=== PATIENT | female | born 1950 | race Caucasian/White ===

== ENCOUNTER 2016-03-13 07:16 | Inpatient (IN) | payer MEDICARE ==
[~2016-03-13] VITALS: Ht 167.6 cm; Wt 75.8 kg
[~2016-03-13 07:16] MED LIST: ALPR0.257 PO; AMOX1TAB58 PO; ATOR20TA58 PO; BACL10TA PO; BENZ100C2 PO; BISA10SU55 RC; CEFP200T PO; CEPH-263 PO; CLOP75TA27 PO; DARB60DI IJ; DILT120C97 PO; DILT120T3 PO; ERGO500012 PO; FAMO20TA5 PO; FERR-26 PO; FLUT1DIS5 IH; FOLI0.8T3 PO; FOLI1TAB16 PO; FURO-68 PO; GUAI200T3 PO; HYDR-2678 PO; HYDR-971 PO; HYDR25CA75 PO; IPRA3AMP23 IH; ISOS30TA4 PO; LEVE500T6 PO; LOSA100T2 PO; LOSA25TA4 PO; LOSA50TA2 PO; MAGN400O4 PO; NICO1PAT25 TD; NORT25CA3 PO; NYST1000 SWSW; NYST15OI2 TP; NYST60PO TP; ONDA4TAB12 PO; OXYB5TAB33 PO; POLY17PO5 PO; PRED-220 PO; SENN1TAB7 PO; TRAM50TA PO; TUBE5VIA3 ID; VENL150C6 PO; [UNRECOGNIZED DRUG - CODE] PO; [UNRECOGNIZED DRUG - CODE] PO
--- NOTE | 2016-03-13 07:43 | RAD ---
Portable chest, 03/13/2016: History: Dyspnea Comparison is made to a study from 01/19/2016. A multilumen right sided central venous catheter extends to the level of the atriocaval junction. The heart size and pulmonary vascularity are normal. Pleural effusions evident on the previous study have resolved. No pulmonary infiltrate is seen. An old, displaced right humeral neck fracture is again noted. A surgical plate and screws is evident in the lower cervical spine. IMPRESSION: No acute cardiopulmonary abnormality is detected.
[2016-03-13] MEDS ORDERED: methylPREDNISolone SOD SUCC PF 125 MG/2 ML VIAL. IV ONE (08:00)
[2016-03-13] MEDS ORDERED: IPRATRPIUM/ALBUTEROL 0.5/2.5MG 3 ML NEBU. NEB ONE (08:00)
[2016-03-13 08:01] LABS: BASO % 0 % (0-3); EOS % 0 % (0-3); HEMOGLOBIN 13.1 g/dL (12.0-15.5); LYMPH # 0.6 x10^3/uL (1.0-4.8); LYMPH % 4 % (24-48); MEAN CORPUSCULAR HEMOGLOBIN 28 pg (25-35); MEAN CORPUSCULAR HGB CONC 32 g/dL (31-37); MEAN CORPUSCULAR VOLUME 88 fL (79-100); MONO % 5 % (0-9); NEUT % 91 % (31-73); PLATELET COUNT 140 x10^3/uL (140-400); RED BLOOD COUNT 4.69 x10^6/uL (3.50-5.40); RED CELL DISTRIBUTION WIDTH 15.5 % (11.5-14.5); WHITE BLOOD COUNT 14.7 x10^3/uL (4.0-11.0)
[2016-03-13 08:07] LABS: CALCIUM 8.7 mg/dL (8.5-10.1); CREATININE 6.4 mg/dL (0.6-1.0); GFR 6.5; POTASSIUM 5.1 mmol/L (3.5-5.1)
--- NOTE | 2016-03-13 08:09 | PHYS DOC ---
Past Medical History Past Medical History: CHF, Constipation, COPD, CVA, Depression, High Cholesterol, Hypertension, [place] Additional Past Medical Histor: dysphagia, obesity, HEMODIALYSIS, constipation , cataract, right shoulder fx Past Surgical History: Other Additional Past Surgical Histo: left wrist; back; carotid; dialysis shunt right upper chest Alcohol Use: None Drug Use: None Adult General Chief Complaint Chief Complaint: SHORTNESS OF BREATH HPI HPI Patient is a 65 year old female who presents with dyspnea and dry cough for the past 2 months. She was seen at the beginning of January and treated for healthcare associated pneumonia. She states in the past 3 days she has significant difficulty breathing. She has had central chest pains with coughing that is achy over the past week or so. She denies hemoptysis, leg pain or swelling, palpitations, diaphoresis, exertional symptoms, orthopnea, sore throat , rhinorrhea, nasal congestion, abdominal pain, nausea or vomiting, diarrhea, headache. She has been compliant with dialysis on her Sunday, Sunday, Sunday schedule. EMS noted an oxygen saturation in the low 80s with significant tachypnea, so she was placed on CPAP prehospital with some improvement in her symptoms. She had nitroglycerin paste placed prehospital as well. She states her chest pain has resolved since therapy by EMS. She did wear her CPAP last night for SARITHA, but it did not help her as much as EMS's or ours. Review of Systems Review of Systems Constitutional: Denies fever or chills [] Eyes: Denies change in visual acuity, redness, or eye pain [] HENT: Denies nasal congestion or sore throat [] Respiratory: Has cough and shortness of breath [] Cardiovascular: No additional information not addressed in HPI [] GI: Denies abdominal pain, nausea, vomiting, bloody stools or diarrhea [] : Denies dysuria or hematuria [] Musculoskeletal: Denies back pain or joint pain [] Integument: Denies rash or skin lesions [] Neurologic: Denies headache, focal weakness or sensory changes [] Endocrine: Denies polyuria or polydipsia [] Current Medications Current Medications Current Medications Medications (Trade) Dose Ordered Sig/Negro Start Time Stop Time Status Last Admin Dose Admin Albuterol/ Ipratropium (Duoneb) 3 ml 1X ONCE 03/13/16 08:00 03/13/16 08:02 DC 03/13/16 08:28 3 ML Methylprednisolone Sodium Succinate (Solu-Medrol 125mg Vial) 125 mg 1X ONCE 03/13/16 08:00 03/13/16 08:02 DC 03/13/16 08:09 125 MG Allergies Allergies Allergies Coded Allergies Type Severity Reaction Last Updated Verified No Known Allergies Allergy Unknown 08/02/15 Yes Physical Exam Physical Exam Constitutional: Well developed, well nourished, moderate distress, non-toxic appearance. [] HENT: Normocephalic, atraumatic, bilateral external ears normal, oropharynx moist, no oral exudates, nose normal. [] Eyes: PERRLA, EOMI. [] Neck: Normal range of motion, suppler. [] Cardiovascular:Heart rate regular rhythm [] Lungs & Thorax: Bilateral mild wheezing, tachypnea, increased work of breathing. Has some parasternal chest wall tenderness with no visual or palpable abnormality [] Abdomen: Bowel sounds normal, soft, no tenderness. [] Skin: Warm, dry, no erythema, no rash. [] Back: No tenderness, no CVA tenderness. [] Extremities: No tenderness, ROM intact other than chronic RUE contracture from CVA, no edema, no palpable cord. [] Neurologic: Alert and oriented X 3, normal motor function, normal sensory function, no focal deficits noted. [] Psychologic: Affect normal, judgement normal, mood normal. [] Current Patient Data Vital Signs Vital Signs Date Time Temp Pulse Resp B/P Pulse Ox O2 Delivery O2 Flow Rate FiO2 03/13/16 07:20 100 BiPAP/CPAP 03/13/16 07:16 99.1 92 26 136/100 99.1 Lab Values Laboratory Tests Test 03/13/16 07:29 03/13/16 07:50 O2 Saturation 95% (92-99) Arterial Blood pH 7.27 (7.35-7.45) L Arterial Blood pCO2 at Patient Temp 35mmHg (35-46) Arterial Blood pO2 at Patient Temp 88mmHg (65-108) Arterial Blood HCO3 16mmol/L (21-28) L Arterial Blood Base Excess -10mmol/L (-3-3) L FiO2 25% White Blood Count 14.7x10^3/uL (4.0-11.0) H Red Blood Count 4.69x10^6/uL (3.50-5.40) Hemoglobin 13.1g/dL (12.0-15.5) Hematocrit 41.0% (36.0-47.0) Mean Corpuscular Volume 88fL (79-100) Mean Corpuscular Hemoglobin 28pg (25-35) Mean Corpuscular Hemoglobin Concent 32g/dL (31-37) Red Cell Distribution Width 15.5% (11.5-14.5) H Platelet Count 140x10^3/uL (140-400) Neutrophils (%) (Auto) 91% (31-73) H Lymphocytes (%) (Auto) 4% (24-48) L Monocytes (%) (Auto) 5% (0-9) Eosinophils (%) (Auto) 0% (0-3) Basophils (%) (Auto) 0% (0-3) Neutrophils # (Auto) 13.3x10^3uL (1.8-7.7) H Lymphocytes # (Auto) 0.6x10^3/uL (1.0-4.8) L Monocytes # (Auto) 0.7x10^3/uL (0.0-1.1) Eosinophils # (Auto) 0.0x10^3/uL (0.0-0.7) Basophils # (Auto) 0.0x10^3/uL (0.0-0.2) Platelet Estimate Pending Sodium Level 138mmol/L (136-145) Potassium Level 5.1mmol/L (3.5-5.1) Chloride Level 100mmol/L (98-107) Carbon Dioxide Level 19mmol/L (21-32) L Anion Gap 19 (6-14) H Blood Urea Nitrogen 85mg/dL (7-20) H Creatinine 6.4mg/dL (0.6-1.0) H Estimated GFR (Cockcroft-Gault) 6.5 Glucose Level 86mg/dL (70-99) Calcium Level 8.7mg/dL (8.5-10.1) Troponin I Quantitative 0.097ng/mL (0.000-0.055) YP-Uze-Q-Type Natriuretic Peptide > 58785ct/mL (0-124) H Laboratory Tests 03/13/16 07:50 Laboratory Tests 03/13/16 07:50 Radiology/Procedures Radiology/Procedures Chest xray as interpreted by me with no acute cardiopulmonary disease process Course & Med Decision Making Course & Med Decision Making Pertinent Labs and Imaging studies reviewed. (See chart for details) Symptoms and exam concerning for COPD exacerbation with acute respiratory failure. She states her symptoms are markedly improving with BiPAP here. ABG shows metabolic acidosis. She does have mildly elevated troponin and significant elevated proBNP in setting of end-stage renal disease, but her symptoms eval otherwise does not correlate with CHF exacerbation or HTN emergency. We will admit for further therapy of COPD exacerbation. Discussed case with Dr. Parra, who will admit. Pulmonology consultation placed. Discussed case with FILEMON Rothman cardiology, for routine consult. She remains chest pain free and is comfortable on BiPAP. Dragon Disclaimer Dragon Disclaimer This electronic medical record was generated, in whole or in part, using a voice recognition dictation system. Critical Care Time Critical care time was 40 minutes exclusive of procedures. Departure Departure Impression: Primary Impression: Respiratory failure Additional Impressions: COPD exacerbation Chest pain ESRD (end stage renal disease) on dialysis Elevated troponin Disposition: ADMITTED INPATIENT Condition: CRITICAL Referrals: LUZ CHARLTON Jr, MD (PCP) Problem Qualifiers Primary Impression: Respiratory failure Chronicity: acute Respiratory failure complication: hypoxia Qualified Code : J96.01 - Acute respiratory failure with hypoxia Additional Impressions: Chest pain Chest pain type: other chest pain Qualified Code: R07.89 - Other chest pain Mayuri DUNBAR MD Mar 13, 2016 08:09
[2016-03-13 08:15] LABS: HCO3 ABG 16 mmol/L (21-28); PCO2 ABG 35 mmHg (35-46); PH ABG 7.27 (7.35-7.45); PO2 ABG 88 mmHg (65-108); SAT O2 ABG 95 % (92-99)
[2016-03-13] MEDS ORDERED: LEVOFLOXACIN PER PHARMACY MC PRN (08:15)
[2016-03-13 08:21] LABS: FIO2 ABG 25%
[2016-03-13] MEDS ORDERED: ONDANSETRON PF 4 MG/2 ML VIAL. IV PRN ×2 (08:30→15:15)
[2016-03-13] MEDS ORDERED: ACETAMINOPHEN 325 MG TABLET. PO PRN ×2 (08:30→15:15)
[2016-03-13] MEDS ORDERED: FENTANYL PF 100 MCG/2 ML VIAL. IV PRN (08:30)
--- NOTE | 2016-03-13 08:33 | ACF ---
Admission Forms Criteria COPD Clinical Indications for Admission to Inpatient Care (Place 'X' for any and all applicable criteria): Admission is indicated for ANY ONE of the following (1)(2)(3): [X]I. Acute exacerbation by high-risk comorbidity (e.g., pneumonia, dysrhythmia, heart failure, pleural effusion, pneumothorax) or severe underlying COPD (e.g., steroid dependent) [ ]II. Inpatient admission required rather than observation care (see Chronic Obstructive Pulmonary Disease: Observation Care) because of ANY ONE of the following: [ ]a) New or pre-existing signs or symptoms of COPD (eg, dyspnea or Tachypnea at rest or with minimal activity) that persist despite outpatient and observation care treatment [ ]b) New-onset hypoxemia (room air SaO2 less than 90%, PO2 less than 60 mm Hg (8.0 kPa)) that persists despite outpatient and observation care treatment [ ]c) Worsening of pre-existing hypoxemia (eg, new or increased requirement for supplemental oxygen to maintain oxygenation at baseline level) that persists despite outpatient and observation care treatment, with oxygen treatment needs performable only in acute inpatient setting [ ]d) Hypercarbia (PCO2 greater than 40 mm Hg (5.3 kPa))-induced respiratory acidosis (pH less than 7.35) that persists despite outpatient and observation care treatment [ ]e) Supplemental oxygen or respiratory treatments for over 24 hours that are performable only in acute inpatient setting [ ]f) Chest tube placement with active evacuation (e.g., suction, drainage) (5) [ ]g) Other condition, treatment or monitoring requiring inpatient admission [ ]III. Planned invasive surgical or diagnostic procedures requiring acute- care hospitalization [ ]IV. Acute respiratory failure (e.g., uncompensated hypercarbia, severe hypoxemia) [ ]V. Severe comorbid condition (e.g., severe steroid myopathy, acute vertebral fracture) that has acutely worsened pulmonary function [ ]. Confusion state, lethargy, obtundation, stupor or coma Extended stay beyond goal length of stay may be needed for (31)(32): [ ]a ) Respiratory Failure. [ ]b) Severe or persisting hypoxemia or hypercarbia [ ]c) Severe or persistent dyspnea [ ]d) Comorbidities (e.g. chronic heart failure, atrial fibrillation with rapid response, pneumonia) [ ]e) Malnutrition The original [facility] content created by [facility] has been revised. The portions of the content which have been revised are identified through the use of italic text or in bold, and [facility] has neither reviewed nor approved the modified material. All other unmodified content is copyright [facility]. Please see references footnoted in the original [facility] edition 2016 Admission Criteria Met?: Yes GENI GRIDER Mar 13, 2016 08:33
[2016-03-13 09:30] VITALS: BP 130/76
--- NOTE | 2016-03-13 09:58 | EKG ---
[facility] [address] [place] [address] Test Date: 2016-03-13 Test Time: 09:51:49 Pat Name: SHARDA JOSEPH Department: Room: 261 1 Gender: F Handbag Stitcher: JOSELUIS : 1950 Requested By: Mayuri DUNBAR Order Number: [id number] Reading MD: Pasquale Rocha Measurements Intervals [place] Rate: 80 P: -27 [place]: 122 QRS: 18 QRSD: 76 T: 101 QT: 366 QTc: 426 Interpretive Statements SINUS RHYTHM NON-SPECIFIC ST/T CHANGES Electronically Signed On 03-13-2016 10:45:53 DATA INTEGRATION ARCHITECT by Pasquale Rocha
--- NOTE | 2016-03-13 10:04 | PDOC2 ---
CARDIAC CONSULT DATE OF CONSULT Date of Consult DATE: 03/13/16 TIME: 09:52 REASON FOR CONSULT Reason for Consult: Dyspnea Elevated BNP Elevated Troponin REFERRING PHYSICIAN Referring Physician: Dr. Pina SOURCE Source: Chart review, Patient HISTORY OF PRESENT ILLNESS HISTORY OF PRESENT ILLNESS This is a 65 yo female, with a h/o CHF, ESRD on HD MWF, recent PNA, HTN, HLP, and CVA, who presented with complaints of shortness of breath. Patient reports shortness of breath has been ongoing since having PNA this past January. Has been progressively worsening over the last week. Associated with non-productive cough. Liz any chest pain, palpitations, dizziness, diaphoresis, nausea/ vomiting, orthopnea, LE edema, or fevers. Has been compliant with HD. Last run Sunday. EMS noted oxygen saturations in the low 80's. Was placed on CPAP prior to arrival. Additionally has h/o SARITHA with CPAP and reports compliance with this. Continues to smoke 1ppd. Reports compliance with medications. Denies any h /o CAD or DC. PAST MEDICAL HISTORY Cardiovascular: CHF, HTN, Hyperlipidemia, Other (PVD) Pulmonary: COPD, Pneumonia, Other (SARITHA) CENTRAL NERVOUS SYSTEM: CVA (right-sided residual), TIA Heme/Onc: Anemia NOS Psych: Anxiety, Depression Musculoskeletal: low back pain, Osteoarthritis Rheumatologic: Fibromyalgia Infectious disease: No pertinent hx ENT: No pertinent hx Renal/: Chronic renal failure (on HD ) Endocrine: No pertinent hx Dermatology: No pertinent hx PAST SURGICAL HISTORY Past Surgical History: Cataract Removal, Tonsillectomy (adenoidectomy ), Other (back sx, abdominal sx) FAMILY HISTORY Family History: Coronary Artery Disease, Diabetes, Hypertension, Stroke SOCIAL HISTORY Smoke: 1 pack per day ALCOHOL: rare Drugs: None Lives: Friends CURRENT MEDICATIONS CURRENT MEDICATIONS Current Medications Medications (Trade) Dose Ordered Sig/Negro Route PRN Reason Start Time Stop Time Status Last Admin Dose Admin Albuterol/ Ipratropium (Duoneb) 3 ml 1X ONCE NEB 03/13/16 08:00 03/13/16 08:02 DC 03/13/16 08:28 Methylprednisolone Sodium Succinate 125 mg 125 mg 1X ONCE IV 03/13/16 08:00 03/13/16 08:02 DC 03/13/16 08:09 Levofloxacin/ Dextrose (LEVAQUIN 500mg PREMIX) 100 ml @ 100 mls/hr Q48H IV 03/13/16 09:00 03/13/16 09:13 ALLERGIES ALLERGIES: Coded Allergies: No Known Allergies (Verified Allergy, Unknown, 08/02/15) ROS Review of System 14 point ROS conducted with pertinent positives noted above in HPI. PHYSICAL EXAM General: Alert, Oriented X3, Cooperative, No acute distress HEENT: Atraumatic, Mucous membr. moist/pink Lungs: Other (coarse throughout, diffuse exp. wheezes) Heart: Regular rate, Normal S1, Normal S2, Other (heart tones difficult to appreciate through BiPAP) Abdomen: Soft, No tenderness Extremities: No cyanosis, No edema, Other (diminished pedal pulses) Skin: No rashes, No significant lesion Neuro: Normal speech, Sensation intact, Other (right-sided weakness) Psych/Mental Status: Mental status NL, Mood NL MUSCULOSKELETAL: Osteoarthritic changes both hands VITALS VITALS Vital Signs Date Time Temp Pulse Resp B/P Pulse Ox O2 Delivery O2 Flow Rate FiO2 03/13/16 09:30 98.5 81 20 130/76 98 BiPAP/CPAP 98.5 LABS Lab: Laboratory Tests Test 03/13/16 07:29 03/13/16 07:50 O2 Saturation 95% (92-99) Arterial Blood pH 7.27 (7.35-7.45) Arterial Blood pCO2 at Patient Temp 35mmHg (35-46) Arterial Blood pO2 at Patient Temp 88mmHg (65-108) Arterial Blood HCO3 16mmol/L (21-28) Arterial Blood Base Excess -10mmol/L (-3-3) FiO2 25% White Blood Count 14.7x10^3/uL (4.0-11.0) Red Blood Count 4.69x10^6/uL (3.50-5.40) Hemoglobin 13.1g/dL (12.0-15.5) Hematocrit 41.0% (36.0-47.0) Mean Corpuscular Volume 88fL (79-100) Mean Corpuscular Hemoglobin 28pg (25-35) Mean Corpuscular Hemoglobin Concent 32g/dL (31-37) Red Cell Distribution Width 15.5% (11.5-14.5) Platelet Count 140x10^3/uL (140-400) Neutrophils (%) (Auto) 91% (31-73) Lymphocytes (%) (Auto) 4% (24-48) Monocytes (%) (Auto) 5% (0-9) Eosinophils (%) (Auto) 0% (0-3) Basophils (%) (Auto) 0% (0-3) Neutrophils # (Auto) 13.3x10^3uL (1.8-7.7) Lymphocytes # (Auto) 0.6x10^3/uL (1.0-4.8) Monocytes # (Auto) 0.7x10^3/uL (0.0-1.1) Eosinophils # (Auto) 0.0x10^3/uL (0.0-0.7) Basophils # (Auto) 0.0x10^3/uL (0.0-0.2) Sodium Level 138mmol/L (136-145) Potassium Level 5.1mmol/L (3.5-5.1) Chloride Level 100mmol/L (98-107) Carbon Dioxide Level 19mmol/L (21-32) Anion Gap 19 (6-14) Blood Urea Nitrogen 85mg/dL (7-20) Creatinine 6.4mg/dL (0.6-1.0) Estimated GFR (Cockcroft-Gault) 6.5 Glucose Level 86mg/dL (70-99) Calcium Level 8.7mg/dL (8.5-10.1) Troponin I Quantitative 0.097ng/mL (0.000-0.055) KF-Mty-O-Type Natriuretic Peptide > 24272qr/mL (0-124) ECHOCARDIOGRAM ECHOCARDIOGRAM <Conclusion> The left ventricle is normal size. Left ventricle systolic function is normal. The Ejection Fraction is 55-60%. The interatrial septum is intact with no evidence for an atrial septal defect or patent foramen ovale as noted on 2-D or Doppler imaging. There is no significant aortic valvular stenosis. Doppler and Color Flow revealed no significant aortic regurgitation. Doppler and Color Flow revealed moderate mitral regurgitation. Doppler and Color Flow revealed mild to moderate tricuspid regurgitation. The PA pressure was estimated at 36 mmHg. There is no evidence of significant pericardial effusion. DATE: 12/18/13 1728 ASSESSMENT/PLAN ASSESSMENT/PLAN 1. Acute on chronic probable diastolic heart failure Nt Pro BNP >35,000. CXR with no significant fluid accumulation. No JVD Likely induced by acute respiratory failure Echo 12/2013 ~ LVEF 55-60% Will repeat echo today to assess LV function Fluid offloading as warranted in HD per nephrology 2. Acute on chronic respiratory failure with AE COPD recently treated for PNA requiring BiPAP pulmonary consulted 3. Mild troponin elevation initial trop 0.097. Likely type 2, demand ischemia in the setting of acute CHF/respiratory failure and renal failure trend enzymes. ASA, check lipids check echo for presence of WMA 4. HTN well-controlled continue with current therapy 5. HLP check lipids resume home statin therapy 6. Leukocytosis antibiotic therapy initiated in ED 7. PVD stable. No claudication symptoms medical therapy 8. Tobaccoism cessation discussed and encouraged. Problems: MARCELINO BRAN APRN Mar 13, 2016 10:04
[2016-03-13 10:49] VITALS: BP 121/30
[2016-03-13] MEDS ORDERED: ASPIRIN 325 MG TABLET PO ONE (11:30)
[2016-03-13 11:55] LABS: PLT ESTIMATE ADEQUATE (ADEQUATE)
[2016-03-13] MEDS ORDERED: IPRATRPIUM/ALBUTEROL 0.5/2.5MG 3 ML NEBU. NEB SCH (12:00)
--- NOTE | 2016-03-13 13:48 | PDOC ---
PULMONARY PROGRESS NOTES Vitals Vital Signs Date Time Temp Pulse Resp B/P Pulse Ox O2 Delivery O2 Flow Rate FiO2 03/13/16 12:41 97 BiPAP/CPAP 03/13/16 10:49 98.2 80 24 121/30 98.2 General: Alert Lungs: Clear, Other Cardiovascular: S1, S2 Abdomen: Soft, Non-tender Extremities: No Edema Labs Laboratory Tests Test 03/13/16 07:29 03/13/16 07:50 O2 Saturation 95% (92-99) Arterial Blood pH 7.27 (7.35-7.45) Arterial Blood pCO2 at Patient Temp 35mmHg (35-46) Arterial Blood pO2 at Patient Temp 88mmHg (65-108) Arterial Blood HCO3 16mmol/L (21-28) Arterial Blood Base Excess -10mmol/L (-3-3) FiO2 25% White Blood Count 14.7x10^3/uL (4.0-11.0) Red Blood Count 4.69x10^6/uL (3.50-5.40) Hemoglobin 13.1g/dL (12.0-15.5) Hematocrit 41.0% (36.0-47.0) Mean Corpuscular Volume 88fL (79-100) Mean Corpuscular Hemoglobin 28pg (25-35) Mean Corpuscular Hemoglobin Concent 32g/dL (31-37) Red Cell Distribution Width 15.5% (11.5-14.5) Platelet Count 140x10^3/uL (140-400) Neutrophils (%) (Auto) 91% (31-73) Lymphocytes (%) (Auto) 4% (24-48) Monocytes (%) (Auto) 5% (0-9) Eosinophils (%) (Auto) 0% (0-3) Basophils (%) (Auto) 0% (0-3) Neutrophils # (Auto) 13.3x10^3uL (1.8-7.7) Lymphocytes # (Auto) 0.6x10^3/uL (1.0-4.8) Monocytes # (Auto) 0.7x10^3/uL (0.0-1.1) Eosinophils # (Auto) 0.0x10^3/uL (0.0-0.7) Basophils # (Auto) 0.0x10^3/uL (0.0-0.2) Segmented Neutrophils % 88% (35-66) Band Neutrophils % 3% (0-9) Lymphocytes % 5% (24-48) Monocytes % 4% (0-10) Platelet Estimate Adequate (ADEQUATE) Sodium Level 138mmol/L (136-145) Potassium Level 5.1mmol/L (3.5-5.1) Chloride Level 100mmol/L (98-107) Carbon Dioxide Level 19mmol/L (21-32) Anion Gap 19 (6-14) Blood Urea Nitrogen 85mg/dL (7-20) Creatinine 6.4mg/dL (0.6-1.0) Estimated GFR (Cockcroft-Gault) 6.5 Glucose Level 86mg/dL (70-99) Calcium Level 8.7mg/dL (8.5-10.1) Troponin I Quantitative 0.097ng/mL (0.000-0.055) FE-Dcd-M-Type Natriuretic Peptide > 51191zh/mL (0-124) Laboratory Tests Test 03/13/16 07:29 03/13/16 07:50 O2 Saturation 95% (92-99) Arterial Blood pH 7.27 (7.35-7.45) Arterial Blood pCO2 at Patient Temp 35mmHg (35-46) Arterial Blood pO2 at Patient Temp 88mmHg (65-108) Arterial Blood HCO3 16mmol/L (21-28) Arterial Blood Base Excess -10mmol/L (-3-3) FiO2 25% White Blood Count 14.7x10^3/uL (4.0-11.0) Red Blood Count 4.69x10^6/uL (3.50-5.40) Hemoglobin 13.1g/dL (12.0-15.5) Hematocrit 41.0% (36.0-47.0) Mean Corpuscular Volume 88fL (79-100) Mean Corpuscular Hemoglobin 28pg (25-35) Mean Corpuscular Hemoglobin Concent 32g/dL (31-37) Red Cell Distribution Width 15.5% (11.5-14.5) Platelet Count 140x10^3/uL (140-400) Neutrophils (%) (Auto) 91% (31-73) Lymphocytes (%) (Auto) 4% (24-48) Monocytes (%) (Auto) 5% (0-9) Eosinophils (%) (Auto) 0% (0-3) Basophils (%) (Auto) 0% (0-3) Neutrophils # (Auto) 13.3x10^3uL (1.8-7.7) Lymphocytes # (Auto) 0.6x10^3/uL (1.0-4.8) Monocytes # (Auto) 0.7x10^3/uL (0.0-1.1) Eosinophils # (Auto) 0.0x10^3/uL (0.0-0.7) Basophils # (Auto) 0.0x10^3/uL (0.0-0.2) Segmented Neutrophils % 88% (35-66) Band Neutrophils % 3% (0-9) Lymphocytes % 5% (24-48) Monocytes % 4% (0-10) Platelet Estimate Adequate (ADEQUATE) Sodium Level 138mmol/L (136-145) Potassium Level 5.1mmol/L (3.5-5.1) Chloride Level 100mmol/L (98-107) Carbon Dioxide Level 19mmol/L (21-32) Anion Gap 19 (6-14) Blood Urea Nitrogen 85mg/dL (7-20) Creatinine 6.4mg/dL (0.6-1.0) Estimated GFR (Cockcroft-Gault) 6.5 Glucose Level 86mg/dL (70-99) Calcium Level 8.7mg/dL (8.5-10.1) Troponin I Quantitative 0.097ng/mL (0.000-0.055) RH-Yyl-P-Type Natriuretic Peptide > 23481zd/mL (0-124) Medications Active Scripts Medications Dose Route/Sig Days Date Category Nystatin 100,000 Unit/1 Ml Oral.susp 5 Ml SWSW QID 01/21/16 Rx Nystop (Nystatin) 60 Gm Powder 1 Jesus TP BID 01/21/16 Rx Cefpodoxime Proxetil 200 Mg Tablet 200 Mg PO DAILY 01/21/16 Rx Benzonatate 100 Mg Capsule 100 Mg PO TID PRN 01/21/16 Rx Folic Acid 1 Mg Tablet 1 Tab PO DAILY 01/14/16 Reported Levetiracetam 500 Mg Tablet 500 Mg PO BID 01/14/16 Reported Vitamin D2 (Ergocalciferol (Vitamin D2)) 50,000 Unit Capsule 1 Cap PO WEEKLY 01/14/16 Reported Ondansetron Odt (Ondansetron) 4 Mg Tab.rapdis 1 Tab PO TID PRN 01/14/16 Reported [place] 5-325 Tablet (Acetaminophen/Hydrocodone Bitart) 1 Each Tablet 1 Tab PO PRN Q6HRS PRN 10/12/15 Rx Nystatin-Triamcinolone Ointm (Nystatin/Triamcin) 30 Gm Oint...g. 30 Gm TP BID 05/20/13 Reported Venlafaxine Hcl Er (Venlafaxine Hcl) 150 Mg Cap.er.24h 150 Mg PO DAILY 05/20/13 Reported Plavix (Clopidogrel Bisulfate) 75 Mg Tablet 75 Mg PO DAILY 05/20/13 Reported Nephro-Fay Tablet (Folic Acid/Vitamin B Comp W-C) 0.8 Mg Tablet 0.8 Mg PO DAILY 05/20/13 Reported Duoneb 0.5 Mg-3 Mg/3 Ml Soln (Ipratropium/Albuterol Sulfate) 3 Ml Ampul.neb 3 Ml IH Q6HRS 05/20/13 Reported Ditropan Xl (Oxybutynin Chloride) 5 Mg Tab.er.24 5 Mg PO DAILY 05/20/13 Reported Atorvastatin Calcium 20 Mg Tablet 20 Mg PO QHS 05/20/13 Reported Advair 500-50 Diskus (Fluticasone/Salmeterol) 1 Each Disk.w.dev 1 Each IH BID 05/20/13 Reported Impression . Full consult dictated acute resp failure met acidosis AECOPD see orders ASIA BACH MD Mar 13, 2016 13:48
--- NOTE | 2016-03-13 14:02 | PDOC2 ---
CONSULT Date of Consult Date of Consult DATE: 03/13/16 TIME: 14:00 Reason for Consult Reason for Consult: ESRD Referring Physician Referring Physician: Dr cook Identification/Chief Complaint Chief Complaint SOB Problems: Source Source: Chart review, Patient History of Present Illness Reason for Visit: as dictated Past Medical History Cardiovascular: CHF, HTN, Hyperlipidemia, Other (PVD) Pulmonary: COPD, Pneumonia, Other (SARITHA) CENTRAL NERVOUS SYSTEM: CVA (right-sided residual), TIA GI: GERD, Peptic Ulcer disease, Other Heme/Onc: Anemia NOS Psych: Anxiety, Depression Musculoskeletal: low back pain, Osteoarthritis Rheumatologic: Fibromyalgia Infectious disease: No pertinent hx ENT: No pertinent hx Renal/: Chronic renal failure (on HD ) Endocrine: No pertinent hx Dermatology: No pertinent hx Past Surgical History Past Surgical History: Cataract Removal, Tonsillectomy (adenoidectomy ), Other (back sx, abdominal sx) Family History Family History: Coronary Artery Disease, Diabetes, Hypertension, Stroke Social History 1 pack per day ALCOHOL: rare Drugs: None Lives: Friends Domestic Violence: Neg Current Problem List Problem List Problems Medical Problems: (1) Chest pain Status: Acute (2) COPD exacerbation Status: Acute (3) Elevated troponin Status: Acute (4) ESRD (end stage renal disease) on dialysis Status: Acute (5) Respiratory failure Status: Acute Current Medications Current Medications Current Medications Albuterol/ Ipratropium (Duoneb) 3 ml 1X ONCE NEB Last administered on 08:28; Start 03/13/16 at 08:00; Stop 03/13/16 at 08:02; Status DC Methylprednisolone Sodium Succinate (Solu-Medrol 125mg Vial) 125 mg 1X ONCE IV Last administered on 03/13/16 08:09; Start 03/13/16 at 08:00; Stop 03/13/16 at 08:02; Status DC Levofloxacin/ Dextrose 1 each 1 each PRN DAILY PRN MC SEE COMMENTS; Start 03/13 at 08:15 Levofloxacin/ Dextrose (LEVAQUIN 500mg PREMIX) 100 ml @ 100 mls/hr Q48H IV Last administered on 03/13/16 09:13; Start 03/13/16 at 09:00 Ondansetron HCl (Zofran) 4 mg PRN Q8HRS PRN IV NAUSEA/VOMITING; Start 03/13/16 at 08:30; Stop 03/14/16 at 08:29 Fentanyl Citrate (Fentanyl 2ml Vial) 50 mcg PRN Q2HR PRN IV PAIN; Start at 08:30; Stop 03/14/16 at 08:29 Acetaminophen (Tylenol) 650 mg PRN Q4HRS PRN PO FEVER; Start 03/13/16 at 08:30 ; Stop 03/14/16 at 08:29 Albuterol/ Ipratropium (Duoneb) 3 ml RTQID NEB Last administered on 03/13/16 12:41; Start 03/13/16 at 12:00; Stop 03/14/16 at 11:59 Aspirin (Ramu Aspirin) 325 mg 1X ONCE PO Last administered on 03/13/16 12:29 ; Start 03/13/16 at 11:30; Stop 03/13/16 at 11:31; Status DC Active Scripts Active Nystatin 100,000 Unit/1 Ml Oral.susp 5 Ml SWSW QID Nystop (Nystatin) 60 Gm Powder 1 Jesus TP BID Cefpodoxime Proxetil 200 Mg Tablet 200 Mg PO DAILY Benzonatate 100 Mg Capsule 100 Mg PO TID PRN Ackerly 5-325 Tablet (Acetaminophen/Hydrocodone Bitart) 1 Each Tablet 1 Tab PO PRN Q6HRS PRN Reported Folic Acid 1 Mg Tablet 1 Tab PO DAILY Levetiracetam 500 Mg Tablet 500 Mg PO BID Vitamin D2 (Ergocalciferol (Vitamin D2)) 50,000 Unit Capsule 1 Cap PO WEEKLY Ondansetron Odt (Ondansetron) 4 Mg Tab.rapdis 1 Tab PO TID PRN Nystatin-Triamcinolone Ointm (Nystatin/Triamcin) 30 Gm Oint...g. 30 Gm TP BID Venlafaxine Hcl Er (Venlafaxine Hcl) 150 Mg Cap.er.24h 150 Mg PO DAILY Plavix (Clopidogrel Bisulfate) 75 Mg Tablet 75 Mg PO DAILY Nephro-Fay Tablet (Folic Acid/Vitamin B Comp W-C) 0.8 Mg Tablet 0.8 Mg PO DAILY Duoneb 0.5 Mg-3 Mg/3 Ml Soln (Ipratropium/Albuterol Sulfate) 3 Ml Ampul.neb 3 Ml IH Q6HRS Ditropan Xl (Oxybutynin Chloride) 5 Mg Tab.er.24 5 Mg PO DAILY Atorvastatin Calcium 20 Mg Tablet 20 Mg PO QHS Advair 500-50 Diskus (Fluticasone/Salmeterol) 1 Each Disk.w.dev 1 Each IH BID Allergies Allergies: Coded Allergies: No Known Allergies (Verified Allergy, Unknown, 08/02/15) ROS Review of System GEN: no Fevers no Chills EYES: no new Visual Complaints ENT: no EN Drainage no Hearing deficiets CVS: min Orthopnea + CP RESP: + SOB no ORONA (does not ambulated much) GI: no Nausea no Vomiting : no Dysuria no Urgency HEME: no easy bruising no Palp Ly Nodes NEURO no Focal Weakness no Sz + Speech deficiets PSYCH: no Suicidal Ideation no Depression SKIN: no Rashes ENDO: no Polyuria or Polydipsia no Hot/Cold Intolerance MU SK: occ Arthralgia min Myalgia Physical Exam Physical Exam General Appearance: Awake Alert Oriented x 3 In no Distress; flattish affect Eyes: VIsion Unchanged Conjunctiva Normal EN: No EN Drainage Mucous Memb. moist Neck: no JVD no JVP Supple no Thyromegaly; shrot neck CVS: S1 S2 no Murmur No Gallop No Rub no Edema Resp: no Rales no Rhonchi no Acc. Muscle use GI: BAS +ve NO Bruit Non Tender Non Distended; obese : no CVA tenderness; no Suprapubic Tenderness SKIN: no ovious Rashes Breast Exam deferred Mu.Sk: Adequate ROM no Muscle Atrophy Heme: Unable to palpate Obvious LAD no palp Splenomegaly NEURO: No asterixis; moves Upper ext OK Psych: ? Depressed no Active hallucination Vital Signs Vital Signs Date Time Temp Pulse Resp B/P Pulse Ox O2 Delivery O2 Flow Rate FiO2 03/13/16 12:41 97 BiPAP/CPAP 03/13/16 10:49 98.2 80 24 121/30 98.2 Assessment & Plan ESRD: Dialysis as below F 180 NR 3.5 Hrs 2 K 2.5 Ca 140 Na 40 HC03 Qb 350 + Qd 500+ Heparin 0 Units Uf 2 Kgs or to dry weight as tolerated May give 25-50 gms of 25% Albumin if needed to maintain Hemodynamic stability Treatment plan reviewed and discussed with adobe developer Anemia: No Epogen for hgb > 11; Transfuse with next HD as needed. HTN: Current BP meds reviewed. See orders for changes. Bone & Mineral: follow phos SOB Subj - defer to Pulm Does not appear to be fluid related Discussed Plan of Care and prognosis etc. at length with pt Labs Labs Laboratory Tests Test 03/13/16 07:29 03/13/16 07:50 O2 Saturation 95% (92-99) Arterial Blood pH 7.27 (7.35-7.45) Arterial Blood pCO2 at Patient Temp 35mmHg (35-46) Arterial Blood pO2 at Patient Temp 88mmHg (65-108) Arterial Blood HCO3 16mmol/L (21-28) Arterial Blood Base Excess -10mmol/L (-3-3) FiO2 25% White Blood Count 14.7x10^3/uL (4.0-11.0) Red Blood Count 4.69x10^6/uL (3.50-5.40) Hemoglobin 13.1g/dL (12.0-15.5) Hematocrit 41.0% (36.0-47.0) Mean Corpuscular Volume 88fL (79-100) Mean Corpuscular Hemoglobin 28pg (25-35) Mean Corpuscular Hemoglobin Concent 32g/dL (31-37) Red Cell Distribution Width 15.5% (11.5-14.5) Platelet Count 140x10^3/uL (140-400) Neutrophils (%) (Auto) 91% (31-73) Lymphocytes (%) (Auto) 4% (24-48) Monocytes (%) (Auto) 5% (0-9) Eosinophils (%) (Auto) 0% (0-3) Basophils (%) (Auto) 0% (0-3) Neutrophils # (Auto) 13.3x10^3uL (1.8-7.7) Lymphocytes # (Auto) 0.6x10^3/uL (1.0-4.8) Monocytes # (Auto) 0.7x10^3/uL (0.0-1.1) Eosinophils # (Auto) 0.0x10^3/uL (0.0-0.7) Basophils # (Auto) 0.0x10^3/uL (0.0-0.2) Segmented Neutrophils % 88% (35-66) Band Neutrophils % 3% (0-9) Lymphocytes % 5% (24-48) Monocytes % 4% (0-10) Platelet Estimate Adequate (ADEQUATE) Sodium Level 138mmol/L (136-145) Potassium Level 5.1mmol/L (3.5-5.1) Chloride Level 100mmol/L (98-107) Carbon Dioxide Level 19mmol/L (21-32) Anion Gap 19 (6-14) Blood Urea Nitrogen 85mg/dL (7-20) Creatinine 6.4mg/dL (0.6-1.0) Estimated GFR (Cockcroft-Gault) 6.5 Glucose Level 86mg/dL (70-99) Calcium Level 8.7mg/dL (8.5-10.1) Troponin I Quantitative 0.097ng/mL (0.000-0.055) XM-Jgm-P-Type Natriuretic Peptide > 69099xb/mL (0-124) Laboratory Tests Test 03/13/16 07:29 03/13/16 07:50 O2 Saturation 95% (92-99) Arterial Blood pH 7.27 (7.35-7.45) Arterial Blood pCO2 at Patient Temp 35mmHg (35-46) Arterial Blood pO2 at Patient Temp 88mmHg (65-108) Arterial Blood HCO3 16mmol/L (21-28) Arterial Blood Base Excess -10mmol/L (-3-3) FiO2 25% White Blood Count 14.7x10^3/uL (4.0-11.0) Red Blood Count 4.69x10^6/uL (3.50-5.40) Hemoglobin 13.1g/dL (12.0-15.5) Hematocrit 41.0% (36.0-47.0) Mean Corpuscular Volume 88fL (79-100) Mean Corpuscular Hemoglobin 28pg (25-35) Mean Corpuscular Hemoglobin Concent 32g/dL (31-37) Red Cell Distribution Width 15.5% (11.5-14.5) Platelet Count 140x10^3/uL (140-400) Neutrophils (%) (Auto) 91% (31-73) Lymphocytes (%) (Auto) 4% (24-48) Monocytes (%) (Auto) 5% (0-9) Eosinophils (%) (Auto) 0% (0-3) Basophils (%) (Auto) 0% (0-3) Neutrophils # (Auto) 13.3x10^3uL (1.8-7.7) Lymphocytes # (Auto) 0.6x10^3/uL (1.0-4.8) Monocytes # (Auto) 0.7x10^3/uL (0.0-1.1) Eosinophils # (Auto) 0.0x10^3/uL (0.0-0.7) Basophils # (Auto) 0.0x10^3/uL (0.0-0.2) Segmented Neutrophils % 88% (35-66) Band Neutrophils % 3% (0-9) Lymphocytes % 5% (24-48) Monocytes % 4% (0-10) Platelet Estimate Adequate (ADEQUATE) Sodium Level 138mmol/L (136-145) Potassium Level 5.1mmol/L (3.5-5.1) Chloride Level 100mmol/L (98-107) Carbon Dioxide Level 19mmol/L (21-32) Anion Gap 19 (6-14) Blood Urea Nitrogen 85mg/dL (7-20) Creatinine 6.4mg/dL (0.6-1.0) Estimated GFR (Cockcroft-Gault) 6.5 Glucose Level 86mg/dL (70-99) Calcium Level 8.7mg/dL (8.5-10.1) Troponin I Quantitative 0.097ng/mL (0.000-0.055) WV-Smo-K-Type Natriuretic Peptide > 84263ov/mL (0-124) Images Images Portable chest, 03/13/2016: History: Dyspnea Comparison is made to a study from 01/19/2016. A multilumen right sided central venous catheter extends to the level of the atriocaval junction. The heart size and pulmonary vascularity are normal. Pleural effusions evident on the previous study have resolved. No pulmonary infiltrate is seen. An old, displaced right humeral neck fracture is again noted. A surgical plate and screws is evident in the lower cervical spine. IMPRESSION: No acute cardiopulmonary abnormality is detected. HERB KEYS MD Mar 13, 2016 14:02
[2016-03-13] MEDS: NYSTATIN TOPICAL POWDER 15GM BOTTLE. TP SCH ×2 (15:00→21:00)
[2016-03-13] MEDS ORDERED: IV NORMAL SALINE 1000ML BAG 1,000 ML IV PRN ×2 (15:00)
[2016-03-13] MEDS ORDERED: ALBUTEROL SULFATE 2.5 MG/3 ML NEBU. NEB PRN (15:15)
[2016-03-13] MEDS ORDERED: BENZONATATE 100 MG CAPSULE. PO PRN (15:15)
--- NOTE | 2016-03-13 15:18 | PDOC1 ---
History and Physical Date of Admission Date of Admission 03/13/16 Identification/Chief Complaint Chief Complaint sob, cough Problems: Source Source: Chart review, Patient History of Present Illness History of Present Illness HPI HPI Patient is a 65 year old female who presents with dyspnea and dry cough for the past 2 months. Pt was DCed here last month for PNA, however, since DC, pt never feels better ,still cough with yellowish sputum, and sop, on home NC 2L. She is on HD WMF, didnot miss HD. Pt came today for worsening sob, with cough and sputum. No FEVEr, chills, chest pian, N/V, abd pain or diarrhea. Pt feels better with bipap now. pt has nebs listed as home meds, however, she told me she had no pulm nor use nebs at home. smoker Past Medical History Cardiovascular: CHF, HTN, Hyperlipidemia, Other (PVD) Pulmonary: COPD, Pneumonia, Other (SARITHA) CENTRAL NERVOUS SYSTEM: CVA (right-sided residual), TIA GI: GERD, Peptic Ulcer disease, Other Heme/Onc: Anemia NOS Psych: Anxiety, Depression Rheumatologic: Fibromyalgia Infectious disease: No pertinent hx ENT: No pertinent hx Renal/: Chronic renal failure (on HD ) Endocrine: No pertinent hx Dermatology: No pertinent hx Past Surgical History Past Surgical History: Cataract Removal, Tonsillectomy (adenoidectomy ), Other (back sx, abdominal sx) Family History Family History: Coronary Artery Disease, Diabetes, Hypertension, Stroke Social History Smoke: 1 pack per day ALCOHOL: rare Drugs: None Current Problem List Problem List Problems Medical Problems: (1) Chest pain Status: Acute (2) COPD exacerbation Status: Acute (3) Elevated troponin Status: Acute (4) ESRD (end stage renal disease) on dialysis Status: Acute (5) Respiratory failure Status: Acute Current Medications Current Medications Current Medications Medications (Trade) Dose Ordered Sig/Negro Start Time Stop Time Status Last Admin Dose Admin Acetaminophen (Tylenol) 650 mg PRN Q4HRS PRN 03/13/16 08:30 03/14/16 08:29 Albuterol/ Ipratropium (Duoneb) 3 ml RTQID 03/13/16 12:00 03/14/16 11:59 03/13/16 12:41 3 ML Aspirin (Ramu Aspirin) 325 mg 1X ONCE 03/13/16 11:30 03/13/16 11:31 DC 03/13/16 12:29 325 MG Fentanyl Citrate (Fentanyl 2ml Vial) 50 mcg PRN Q2HR PRN 03/13/16 08:30 03/14/16 08:29 Levofloxacin/ Dextrose (LEVAQUIN 500mg PREMIX) 100 ml @ 100 mls/hr Q48H 03/13/16 09:00 03/13/16 09:13 100 MLS/HR Levofloxacin/ Dextrose 1 each 1 each PRN DAILY PRN 03/13/16 08:15 03/13/16 14:44 DC Methylprednisolone Sodium Succinate (Solu-Medrol 125mg Vial) 125 mg 1X ONCE 03/13/16 08:00 03/13/16 08:02 DC 03/13/16 08:09 125 MG Nystatin (Nystop) 1 marley BID 03/13/16 14:45 Ondansetron HCl (Zofran) 4 mg PRN Q8HRS PRN 03/13/16 08:30 03/14/16 08:29 Allergies Allergies Allergies Coded Allergies Type Severity Reaction Last Updated Verified No Known Allergies Allergy Unknown 08/02/15 Yes ROS Review of System CONSTITUTIONAL: No fever or chills EYES: No recent changes SKIN: No rash or itching CARDIOVASCULAR: No chest pain, syncope, palpitations, or edema RESPIRATORY: No SOB or cough GASTROINTESTINAL: No nausea, vomiting or abdominal pain NEUROLOGICAL: No headaches or weakness ENDOCRINE: No cold or heat intolerance GENITOURINARY: No urgency or frequency of urination MUSCULOSKELETAL: No back pain or joint pain LYMPHATICS: No enlarged lymph nodes PSYCHIATRIC: No anxiety or depression Physical Exam Physical Exam GEN.: No apparent distress. Alert and oriented. on bipap HEENT: Head is normocephalic, atraumatic NECK: Supple. LUNGS: bl coarse BS, no wheezing. dialysis shunt right upper chest HEART: RRR, S1, S2 present. Peripheral pulses intact ABDOMEN: Soft, nontender. Positive bowel sounds. EXTREMITIES: Without any cyanosis. no edema NEUROLOGIC: Normal speech, normal tone PSYCHIATRIC: Normal affect, normal mood. SKIN: No ulcerations Vitals Vitals Vital Signs Date Time Temp Pulse Resp B/P Pulse Ox O2 Delivery O2 Flow Rate FiO2 03/13/16 13:45 96 BiPAP/CPAP 03/13/16 10:49 98.2 80 24 121/30 98.2 Labs Labs Laboratory Tests Test 03/13/16 07:29 03/13/16 07:50 O2 Saturation 95% (92-99) Arterial Blood pH 7.27 (7.35-7.45) Arterial Blood pCO2 at Patient Temp 35mmHg (35-46) Arterial Blood pO2 at Patient Temp 88mmHg (65-108) Arterial Blood HCO3 16mmol/L (21-28) Arterial Blood Base Excess -10mmol/L (-3-3) FiO2 25% White Blood Count 14.7x10^3/uL (4.0-11.0) Red Blood Count 4.69x10^6/uL (3.50-5.40) Hemoglobin 13.1g/dL (12.0-15.5) Hematocrit 41.0% (36.0-47.0) Mean Corpuscular Volume 88fL (79-100) Mean Corpuscular Hemoglobin 28pg (25-35) Mean Corpuscular Hemoglobin Concent 32g/dL (31-37) Red Cell Distribution Width 15.5% (11.5-14.5) Platelet Count 140x10^3/uL (140-400) Neutrophils (%) (Auto) 91% (31-73) Lymphocytes (%) (Auto) 4% (24-48) Monocytes (%) (Auto) 5% (0-9) Eosinophils (%) (Auto) 0% (0-3) Basophils (%) (Auto) 0% (0-3) Neutrophils # (Auto) 13.3x10^3uL (1.8-7.7) Lymphocytes # (Auto) 0.6x10^3/uL (1.0-4.8) Monocytes # (Auto) 0.7x10^3/uL (0.0-1.1) Eosinophils # (Auto) 0.0x10^3/uL (0.0-0.7) Basophils # (Auto) 0.0x10^3/uL (0.0-0.2) Segmented Neutrophils % 88% (35-66) Band Neutrophils % 3% (0-9) Lymphocytes % 5% (24-48) Monocytes % 4% (0-10) Platelet Estimate Adequate (ADEQUATE) Sodium Level 138mmol/L (136-145) Potassium Level 5.1mmol/L (3.5-5.1) Chloride Level 100mmol/L (98-107) Carbon Dioxide Level 19mmol/L (21-32) Anion Gap 19 (6-14) Blood Urea Nitrogen 85mg/dL (7-20) Creatinine 6.4mg/dL (0.6-1.0) Estimated GFR (Cockcroft-Gault) 6.5 Glucose Level 86mg/dL (70-99) Calcium Level 8.7mg/dL (8.5-10.1) Troponin I Quantitative 0.097ng/mL (0.000-0.055) SH-Xnq-D-Type Natriuretic Peptide > 17853nn/mL (0-124) Laboratory Tests Test 03/13/16 07:29 03/13/16 07:50 O2 Saturation 95% (92-99) Arterial Blood pH 7.27 (7.35-7.45) Arterial Blood pCO2 at Patient Temp 35mmHg (35-46) Arterial Blood pO2 at Patient Temp 88mmHg (65-108) Arterial Blood HCO3 16mmol/L (21-28) Arterial Blood Base Excess -10mmol/L (-3-3) FiO2 25% White Blood Count 14.7x10^3/uL (4.0-11.0) Red Blood Count 4.69x10^6/uL (3.50-5.40) Hemoglobin 13.1g/dL (12.0-15.5) Hematocrit 41.0% (36.0-47.0) Mean Corpuscular Volume 88fL (79-100) Mean Corpuscular Hemoglobin 28pg (25-35) Mean Corpuscular Hemoglobin Concent 32g/dL (31-37) Red Cell Distribution Width 15.5% (11.5-14.5) Platelet Count 140x10^3/uL (140-400) Neutrophils (%) (Auto) 91% (31-73) Lymphocytes (%) (Auto) 4% (24-48) Monocytes (%) (Auto) 5% (0-9) Eosinophils (%) (Auto) 0% (0-3) Basophils (%) (Auto) 0% (0-3) Neutrophils # (Auto) 13.3x10^3uL (1.8-7.7) Lymphocytes # (Auto) 0.6x10^3/uL (1.0-4.8) Monocytes # (Auto) 0.7x10^3/uL (0.0-1.1) Eosinophils # (Auto) 0.0x10^3/uL (0.0-0.7) Basophils # (Auto) 0.0x10^3/uL (0.0-0.2) Segmented Neutrophils % 88% (35-66) Band Neutrophils % 3% (0-9) Lymphocytes % 5% (24-48) Monocytes % 4% (0-10) Platelet Estimate Adequate (ADEQUATE) Sodium Level 138mmol/L (136-145) Potassium Level 5.1mmol/L (3.5-5.1) Chloride Level 100mmol/L (98-107) Carbon Dioxide Level 19mmol/L (21-32) Anion Gap 19 (6-14) Blood Urea Nitrogen 85mg/dL (7-20) Creatinine 6.4mg/dL (0.6-1.0) Estimated GFR (Cockcroft-Gault) 6.5 Glucose Level 86mg/dL (70-99) Calcium Level 8.7mg/dL (8.5-10.1) Troponin I Quantitative 0.097ng/mL (0.000-0.055) JE-Amp-T-Type Natriuretic Peptide > 85957sl/mL (0-124) VTE Prophylaxis Ordered VTE Prophylaxis Devices: Yes VTE Pharmacological Prophylaxi: Yes Assessment/Plan Assessment/Plan 1. acute on chronic hypoxic resp failure 2. COPD exacerbation 3. possible diastolic CHF 4. recent CAP 5. ESRD ON HD MWF 6. H/O CAD 7. htn 8. hld 9. depression 10. smoker 11. metabolic acidosis plan: 1. card, pulm ,renal consulted 2. cont duoneb, prednisone for now 3. check sputum levaquin for now cont HD dvt , gi ppx PTOT on bipap for now hope taper soon AUNG GARCIA MD Mar 13, 2016 15:18
--- NOTE | 2016-03-13 15:41 | CARD ---
APPROVED REPORT EXAM: Two-dimensional and M-mode echocardiogram with Doppler and color Doppler. Other Information Quality : Technically LimitedHR: 80bpm Rhythm : NSR INDICATION Congestive Heart Failure RISK FACTORS Obesity 2D DIMENSIONS RVDd2.0 (2.9-3.5cm)Left Atrium(2D)3.7 (1.6-4.0cm) IVSd1.0 (0.7-1.1cm)Aortic Root(2D)1.9 (2.0-3.7cm) LVDd3.5 (3.9-5.9cm)LVOT Diameter2.1 (1.8-2.4cm) PWd0.9 (0.7-1.1cm)LVDs2.3 (2.5-4.0cm) FS (%) 35.5 %SV34.5 ml LVEF(%)66.0 (>50%) Aortic Valve AoV Peak Fco.130.4cm/sAoV VTI32.8cm AO Peak GR.6.8mmHgLVOT Peak Fco.101.4cm/s AO Mean GR.4mmHgAVA (VMAX)2.67cm2 Mitral Valve MV E Ekyjriin390.3cm/sMV E Peak Gr.7mmHg MV DECEL [id number] A Gppuzozm668.0cm/s MV E Mean Gr.3mmHgE/A Ratio0.8 MV A [id number] Pulmonary Valve PV Peak Mdfpvjzx848.4cm/s Tricuspid Valve TR P. Renqhcnx872nz/sTR Peak Gr.35mmHg Pulmonary Vein S1 Ddiatruv79.2cm/sD2 Boixveht45.4cm/s PVa [id number] LEFT VENTRICLE The left ventricle is normal in size and wall thickness .The left ventricular systolic function and t he ejection fraction are normal in the range of 60-65%. There is normal LV segmental wall motion. RIGHT VENTRICLE The right ventricle is normal size, wall thickness and systolic function. ATRIA The left atrium is moderately dilated. The right atrium size is normal. The interatrial septum is int act with no evidence for an atrial septal defect or patent foramen ovale as noted on 2-D or Doppler i maging. AORTIC VALVE The aortic valve is mildly sclerotic. Doppler and Color Flow revealed no aortic regurgitation or sign ificant stenosis. Overall, not well visualized. MITRAL VALVE Mitral annular calcification is mild. The mitral valve leaflets are mildly thickened without stenosis or prolapse. There is mild mitral regurgitation. TRICUSPID VALVE Doppler and Color Flow revealed trace tricuspid regurgitation. The pulmonary artery systolic pressure is estimated at 40 mmHg consistent with mild pulmonary hypertension. PULMONIC VALVE Doppler and Color Flow revealed no pulmonic valvular regurgitation. GREAT VESSELS The aortic root and ascending aorta are normal in size. The IVC is normal in size and collapses >50% with inspiration. PERICARDIAL EFFUSION There is no evidence of significant pericardial effusion. Critical Notification Critical Value: No <Conclusion> The left ventricle is normal in size and wall thickness .The left ventricular systolic function and t he ejection fraction are normal in the range of 60-65%. There is normal LV segmental wall motion. No significant valvular disease
[2016-03-13] MEDS ORDERED: NYSTATIN TOPICAL POWDER 15GM BOTTLE. TP SCH (16:00)
[2016-03-13] MEDS ORDERED: DIALYSIS PATIENT. MC PRN (17:30)
[2016-03-13] MEDS: IPRATRPIUM/ALBUTEROL 0.5/2.5MG 3 ML NEBU. IH SCH ×2 (18:00→20:37)
--- NOTE | 2016-03-13 19:01 | CONS ---
DATE OF CONSULTATION: 03/13/2016 ATTENDING PHYSICIAN: Dr. Parra. REASON FOR CONSULTATION: The patient seen in pulmonary consultation at the request of Dr. Parra for acute respiratory failure requiring noninvasive ventilation. HISTORY OF PRESENT ILLNESS: The patient is a 65-year-old that presented to the Emergency Room with increasing shortness of air. She was recently hospitalized in January treated for healthcare-acquired pneumonia. For the last 3 days, she has had increasing difficulty with shortness of air. She has had some mild chest discomfort, cough, mostly nonproductive. No fever, chills or night sweats. She denies any abdominal pain. She normally is on dialysis and has been compliant. EMS was summoned to ____ she had saturations of 80%. She was severely tachypneic. She was placed on CPAP. She is currently on BiPAP. I was asked to see in consultation. PAST MEDICAL HISTORY: Otherwise remarkable for COPD, ongoing tobacco use, congestive chronic CHF, hypertension, end-stage renal disease, obstructive sleep apnea, previous CVA with some right-sided residual deficits, anxiety, depression, chronic pain, fibromyalgia, chronic renal failure. PAST SURGICAL HISTORY: Status post cataract removal, tonsillectomy. FAMILY HISTORY: Coronary artery disease, hypertension, diabetes, stroke. SOCIAL HISTORY: She smokes approximately 1 pack of cigarettes a day, rare use of alcohol. REVIEW OF SYSTEMS: As indicated above, otherwise other systems could not be reviewed as a consequence of the BiPAP. CURRENT MEDICATION: List was reviewed. Please see the MRAD. PHYSICAL EXAMINATION: VITAL SIGNS: The patient was on BiPAP. She was awake, alert, following commands, in no significant respiratory distress. She has been afebrile. HEENT: Eyes, the sclerae were nonicteric. NECK: Jugular venous distention was not elevated. No lymphadenopathy. CHEST: Full expansion. LUNGS: Adequate airway flow, no wheezes. CARDIOVASCULAR: Regular rate and rhythm with S1, S2, no S3. ABDOMEN: Soft, nontender, nondistended. EXTREMITIES: No clubbing, cyanosis or edema. NEUROLOGIC: The patient was awake, alert, following commands. A detailed neuro exam was not performed. LABORATORY DATA: Arterial blood gas; pH of 7.27, pCO2 of 35, pO2 of 88, bicarbonate was 16. White count was elevated at 14,000, hemoglobin 13, hematocrit 41, platelet count was 140 Electrolytes were noted. BUN was elevated. Creatinine was elevated. Troponin was elevated. Chest x-ray reviewed, no acute cardiopulmonary process. IMPRESSION: 1. Acute respiratory failure, multifactorial secondary to [id number] diastolic heart failure, renal failure, possible viral syndrome, and acute exacerbation of chronic obstructive pulmonary disease. 2. Acute exacerbation of chronic obstructive pulmonary disease. 3. Elevated troponin. 4. Hypertension. 5. Hyperlipidemia. 6. Leukocytosis. 7. Tobacco dependence. PLAN: 1. Continue current support with BiPAP. 2. Consult cardiology, already performed. 3. Continue empiric Levaquin. 4. Initiate steroids. 5. Consult Nephrology. I do appreciate the privilege in sharing in the patient's care. ASIA BACH MD DR: EVON/francois JOB#: [id number] / [id number]
--- NOTE | 2016-03-13 19:15 | CONS ---
DATE OF CONSULTATION: 03/13/2016 PRIMARY PHYSICIAN: Dr. Parra. REASON FOR CONSULTATION: ESRD, dialysis. HISTORY OF PRESENT ILLNESS: The patient is a 65-year-old female, known ESRD. She presented to the ER with complaints of subjective shortness of breath. Chest x-ray was noted to be relatively normal. She was admitted here for previous healthcare-associated pneumonia. Over the last 3 days, she has had increasing difficulty with breathing and some central chest pains with cough. She has been achy all over. No sputum production, no hemoptysis per se. She has not missed dialysis. She is being dialyzed Sunday, Sunday, Sunday. At presentation here, she was noted to be hypoxemic and tachypneic, was placed on CPAP. She is currently off of it, on nasal cannula oxygen, getting an echocardiogram as ____. She ____ get some steroids. Chest x-ray was not noted to have any gross problems. For the rest of details, please see electronic renal consult note. HERB KEYS MD DR: NOLBERTO/francois JOB#: [id number] / [id number]
[2016-03-13] MEDS: BUDESONIDE 0.5 MG/2 ML NEBU NEB SCH (19:17)
[2016-03-13 19:20] VITALS: BP 106/67
[2016-03-13] MEDS: FAMOTIDINE 20 MG TABLET. PO SCH (20:50)
[2016-03-13] MEDS: ATORVASTATIN CALCIUM 20 MG TABLET PO SCH (20:50)
[2016-03-13] MEDS: VENLAFAXINE 50 MG TABLET. PO SCH ×2 (20:50→21:00)
[2016-03-13] MEDS: FOLIC/VIT B COMP W-C (RENAL) TABLET. PO SCH (20:50)
[2016-03-13] MEDS: PREDNISONE 20 MG TABLET PO SCH (20:50)
[2016-03-13] MEDS: CLOPIDOGREL BISULFATE 75 MG TABLET PO SCH (20:51)
[2016-03-13] MEDS: OXYBUTYNIN CHLORIDE 5 MG TABLET PO SCH (20:51)
[2016-03-13] MEDS: LEVETIRACETAM 500 MG TABLET PO SCH ×2 (20:51→23:00)
[2016-03-13] MEDS: GUAIFENESIN ER 600 MG TABLET.ER PO SCH (20:51)
[2016-03-13] MEDS: HEPARIN PF for SUB-Q USE 5,000 UNIT/0.5 ML VIAL. SQ SCH ×2 (20:56→22:00)
[2016-03-13] MEDS ORDERED: NON FORMULARY ITEM (Fluticasone/Salmeterol (Advair 500-50 Diskus) 1 EACH) IH SCH (21:00)
[2016-03-13 23:35] VITALS: BP 129/69
[2016-03-14] VITALS (7 sets, daily range): BP systolic 100–131; BP diastolic 46–78
[2016-03-14] MEDS: HEPARIN PF for SUB-Q USE 5,000 UNIT/0.5 ML VIAL. SQ SCH ×3 (06:23→20:43)
--- NOTE | 2016-03-14 07:04 | PDOC ---
PULMONARY PROGRESS NOTES Subjective Pt feels better less soa Vitals Vital Signs Date Time Temp Pulse Resp B/P Pulse Ox O2 Delivery O2 Flow Rate FiO2 03/14/16 05:04 98 BiPAP/CPAP 03/14/16 03:30 98.2 72 16 121/73 2.0 98.2 ROS: No Nausea, No Chest Pain, No Abdominal Pain, No Increase Cough General: Alert Lungs: Clear Cardiovascular: S1, S2 Abdomen: Soft, Non-tender Neuro Exam: Alert Extremities: No Edema Skin: Warm Labs Laboratory Tests Test 03/13/16 07:29 03/13/16 07:50 03/13/16 15:15 03/13/16 20:55 O2 Saturation 95% (92-99) Arterial Blood pH 7.27 (7.35-7.45) Arterial Blood pCO2 at Patient Temp 35mmHg (35-46) Arterial Blood pO2 at Patient Temp 88mmHg (65-108) Arterial Blood HCO3 16mmol/L (21-28) Arterial Blood Base Excess -10mmol/L (-3-3) FiO2 25% White Blood Count 14.7x10^3/uL (4.0-11.0) Red Blood Count 4.69x10^6/uL (3.50-5.40) Hemoglobin 13.1g/dL (12.0-15.5) Hematocrit 41.0% (36.0-47.0) Mean Corpuscular Volume 88fL (79-100) Mean Corpuscular Hemoglobin 28pg (25-35) Mean Corpuscular Hemoglobin Concent 32g/dL (31-37) Red Cell Distribution Width 15.5% (11.5-14.5) Platelet Count 140x10^3/uL (140-400) Neutrophils (%) (Auto) 91% (31-73) Lymphocytes (%) (Auto) 4% (24-48) Monocytes (%) (Auto) 5% (0-9) Eosinophils (%) (Auto) 0% (0-3) Basophils (%) (Auto) 0% (0-3) Neutrophils # (Auto) 13.3x10^3uL (1.8-7.7) Lymphocytes # (Auto) 0.6x10^3/uL (1.0-4.8) Monocytes # (Auto) 0.7x10^3/uL (0.0-1.1) Eosinophils # (Auto) 0.0x10^3/uL (0.0-0.7) Basophils # (Auto) 0.0x10^3/uL (0.0-0.2) Segmented Neutrophils % 88% (35-66) Band Neutrophils % 3% (0-9) Lymphocytes % 5% (24-48) Monocytes % 4% (0-10) Platelet Estimate Adequate (ADEQUATE) Sodium Level 138mmol/L (136-145) Potassium Level 5.1mmol/L (3.5-5.1) Chloride Level 100mmol/L (98-107) Carbon Dioxide Level 19mmol/L (21-32) Anion Gap 19 (6-14) Blood Urea Nitrogen 85mg/dL (7-20) Creatinine 6.4mg/dL (0.6-1.0) Estimated GFR (Cockcroft-Gault) 6.5 Glucose Level 86mg/dL (70-99) Calcium Level 8.7mg/dL (8.5-10.1) Troponin I Quantitative 0.097ng/mL (0.000-0.055) SF-Hod-W-Type Natriuretic Peptide > 23968xh/mL (0-124) Lactic Acid Level 1.1mmol/L (0.4-2.0) Glucose (Fingerstick) 168mg/dL (70-99) Test 03/13/16 21:38 Troponin I Quantitative 0.077ng/mL (0.000-0.055) Laboratory Tests Test 03/13/16 07:29 03/13/16 07:50 03/13/16 15:15 03/13/16 20:55 O2 Saturation 95% (92-99) Arterial Blood pH 7.27 (7.35-7.45) Arterial Blood pCO2 at Patient Temp 35mmHg (35-46) Arterial Blood pO2 at Patient Temp 88mmHg (65-108) Arterial Blood HCO3 16mmol/L (21-28) Arterial Blood Base Excess -10mmol/L (-3-3) FiO2 25% White Blood Count 14.7x10^3/uL (4.0-11.0) Red Blood Count 4.69x10^6/uL (3.50-5.40) Hemoglobin 13.1g/dL (12.0-15.5) Hematocrit 41.0% (36.0-47.0) Mean Corpuscular Volume 88fL (79-100) Mean Corpuscular Hemoglobin 28pg (25-35) Mean Corpuscular Hemoglobin Concent 32g/dL (31-37) Red Cell Distribution Width 15.5% (11.5-14.5) Platelet Count 140x10^3/uL (140-400) Neutrophils (%) (Auto) 91% (31-73) Lymphocytes (%) (Auto) 4% (24-48) Monocytes (%) (Auto) 5% (0-9) Eosinophils (%) (Auto) 0% (0-3) Basophils (%) (Auto) 0% (0-3) Neutrophils # (Auto) 13.3x10^3uL (1.8-7.7) Lymphocytes # (Auto) 0.6x10^3/uL (1.0-4.8) Monocytes # (Auto) 0.7x10^3/uL (0.0-1.1) Eosinophils # (Auto) 0.0x10^3/uL (0.0-0.7) Basophils # (Auto) 0.0x10^3/uL (0.0-0.2) Segmented Neutrophils % 88% (35-66) Band Neutrophils % 3% (0-9) Lymphocytes % 5% (24-48) Monocytes % 4% (0-10) Platelet Estimate Adequate (ADEQUATE) Sodium Level 138mmol/L (136-145) Potassium Level 5.1mmol/L (3.5-5.1) Chloride Level 100mmol/L (98-107) Carbon Dioxide Level 19mmol/L (21-32) Anion Gap 19 (6-14) Blood Urea Nitrogen 85mg/dL (7-20) Creatinine 6.4mg/dL (0.6-1.0) Estimated GFR (Cockcroft-Gault) 6.5 Glucose Level 86mg/dL (70-99) Calcium Level 8.7mg/dL (8.5-10.1) Troponin I Quantitative 0.097ng/mL (0.000-0.055) SZ-Cwu-E-Type Natriuretic Peptide > 21896be/mL (0-124) Lactic Acid Level 1.1mmol/L (0.4-2.0) Glucose (Fingerstick) 168mg/dL (70-99) Test 03/13/16 21:38 Troponin I Quantitative 0.077ng/mL (0.000-0.055) Medications Active Scripts Medications Dose Route/Sig Days Date Category Nystatin 100,000 Unit/1 Ml Oral.susp 5 Ml SWSW QID 01/21/16 Rx Nystop (Nystatin) 60 Gm Powder 1 Jesus TP BID 01/21/16 Rx Cefpodoxime Proxetil 200 Mg Tablet 200 Mg PO DAILY 01/21/16 Rx Benzonatate 100 Mg Capsule 100 Mg PO TID PRN 01/21/16 Rx Folic Acid 1 Mg Tablet 1 Tab PO DAILY 01/14/16 Reported Levetiracetam 500 Mg Tablet 500 Mg PO BID 01/14/16 Reported Vitamin D2 (Ergocalciferol (Vitamin D2)) 50,000 Unit Capsule 1 Cap PO WEEKLY 01/14/16 Reported Ondansetron Odt (Ondansetron) 4 Mg Tab.rapdis 1 Tab PO TID PRN 01/14/16 Reported [place] 5-325 Tablet (Acetaminophen/Hydrocodone Bitart) 1 Each Tablet 1 Tab PO PRN Q6HRS PRN 10/12/15 Rx Nystatin-Triamcinolone Ointm (Nystatin/Triamcin) 30 Gm Oint...g. 30 Gm TP BID 05/20/13 Reported Venlafaxine Hcl Er (Venlafaxine Hcl) 150 Mg Cap.er.24h 150 Mg PO DAILY 05/20/13 Reported Plavix (Clopidogrel Bisulfate) 75 Mg Tablet 75 Mg PO DAILY 05/20/13 Reported Nephro-Fay Tablet (Folic Acid/Vitamin B Comp W-C) 0.8 Mg Tablet 0.8 Mg PO DAILY 05/20/13 Reported Duoneb 0.5 Mg-3 Mg/3 Ml Soln (Ipratropium/Albuterol Sulfate) 3 Ml Ampul.neb 3 Ml IH Q6HRS 05/20/13 Reported Ditropan Xl (Oxybutynin Chloride) 5 Mg Tab.er.24 5 Mg PO DAILY 05/20/13 Reported Atorvastatin Calcium 20 Mg Tablet 20 Mg PO QHS 05/20/13 Reported Advair 500-50 Diskus (Fluticasone/Salmeterol) 1 Each Disk.w.dev 1 Each IH BID 05/20/13 Reported Impression . 1. Acute respiratory failure, multifactorial secondary to [id number] diastolic heart failure, renal failure, possible viral syndrome, and acute exacerbation of chronic obstructive pulmonary disease. 2. Acute exacerbation of chronic obstructive pulmonary disease. 3. Elevated troponin. 4. Hypertension. 5. Hyperlipidemia. 6. Leukocytosis. 7. Tobacco dependence. Plan . 1. Continue current support with Cherri PPRN 2. follow card input 3. d/w DR Bettencourt d/c Selina 4. Initiate steroids. 5. Negative fluid balance ASIA BACH MD Mar 14, 2016 07:04
--- NOTE | 2016-03-14 08:17 | PDOC ---
Infectious Disease Note Vital Sign Vital Signs Vital Signs Date Time Temp Pulse Resp B/P Pulse Ox O2 Delivery O2 Flow Rate FiO2 03/14/16 07:00 97.1 75 20 131/78 100 BiPAP/CPAP 97.1 03/14/16 03:30 2.0 Labs Lab Laboratory Tests Test 03/13/16 15:15 03/13/16 20:55 03/13/16 21:38 Lactic Acid Level 1.1mmol/L (0.4-2.0) Glucose (Fingerstick) 168mg/dL (70-99) Troponin I Quantitative 0.077ng/mL (0.000-0.055) Objective Assessment Leukocytosis sec to steroids vs reactive CHF COPD ESRD Debility Plan Plan of Care d/c nona supportive care YAZAN KEYS MD Mar 14, 2016 08:17
[2016-03-14] MEDS: IPRATRPIUM/ALBUTEROL 0.5/2.5MG 3 ML NEBU. IH SCH ×3 (08:40→19:40)
[2016-03-14] MEDS: BUDESONIDE 0.5 MG/2 ML NEBU NEB SCH ×2 (08:40→19:40)
[2016-03-14] MEDS: NYSTATIN TOPICAL POWDER 15GM BOTTLE. TP SCH ×2 (09:00→20:38)
--- NOTE | 2016-03-14 09:15 | CONS ---
DATE OF CONSULTATION: 03/14/2016 REQUESTING PHYSICIAN: Dr. Parra. REASON FOR CONSULTATION: Leukocytosis. HISTORY OF PRESENT ILLNESS: This is a 65-year-old female with end-stage renal disease on hemodialysis, who was brought in because of shortness of breath. The patient had some cough and shortness of breath. The patient was thought to be in congestive heart failure, acute on chronic respiratory failure, the patient does use oxygen at home and COPD exacerbation. The patient's white count was 14,000 . Patient is on prednisone at home. The patient says this morning that she is feeling better. Denies any nausea, vomiting, diarrhea. Denies any chest pain. Breathing has improved she says. She denies any headache, visual symptoms or diarrhea. PAST MEDICAL HISTORY: Positive for end-stage renal disease on hemodialysis, COPD, congestive heart failure, anemia, hypertension, hyperlipidemia, peripheral vascular disease, pneumonia 2 months ago, depression, fibromyalgia, and peptic ulcer disease. SOCIAL HISTORY: Negative for smoking, alcohol, illicit drug use. The patient lives with a roommate. ALLERGIES: No known drug allergies. CURRENT MEDICATIONS: Reviewed. The patient is on levofloxacin. REVIEW OF SYSTEMS: As per HPI, all other systems reviewed are negative. PHYSICAL EXAMINATION: GENERAL: Alert, oriented female, not on any distress. VITAL SIGNS: Stable, afebrile. HEENT: NAD. NECK: Supple. No JVP, no lymphadenopathy. LUNGS: Clear. HEART: S1 and S2 regular. ABDOMEN: Benign. EXTREMITIES: No clubbing or cyanosis. SKIN: With poor skin turgor, lot of bruises and ecchymosis present and very thin, cachectic, debilitated with muscle mass present. The hemodialysis catheter site is unremarkable. LABORATORY DATA: White count is 14.7. Electrolytes unremarkable except BUN 85, creatinine 6.4. Blood culture is done and is negative. Chest x-ray is unremarkable. IMPRESSION: 1. Leukocytosis, most likely secondary to steroids, although it could be just reactive. 2. Congestive heart failure. 3. Chronic obstructive pulmonary disease. 4. End stage renal disease. 5. Debility. RECOMMENDED: I do not see the need for levofloxacin, we will stop it, will closely monitor, if needed I would use Zosyn, supportive care and we will continue to follow. Thank you very much Dr. Parra for giving me opportunity to participate in this patient's care. ASIA BACH MD DR: EVON/francois JOB#: [id number] / [id number]
[2016-03-14 09:19] LABS: BASO % 0 % (0-3); EOS % 0 % (0-3); HEMATOCRIT 39.1 % (36.0-47.0); HEMOGLOBIN 12.6 g/dL (12.0-15.5); LYMPH # 0.8 x10^3/uL (1.0-4.8); LYMPH % 6 % (24-48); MEAN CORPUSCULAR HEMOGLOBIN 28 pg (25-35); MEAN CORPUSCULAR HGB CONC 32 g/dL (31-37); MEAN CORPUSCULAR VOLUME 87 fL (79-100); MONO % 3 % (0-9); NEUT % 91 % (31-73); PLATELET COUNT 126 x10^3/uL (140-400); RED BLOOD COUNT 4.51 x10^6/uL (3.50-5.40); RED CELL DISTRIBUTION WIDTH 15.4 % (11.5-14.5); WHITE BLOOD COUNT 13.5 x10^3/uL (4.0-11.0)
[2016-03-14] MEDS: FAMOTIDINE 20 MG TABLET. PO SCH (09:30)
[2016-03-14] MEDS: LEVETIRACETAM 500 MG TABLET PO SCH ×2 (09:30→20:35)
[2016-03-14] MEDS: CLOPIDOGREL BISULFATE 75 MG TABLET PO SCH (09:30)
[2016-03-14] MEDS: FOLIC/VIT B COMP W-C (RENAL) TABLET. PO SCH (09:30)
[2016-03-14] MEDS: PREDNISONE 20 MG TABLET PO SCH (09:30)
[2016-03-14] MEDS: VENLAFAXINE 50 MG TABLET. PO SCH ×3 (09:30→20:35)
[2016-03-14] MEDS: GUAIFENESIN ER 600 MG TABLET.ER PO SCH ×2 (09:30→20:35)
[2016-03-14] MEDS: OXYBUTYNIN CHLORIDE 5 MG TABLET PO SCH (09:30)
[2016-03-14 09:48] LABS: ALBUMIN 2.6 g/dL (3.4-5.0); CREATININE 4.1 mg/dL (0.6-1.0); GFR 10.9; PHOSPHORUS 7.7 mg/dL (2.6-4.7); POTASSIUM 4.7 mmol/L (3.5-5.1)
[2016-03-14 09:51] LABS: CHOLESTEROL/HDL RATIO 1.8
--- NOTE | 2016-03-14 10:37 | PDOC ---
PROGRESS NOTES Chief Complaint Chief Complaint 1. acute on chronic hypoxic resp failure 2. COPD exacerbation, SEVERE 3. possible diastolic CHF 4. recent CAP 5. ESRD ON HD MWF 6. H/O CAD 7. htn 8. hld 9. depression 10. smoker 11. metabolic acidosis History of Present Illness History of Present Illness Smokers skin, smokers lips VERY dec BS Off bipap, up in chair but SOA with long phrases with me today Admits to still smoking 1 ppday from 2 ppday CXR no pneumonia, levaquin stopped Report provided to pt PLAN: Agree with dc PO levaquin COnt nebs Steroids Pt/OT Does not wnat to go to rehab even if PT recommends Lives at home with dtr chronic O2 2LNC Add cough med and DVt prophy if not yet on Vitals Vitals Vital Signs Date Time Temp Pulse Resp B/P Pulse Ox O2 Delivery O2 Flow Rate FiO2 03/14/16 09:03 96 Nasal Cannula 3.0 03/14/16 07:00 97.1 75 20 131/78 97.1 Physical Exam General: Alert, Oriented X3, Cooperative, No acute distress Heart: Regular rate, Normal S1, Normal S2, Other (heart tones difficult to appreciate through BiPAP) Lungs: Clear Abdomen: Soft, No tenderness Extremities: No cyanosis, No edema, Other (diminished pedal pulses) Skin: No rashes, No significant lesion Labs LABS Laboratory Tests Test 03/13/16 15:15 03/13/16 20:55 03/13/16 21:38 03/14/16 09:02 Lactic Acid Level 1.1mmol/L (0.4-2.0) Glucose (Fingerstick) 168mg/dL (70-99) Troponin I Quantitative 0.077ng/mL (0.000-0.055) White Blood Count 13.5x10^3/uL (4.0-11.0) Red Blood Count 4.51x10^6/uL (3.50-5.40) Hemoglobin 12.6g/dL (12.0-15.5) Hematocrit 39.1% (36.0-47.0) Mean Corpuscular Volume 87fL (79-100) Mean Corpuscular Hemoglobin 28pg (25-35) Mean Corpuscular Hemoglobin Concent 32g/dL (31-37) Red Cell Distribution Width 15.4% (11.5-14.5) Platelet Count 126x10^3/uL (140-400) Neutrophils (%) (Auto) 91% (31-73) Lymphocytes (%) (Auto) 6% (24-48) Monocytes (%) (Auto) 3% (0-9) Eosinophils (%) (Auto) 0% (0-3) Basophils (%) (Auto) 0% (0-3) Neutrophils # (Auto) 12.4x10^3uL (1.8-7.7) Lymphocytes # (Auto) 0.8x10^3/uL (1.0-4.8) Monocytes # (Auto) 0.4x10^3/uL (0.0-1.1) Eosinophils # (Auto) 0.0x10^3/uL (0.0-0.7) Basophils # (Auto) 0.0x10^3/uL (0.0-0.2) Sodium Level 135mmol/L (136-145) Potassium Level 4.7mmol/L (3.5-5.1) Chloride Level 99mmol/L (98-107) Carbon Dioxide Level 22mmol/L (21-32) Anion Gap 14 (6-14) Blood Urea Nitrogen 52mg/dL (7-20) Creatinine 4.1mg/dL (0.6-1.0) Estimated GFR (Cockcroft-Gault) 10.9 Glucose Level 108mg/dL (70-99) Calcium Level 9.0mg/dL (8.5-10.1) Phosphorus Level 7.7mg/dL (2.6-4.7) Albumin 2.6g/dL (3.4-5.0) Triglycerides Level 47mg/dL (0-150) Cholesterol Level 177mg/dL (0-200) LDL Cholesterol, Calculated 68mg/dL (0-100) VLDL Cholesterol, Calculated 9mg/dL (0-40) HDL Cholesterol 100mg/dL (40-60) Cholesterol/HDL Ratio 1.8 Review of Systems Review of Systems Fabricio lse neg, SOA, cough Assessment and Plan Assessmemt and Plan Add cough med and DVt prophy if not yet on Problems Medical Problems: (1) Chest pain Status: Acute (2) COPD exacerbation Status: Acute (3) Elevated troponin Status: Acute (4) ESRD (end stage renal disease) on dialysis Status: Acute (5) Respiratory failure Status: Acute Problems: Comment Review of Relevant I have reviewed the following items sarahi (where applicable) has been applied. Labs Laboratory Tests Test 03/13/16 07:29 03/13/16 07:50 03/13/16 15:15 03/13/16 20:55 O2 Saturation 95% (92-99) Arterial Blood pH 7.27 (7.35-7.45) Arterial Blood pCO2 at Patient Temp 35mmHg (35-46) Arterial Blood pO2 at Patient Temp 88mmHg (65-108) Arterial Blood HCO3 16mmol/L (21-28) Arterial Blood Base Excess -10mmol/L (-3-3) FiO2 25% White Blood Count 14.7x10^3/uL (4.0-11.0) Red Blood Count 4.69x10^6/uL (3.50-5.40) Hemoglobin 13.1g/dL (12.0-15.5) Hematocrit 41.0% (36.0-47.0) Mean Corpuscular Volume 88fL (79-100) Mean Corpuscular Hemoglobin 28pg (25-35) Mean Corpuscular Hemoglobin Concent 32g/dL (31-37) Red Cell Distribution Width 15.5% (11.5-14.5) Platelet Count 140x10^3/uL (140-400) Neutrophils (%) (Auto) 91% (31-73) Lymphocytes (%) (Auto) 4% (24-48) Monocytes (%) (Auto) 5% (0-9) Eosinophils (%) (Auto) 0% (0-3) Basophils (%) (Auto) 0% (0-3) Neutrophils # (Auto) 13.3x10^3uL (1.8-7.7) Lymphocytes # (Auto) 0.6x10^3/uL (1.0-4.8) Monocytes # (Auto) 0.7x10^3/uL (0.0-1.1) Eosinophils # (Auto) 0.0x10^3/uL (0.0-0.7) Basophils # (Auto) 0.0x10^3/uL (0.0-0.2) Segmented Neutrophils % 88% (35-66) Band Neutrophils % 3% (0-9) Lymphocytes % 5% (24-48) Monocytes % 4% (0-10) Platelet Estimate Adequate (ADEQUATE) Sodium Level 138mmol/L (136-145) Potassium Level 5.1mmol/L (3.5-5.1) Chloride Level 100mmol/L (98-107) Carbon Dioxide Level 19mmol/L (21-32) Anion Gap 19 (6-14) Blood Urea Nitrogen 85mg/dL (7-20) Creatinine 6.4mg/dL (0.6-1.0) Estimated GFR (Cockcroft-Gault) 6.5 Glucose Level 86mg/dL (70-99) Calcium Level 8.7mg/dL (8.5-10.1) Troponin I Quantitative 0.097ng/mL (0.000-0.055) YS-Vii-V-Type Natriuretic Peptide > 48888dh/mL (0-124) Lactic Acid Level 1.1mmol/L (0.4-2.0) Glucose (Fingerstick) 168mg/dL (70-99) Test 03/13/16 21:38 03/14/16 09:02 Troponin I Quantitative 0.077ng/mL (0.000-0.055) White Blood Count 13.5x10^3/uL (4.0-11.0) Red Blood Count 4.51x10^6/uL (3.50-5.40) Hemoglobin 12.6g/dL (12.0-15.5) Hematocrit 39.1% (36.0-47.0) Mean Corpuscular Volume 87fL (79-100) Mean Corpuscular Hemoglobin 28pg (25-35) Mean Corpuscular Hemoglobin Concent 32g/dL (31-37) Red Cell Distribution Width 15.4% (11.5-14.5) Platelet Count 126x10^3/uL (140-400) Neutrophils (%) (Auto) 91% (31-73) Lymphocytes (%) (Auto) 6% (24-48) Monocytes (%) (Auto) 3% (0-9) Eosinophils (%) (Auto) 0% (0-3) Basophils (%) (Auto) 0% (0-3) Neutrophils # (Auto) 12.4x10^3uL (1.8-7.7) Lymphocytes # (Auto) 0.8x10^3/uL (1.0-4.8) Monocytes # (Auto) 0.4x10^3/uL (0.0-1.1) Eosinophils # (Auto) 0.0x10^3/uL (0.0-0.7) Basophils # (Auto) 0.0x10^3/uL (0.0-0.2) Sodium Level 135mmol/L (136-145) Potassium Level 4.7mmol/L (3.5-5.1) Chloride Level 99mmol/L (98-107) Carbon Dioxide Level 22mmol/L (21-32) Anion Gap 14 (6-14) Blood Urea Nitrogen 52mg/dL (7-20) Creatinine 4.1mg/dL (0.6-1.0) Estimated GFR (Cockcroft-Gault) 10.9 Glucose Level 108mg/dL (70-99) Calcium Level 9.0mg/dL (8.5-10.1) Phosphorus Level 7.7mg/dL (2.6-4.7) Albumin 2.6g/dL (3.4-5.0) Triglycerides Level 47mg/dL (0-150) Cholesterol Level 177mg/dL (0-200) LDL Cholesterol, Calculated 68mg/dL (0-100) VLDL Cholesterol, Calculated 9mg/dL (0-40) HDL Cholesterol 100mg/dL (40-60) Cholesterol/HDL Ratio 1.8 Laboratory Tests Test 03/13/16 15:15 03/13/16 20:55 03/13/16 21:38 03/14/16 09:02 Lactic Acid Level 1.1mmol/L (0.4-2.0) Glucose (Fingerstick) 168mg/dL (70-99) Troponin I Quantitative 0.077ng/mL (0.000-0.055) White Blood Count 13.5x10^3/uL (4.0-11.0) Red Blood Count 4.51x10^6/uL (3.50-5.40) Hemoglobin 12.6g/dL (12.0-15.5) Hematocrit 39.1% (36.0-47.0) Mean Corpuscular Volume 87fL (79-100) Mean Corpuscular Hemoglobin 28pg (25-35) Mean Corpuscular Hemoglobin Concent 32g/dL (31-37) Red Cell Distribution Width 15.4% (11.5-14.5) Platelet Count 126x10^3/uL (140-400) Neutrophils (%) (Auto) 91% (31-73) Lymphocytes (%) (Auto) 6% (24-48) Monocytes (%) (Auto) 3% (0-9) Eosinophils (%) (Auto) 0% (0-3) Basophils (%) (Auto) 0% (0-3) Neutrophils # (Auto) 12.4x10^3uL (1.8-7.7) Lymphocytes # (Auto) 0.8x10^3/uL (1.0-4.8) Monocytes # (Auto) 0.4x10^3/uL (0.0-1.1) Eosinophils # (Auto) 0.0x10^3/uL (0.0-0.7) Basophils # (Auto) 0.0x10^3/uL (0.0-0.2) Sodium Level 135mmol/L (136-145) Potassium Level 4.7mmol/L (3.5-5.1) Chloride Level 99mmol/L (98-107) Carbon Dioxide Level 22mmol/L (21-32) Anion Gap 14 (6-14) Blood Urea Nitrogen 52mg/dL (7-20) Creatinine 4.1mg/dL (0.6-1.0) Estimated GFR (Cockcroft-Gault) 10.9 Glucose Level 108mg/dL (70-99) Calcium Level 9.0mg/dL (8.5-10.1) Phosphorus Level 7.7mg/dL (2.6-4.7) Albumin 2.6g/dL (3.4-5.0) Triglycerides Level 47mg/dL (0-150) Cholesterol Level 177mg/dL (0-200) LDL Cholesterol, Calculated 68mg/dL (0-100) VLDL Cholesterol, Calculated 9mg/dL (0-40) HDL Cholesterol 100mg/dL (40-60) Cholesterol/HDL Ratio 1.8 Microbiology 03/13/16 Blood Culture - Preliminary, Resulted NO GROWTH AFTER 1 DAY Medications Current Medications Albuterol/ Ipratropium (Duoneb) 3 ml 1X ONCE NEB Last administered on 08:28; Start 03/13/16 at 08:00; Stop 03/13/16 at 08:02; Status DC Methylprednisolone Sodium Succinate (Solu-Medrol 125mg Vial) 125 mg 1X ONCE IV Last administered on 03/13/16 08:09; Start 03/13/16 at 08:00; Stop 03/13/16 at 08:02; Status DC Levofloxacin/ Dextrose 1 each 1 each PRN DAILY PRN MC SEE COMMENTS; Start 03/13 at 08:15; Stop 03/13/16 at 14:44; Status DC Levofloxacin/ Dextrose (LEVAQUIN 500mg PREMIX) 100 ml @ 100 mls/hr Q48H IV Last administered on 03/13/16 09:13; Start 03/13/16 at 09:00; Stop 03/14/16 at 08:17; Status DC Ondansetron HCl (Zofran) 4 mg PRN Q8HRS PRN IV NAUSEA/VOMITING; Start 03/13/16 at 08:30; Stop 03/13/16 at 15:55; Status DC Fentanyl Citrate (Fentanyl 2ml Vial) 50 mcg PRN Q2HR PRN IV PAIN; Start at 08:30; Stop 03/14/16 at 08:29; Status DC Acetaminophen (Tylenol) 650 mg PRN Q4HRS PRN PO FEVER; Start 03/13/16 at 08:30 ; Stop 03/14/16 at 08:29; Status DC Albuterol/ Ipratropium (Duoneb) 3 ml RTQID NEB Last administered on 03/13/16 12:41; Start 03/13/16 at 12:00; Stop 03/13/16 at 15:33; Status DC Aspirin (Ramu Aspirin) 325 mg 1X ONCE PO Last administered on 03/13/16 12:29 ; Start 03/13/16 at 11:30; Stop 03/13/16 at 11:31; Status DC Nystatin (Nystop) 1 jesus BID TP Last administered on 03/14/16 09:00; Start at 14:45 Atorvastatin Calcium (Lipitor) 20 mg QHS PO Last administered on 03/13/16 20: 50; Start 03/13/16 at 21:00 Benzonatate (Tessalon Perle) 100 mg PRN TID PRN PO COUGH; Start 03/13/16 at 15: 15 Clopidogrel Bisulfate (Plavix) 75 mg DAILY PO Last administered on 03/14/16 09 :30; Start 03/13/16 at 16:00 Ergocalciferol (Vitamin D2) 50,000 unit We PO ; Start 03/15/16 at 09:00 Folic Acid/ Multivitamins/Vit B12 (Nephro-Fay) 1 tab DAILY PO Last administered on 03/14/16 09:30; Start 03/13/16 at 16:00 Acetaminophen/ Hydrocodone Bitart (Lortab 5/325) 1 tab PRN Q6HRS PRN PO PAIN; Start 03/13/16 at 15:15 Albuterol/ Ipratropium (Duoneb) 3 ml Q6HRS IH Last administered on 03/14/16 08 :40; Start 03/13/16 at 18:00 Levetiracetam (Keppra) 500 mg BID PO Last administered on 03/14/16 09:30; Start 03/13/16 at 16:00 Nystatin (Nystop) 1 jesus BID TP ; Start 03/13/16 at 16:00; Status Cancel Non-Formulary Medication 1 each BID IH ; Start 03/13/16 at 21:00; Stop 03/13/16 at 21:00; Status DC Oxybutynin Chloride (Ditropan) 5 mg DAILY PO Last administered on 03/14/16 09: 30; Start 03/13/16 at 16:00 Venlafaxine HCl (Effexor) 50 mg TID PO Last administered on 03/14/16 09:30; Start 03/13/16 at 15:45 Guaifenesin (Mucinex) 600 mg BID PO Last administered on 03/14/16 09:30; Start 03/13/16 at 21:00 Acetaminophen (Tylenol) 650 mg PRN Q6HRS PRN PO MILD PAIN / TEMP; Start at 15:15 Ondansetron HCl (Zofran) 4 mg PRN Q6HRS PRN IV NAUSEA/VOMITING; Start 03/13/16 at 15:15 Heparin Sodium (Porcine) 5,000 unit Q8HRS SQ Last administered on 03/14/16 06: 23; Start 03/13/16 at 16:00 Famotidine (Pepcid) 20 mg DAILY PO Last administered on 03/14/16 09:30; Start 03/13/16 at 16:00 Prednisone (Prednisone) 40 mg DAILY PO Last administered on 03/14/16 09:30; Start 03/13/16 at 16:00 Albuterol Sulfate (Ventolin Neb Soln) 2.5 mg PRN Q4HRS PRN NEB SHORTNESS OF BREATH; Start 03/13/16 at 15:15 Budesonide 0.5 mg 0.5 mg RTBID NEB Last administered on 03/14/16 08:40; Start 03/13/16 at 20:00 Sodium Chloride 1,000 ml @ 1,000 mls/hr Q1H PRN IV hypotension; Start 03/13/16 at 15:00; Stop 03/13/16 at 20:59; Status DC Sodium Chloride (Iv Sodium Chloride 0.9% 1000ml Bag) 1,000 ml @ 400 mls/hr Q2H30M PRN IV PATENCY; Start 03/13/16 at 15:00; Stop 03/14/16 at 02:59; Status DC Info (PHARMACY MONITORING -- do not chart) 1 each PRN DAILY PRN MC SEE COMMENTS ; Start 03/13/16 at 17:30 Active Scripts Active Nystatin 100,000 Unit/1 Ml Oral.susp 5 Ml SWSW QID Nystop (Nystatin) 60 Gm Powder 1 Jesus TP BID Cefpodoxime Proxetil 200 Mg Tablet 200 Mg PO DAILY Benzonatate 100 Mg Capsule 100 Mg PO TID PRN [place] 5-325 Tablet (Acetaminophen/Hydrocodone Bitart) 1 Each Tablet 1 Tab PO PRN Q6HRS PRN Reported Folic Acid 1 Mg Tablet 1 Tab PO DAILY Levetiracetam 500 Mg Tablet 500 Mg PO BID Vitamin D2 (Ergocalciferol (Vitamin D2)) 50,000 Unit Capsule 1 Cap PO WEEKLY Ondansetron Odt (Ondansetron) 4 Mg Tab.rapdis 1 Tab PO TID PRN Nystatin-Triamcinolone Ointm (Nystatin/Triamcin) 30 Gm Oint...g. 30 Gm TP BID Venlafaxine Hcl Er (Venlafaxine Hcl) 150 Mg Cap.er.24h 150 Mg PO DAILY Plavix (Clopidogrel Bisulfate) 75 Mg Tablet 75 Mg PO DAILY Nephro-Fay Tablet (Folic Acid/Vitamin B Comp W-C) 0.8 Mg Tablet 0.8 Mg PO DAILY Duoneb 0.5 Mg-3 Mg/3 Ml Soln (Ipratropium/Albuterol Sulfate) 3 Ml Ampul.neb 3 Ml IH Q6HRS Ditropan Xl (Oxybutynin Chloride) 5 Mg Tab.er.24 5 Mg PO DAILY Atorvastatin Calcium 20 Mg Tablet 20 Mg PO QHS Advair 500-50 Diskus (Fluticasone/Salmeterol) 1 Each Disk.w.dev 1 Each IH BID Vitals/I & O Vital Sign - Last 24 Hours 03/13/16 03/13/16 03/13/16 03/13/16 10:49 12:41 13:45 14:39 Temp 98.2 98.2 Pulse 80 Resp 24 B/P 121/30 Pulse Ox 97 97 96 O2 Delivery Nasal Cannula BiPAP/CPAP BiPAP/CPAP Bi-pap 03/13/16 03/13/16 03/13/16 03/13/16 15:05 17:05 19:20 20:00 Temp 98.6 98.6 Pulse 70 Resp 18 B/P 106/67 Pulse Ox 96 96 95 O2 Delivery BiPAP/CPAP BiPAP/CPAP Nasal Cannula Bi-pap O2 Flow Rate 2.0 2.0 03/13/16 03/13/16 03/13/16 03/13/16 20:39 20:43 20:45 23:35 Temp 98.4 98.4 Pulse 84 Resp 20 B/P 129/69 Pulse Ox 98 98 98 94 O2 Delivery Nasal Cannula Nasal Cannula BiPAP/CPAP Nasal Cannula O2 Flow Rate 3.0 3.0 2.0 03/13/16 03/14/16 03/14/16 03/14/16 23:39 03:05 03:30 05:04 Temp 98.2 98.2 Pulse 72 Resp 16 B/P 121/73 Pulse Ox 98 97 99 98 O2 Delivery BiPAP/CPAP BiPAP/CPAP BiPAP/CPAP BiPAP/CPAP O2 Flow Rate 2.0 03/14/16 03/14/16 03/14/16 03/14/16 07:00 08:05 08:43 09:03 Temp 97.1 97.1 Pulse 75 Resp 20 B/P 131/78 Pulse Ox 100 96 96 O2 Delivery BiPAP/CPAP Bi-pap Nasal Cannula Nasal Cannula O2 Flow Rate 2.0 3.0 3.0 Intake and Output 03/13/16 03/13/16 03/14/16 15:00 23:00 07:00 Intake Total 150 ml 240 ml Output Total 100 ml 100 ml Balance -100 ml 50 ml 240 ml MAMTA MORALES MD Mar 14, 2016 10:37
--- NOTE | 2016-03-14 11:29 | PDOC ---
SUBJECTIVE ROS ESRD Feeling much better today CVS: min Orthopnea, no CP RESP: min SOB, ? ORONA(not ambulated ) GI: no Nausea, no Vomiting : no Dysuria, no Urgency OBJECTIVE Vital Signs Vital Signs Date Time Temp Pulse Resp B/P Pulse Ox O2 Delivery O2 Flow Rate FiO2 03/14/16 11:16 97.3 102 20 113/46 98 Nasal Cannula 97.3 03/14/16 09:03 3.0 I & 0 Intake and Output 03/14/16 07:00 Intake Total 390 ml Output Total 200 ml Balance 190 ml Intake Oral 390 ml Output Urine Total 200 ml # Voids 1 PHYSICAL EXAM Physical Exam General Appearance: Awake Alert Oriented x 3 In no Distress; flattish affect Eyes: VIsion Unchanged Conjunctiva Normal EN: No EN Drainage Mucous Memb. moist Neck: no JVD no JVP Supple no Thyromegaly; shrot neck CVS: S1 S2 no Murmur No Gallop No Rub no Edema Resp: no Rales no Rhonchi no Acc. Muscle use GI: BAS +ve NO Bruit Non Tender Non Distended; obese : no CVA tenderness; no Suprapubic Tenderness Assessment & Plan ESRD: pt flet better after HD. Wts are not accurate. reweigh today. May need xtra HD to uf today. ? Fl. Overload - IV Lasix Anemia: No Epogen for hgb > 11; Transfuse with next HD as needed. HTN: Current BP meds reviewed. See orders for changes. Hyper phos - watch trend on Current binders. ? Compliance issue? SOB Subj - defer to Pulm Does not appear to be fluid related - she would like a decongestant COMMENT/RELEVANT DATA Meds Current Medications Medications (Trade) Dose Ordered Sig/Negro Start Time Stop Time Status Last Admin Dose Admin Acetaminophen (Tylenol) 650 mg PRN Q6HRS PRN 03/13/16 15:15 Acetaminophen/ Hydrocodone Bitart (Lortab 5/325) 1 tab PRN Q6HRS PRN 03/13/16 15:15 Albuterol Sulfate (Ventolin Neb Soln) 2.5 mg PRN Q4HRS PRN 03/13/16 15:15 Albuterol/ Ipratropium (Duoneb) 3 ml Q6HRS 03/13/16 18:00 03/14/16 08:40 3 ML Aspirin (Ramu Aspirin) 325 mg 1X ONCE 03/13/16 11:30 03/13/16 11:31 DC 03/13/16 12:29 325 MG Atorvastatin Calcium (Lipitor) 20 mg QHS 03/13/16 21:00 03/13/16 20:50 20 MG Benzonatate (Tessalon Perle) 100 mg TID 03/14/16 14:00 Budesonide 0.5 mg 0.5 mg RTBID 03/13/16 20:00 03/14/16 08:40 0.5 MG Clopidogrel Bisulfate (Plavix) 75 mg DAILY 03/13/16 16:00 03/14/16 09:30 75 MG Ergocalciferol (Vitamin D2) 50,000 unit We 03/15/16 09:00 Famotidine (Pepcid) 20 mg DAILY 03/13/16 16:00 03/14/16 09:30 20 MG Fentanyl Citrate (Fentanyl 2ml Vial) 50 mcg PRN Q2HR PRN 03/13/16 08:30 03/14/16 08:29 DC Folic Acid/ Multivitamins/Vit B12 (Nephro-Fay) 1 tab DAILY 03/13/16 16:00 03/14/16 09:30 1 TAB Guaifenesin (Mucinex) 600 mg BID 03/13/16 21:00 03/14/16 09:30 600 MG Guaifenesin (Robitussin Dm) 10 ml QID 03/14/16 13:00 Heparin Sodium (Porcine) 5,000 unit Q8HRS 03/13/16 16:00 03/14/16 06:23 5,000 UNIT Info (PHARMACY MONITORING -- do not chart) 1 each PRN DAILY PRN 03/13/16 17:30 Levetiracetam (Keppra) 500 mg BID 03/13/16 16:00 03/14/16 09:30 500 MG Levofloxacin/ Dextrose (LEVAQUIN 500mg PREMIX) 100 ml @ 100 mls/hr Q48H 03/13/16 09:00 03/14/16 08:17 DC 03/13/16 09:13 100 MLS/HR Levofloxacin/ Dextrose 1 each 1 each PRN DAILY PRN 03/13/16 08:15 03/13/16 14:44 DC Methylprednisolone Sodium Succinate (Solu-Medrol 125mg Vial) 125 mg 1X ONCE 03/13/16 08:00 03/13/16 08:02 DC 03/13/16 08:09 125 MG Non-Formulary Medication 1 each BID 03/13/16 21:00 03/13/16 21:00 DC Nystatin (Nystop) 1 marley BID 03/13/16 16:00 Cancel Ondansetron HCl (Zofran) 4 mg PRN Q6HRS PRN 03/13/16 15:15 Oxybutynin Chloride (Ditropan) 5 mg DAILY 03/13/16 16:00 03/14/16 09:30 5 MG Prednisone (Prednisone) 40 mg DAILY 03/13/16 16:00 03/14/16 09:30 40 MG Sodium Chloride (Iv Sodium Chloride 0.9% 1000ml Bag) 1,000 ml @ 400 mls/hr Q2H30M PRN 03/13/16 15:00 03/14/16 02:59 DC Venlafaxine HCl (Effexor) 50 mg TID 03/13/16 15:45 03/14/16 09:30 50 MG Lab Laboratory Tests Test 03/13/16 15:15 03/13/16 20:55 03/13/16 21:38 03/14/16 09:02 Lactic Acid Level 1.1mmol/L (0.4-2.0) Glucose (Fingerstick) 168mg/dL (70-99) Troponin I Quantitative 0.077ng/mL (0.000-0.055) White Blood Count 13.5x10^3/uL (4.0-11.0) Red Blood Count 4.51x10^6/uL (3.50-5.40) Hemoglobin 12.6g/dL (12.0-15.5) Hematocrit 39.1% (36.0-47.0) Mean Corpuscular Volume 87fL (79-100) Mean Corpuscular Hemoglobin 28pg (25-35) Mean Corpuscular Hemoglobin Concent 32g/dL (31-37) Red Cell Distribution Width 15.4% (11.5-14.5) Platelet Count 126x10^3/uL (140-400) Neutrophils (%) (Auto) 91% (31-73) Lymphocytes (%) (Auto) 6% (24-48) Monocytes (%) (Auto) 3% (0-9) Eosinophils (%) (Auto) 0% (0-3) Basophils (%) (Auto) 0% (0-3) Neutrophils # (Auto) 12.4x10^3uL (1.8-7.7) Lymphocytes # (Auto) 0.8x10^3/uL (1.0-4.8) Monocytes # (Auto) 0.4x10^3/uL (0.0-1.1) Eosinophils # (Auto) 0.0x10^3/uL (0.0-0.7) Basophils # (Auto) 0.0x10^3/uL (0.0-0.2) Sodium Level 135mmol/L (136-145) Potassium Level 4.7mmol/L (3.5-5.1) Chloride Level 99mmol/L (98-107) Carbon Dioxide Level 22mmol/L (21-32) Anion Gap 14 (6-14) Blood Urea Nitrogen 52mg/dL (7-20) Creatinine 4.1mg/dL (0.6-1.0) Estimated GFR (Cockcroft-Gault) 10.9 Glucose Level 108mg/dL (70-99) Calcium Level 9.0mg/dL (8.5-10.1) Phosphorus Level 7.7mg/dL (2.6-4.7) Albumin 2.6g/dL (3.4-5.0) Triglycerides Level 47mg/dL (0-150) Cholesterol Level 177mg/dL (0-200) LDL Cholesterol, Calculated 68mg/dL (0-100) VLDL Cholesterol, Calculated 9mg/dL (0-40) HDL Cholesterol 100mg/dL (40-60) Cholesterol/HDL Ratio 1.8 HERB KEYS MD Mar 14, 2016 11:29
--- NOTE | 2016-03-14 12:08 | PDOC ---
MARCELINO BRAN SAP SPECIALIST 03/14/16 1208: CARDIO Progress Notes Date and Time Date of Service 03/14/16 Time of Evaluation 1130 Subjective Subjective: No Chest Pain, No Palpitations, No Dizziness, Other (breathing improved. On NC) Vitals Vitals Vital Signs Date Time Temp Pulse Resp B/P Pulse Ox O2 Delivery O2 Flow Rate FiO2 03/14/16 11:16 97.3 102 20 113/46 98 Nasal Cannula 97.3 03/14/16 09:03 3.0 Weight Weight [ ] Input and Output Intake and Output Intake and Output 03/14/16 07:00 Intake Total 390 ml Output Total 200 ml Balance 190 ml Intake Oral 390 ml Output Urine Total 200 ml # Voids 1 Laboratory Labs Laboratory Tests Test 03/13/16 15:15 03/13/16 20:55 03/13/16 21:38 03/14/16 09:02 Lactic Acid Level 1.1mmol/L (0.4-2.0) Glucose (Fingerstick) 168mg/dL (70-99) Troponin I Quantitative 0.077ng/mL (0.000-0.055) White Blood Count 13.5x10^3/uL (4.0-11.0) Red Blood Count 4.51x10^6/uL (3.50-5.40) Hemoglobin 12.6g/dL (12.0-15.5) Hematocrit 39.1% (36.0-47.0) Mean Corpuscular Volume 87fL (79-100) Mean Corpuscular Hemoglobin 28pg (25-35) Mean Corpuscular Hemoglobin Concent 32g/dL (31-37) Red Cell Distribution Width 15.4% (11.5-14.5) Platelet Count 126x10^3/uL (140-400) Neutrophils (%) (Auto) 91% (31-73) Lymphocytes (%) (Auto) 6% (24-48) Monocytes (%) (Auto) 3% (0-9) Eosinophils (%) (Auto) 0% (0-3) Basophils (%) (Auto) 0% (0-3) Neutrophils # (Auto) 12.4x10^3uL (1.8-7.7) Lymphocytes # (Auto) 0.8x10^3/uL (1.0-4.8) Monocytes # (Auto) 0.4x10^3/uL (0.0-1.1) Eosinophils # (Auto) 0.0x10^3/uL (0.0-0.7) Basophils # (Auto) 0.0x10^3/uL (0.0-0.2) Sodium Level 135mmol/L (136-145) Potassium Level 4.7mmol/L (3.5-5.1) Chloride Level 99mmol/L (98-107) Carbon Dioxide Level 22mmol/L (21-32) Anion Gap 14 (6-14) Blood Urea Nitrogen 52mg/dL (7-20) Creatinine 4.1mg/dL (0.6-1.0) Estimated GFR (Cockcroft-Gault) 10.9 Glucose Level 108mg/dL (70-99) Calcium Level 9.0mg/dL (8.5-10.1) Phosphorus Level 7.7mg/dL (2.6-4.7) Albumin 2.6g/dL (3.4-5.0) Triglycerides Level 47mg/dL (0-150) Cholesterol Level 177mg/dL (0-200) LDL Cholesterol, Calculated 68mg/dL (0-100) VLDL Cholesterol, Calculated 9mg/dL (0-40) HDL Cholesterol 100mg/dL (40-60) Cholesterol/HDL Ratio 1.8 Microbiology Micro Microbiology 03/13/16 Blood Culture - Preliminary, Resulted NO GROWTH AFTER 1 DAY Physical Exam HEENT: Neck Supple W Full Motion Chest: Symmetric LUNGS: Other (coarse throughout) Heart: S1S2, RRR, no murmurs, other Abdomen: Soft N/T Extremities: No Edema, Other (diminished pedal pulses ) Neurology: alert, oriented, follow commands Assessment Assessment 1. Acute on chronic diastolic heart failure better compensated. repeat echo with normal LV function Fluid offloading as warranted in HD per nephrology no further cardiac workup warranted 2. Acute on chronic respiratory failure with AE COPD improved with steroids; now on NC management pulmonary consulted 3. Mild troponin elevation troponin peak 0.097. Likely type 2, demand ischemia related to hypoxia in the setting of CRF echo with no evidence of WMA 4. HTN well-controlled continue with current therapy 5. HLP LDL= 68 statin therapy 6. Leukocytosis empiric antibiotic therapy 7. PVD stable. No claudication symptoms medical therapy 8. Tobaccoism cessation discussed and encouraged. MUSTAPHA RODRIGUEZ MD 03/14/16 [id number]: CARDIO Progress Notes Assessment Assessment Patient seen and examined. 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 Acute on chronic diastolic heart failure better compensated with fluid removal with hemodialysis. Continue treatment of acute COPD exacerbation per pulmonary team. 2-D echo showed normal LV systolic function without any wall motion abnormalities. Slight troponin level elevation probably secondary to hypoxia/ demand ischemia. Continue current medical regimen. MARCELINO BRAN APRN Mar 14, 2016 12:08 MUSTAPHA RODRIGUEZ MD Mar 14, 2016 13:39
[2016-03-14] MEDS: GUAIFENESIN DM 200MG/20MG 10 ML SYRUP. PO SCH ×3 (12:52→20:36)
[2016-03-14] MEDS: CALCIUM ACETATE 667 MG CAPSULE PO SCH ×2 (12:53→18:32)
[2016-03-14] MEDS: BENZONATATE 100 MG CAPSULE. PO SCH ×2 (12:53→20:35)
[2016-03-14] MEDS: FUROSEMIDE 100 MG/10 ML VIAL IVP SCH ×2 (15:50→20:36)
[2016-03-14] MEDS: ATORVASTATIN CALCIUM 20 MG TABLET PO SCH (20:35)
[2016-03-14] MEDS: HYDROCODONE/APAP 5/325MG TABLET. PO PRN (22:17)
[2016-03-15] MEDS: IPRATRPIUM/ALBUTEROL 0.5/2.5MG 3 ML NEBU. IH SCH ×4 (00:17→19:52)
[2016-03-15 03:22] VITALS: BP 148/74
[2016-03-15 03:26] VITALS: BP 134/85
[2016-03-15] MEDS: HEPARIN PF for SUB-Q USE 5,000 UNIT/0.5 ML VIAL. SQ SCH ×3 (06:15→21:33)
[2016-03-15] MEDS: CALCIUM ACETATE 667 MG CAPSULE PO SCH ×3 (08:00→17:25)
[2016-03-15] MEDS: BUDESONIDE 0.5 MG/2 ML NEBU NEB SCH ×2 (08:00→19:53)
[2016-03-15] MEDS: VENLAFAXINE 50 MG TABLET. PO SCH ×3 (09:00→21:30)
[2016-03-15] MEDS: NYSTATIN TOPICAL POWDER 15GM BOTTLE. TP SCH ×2 (09:00→21:34)
[2016-03-15] MEDS ORDERED: ERGOCALCIFEROL (VITAMIN D2) 50,000 UNIT CAPSULE PO SCH (09:00)
[2016-03-15] MEDS: FUROSEMIDE 100 MG/10 ML VIAL IVP SCH ×3 (09:00→21:30)
[2016-03-15] MEDS: GUAIFENESIN DM 200MG/20MG 10 ML SYRUP. PO SCH ×4 (09:00→21:31)
[2016-03-15] MEDS: BENZONATATE 100 MG CAPSULE. PO SCH ×3 (09:00→21:31)
[2016-03-15] MEDS ORDERED: IV NORMAL SALINE 1000ML BAG 1,000 ML IV PRN ×2 (09:05)
[2016-03-15] MEDS ORDERED: DIALYSIS PATIENT. MC PRN ×2 (09:15)
[2016-03-15] MEDS ORDERED: ALBUMIN HUMAN 25% 200 ML IV PRN (09:15)
[2016-03-15] MEDS ORDERED: 0.9 % SODIUM CHLORIDE 10 ML DISP.SYRIN. IV PRN ×2 (09:15)
--- NOTE | 2016-03-15 09:52 | PDOC ---
Infectious Disease Note Subjective Subjective pt feeling better ROS ROS GEN: Denies fevers, chills, sweats HEENT: Denies blurred vision, sore throat CV: Denies chest pain RESP: Denies shortness of air, cough GI: Denies n/v/d NEURO: Denies confusion, dizziness Vital Sign Vital Signs Vital Signs Date Time Temp Pulse Resp B/P Pulse Ox O2 Delivery O2 Flow Rate FiO2 03/15/16 07:23 Nasal Cannula 3.0 03/15/16 05:10 99 03/15/16 03:26 98.3 82 24 134/85 98.3 Physical Exam PHYSICAL EXAM GENERAL: NAD, Alert HEENT: PERRL, OC/OP NECK: Supple, no JVD, no LN LUNGS: Clear HEART: S1S2, no gallop, no murmur ABD: Soft, NT, no organomegaly, no rebound EXT: No edema, no cyanosis BOILER ERECTOR: Alert, oriented x 3, no focal neurologic deficit SKIN: No rash IV: ok Labs Micro BC neg Objective Assessment Leukocytosis sec to steroids vs reactive CHF COPD ESRD Debility Plan Plan of Care off antibiotics supportive care pt/ot YAZAN KEYS MD Mar 15, 2016 09:52
--- NOTE | 2016-03-15 10:26 | PDOC ---
Dialysis Progress Note Dialysis Note Dialysis Note Seen on Hemodialysis, tolerating treatment Well Vitals on Hemodialysis: 106/66 76 afeb General Appearance: Awake: Alert Oriented x 2-3 Neck: No JVD or JVP Chest: CTA Josiah Heart: S1 S2 Abdomen - Soft NTND Extremities - No Edema ESRD : Dialysis as below F 180 NR 3.5 Hrs 3 K 2.5 Ca 140 Na 35 HC03 Qb 350 + Qd 500+ Heparin 0 Units Uf 2-3 Kgs or to dry weight as tolerated May give 25-50 gms of 25% Albumin if needed to maintain Hemodynamic stability Treatment plan reviewed and discussed with correction worker Vitals Vital Signs Vital Signs Date Time Temp Pulse Resp B/P Pulse Ox O2 Delivery O2 Flow Rate FiO2 03/15/16 07:23 Nasal Cannula 3.0 03/15/16 05:10 99 03/15/16 03:26 98.3 82 24 134/85 98.3 Labs Last Labs Laboratory Tests Test 03/13/16 15:15 03/13/16 20:55 03/13/16 21:38 03/14/16 09:02 Lactic Acid Level 1.1mmol/L (0.4-2.0) Glucose (Fingerstick) 168mg/dL (70-99) Troponin I Quantitative 0.077ng/mL (0.000-0.055) White Blood Count 13.5x10^3/uL (4.0-11.0) Red Blood Count 4.51x10^6/uL (3.50-5.40) Hemoglobin 12.6g/dL (12.0-15.5) Hematocrit 39.1% (36.0-47.0) Mean Corpuscular Volume 87fL (79-100) Mean Corpuscular Hemoglobin 28pg (25-35) Mean Corpuscular Hemoglobin Concent 32g/dL (31-37) Red Cell Distribution Width 15.4% (11.5-14.5) Platelet Count 126x10^3/uL (140-400) Neutrophils (%) (Auto) 91% (31-73) Lymphocytes (%) (Auto) 6% (24-48) Monocytes (%) (Auto) 3% (0-9) Eosinophils (%) (Auto) 0% (0-3) Basophils (%) (Auto) 0% (0-3) Neutrophils # (Auto) 12.4x10^3uL (1.8-7.7) Lymphocytes # (Auto) 0.8x10^3/uL (1.0-4.8) Monocytes # (Auto) 0.4x10^3/uL (0.0-1.1) Eosinophils # (Auto) 0.0x10^3/uL (0.0-0.7) Basophils # (Auto) 0.0x10^3/uL (0.0-0.2) Sodium Level 135mmol/L (136-145) Potassium Level 4.7mmol/L (3.5-5.1) Chloride Level 99mmol/L (98-107) Carbon Dioxide Level 22mmol/L (21-32) Anion Gap 14 (6-14) Blood Urea Nitrogen 52mg/dL (7-20) Creatinine 4.1mg/dL (0.6-1.0) Estimated GFR (Cockcroft-Gault) 10.9 Glucose Level 108mg/dL (70-99) Calcium Level 9.0mg/dL (8.5-10.1) Phosphorus Level 7.7mg/dL (2.6-4.7) Albumin 2.6g/dL (3.4-5.0) Triglycerides Level 47mg/dL (0-150) Cholesterol Level 177mg/dL (0-200) LDL Cholesterol, Calculated 68mg/dL (0-100) VLDL Cholesterol, Calculated 9mg/dL (0-40) HDL Cholesterol 100mg/dL (40-60) Cholesterol/HDL Ratio 1.8 Assessment Assessment Problems Medical Problems: (1) Chest pain Status: Acute (2) COPD exacerbation Status: Acute (3) Elevated troponin Status: Acute (4) ESRD (end stage renal disease) on dialysis Status: Acute (5) Respiratory failure Status: Acute Problems: Plan Plan of Care Problems Medical Problems: (1) Chest pain Status: Acute (2) COPD exacerbation Status: Acute (3) Elevated troponin Status: Acute (4) ESRD (end stage renal disease) on dialysis Status: Acute (5) Respiratory failure Status: Acute HERB KEYS MD Mar 15, 2016 10:26
--- NOTE | 2016-03-15 11:23 | PDOC ---
PROGRESS NOTES Chief Complaint Chief Complaint 1. acute on chronic hypoxic resp failure 2. COPD exacerbation, SEVERE 3. possible diastolic CHF 4. recent CAP 5. ESRD ON HD MWF 6. H/O CAD 7. htn 8. hld 9. depression 10. smoker 11. metabolic acidosis History of Present Illness History of Present Illness Out having HD Chart reviewed and labs EARLIER ENTRY Smokers skin, smokers lips VERY dec BS Off bipap, up in chair but SOA with long phrases with me today Admits to still smoking 1 ppday from 2 ppday CXR no pneumonia, levaquin stopped Report provided to pt PLAN: Agree with dc PO levaquin COnt nebs Steroids Pt/OT Does not wnat to go to rehab even if PT recommends Lives at home with dtr chronic O2 2LNC Add cough med and DVt prophy if not yet on Vitals Vitals Vital Signs Date Time Temp Pulse Resp B/P Pulse Ox O2 Delivery O2 Flow Rate FiO2 03/15/16 07:23 Nasal Cannula 3.0 03/15/16 05:10 99 03/15/16 03:26 98.3 82 24 134/85 98.3 Physical Exam General: Alert, Oriented X3, Cooperative, No acute distress Heart: Regular rate, Normal S1, Normal S2, Other (heart tones difficult to appreciate through BiPAP) Lungs: Clear Abdomen: Soft, No tenderness Extremities: No cyanosis, No edema, Other (diminished pedal pulses) Skin: No rashes, No significant lesion Review of Systems Review of Systems out having HD - seen in HD - does not voice any issues Assessment and Plan Assessmemt and Plan Problems Medical Problems: (1) Chest pain Status: Acute (2) COPD exacerbation Status: Acute (3) Elevated troponin Status: Acute (4) ESRD (end stage renal disease) on dialysis Status: Acute (5) Respiratory failure Status: Acute Problems: Comment Review of Relevant I have reviewed the following items sarahi (where applicable) has been applied. Labs Laboratory Tests Test 03/13/16 15:15 03/13/16 20:55 03/13/16 21:38 03/14/16 09:02 Lactic Acid Level 1.1mmol/L (0.4-2.0) Glucose (Fingerstick) 168mg/dL (70-99) Troponin I Quantitative 0.077ng/mL (0.000-0.055) White Blood Count 13.5x10^3/uL (4.0-11.0) Red Blood Count 4.51x10^6/uL (3.50-5.40) Hemoglobin 12.6g/dL (12.0-15.5) Hematocrit 39.1% (36.0-47.0) Mean Corpuscular Volume 87fL (79-100) Mean Corpuscular Hemoglobin 28pg (25-35) Mean Corpuscular Hemoglobin Concent 32g/dL (31-37) Red Cell Distribution Width 15.4% (11.5-14.5) Platelet Count 126x10^3/uL (140-400) Neutrophils (%) (Auto) 91% (31-73) Lymphocytes (%) (Auto) 6% (24-48) Monocytes (%) (Auto) 3% (0-9) Eosinophils (%) (Auto) 0% (0-3) Basophils (%) (Auto) 0% (0-3) Neutrophils # (Auto) 12.4x10^3uL (1.8-7.7) Lymphocytes # (Auto) 0.8x10^3/uL (1.0-4.8) Monocytes # (Auto) 0.4x10^3/uL (0.0-1.1) Eosinophils # (Auto) 0.0x10^3/uL (0.0-0.7) Basophils # (Auto) 0.0x10^3/uL (0.0-0.2) Sodium Level 135mmol/L (136-145) Potassium Level 4.7mmol/L (3.5-5.1) Chloride Level 99mmol/L (98-107) Carbon Dioxide Level 22mmol/L (21-32) Anion Gap 14 (6-14) Blood Urea Nitrogen 52mg/dL (7-20) Creatinine 4.1mg/dL (0.6-1.0) Estimated GFR (Cockcroft-Gault) 10.9 Glucose Level 108mg/dL (70-99) Calcium Level 9.0mg/dL (8.5-10.1) Phosphorus Level 7.7mg/dL (2.6-4.7) Albumin 2.6g/dL (3.4-5.0) Triglycerides Level 47mg/dL (0-150) Cholesterol Level 177mg/dL (0-200) LDL Cholesterol, Calculated 68mg/dL (0-100) VLDL Cholesterol, Calculated 9mg/dL (0-40) HDL Cholesterol 100mg/dL (40-60) Cholesterol/HDL Ratio 1.8 Microbiology 03/13/16 Blood Culture - Preliminary, Resulted NO GROWTH AFTER 1 DAY Medications Current Medications Albuterol/ Ipratropium (Duoneb) 3 ml 1X ONCE NEB Last administered on 08:28; Start 03/13/16 at 08:00; Stop 03/13/16 at 08:02; Status DC Methylprednisolone Sodium Succinate (Solu-Medrol 125mg Vial) 125 mg 1X ONCE IV Last administered on 03/13/16 08:09; Start 03/13/16 at 08:00; Stop 03/13/16 at 08:02; Status DC Levofloxacin/ Dextrose 1 each 1 each PRN DAILY PRN MC SEE COMMENTS; Start 03/13 at 08:15; Stop 03/13/16 at 14:44; Status DC Levofloxacin/ Dextrose (LEVAQUIN 500mg PREMIX) 100 ml @ 100 mls/hr Q48H IV Last administered on 03/13/16 09:13; Start 03/13/16 at 09:00; Stop 03/14/16 at 08:17; Status DC Ondansetron HCl (Zofran) 4 mg PRN Q8HRS PRN IV NAUSEA/VOMITING; Start 03/13/16 at 08:30; Stop 03/13/16 at 15:55; Status DC Fentanyl Citrate (Fentanyl 2ml Vial) 50 mcg PRN Q2HR PRN IV PAIN; Start at 08:30; Stop 03/14/16 at 08:29; Status DC Acetaminophen (Tylenol) 650 mg PRN Q4HRS PRN PO FEVER; Start 03/13/16 at 08:30 ; Stop 03/14/16 at 08:29; Status DC Albuterol/ Ipratropium (Duoneb) 3 ml RTQID NEB Last administered on 03/13/16 12:41; Start 03/13/16 at 12:00; Stop 03/13/16 at 15:33; Status DC Aspirin (Ramu Aspirin) 325 mg 1X ONCE PO Last administered on 03/13/16 12:29 ; Start 03/13/16 at 11:30; Stop 03/13/16 at 11:31; Status DC Nystatin (Nystop) 1 jesus BID TP Last administered on 03/14/16 20:38; Start at 14:45 Atorvastatin Calcium (Lipitor) 20 mg QHS PO Last administered on 03/14/16 20: 35; Start 03/13/16 at 21:00 Benzonatate (Tessalon Perle) 100 mg PRN TID PRN PO COUGH; Start 03/13/16 at 15: 15; Stop 03/14/16 at 14:00; Status DC Clopidogrel Bisulfate (Plavix) 75 mg DAILY PO Last administered on 03/14/16 09 :30; Start 03/13/16 at 16:00 Ergocalciferol (Vitamin D2) 50,000 unit We PO ; Start 03/15/16 at 09:00 Folic Acid/ Multivitamins/Vit B12 (Nephro-Fay) 1 tab DAILY PO Last administered on 03/14/16 09:30; Start 03/13/16 at 16:00 Acetaminophen/ Hydrocodone Bitart (Lortab 5/325) 1 tab PRN Q6HRS PRN PO PAIN Last administered on 03/14/16 22:17; Start 03/13/16 at 15:15 Albuterol/ Ipratropium (Duoneb) 3 ml Q6HRS IH Last administered on 03/15/16 00: 17; Start 03/13/16 at 18:00 Levetiracetam (Keppra) 500 mg BID PO Last administered on 03/14/16 20:35; Start 03/13/16 at 16:00 Nystatin (Nystop) 1 jesus BID TP ; Start 03/13/16 at 16:00; Status Cancel Non-Formulary Medication 1 each BID IH ; Start 03/13/16 at 21:00; Stop 03/13/16 at 21:00; Status DC Oxybutynin Chloride (Ditropan) 5 mg DAILY PO Last administered on 03/14/16 09: 30; Start 03/13/16 at 16:00 Venlafaxine HCl (Effexor) 50 mg TID PO Last administered on 03/14/16 20:35; Start 03/13/16 at 15:45 Guaifenesin (Mucinex) 600 mg BID PO Last administered on 03/14/16 20:35; Start 03/13/16 at 21:00 Acetaminophen (Tylenol) 650 mg PRN Q6HRS PRN PO MILD PAIN / TEMP; Start at 15:15 Ondansetron HCl (Zofran) 4 mg PRN Q6HRS PRN IV NAUSEA/VOMITING Last administered on 03/15/16 11:11; Start 03/13/16 at 15:15 Heparin Sodium (Porcine) 5,000 unit Q8HRS SQ Last administered on 03/15/16 06: 15; Start 03/13/16 at 16:00 Famotidine (Pepcid) 20 mg DAILY PO Last administered on 03/14/16 09:30; Start 03/13/16 at 16:00 Prednisone (Prednisone) 40 mg DAILY PO Last administered on 03/14/16 09:30; Start 03/13/16 at 16:00 Albuterol Sulfate (Ventolin Neb Soln) 2.5 mg PRN Q4HRS PRN NEB SHORTNESS OF BREATH; Start 03/13/16 at 15:15 Budesonide 0.5 mg 0.5 mg RTBID NEB Last administered on 03/14/16 19:40; Start 03/13/16 at 20:00 Sodium Chloride 1,000 ml @ 1,000 mls/hr Q1H PRN IV hypotension; Start 03/13/16 at 15:00; Stop 03/13/16 at 20:59; Status DC Sodium Chloride (Iv Sodium Chloride 0.9% 1000ml Bag) 1,000 ml @ 400 mls/hr Q2H30M PRN IV PATENCY; Start 03/13/16 at 15:00; Stop 03/14/16 at 02:59; Status DC Info (PHARMACY MONITORING -- do not chart) 1 each PRN DAILY PRN MC SEE COMMENTS ; Start 03/13/16 at 17:30 Benzonatate (Tessalon Perle) 100 mg TID PO Last administered on 03/14/16 20:35 ; Start 03/14/16 at 14:00 Guaifenesin (Robitussin Dm) 10 ml QID PO Last administered on 03/14/16 20:36; Start 03/14/16 at 13:00 Furosemide (Lasix) 80 mg TID IVP Last administered on 03/14/16t 20:36; Start at 14:00 Calcium Acetate 1334 mg 1,334 mg TIDWMEALS PO Last administered on 03/14/16 18 :32; Start 03/14/16 at 12:00 Sodium Chloride 1,000 ml @ 1,000 mls/hr Q1H PRN IV hypotension; Start 03/15/16 at 09:05; Stop 03/15/16 at 15:04 Albumin Human (Albuminar) 200 ml @ 200 mls/hr 1X PRN PRN IV Hypotension; Start 03/15/16 at 09:15; Stop 03/15/16 at 15:14 Sodium Chloride (Normal Saline Flush) 10 ml 1X PRN PRN IV AP catheter pack; Start 03/15/16 at 09:15; Stop 03/16/16 at 09:14 Sodium Chloride 10 ml 10 ml 1X PRN PRN IV BLOCK OUT MACHINE OPERATOR catheter pack; Start 03/15/16 at 09 :15; Stop 03/16/16 at 09:14 Sodium Chloride (Iv Sodium Chloride 0.9% 1000ml Bag) 1,000 ml @ 400 mls/hr Q2H30M PRN IV PATENCY; Start 03/15/16 at 09:05; Stop 03/15/16 at 21:04 Info (PHARMACY MONITORING -- do not chart) 1 each PRN DAILY PRN MC SEE COMMENTS ; Start 03/15/16 at 09:15; Status UNV Info (PHARMACY MONITORING -- do not chart) 1 each PRN DAILY PRN MC SEE COMMENTS ; Start 03/15/16 at 09:15; Status UNV Active Scripts Active Nystatin 100,000 Unit/1 Ml Oral.susp 5 Ml SWSW QID Nystop (Nystatin) 60 Gm Powder 1 Jesus TP BID Cefpodoxime Proxetil 200 Mg Tablet 200 Mg PO DAILY Benzonatate 100 Mg Capsule 100 Mg PO TID PRN [place] 5-325 Tablet (Acetaminophen/Hydrocodone Bitart) 1 Each Tablet 1 Tab PO PRN Q6HRS PRN Reported Folic Acid 1 Mg Tablet 1 Tab PO DAILY Levetiracetam 500 Mg Tablet 500 Mg PO BID Vitamin D2 (Ergocalciferol (Vitamin D2)) 50,000 Unit Capsule 1 Cap PO WEEKLY Ondansetron Odt (Ondansetron) 4 Mg Tab.rapdis 1 Tab PO TID PRN Nystatin-Triamcinolone Ointm (Nystatin/Triamcin) 30 Gm Oint...g. 30 Gm TP BID Venlafaxine Hcl Er (Venlafaxine Hcl) 150 Mg Cap.er.24h 150 Mg PO DAILY Plavix (Clopidogrel Bisulfate) 75 Mg Tablet 75 Mg PO DAILY Nephro-Fay Tablet (Folic Acid/Vitamin B Comp W-C) 0.8 Mg Tablet 0.8 Mg PO DAILY Duoneb 0.5 Mg-3 Mg/3 Ml Soln (Ipratropium/Albuterol Sulfate) 3 Ml Ampul.neb 3 Ml IH Q6HRS Ditropan Xl (Oxybutynin Chloride) 5 Mg Tab.er.24 5 Mg PO DAILY Atorvastatin Calcium 20 Mg Tablet 20 Mg PO QHS Advair 500-50 Diskus (Fluticasone/Salmeterol) 1 Each Disk.w.dev 1 Each IH BID Vitals/I & O Vital Sign - Last 24 Hours 03/14/16 03/14/16 03/14/16 03/14/16 13:54 15:25 15:31 19:27 Temp 98.8 98.6 98.8 98.6 Pulse 99 83 Resp 22 20 B/P 109/70 100/48 Pulse Ox 96 97 97 97 O2 Delivery Nasal Cannula BiPAP/CPAP BiPAP/CPAP Nasal Cannula O2 Flow Rate 3.0 3.0 03/14/16 03/14/16 03/14/16 03/14/16 19:40 20:00 20:39 22:17 Pulse 88 Resp 26 B/P 103/55 Pulse Ox 97 97 O2 Delivery Nasal Cannula Nasal Cannula BiPAP/CPAP O2 Flow Rate 3.0 3.0 03/14/16 03/14/16 03/15/16 03/15/16 23:17 23:18 00:17 01:10 Temp 98.6 98.6 Pulse 90 Resp 20 24 B/P 111/73 Pulse Ox 98 98 98 O2 Delivery BiPAP/CPAP BiPAP/CPAP BiPAP/CPAP 03/15/16 03/15/16 03/15/16 03/15/16 03:10 03:26 05:10 07:23 Temp 98.3 98.3 Pulse 82 Resp 24 B/P 134/85 Pulse Ox 99 95 99 O2 Delivery BiPAP/CPAP BiPAP/CPAP BiPAP/CPAP Nasal Cannula O2 Flow Rate 3.0 Intake and Output 03/14/16 03/14/16 03/15/16 15:00 23:00 07:00 Intake Total 240 ml 120 ml 100 ml Output Total 150 ml Balance 240 ml 120 ml -50 ml MAMTA MORALES MD Mar 15, 2016 11:23
[2016-03-15] MEDS: PREDNISONE 20 MG TABLET PO SCH (13:24)
[2016-03-15] MEDS: GUAIFENESIN ER 600 MG TABLET.ER PO SCH ×2 (13:24→21:31)
[2016-03-15] MEDS: FAMOTIDINE 20 MG TABLET. PO SCH (13:24)
[2016-03-15] MEDS: LEVETIRACETAM 500 MG TABLET PO SCH ×2 (13:24→21:31)
[2016-03-15] MEDS: FOLIC/VIT B COMP W-C (RENAL) TABLET. PO SCH (13:24)
[2016-03-15] MEDS: CLOPIDOGREL BISULFATE 75 MG TABLET PO SCH (13:24)
[2016-03-15] MEDS: OXYBUTYNIN CHLORIDE 5 MG TABLET PO SCH (13:24)
[2016-03-15 14:56] VITALS: BP 105/71
--- NOTE | 2016-03-15 15:25 | PDOC ---
PULMONARY PROGRESS NOTES Subjective Pt feels better less soa Vitals Vital Signs Date Time Temp Pulse Resp B/P Pulse Ox O2 Delivery O2 Flow Rate FiO2 03/15/16 14:56 100.3 93 24 105/71 97 BiPAP/CPAP 100.3 03/15/16 12:21 3.0 ROS: No Nausea, No Chest Pain, No Abdominal Pain, No Increase Cough General: Alert Lungs: Clear Cardiovascular: S1, S2 Abdomen: Soft, Non-tender Neuro Exam: Alert Extremities: No Edema Skin: Warm Labs Laboratory Tests Test 03/13/16 20:55 03/13/16 21:38 03/14/16 09:02 Glucose (Fingerstick) 168mg/dL (70-99) Troponin I Quantitative 0.077ng/mL (0.000-0.055) White Blood Count 13.5x10^3/uL (4.0-11.0) Red Blood Count 4.51x10^6/uL (3.50-5.40) Hemoglobin 12.6g/dL (12.0-15.5) Hematocrit 39.1% (36.0-47.0) Mean Corpuscular Volume 87fL (79-100) Mean Corpuscular Hemoglobin 28pg (25-35) Mean Corpuscular Hemoglobin Concent 32g/dL (31-37) Red Cell Distribution Width 15.4% (11.5-14.5) Platelet Count 126x10^3/uL (140-400) Neutrophils (%) (Auto) 91% (31-73) Lymphocytes (%) (Auto) 6% (24-48) Monocytes (%) (Auto) 3% (0-9) Eosinophils (%) (Auto) 0% (0-3) Basophils (%) (Auto) 0% (0-3) Neutrophils # (Auto) 12.4x10^3uL (1.8-7.7) Lymphocytes # (Auto) 0.8x10^3/uL (1.0-4.8) Monocytes # (Auto) 0.4x10^3/uL (0.0-1.1) Eosinophils # (Auto) 0.0x10^3/uL (0.0-0.7) Basophils # (Auto) 0.0x10^3/uL (0.0-0.2) Sodium Level 135mmol/L (136-145) Potassium Level 4.7mmol/L (3.5-5.1) Chloride Level 99mmol/L (98-107) Carbon Dioxide Level 22mmol/L (21-32) Anion Gap 14 (6-14) Blood Urea Nitrogen 52mg/dL (7-20) Creatinine 4.1mg/dL (0.6-1.0) Estimated GFR (Cockcroft-Gault) 10.9 Glucose Level 108mg/dL (70-99) Calcium Level 9.0mg/dL (8.5-10.1) Phosphorus Level 7.7mg/dL (2.6-4.7) Albumin 2.6g/dL (3.4-5.0) Triglycerides Level 47mg/dL (0-150) Cholesterol Level 177mg/dL (0-200) LDL Cholesterol, Calculated 68mg/dL (0-100) VLDL Cholesterol, Calculated 9mg/dL (0-40) HDL Cholesterol 100mg/dL (40-60) Cholesterol/HDL Ratio 1.8 Medications Active Scripts Medications Dose Route/Sig Days Date Category Nystatin 100,000 Unit/1 Ml Oral.susp 5 Ml SWSW QID 01/21/16 Rx Nystop (Nystatin) 60 Gm Powder 1 Jesus TP BID 01/21/16 Rx Cefpodoxime Proxetil 200 Mg Tablet 200 Mg PO DAILY 01/21/16 Rx Benzonatate 100 Mg Capsule 100 Mg PO TID PRN 01/21/16 Rx Folic Acid 1 Mg Tablet 1 Tab PO DAILY 01/14/16 Reported Levetiracetam 500 Mg Tablet 500 Mg PO BID 01/14/16 Reported Vitamin D2 (Ergocalciferol (Vitamin D2)) 50,000 Unit Capsule 1 Cap PO WEEKLY 01/14/16 Reported Ondansetron Odt (Ondansetron) 4 Mg Tab.rapdis 1 Tab PO TID PRN 01/14/16 Reported [place] 5-325 Tablet (Acetaminophen/Hydrocodone Bitart) 1 Each Tablet 1 Tab PO PRN Q6HRS PRN 10/12/15 Rx Nystatin-Triamcinolone Ointm (Nystatin/Triamcin) 30 Gm Oint...g. 30 Gm TP BID 05/20/13 Reported Venlafaxine Hcl Er (Venlafaxine Hcl) 150 Mg Cap.er.24h 150 Mg PO DAILY 05/20/13 Reported Plavix (Clopidogrel Bisulfate) 75 Mg Tablet 75 Mg PO DAILY 05/20/13 Reported Nephro-Fay Tablet (Folic Acid/Vitamin B Comp W-C) 0.8 Mg Tablet 0.8 Mg PO DAILY 05/20/13 Reported Duoneb 0.5 Mg-3 Mg/3 Ml Soln (Ipratropium/Albuterol Sulfate) 3 Ml Ampul.neb 3 Ml IH Q6HRS 05/20/13 Reported Ditropan Xl (Oxybutynin Chloride) 5 Mg Tab.er.24 5 Mg PO DAILY 05/20/13 Reported Atorvastatin Calcium 20 Mg Tablet 20 Mg PO QHS 05/20/13 Reported Advair 500-50 Diskus (Fluticasone/Salmeterol) 1 Each Disk.w.dev 1 Each IH BID 05/20/13 Reported Impression . 1. Acute respiratory failure, multifactorial secondary to [id number] diastolic heart failure, renal failure, possible viral syndrome, and acute exacerbation of chronic obstructive pulmonary disease. 2. Acute exacerbation of chronic obstructive pulmonary disease. 3. Elevated troponin. 4. Hypertension. 5. Hyperlipidemia. 6. Leukocytosis. 7. Tobacco dependence. Plan . 1. resp status is compensated 2. follow card input 3. d/w DR Bettencourt d/iman Marks 4. Initiate steroids. 5. Negative fluid balance ASIA BACH MD Mar 15, 2016 15:25
[2016-03-15 19:35] VITALS: BP 121/76
[2016-03-15] MEDS: ATORVASTATIN CALCIUM 20 MG TABLET PO SCH (21:31)
[2016-03-15 23:30] VITALS: BP 130/70
[2016-03-16] MEDS: IPRATRPIUM/ALBUTEROL 0.5/2.5MG 3 ML NEBU. IH SCH ×4 (01:05→19:37)
[2016-03-16 03:00] VITALS: BP 135/79
[2016-03-16] MEDS: HEPARIN PF for SUB-Q USE 5,000 UNIT/0.5 ML VIAL. SQ SCH ×3 (06:20→21:06)
[2016-03-16 07:44] VITALS: BP 138/83
--- NOTE | 2016-03-16 07:56 | PDOC ---
Infectious Disease Note Subjective Subjective pt feeling not good, sob ROS ROS GEN: Denies fevers, chills, sweats HEENT: Denies blurred vision, sore throat CV: Denies chest pain RESP: Denies cough GI: Denies n/v/d NEURO: Denies confusion, dizziness MSK: Denies weakness, joint pain/swelling Vital Sign Vital Signs Vital Signs Date Time Temp Pulse Resp B/P Pulse Ox O2 Delivery O2 Flow Rate FiO2 03/16/16 07:44 98.1 66 23 138/83 98 BiPAP/CPAP 98.1 03/15/16 20:00 3.0 Physical Exam PHYSICAL EXAM GENERAL: NAD, Alert HEENT: PERRL, OC/OP NECK: Supple, no JVD, no LN LUNGS: Clear HEART: S1S2, no gallop, no murmur ABD: Soft, NT, no organomegaly, no rebound EXT: No edema, no cyanosis 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
[2016-03-16] MEDS: BUDESONIDE 0.5 MG/2 ML NEBU NEB SCH ×2 (08:04→19:37)
[2016-03-16] MEDS: GUAIFENESIN DM 200MG/20MG 10 ML SYRUP. PO SCH ×4 (08:43→20:25)
[2016-03-16] MEDS: FOLIC/VIT B COMP W-C (RENAL) TABLET. PO SCH (08:44)
[2016-03-16] MEDS: BENZONATATE 100 MG CAPSULE. PO SCH ×3 (08:44→20:25)
[2016-03-16] MEDS: CALCIUM ACETATE 667 MG CAPSULE PO SCH ×3 (08:44→17:41)
[2016-03-16] MEDS: GUAIFENESIN ER 600 MG TABLET.ER PO SCH ×2 (08:44→20:24)
[2016-03-16] MEDS: FUROSEMIDE 100 MG/10 ML VIAL IVP SCH (08:44)
[2016-03-16] MEDS: VENLAFAXINE 50 MG TABLET. PO SCH ×3 (08:45→20:24)
[2016-03-16] MEDS: CLOPIDOGREL BISULFATE 75 MG TABLET PO SCH (08:45)
[2016-03-16] MEDS: PREDNISONE 20 MG TABLET PO SCH (08:45)
[2016-03-16] MEDS: FAMOTIDINE 20 MG TABLET. PO SCH (08:45)
[2016-03-16] MEDS: OXYBUTYNIN CHLORIDE 5 MG TABLET PO SCH (08:45)
[2016-03-16] MEDS: NYSTATIN TOPICAL POWDER 15GM BOTTLE. TP SCH ×2 (08:47→21:04)
[2016-03-16] MEDS: LEVETIRACETAM 500 MG TABLET PO SCH ×2 (08:47→20:24)
[2016-03-16 10:32] VITALS: BP 125/75
--- NOTE | 2016-03-16 11:25 | PDOC ---
PROGRESS NOTES Chief Complaint Chief Complaint 1. acute on chronic hypoxic resp failure 2. COPD exacerbation, SEVERE 3. possible diastolic CHF 4. recent CAP 5. ESRD ON HD MWF 6. H/O CAD 7. htn 8. hld 9. depression 10. smoker 11. metabolic acidosis History of Present Illness History of Present Illness SOA today Needing the bipap "always" per pt's words HAs cpap at home COnt to smoke manager of case CXR last 03/13 - no pNA - Off antibiotics - I concur Introduced LTAC as I do not see her improving in the forseeable future, she agrees PLAN: CXR PA and lat today SW for LTAC screen CPM the rest of meds Vitals Vitals Vital Signs Date Time Temp Pulse Resp B/P Pulse Ox O2 Delivery O2 Flow Rate FiO2 03/16/16 10:32 97.6 70 22 125/75 99 Nasal Cannula 2.0 97.6 Physical Exam General: Alert, Oriented X3, Cooperative, No acute distress Heart: Regular rate, Normal S1, Normal S2, Other (heart tones difficult to appreciate through BiPAP) Lungs: Clear Abdomen: Soft, No tenderness Extremities: No cyanosis, No edema, Other (diminished pedal pulses) Skin: No rashes, No significant lesion Review of Systems Review of Systems SOA, no cp, cough, no emesis Assessment and Plan Assessmemt and Plan Problems Medical Problems: (1) Chest pain Status: Acute (2) COPD exacerbation Status: Acute (3) Elevated troponin Status: Acute (4) ESRD (end stage renal disease) on dialysis Status: Acute (5) Respiratory failure Status: Acute Problems: Comment Review of Relevant I have reviewed the following items sarahi (where applicable) has been applied. Labs Microbiology 03/13/16 Blood Culture - Preliminary, Resulted NO GROWTH AFTER 2 DAYS Medications Current Medications Albuterol/ Ipratropium (Duoneb) 3 ml 1X ONCE NEB Last administered on 08:28; Start 03/13/16 at 08:00; Stop 03/13/16 at 08:02; Status DC Methylprednisolone Sodium Succinate (Solu-Medrol 125mg Vial) 125 mg 1X ONCE IV Last administered on 03/13/16 08:09; Start 03/13/16 at 08:00; Stop 03/13/16 at 08:02; Status DC Levofloxacin/ Dextrose 1 each 1 each PRN DAILY PRN MC SEE COMMENTS; Start 03/13 at 08:15; Stop 03/13/16 at 14:44; Status DC Levofloxacin/ Dextrose (LEVAQUIN 500mg PREMIX) 100 ml @ 100 mls/hr Q48H IV Last administered on 03/13/16 09:13; Start 03/13/16 at 09:00; Stop 03/14/16 at 08:17; Status DC Ondansetron HCl (Zofran) 4 mg PRN Q8HRS PRN IV NAUSEA/VOMITING; Start 03/13/16 at 08:30; Stop 03/13/16 at 15:55; Status DC Fentanyl Citrate (Fentanyl 2ml Vial) 50 mcg PRN Q2HR PRN IV PAIN; Start at 08:30; Stop 03/14/16 at 08:29; Status DC Acetaminophen (Tylenol) 650 mg PRN Q4HRS PRN PO FEVER; Start 03/13/16 at 08:30 ; Stop 03/14/16 at 08:29; Status DC Albuterol/ Ipratropium (Duoneb) 3 ml RTQID NEB Last administered on 03/13/16 12:41; Start 03/13/16 at 12:00; Stop 03/13/16 at 15:33; Status DC Aspirin (Ramu Aspirin) 325 mg 1X ONCE PO Last administered on 03/13/16 12:29 ; Start 03/13/16 at 11:30; Stop 03/13/16 at 11:31; Status DC Nystatin (Nystop) 1 jesus BID TP Last administered on 03/16/16 08:47; Start 03/13 at 14:45 Atorvastatin Calcium (Lipitor) 20 mg QHS PO Last administered on 03/15/16 21:31 ; Start 03/13/16 at 21:00 Benzonatate (Tessalon Perle) 100 mg PRN TID PRN PO COUGH; Start 03/13/16 at 15: 15; Stop 03/14/16 at 14:00; Status DC Clopidogrel Bisulfate (Plavix) 75 mg DAILY PO Last administered on 03/16/16 08: 45; Start 03/13/16 at 16:00 Ergocalciferol (Vitamin D2) 50,000 unit We PO Last administered on 03/15/16 13: 24; Start 03/15/16 at 09:00 Folic Acid/ Multivitamins/Vit B12 (Nephro-Fay) 1 tab DAILY PO Last administered on 03/16/16 08:44; Start 03/13/16 at 16:00 Acetaminophen/ Hydrocodone Bitart (Lortab 5/325) 1 tab PRN Q6HRS PRN PO MODERATE - SEVERE PAIN Last administered on 03/14/16 22:17; Start 03/13/16 at 15:15 Albuterol/ Ipratropium (Duoneb) 3 ml Q6HRS IH Last administered on 03/16/16 08: 04; Start 03/13/16 at 18:00 Levetiracetam (Keppra) 500 mg BID PO Last administered on 03/16/16 08:47; Start 03/13/16 at 16:00 Nystatin (Nystop) 1 jesus BID TP ; Start 03/13/16 at 16:00; Status Cancel Non-Formulary Medication 1 each BID IH ; Start 03/13/16 at 21:00; Stop 03/13/16 at 21:00; Status DC Oxybutynin Chloride (Ditropan) 5 mg DAILY PO Last administered on 03/16/16 08: 45; Start 03/13/16 at 16:00 Venlafaxine HCl (Effexor) 50 mg TID PO Last administered on 03/16/16 08:45; Start 03/13/16 at 15:45 Guaifenesin (Mucinex) 600 mg BID PO Last administered on 03/16/16 08:44; Start 03/13/16 at 21:00 Acetaminophen (Tylenol) 650 mg PRN Q6HRS PRN PO MILD PAIN / TEMP; Start at 15:15 Ondansetron HCl (Zofran) 4 mg PRN Q6HRS PRN IV NAUSEA/VOMITING Last administered on 03/15/16 11:11; Start 03/13/16 at 15:15 Heparin Sodium (Porcine) 5,000 unit Q8HRS SQ Last administered on 03/16/16 06: 20; Start 03/13/16 at 16:00 Famotidine (Pepcid) 20 mg DAILY PO Last administered on 03/16/16 08:45; Start 03/13/16 at 16:00 Prednisone (Prednisone) 40 mg DAILY PO Last administered on 03/16/16 08:45; Start 03/13/16 at 16:00 Albuterol Sulfate (Ventolin Neb Soln) 2.5 mg PRN Q4HRS PRN NEB SHORTNESS OF BREATH; Start 03/13/16 at 15:15 Budesonide 0.5 mg 0.5 mg RTBID NEB Last administered on 03/16/16 08:04; Start 03/13/16 at 20:00 Sodium Chloride 1,000 ml @ 1,000 mls/hr Q1H PRN IV hypotension; Start 03/13/16 at 15:00; Stop 03/13/16 at 20:59; Status DC Sodium Chloride (Iv Sodium Chloride 0.9% 1000ml Bag) 1,000 ml @ 400 mls/hr Q2H30M PRN IV PATENCY; Start 03/13/16 at 15:00; Stop 03/14/16 at 02:59; Status DC Info (PHARMACY MONITORING -- do not chart) 1 each PRN DAILY PRN MC SEE COMMENTS ; Start 03/13/16 at 17:30 Benzonatate (Tessalon Perle) 100 mg TID PO Last administered on 03/16/16 08:44 ; Start 03/14/16 at 14:00 Guaifenesin (Robitussin Dm) 10 ml QID PO Last administered on 03/16/16 08:43; Start 03/14/16 at 13:00 Furosemide (Lasix) 80 mg TID IVP Last administered on 03/16/16 08:44; Start at 14:00 Calcium Acetate 1334 mg 1,334 mg TIDWMEALS PO Last administered on 03/16/16 08: 44; Start 03/14/16 at 12:00 Sodium Chloride 1,000 ml @ 1,000 mls/hr Q1H PRN IV hypotension; Start 03/15/16 at 09:05; Stop 03/15/16 at 15:04; Status DC Albumin Human (Albuminar) 200 ml @ 200 mls/hr 1X PRN PRN IV Hypotension; Start 03/15/16 at 09:15; Stop 03/15/16 at 15:14; Status DC Sodium Chloride (Normal Saline Flush) 10 ml 1X PRN PRN IV AP catheter pack; Start 03/15/16 at 09:15; Stop 03/16/16 at 09:14; Status DC Sodium Chloride 10 ml 10 ml 1X PRN PRN IV BEEF GRADER catheter pack; Start 03/15/16 at 09 :15; Stop 03/16/16 at 09:14; Status DC Sodium Chloride (Iv Sodium Chloride 0.9% 1000ml Bag) 1,000 ml @ 400 mls/hr Q2H30M PRN IV PATENCY; Start 03/15/16 at 09:05; Stop 03/15/16 at 21:04; Status DC Info (PHARMACY MONITORING -- do not chart) 1 each PRN DAILY PRN MC SEE COMMENTS ; Start 03/15/16 at 09:15; Status UNV Info (PHARMACY MONITORING -- do not chart) 1 each PRN DAILY PRN MC SEE COMMENTS ; Start 03/15/16 at 09:15; Status UNV Active Scripts Active Nystatin 100,000 Unit/1 Ml Oral.susp 5 Ml SWSW QID Nystop (Nystatin) 60 Gm Powder 1 Jesus TP BID Cefpodoxime Proxetil 200 Mg Tablet 200 Mg PO DAILY Benzonatate 100 Mg Capsule 100 Mg PO TID PRN [place] 5-325 Tablet (Acetaminophen/Hydrocodone Bitart) 1 Each Tablet 1 Tab PO PRN Q6HRS PRN Reported Folic Acid 1 Mg Tablet 1 Tab PO DAILY Levetiracetam 500 Mg Tablet 500 Mg PO BID Vitamin D2 (Ergocalciferol (Vitamin D2)) 50,000 Unit Capsule 1 Cap PO WEEKLY Ondansetron Odt (Ondansetron) 4 Mg Tab.rapdis 1 Tab PO TID PRN Nystatin-Triamcinolone Ointm (Nystatin/Triamcin) 30 Gm Oint...g. 30 Gm TP BID Venlafaxine Hcl Er (Venlafaxine Hcl) 150 Mg Cap.er.24h 150 Mg PO DAILY Plavix (Clopidogrel Bisulfate) 75 Mg Tablet 75 Mg PO DAILY Nephro-Fay Tablet (Folic Acid/Vitamin B Comp W-C) 0.8 Mg Tablet 0.8 Mg PO DAILY Duoneb 0.5 Mg-3 Mg/3 Ml Soln (Ipratropium/Albuterol Sulfate) 3 Ml Ampul.neb 3 Ml IH Q6HRS Ditropan Xl (Oxybutynin Chloride) 5 Mg Tab.er.24 5 Mg PO DAILY Atorvastatin Calcium 20 Mg Tablet 20 Mg PO QHS Advair 500-50 Diskus (Fluticasone/Salmeterol) 1 Each Disk.w.dev 1 Each IH BID Vitals/I & O Vital Sign - Last 24 Hours 03/15/16 03/15/16 03/15/16 03/15/16 12:21 14:56 19:35 20:00 Temp 100.3 98.3 100.3 98.3 Pulse 93 80 Resp 24 22 B/P 105/71 121/76 Pulse Ox 96 97 96 O2 Delivery Nasal Cannula BiPAP/CPAP Nasal Cannula Nasal Cannula O2 Flow Rate 3.0 3.0 3.0 03/15/16 03/15/16 03/16/16 03/16/16 23:28 23:30 01:04 03:00 Temp 98.5 98.4 98.5 98.4 Pulse 80 67 Resp 24 B/P 130/70 135/79 Pulse Ox 96 94 97 97 O2 Delivery BiPAP/CPAP BiPAP/CPAP BiPAP/CPAP BiPAP/CPAP 03/16/16 03/16/16 03/16/16 03/16/16 03:36 05:26 07:44 08:06 Temp 98.1 98.1 Pulse 66 Resp 23 B/P 138/83 Pulse Ox 97 95 98 98 O2 Delivery BiPAP/CPAP BiPAP/CPAP BiPAP/CPAP Nasal Cannula O2 Flow Rate 3.0 03/16/16 10:32 Temp 97.6 97.6 Pulse 70 Resp 22 B/P 125/75 Pulse Ox 99 O2 Delivery Nasal Cannula O2 Flow Rate 2.0 Intake and Output 03/15/16 03/15/16 03/16/16 15:00 23:00 07:00 Intake Total 300 ml 240 ml Balance 300 ml 240 ml MAMTA MORALES MD Mar 16, 2016 11:25
--- NOTE | 2016-03-16 11:49 | PDOC ---
PULMONARY PROGRESS NOTES Subjective less soa off bipap Vitals Vital Signs Date Time Temp Pulse Resp B/P Pulse Ox O2 Delivery O2 Flow Rate FiO2 03/16/16 10:32 97.6 70 22 125/75 99 Nasal Cannula 2.0 97.6 ROS: No Nausea, No Chest Pain, No Abdominal Pain, No Increase Cough General: Alert Lungs: Clear Cardiovascular: S1, S2 Abdomen: Soft, Non-tender Neuro Exam: Alert Extremities: No Edema Skin: Warm Medications Active Scripts Medications Dose Route/Sig Days Date Category Nystatin 100,000 Unit/1 Ml Oral.susp 5 Ml SWSW QID 01/21/16 Rx Nystop (Nystatin) 60 Gm Powder 1 Jesus TP BID 01/21/16 Rx Cefpodoxime Proxetil 200 Mg Tablet 200 Mg PO DAILY 01/21/16 Rx Benzonatate 100 Mg Capsule 100 Mg PO TID PRN 01/21/16 Rx Folic Acid 1 Mg Tablet 1 Tab PO DAILY 01/14/16 Reported Levetiracetam 500 Mg Tablet 500 Mg PO BID 01/14/16 Reported Vitamin D2 (Ergocalciferol (Vitamin D2)) 50,000 Unit Capsule 1 Cap PO WEEKLY 01/14/16 Reported Ondansetron Odt (Ondansetron) 4 Mg Tab.rapdis 1 Tab PO TID PRN 01/14/16 Reported [place] 5-325 Tablet (Acetaminophen/Hydrocodone Bitart) 1 Each Tablet 1 Tab PO PRN Q6HRS PRN 10/12/15 Rx Nystatin-Triamcinolone Ointm (Nystatin/Triamcin) 30 Gm Oint...g. 30 Gm TP BID 05/20/13 Reported Venlafaxine Hcl Er (Venlafaxine Hcl) 150 Mg Cap.er.24h 150 Mg PO DAILY 05/20/13 Reported Plavix (Clopidogrel Bisulfate) 75 Mg Tablet 75 Mg PO DAILY 05/20/13 Reported Nephro-Fay Tablet (Folic Acid/Vitamin B Comp W-C) 0.8 Mg Tablet 0.8 Mg PO DAILY 05/20/13 Reported Duoneb 0.5 Mg-3 Mg/3 Ml Soln (Ipratropium/Albuterol Sulfate) 3 Ml Ampul.neb 3 Ml IH Q6HRS 05/20/13 Reported Ditropan Xl (Oxybutynin Chloride) 5 Mg Tab.er.24 5 Mg PO DAILY 05/20/13 Reported Atorvastatin Calcium 20 Mg Tablet 20 Mg PO QHS 05/20/13 Reported Advair 500-50 Diskus (Fluticasone/Salmeterol) 1 Each Disk.w.dev 1 Each IH BID 05/20/13 Reported Impression . 1. Acute respiratory failure, multifactorial secondary to [id number] diastolic heart failure, renal failure, possible viral syndrome, and acute exacerbation of chronic obstructive pulmonary disease. 2. Acute exacerbation of chronic obstructive pulmonary disease. 3. Elevated troponin. 4. Hypertension. 5. Hyperlipidemia. 6. Leukocytosis. 7. Tobacco dependence. Plan . Echo report noted resp status improving PT ASIA Mccarthy MD Mar 16, 2016 11:49
[2016-03-16 14:06] VITALS: BP 131/77
--- NOTE | 2016-03-16 14:46 | PDOC ---
SUBJECTIVE ROS ESRD Doing OK but on C-/BiPAP currenlty CVS: no Orthopnea, no CP RESP: min subj SOB, ? ORONA (not ambulated) + Cough GI: no Nausea, no Vomiting : no Dysuria, no Urgency OBJECTIVE Vital Signs Vital Signs Date Time Temp Pulse Resp B/P Pulse Ox O2 Delivery O2 Flow Rate FiO2 03/16/16 14:06 97.8 85 23 131/77 96 BiPAP/CPAP 97.8 03/16/16 13:32 3.0 I & 0 Intake and Output 03/16/16 07:00 Intake Total 540 ml Balance 540 ml Intake Oral 540 ml # Voids 2 PHYSICAL EXAM Physical Exam General Appearance: Awake Alert Oriented x 3 In no Distress; flattish affect Eyes: Vision Unchanged Conjunctiva Normal EN: No EN Drainage Mucous Memb. dryish on BiPAP Neck: no JVD no JVP Supple no Thyromegaly; short neck CVS: S1 S2 no Murmur No Gallop No Rub no Edema Resp: no Rales no Rhonchi no Acc. Muscle use GI: BS +ve NO Bruit Non Tender Non Distended; obese : no CVA tenderness; no Suprapubic Tenderness Assessment & Plan ESRD: Current fluid and E-lyte status does not necessitate emergent need for dialysis. Will re-evaluate for dialysis in the am and continue on MWF schedule. ? Fl. Overload - IV Lasix has not helped, CXR was clear, ECHO is good and Pt is not convinced its fluid - so no further HD ordered. Anemia: No Epogen for hgb > 11; Transfuse with next HD as needed. HTN: Current BP meds reviewed. See orders for changes. Hyper phos - ^ed Current binders. ? Compliance issue as OP. SOB Subj - AE of COPD COMMENT/RELEVANT DATA Meds Current Medications Medications (Trade) Dose Ordered Sig/Negro Start Time Stop Time Status Last Admin Dose Admin Acetaminophen (Tylenol) 650 mg PRN Q6HRS PRN 03/13/16 15:15 Acetaminophen/ Hydrocodone Bitart (Lortab 5/325) 1 tab PRN Q6HRS PRN 03/13/16 15:15 03/14/16 22:17 1 TAB Albumin Human (Albuminar) 200 ml @ 200 mls/hr 1X PRN PRN 03/15/16 09:15 03/15/16 15:14 DC Albuterol Sulfate (Ventolin Neb Soln) 2.5 mg PRN Q4HRS PRN 03/13/16 15:15 Albuterol/ Ipratropium (Duoneb) 3 ml Q6HRS 03/13/16 18:00 03/16/16 13:31 3 ML Aspirin (Ramu Aspirin) 325 mg 1X ONCE 03/13/16 11:30 03/13/16 11:31 DC 03/13/16 12:29 325 MG Atorvastatin Calcium (Lipitor) 20 mg QHS 03/13/16 21:00 03/15/16 21:31 20 MG Benzonatate (Tessalon Perle) 100 mg TID 03/14/16 14:00 03/16/16 08:44 100 MG Budesonide (Pulmicort) 0.5 mg RTBID 03/13/16 20:00 03/16/16 08:04 0.5 MG Calcium Acetate 1334 mg 1,334 mg TIDWMEALS 03/14/16 12:00 03/16/16 12:45 1,334 MG Clopidogrel Bisulfate (Plavix) 75 mg DAILY 03/13/16 16:00 03/16/16 08:45 75 MG Ergocalciferol (Vitamin D2) 50,000 unit We 03/15/16 09:00 03/15/16 13:24 50,000 UNIT Famotidine (Pepcid) 20 mg DAILY 03/13/16 16:00 03/16/16 08:45 20 MG Fentanyl Citrate (Fentanyl 2ml Vial) 50 mcg PRN Q2HR PRN 03/13/16 08:30 03/14/16 08:29 DC Folic Acid/ Multivitamins/Vit B12 (Nephro-Fay) 1 tab DAILY 03/13/16 16:00 03/16/16 08:44 1 TAB Furosemide (Lasix) 80 mg TID 03/14/16 14:00 03/16/16 08:44 80 MG Guaifenesin (Mucinex) 600 mg BID 03/13/16 21:00 03/16/16 08:44 600 MG Guaifenesin (Robitussin Dm) 10 ml QID 03/14/16 13:00 03/16/16 12:45 10 ML Heparin Sodium (Porcine) 5,000 unit Q8HRS 03/13/16 16:00 03/16/16 06:20 5,000 UNIT Info (PHARMACY MONITORING -- do not chart) 1 each PRN DAILY PRN 03/15/16 09:15 UNV Levetiracetam (Keppra) 500 mg BID 03/13/16 16:00 03/16/16 08:47 500 MG Levofloxacin/ Dextrose (LEVAQUIN 500mg PREMIX) 100 ml @ 100 mls/hr Q48H 03/13/16 09:00 03/14/16 08:17 DC 03/13/16 09:13 100 MLS/HR Levofloxacin/ Dextrose 1 each 1 each PRN DAILY PRN 03/13/16 08:15 03/13/16 14:44 DC Methylprednisolone Sodium Succinate (Solu-Medrol 125mg Vial) 125 mg 1X ONCE 03/13/16 08:00 03/13/16 08:02 DC 03/13/16 08:09 125 MG Non-Formulary Medication 1 each BID 03/13/16 21:00 03/13/16 21:00 DC Nystatin (Nystop) 1 marley BID 03/13/16 16:00 Cancel Ondansetron HCl (Zofran) 4 mg PRN Q6HRS PRN 03/13/16 15:15 03/15/16 11:11 4 MG Oxybutynin Chloride (Ditropan) 5 mg DAILY 03/13/16 16:00 03/16/16 08:45 5 MG Prednisone (Prednisone) 40 mg DAILY 03/13/16 16:00 03/16/16 08:45 40 MG Sodium Chloride (Iv Sodium Chloride 0.9% 1000ml Bag) 1,000 ml @ 400 mls/hr Q2H30M PRN 03/15/16 09:05 03/15/16 21:04 DC Sodium Chloride (Normal Saline Flush) 10 ml 1X PRN PRN 03/15/16 09:15 03/16/16 09:14 DC Sodium Chloride 10 ml 10 ml 1X PRN PRN 03/15/16 09:15 03/16/16 09:14 DC Venlafaxine HCl (Effexor) 50 mg TID 03/13/16 15:45 03/16/16 08:45 50 MG HERB KEYS MD Mar 16, 2016 14:46
--- NOTE | 2016-03-16 16:37 | RAD ---
Chest, 2 views, 03/16/2016: History: Shortness of breath, weakness Comparison is made to a study from 03/13/2016. A right sided dialysis type catheter extends into the superior aspect of the right atrium. The heart size is normal. There is calcific plaquing of the aorta. The pulmonary vascularity is normal. No pulmonary infiltrates are seen. There is no evidence of pleural fluid. Moderate spurring is present in the spine. An old right humeral neck fracture is again noted. IMPRESSION: No acute cardiopulmonary abnormality is detected.
[2016-03-16 19:50] VITALS: BP 142/65
[2016-03-16] MEDS: ATORVASTATIN CALCIUM 20 MG TABLET PO SCH (20:24)
[2016-03-16] MEDS: HYDROCODONE/APAP 5/325MG TABLET. PO PRN (20:29)
[2016-03-16 23:16] VITALS: BP 141/67
[2016-03-17] MEDS: IPRATRPIUM/ALBUTEROL 0.5/2.5MG 3 ML NEBU. IH SCH ×4 (00:05→19:35)
[2016-03-17 03:00] VITALS: BP 166/95
[2016-03-17] MEDS: HEPARIN PF for SUB-Q USE 5,000 UNIT/0.5 ML VIAL. SQ SCH ×3 (05:53→22:15)
[2016-03-17 07:25] VITALS: BP 155/85
[2016-03-17] MEDS: BUDESONIDE 0.5 MG/2 ML NEBU NEB SCH ×2 (07:39→19:34)
[2016-03-17] MEDS: CALCIUM ACETATE 667 MG CAPSULE PO SCH ×3 (08:00→15:51)
[2016-03-17] MEDS: GUAIFENESIN ER 600 MG TABLET.ER PO SCH ×2 (09:00→22:05)
[2016-03-17] MEDS: NYSTATIN TOPICAL POWDER 15GM BOTTLE. TP SCH ×2 (09:00→22:15)
[2016-03-17] MEDS: BENZONATATE 100 MG CAPSULE. PO SCH ×3 (09:00→22:04)
[2016-03-17] MEDS: GUAIFENESIN DM 200MG/20MG 10 ML SYRUP. PO SCH ×4 (09:00→22:05)
[2016-03-17] MEDS: VENLAFAXINE 50 MG TABLET. PO SCH ×3 (09:00→22:05)
[2016-03-17] MEDS ORDERED: IV NORMAL SALINE 1000ML BAG 1,000 ML IV PRN ×2 (09:04→12:55)
[2016-03-17] MEDS ORDERED: 0.9 % SODIUM CHLORIDE 10 ML DISP.SYRIN. IV PRN ×2 (09:15)
[2016-03-17] MEDS ORDERED: DIPHENHYDRAMINE 50 MG/ML VIAL IV PRN ×4 (09:15→13:00)
[2016-03-17] MEDS ORDERED: DIALYSIS PATIENT. MC PRN ×4 (09:15→13:00)
--- NOTE | 2016-03-17 10:14 | PDOC ---
Dialysis Progress Note Dialysis Note Dialysis Note Seen on Hemodialysis, tolerating treatment Well Vitals on Hemodialysis: 109/64 70 16 97.6 General Appearance: Awake: Alert Oriented x 2-3 Neck: No JVD or JVP Chest: CTA Josiah Heart: S1 S2 Abdomen - Soft NTND Extremities - No Edema ESRD : Dialysis as below F 180 NR 3.5 Hrs 3 K 2.5 Ca 140 Na 35 HC03 Qb 350 + Qd 500+ Heparin 0 Units Uf 2-3 Kgs or to dry weight as tolerated May give 25-50 gms of 25% Albumin if needed to maintain Hemodynamic stability Treatment plan reviewed and discussed with nut sheller machine operator Vitals Vital Signs Vital Signs Date Time Temp Pulse Resp B/P Pulse Ox O2 Delivery O2 Flow Rate FiO2 03/17/16 08:00 Nasal Cannula 2.0 03/17/16 07:46 95 03/17/16 07:25 97.7 61 23 155/85 97.7 Assessment Assessment Problems Medical Problems: (1) Chest pain Status: Acute (2) COPD exacerbation Status: Acute (3) Elevated troponin Status: Acute (4) ESRD (end stage renal disease) on dialysis Status: Acute (5) Respiratory failure Status: Acute Problems: Plan Plan of Care Problems Medical Problems: (1) Chest pain Status: Acute (2) COPD exacerbation Status: Acute (3) Elevated troponin Status: Acute (4) ESRD (end stage renal disease) on dialysis Status: Acute (5) Respiratory failure Status: Acute HERB KEYS MD Mar 17, 2016 10:14
--- NOTE | 2016-03-17 10:42 | PDOC ---
PROGRESS NOTES Chief Complaint Chief Complaint 1. acute on chronic hypoxic resp failure 2. COPD exacerbation, SEVERE 3. possible diastolic CHF 4. recent CAP 5. ESRD ON HD MWF 6. H/O CAD 7. htn 8. hld 9. depression 10. smoker 11. metabolic acidosis History of Present Illness History of Present Illness doing well apparently today To the point pt wants to go home\ BUt pt having HD today Does not meet criteria for lTAC HAs C/BIPAP at home Pt meets SNU criteria but adamant no snu HEnce will go home lauryn (having HD today cant dc) , possibly with HH if she agrees Dw RN Vitals Vitals Vital Signs Date Time Temp Pulse Resp B/P Pulse Ox O2 Delivery O2 Flow Rate FiO2 03/17/16 08:00 Nasal Cannula 2.0 03/17/16 07:46 95 03/17/16 07:25 97.7 61 23 155/85 97.7 Physical Exam General: Alert, Oriented X3, Cooperative, No acute distress Heart: Regular rate, Normal S1, Normal S2, Other (heart tones difficult to appreciate through BiPAP) Lungs: Clear Abdomen: Soft, No tenderness Extremities: No cyanosis, No edema, Other (diminished pedal pulses) Skin: No rashes, No significant lesion Review of Systems Review of Systems unable to obtain Assessment and Plan Assessmemt and Plan Problems Medical Problems: (1) Chest pain Status: Acute (2) COPD exacerbation Status: Acute (3) Elevated troponin Status: Acute (4) ESRD (end stage renal disease) on dialysis Status: Acute (5) Respiratory failure Status: Acute Problems: Comment Review of Relevant I have reviewed the following items sarahi (where applicable) has been applied. Labs Microbiology 03/13/16 Blood Culture - Preliminary, Resulted NO GROWTH AFTER 3 DAYS Medications Current Medications Albuterol/ Ipratropium (Duoneb) 3 ml 1X ONCE NEB Last administered on 08:28; Start 03/13/16 at 08:00; Stop 03/13/16 at 08:02; Status DC Methylprednisolone Sodium Succinate (Solu-Medrol 125mg Vial) 125 mg 1X ONCE IV Last administered on 03/13/16 08:09; Start 03/13/16 at 08:00; Stop 03/13/16 at 08:02; Status DC Levofloxacin/ Dextrose 1 each 1 each PRN DAILY PRN MC SEE COMMENTS; Start 03/13 at 08:15; Stop 03/13/16 at 14:44; Status DC Levofloxacin/ Dextrose (LEVAQUIN 500mg PREMIX) 100 ml @ 100 mls/hr Q48H IV Last administered on 03/13/16 09:13; Start 03/13/16 at 09:00; Stop 03/14/16 at 08:17; Status DC Ondansetron HCl (Zofran) 4 mg PRN Q8HRS PRN IV NAUSEA/VOMITING; Start 03/13/16 at 08:30; Stop 03/13/16 at 15:55; Status DC Fentanyl Citrate (Fentanyl 2ml Vial) 50 mcg PRN Q2HR PRN IV PAIN; Start at 08:30; Stop 03/14/16 at 08:29; Status DC Acetaminophen (Tylenol) 650 mg PRN Q4HRS PRN PO FEVER; Start 03/13/16 at 08:30 ; Stop 03/14/16 at 08:29; Status DC Albuterol/ Ipratropium (Duoneb) 3 ml RTQID NEB Last administered on 03/13/16 12:41; Start 03/13/16 at 12:00; Stop 03/13/16 at 15:33; Status DC Aspirin (Ramu Aspirin) 325 mg 1X ONCE PO Last administered on 03/13/16 12:29 ; Start 03/13/16 at 11:30; Stop 03/13/16 at 11:31; Status DC Nystatin (Nystop) 1 jesus BID TP Last administered on 03/16/16 21:04; Start 03/13 at 14:45 Atorvastatin Calcium (Lipitor) 20 mg QHS PO Last administered on 03/16/16 20:24 ; Start 03/13/16 at 21:00 Benzonatate (Tessalon Perle) 100 mg PRN TID PRN PO COUGH; Start 03/13/16 at 15: 15; Stop 03/14/16 at 14:00; Status DC Clopidogrel Bisulfate (Plavix) 75 mg DAILY PO Last administered on 03/16/16 08: 45; Start 03/13/16 at 16:00 Ergocalciferol (Vitamin D2) 50,000 unit We PO Last administered on 03/15/16 13: 24; Start 03/15/16 at 09:00 Folic Acid/ Multivitamins/Vit B12 (Nephro-Fay) 1 tab DAILY PO Last administered on 03/16/16 08:44; Start 03/13/16 at 16:00 Acetaminophen/ Hydrocodone Bitart (Lortab 5/325) 1 tab PRN Q6HRS PRN PO MODERATE - SEVERE PAIN Last administered on 03/16/16 20:29; Start 03/13/16 at 15 :15 Albuterol/ Ipratropium (Duoneb) 3 ml Q6HRS IH Last administered on 03/17/16 07: 38; Start 03/13/16 at 18:00 Levetiracetam (Keppra) 500 mg BID PO Last administered on 03/16/16 20:24; Start 03/13/16 at 16:00 Nystatin (Nystop) 1 jesus BID TP ; Start 03/13/16 at 16:00; Status Cancel Non-Formulary Medication 1 each BID IH ; Start 03/13/16 at 21:00; Stop 03/13/16 at 21:00; Status DC Oxybutynin Chloride (Ditropan) 5 mg DAILY PO Last administered on 03/16/16 08: 45; Start 03/13/16 at 16:00 Venlafaxine HCl (Effexor) 50 mg TID PO Last administered on 03/16/16 20:24; Start 03/13/16 at 15:45 Guaifenesin (Mucinex) 600 mg BID PO Last administered on 03/16/16 20:24; Start 03/13/16 at 21:00 Acetaminophen (Tylenol) 650 mg PRN Q6HRS PRN PO MILD PAIN / TEMP; Start at 15:15 Ondansetron HCl (Zofran) 4 mg PRN Q6HRS PRN IV NAUSEA/VOMITING Last administered on 03/15/16 11:11; Start 03/13/16 at 15:15 Heparin Sodium (Porcine) 5,000 unit Q8HRS SQ Last administered on 03/17/16 05: 53; Start 03/13/16 at 16:00 Famotidine (Pepcid) 20 mg DAILY PO Last administered on 03/16/16 08:45; Start 03/13/16 at 16:00 Prednisone (Prednisone) 40 mg DAILY PO Last administered on 03/16/16 08:45; Start 03/13/16 at 16:00 Albuterol Sulfate (Ventolin Neb Soln) 2.5 mg PRN Q4HRS PRN NEB SHORTNESS OF BREATH; Start 03/13/16 at 15:15 Budesonide 0.5 mg 0.5 mg RTBID NEB Last administered on 03/17/16 07:39; Start 03/13/16 at 20:00 Sodium Chloride 1,000 ml @ 1,000 mls/hr Q1H PRN IV hypotension; Start 03/13/16 at 15:00; Stop 03/13/16 at 20:59; Status DC Sodium Chloride (Iv Sodium Chloride 0.9% 1000ml Bag) 1,000 ml @ 400 mls/hr Q2H30M PRN IV PATENCY; Start 03/13/16 at 15:00; Stop 03/14/16 at 02:59; Status DC Info (PHARMACY MONITORING -- do not chart) 1 each PRN DAILY PRN MC SEE COMMENTS ; Start 03/13/16 at 17:30 Benzonatate (Tessalon Perle) 100 mg TID PO Last administered on 03/16/16 20:25 ; Start 03/14/16 at 14:00 Guaifenesin (Robitussin Dm) 10 ml QID PO Last administered on 03/16/16 20:25; Start 03/14/16 at 13:00 Furosemide (Lasix) 80 mg TID IVP Last administered on 03/16/16 08:44; Start at 14:00; Stop 03/16/16 at 14:45; Status DC Calcium Acetate 1334 mg 1,334 mg TIDWMEALS PO Last administered on 03/16/16 12: 45; Start 03/14/16 at 12:00; Stop 03/16/16 at 14:45; Status DC Sodium Chloride 1,000 ml @ 1,000 mls/hr Q1H PRN IV hypotension; Start 03/15/16 at 09:05; Stop 03/15/16 at 15:04; Status DC Albumin Human (Albuminar) 200 ml @ 200 mls/hr 1X PRN PRN IV Hypotension; Start 03/15/16 at 09:15; Stop 03/15/16 at 15:14; Status DC Sodium Chloride (Normal Saline Flush) 10 ml 1X PRN PRN IV AP catheter pack; Start 03/15/16 at 09:15; Stop 03/16/16 at 09:14; Status DC Sodium Chloride 10 ml 10 ml 1X PRN PRN IV [employer] catheter pack; Start 03/15/16 at 09 :15; Stop 03/16/16 at 09:14; Status DC Sodium Chloride (Iv Sodium Chloride 0.9% 1000ml Bag) 1,000 ml @ 400 mls/hr Q2H30M PRN IV PATENCY; Start 03/15/16 at 09:05; Stop 03/15/16 at 21:04; Status DC Info (PHARMACY MONITORING -- do not chart) 1 each PRN DAILY PRN MC SEE COMMENTS ; Start 03/15/16 at 09:15; Status UNV Info (PHARMACY MONITORING -- do not chart) 1 each PRN DAILY PRN MC SEE COMMENTS ; Start 03/15/16 at 09:15; Status UNV Calcium Acetate 2001 mg 2,001 mg TIDWMEALS PO Last administered on 03/16/16t 17: 41; Start 03/16/16 at 17:00 Sodium Chloride (Iv Sodium Chloride 0.9% 1000ml Bag) 1,000 ml @ 1,000 mls/hr Q1H PRN IV hypotension; Start 03/17/16 at 09:04; Stop 03/17/16 at 15:03 Diphenhydramine HCl (Benadryl) 25 mg 1X PRN PRN IV ITCHING; Start 03/17/16 at 09 :15; Stop 03/18/16 at 09:14 Diphenhydramine HCl (Benadryl) 25 mg 1X PRN PRN IV ITCHING; Start 03/17/16 at 09 :15; Stop 03/18/16 at 09:14 Sodium Chloride (Normal Saline Flush) 10 ml 1X PRN PRN IV AP catheter pack; Start 03/17/16 at 09:15; Stop 03/18/16 at 09:14 Sodium Chloride (Normal Saline Flush) 10 ml 1X PRN PRN IV [employer] catheter pack; Start 03/17/16 at 09:15; Stop 03/18/16 at 09:14 Info (PHARMACY MONITORING -- do not chart) 1 each PRN DAILY PRN MC SEE COMMENTS ; Start 03/17/16 at 09:15; Status UNV Info (PHARMACY MONITORING -- do not chart) 1 each PRN DAILY PRN MC SEE COMMENTS ; Start 03/17/16 at 09:15; Status UNV Active Scripts Active Nystatin 100,000 Unit/1 Ml Oral.susp 5 Ml SWSW QID Nystop (Nystatin) 60 Gm Powder 1 Jesus TP BID Cefpodoxime Proxetil 200 Mg Tablet 200 Mg PO DAILY Benzonatate 100 Mg Capsule 100 Mg PO TID PRN [place] 5-325 Tablet (Acetaminophen/Hydrocodone Bitart) 1 Each Tablet 1 Tab PO PRN Q6HRS PRN Reported Folic Acid 1 Mg Tablet 1 Tab PO DAILY Levetiracetam 500 Mg Tablet 500 Mg PO BID Vitamin D2 (Ergocalciferol (Vitamin D2)) 50,000 Unit Capsule 1 Cap PO WEEKLY Ondansetron Odt (Ondansetron) 4 Mg Tab.rapdis 1 Tab PO TID PRN Nystatin-Triamcinolone Ointm (Nystatin/Triamcin) 30 Gm Oint...g. 30 Gm TP BID Venlafaxine Hcl Er (Venlafaxine Hcl) 150 Mg Cap.er.24h 150 Mg PO DAILY Plavix (Clopidogrel Bisulfate) 75 Mg Tablet 75 Mg PO DAILY Nephro-Fay Tablet (Folic Acid/Vitamin B Comp W-C) 0.8 Mg Tablet 0.8 Mg PO DAILY Duoneb 0.5 Mg-3 Mg/3 Ml Soln (Ipratropium/Albuterol Sulfate) 3 Ml Ampul.neb 3 Ml IH Q6HRS Ditropan Xl (Oxybutynin Chloride) 5 Mg Tab.er.24 5 Mg PO DAILY Atorvastatin Calcium 20 Mg Tablet 20 Mg PO QHS Advair 500-50 Diskus (Fluticasone/Salmeterol) 1 Each Disk.w.dev 1 Each IH BID Vitals/I & O Vital Sign - Last 24 Hours 03/16/16 03/16/16 03/16/16 03/16/16 13:32 14:06 19:36 19:50 Temp 97.8 97.7 97.8 97.7 Pulse 85 69 Resp 23 24 B/P 131/77 142/65 Pulse Ox 96 96 92 97 O2 Delivery Nasal Cannula BiPAP/CPAP Nasal Cannula O2 Flow Rate 3.0 2.0 2.0 03/16/16 03/16/16 03/16/16 03/17/16 20:00 20:29 23:16 00:07 Temp 97.6 97.6 Pulse 72 B/P 141/67 Pulse Ox 98 98 95 O2 Delivery Nasal Cannula Nasal Cannula BiPAP/CPAP BiPAP/CPAP O2 Flow Rate 2.0 2.0 03/17/16 03/17/16 03/17/16 03/17/16 02:07 03:00 04:11 07:25 Temp 97.6 97.7 97.6 97.7 Pulse 71 61 Resp 22 23 B/P 166/95 155/85 Pulse Ox 95 99 100 97 O2 Delivery BiPAP/CPAP BiPAP/CPAP BiPAP/CPAP Nasal Cannula O2 Flow Rate 2.0 03/17/16 03/17/16 03/17/16 07:41 07:46 08:00 Pulse Ox 95 95 O2 Delivery Nasal Cannula Nasal Cannula Nasal Cannula O2 Flow Rate 2.0 2.0 2.0 Intake and Output 03/16/16 03/16/16 03/17/16 15:00 23:00 07:00 Intake Total 360 ml 500 ml 0 ml Balance 360 ml 500 ml 0 ml MAMTA MORALES MD Mar 17, 2016 10:42
[2016-03-17] MEDS ORDERED: LABETALOL 20 MG/4 ML DISP.SYRIN. IVP PRN (13:00)
[2016-03-17 14:39] VITALS: BP 98/57
[2016-03-17] MEDS: FOLIC/VIT B COMP W-C (RENAL) TABLET. PO SCH (15:46)
[2016-03-17] MEDS: FAMOTIDINE 20 MG TABLET. PO SCH (15:46)
[2016-03-17] MEDS: OXYBUTYNIN CHLORIDE 5 MG TABLET PO SCH (15:46)
[2016-03-17] MEDS: LEVETIRACETAM 500 MG TABLET PO SCH ×2 (15:47→22:05)
[2016-03-17] MEDS: PREDNISONE 20 MG TABLET PO SCH (15:47)
[2016-03-17] MEDS: CLOPIDOGREL BISULFATE 75 MG TABLET PO SCH (15:51)
[2016-03-17 18:47] VITALS: BP 103/59
[2016-03-17] MEDS: ATORVASTATIN CALCIUM 20 MG TABLET PO SCH (22:05)
[2016-03-17 23:26] VITALS: BP 134/61
[2016-03-18] MEDS: IPRATRPIUM/ALBUTEROL 0.5/2.5MG 3 ML NEBU. IH SCH ×5 (00:27→19:33)
[2016-03-18 03:15] VITALS: BP 141/94
[2016-03-18 07:00] VITALS: BP 120/67
[2016-03-18] MEDS: HEPARIN PF for SUB-Q USE 5,000 UNIT/0.5 ML VIAL. SQ SCH ×3 (07:13→21:49)
[2016-03-18] MEDS: BUDESONIDE 0.5 MG/2 ML NEBU NEB SCH ×2 (07:31→19:33)
[2016-03-18] MEDS: NYSTATIN TOPICAL POWDER 15GM BOTTLE. TP SCH ×2 (08:14→21:58)
[2016-03-18] MEDS: GUAIFENESIN DM 200MG/20MG 10 ML SYRUP. PO SCH ×4 (08:15→21:42)
[2016-03-18] MEDS: PREDNISONE 20 MG TABLET PO SCH (08:16)
[2016-03-18] MEDS: CLOPIDOGREL BISULFATE 75 MG TABLET PO SCH (08:16)
[2016-03-18] MEDS: FOLIC/VIT B COMP W-C (RENAL) TABLET. PO SCH (08:16)
[2016-03-18] MEDS: OXYBUTYNIN CHLORIDE 5 MG TABLET PO SCH (08:16)
[2016-03-18] MEDS: CALCIUM ACETATE 667 MG CAPSULE PO SCH ×3 (08:16→18:00)
[2016-03-18] MEDS: FAMOTIDINE 20 MG TABLET. PO SCH (08:16)
[2016-03-18] MEDS: BENZONATATE 100 MG CAPSULE. PO SCH ×3 (08:16→21:43)
[2016-03-18] MEDS: HYDROCODONE/APAP 5/325MG TABLET. PO PRN ×3 (08:16→21:44)
[2016-03-18] MEDS: VENLAFAXINE 50 MG TABLET. PO SCH ×3 (08:16→21:42)
[2016-03-18] MEDS: LEVETIRACETAM 500 MG TABLET PO SCH ×2 (08:16→21:43)
[2016-03-18] MEDS: GUAIFENESIN ER 600 MG TABLET.ER PO SCH ×2 (08:17→21:43)
[2016-03-18 11:00] VITALS: BP 130/61
--- NOTE | 2016-03-18 12:59 | PDOC ---
SUBJECTIVE ROS ESRD doing well CVS: no Orthopnea, no CP RESP: no SOB, no ORONA GI: no Nausea, no Vomiting : no Dysuria, no Urgency OBJECTIVE Vital Signs Vital Signs Date Time Temp Pulse Resp B/P Pulse Ox O2 Delivery O2 Flow Rate FiO2 03/18/16 11:46 92 Room Air 03/18/16 11:00 98.1 72 14 130/61 3.0 98.1 I & 0 Intake and Output 03/18/16 07:00 Intake Total 690 ml Balance 690 ml Intake Oral 690 ml # Voids 4 # Bowel Movements 1 PHYSICAL EXAM Physical Exam General Appearance: Awake Alert Oriented x 3 In no Distress; flattish affect Eyes: Vision Unchanged Conjunctiva Normal EN: No EN Drainage Mucous Memb. dryish on BiPAP Neck: no JVD no JVP Supple no Thyromegaly; short neck CVS: S1 S2 no Murmur No Gallop No Rub no Edema Resp: no Rales no Rhonchi no Acc. Muscle use GI: BS +ve NO Bruit Non Tender Non Distended; obese : no CVA tenderness; no Suprapubic Tenderness Assessment & Plan ESRD: Current fluid and E-lyte status does not necessitate emergent need for dialysis. Will re-evaluate for dialysis in the am and continue on MWF schedule. Anemia: No Epogen for hgb > 11; Transfuse with next HD as needed. HTN: Current BP meds reviewed. See orders for changes. Hyper phos - ^ed Current binders. ? Compliance issue as OP. SOB Subj - AE of COPD - now much better COMMENT/RELEVANT DATA Meds Current Medications Medications (Trade) Dose Ordered Sig/Negro Start Time Stop Time Status Last Admin Dose Admin Acetaminophen (Tylenol) 650 mg PRN Q6HRS PRN 03/13/16 15:15 Acetaminophen/ Hydrocodone Bitart (Lortab 5/325) 1 tab PRN Q6HRS PRN 03/13/16 15:15 03/18/16 08:16 1 TAB Albumin Human (Albuminar) 200 ml @ 200 mls/hr 1X PRN PRN 03/15/16 09:15 03/15/16 15:14 DC Albuterol Sulfate (Ventolin Neb Soln) 2.5 mg PRN Q4HRS PRN 03/13/16 15:15 Albuterol/ Ipratropium (Duoneb) 3 ml Q6HRS 03/13/16 18:00 03/18/16 11:46 3 ML Aspirin (Ramu Aspirin) 325 mg 1X ONCE 03/13/16 11:30 03/13/16 11:31 DC 03/13/16 12:29 325 MG Atorvastatin Calcium (Lipitor) 20 mg QHS 03/13/16 21:00 03/17/16 22:05 20 MG Benzonatate (Tessalon Perle) 100 mg TID 03/14/16 14:00 03/18/16 08:16 100 MG Budesonide (Pulmicort) 0.5 mg RTBID 03/13/16 20:00 03/18/16 07:31 0.5 MG Calcium Acetate (Phoslo) 2,001 mg TIDWMEALS 03/16/16 17:00 03/18/16 08:16 2,001 MG Calcium Acetate 1334 mg 1,334 mg TIDWMEALS 03/14/16 12:00 03/16/16 14:45 DC 03/16/16 12:45 1,334 MG Clopidogrel Bisulfate (Plavix) 75 mg DAILY 03/13/16 16:00 03/18/16 08:16 75 MG Diphenhydramine HCl (Benadryl) 25 mg 1X PRN PRN 03/17/16 13:00 03/18/16 12:59 Cancel Ergocalciferol (Vitamin D2) 50,000 unit We 03/15/16 09:00 03/15/16 13:24 50,000 UNIT Famotidine (Pepcid) 20 mg DAILY 03/13/16 16:00 03/18/16 08:16 20 MG Fentanyl Citrate (Fentanyl 2ml Vial) 50 mcg PRN Q2HR PRN 03/13/16 08:30 03/14/16 08:29 DC Folic Acid/ Multivitamins/Vit B12 (Nephro-Fay) 1 tab DAILY 03/13/16 16:00 03/18/16 08:16 1 TAB Furosemide (Lasix) 80 mg TID 03/14/16 14:00 03/16/16 14:45 DC 03/16/16 08:44 80 MG Guaifenesin (Mucinex) 600 mg BID 03/13/16 21:00 03/18/16 08:17 600 MG Guaifenesin (Robitussin Dm) 10 ml QID 03/14/16 13:00 03/18/16 08:15 10 ML Heparin Sodium (Porcine) 5,000 unit Q8HRS 03/13/16 16:00 03/18/16 07:13 5,000 UNIT Info (PHARMACY MONITORING -- do not chart) 1 each PRN DAILY PRN 03/17/16 13:00 03/17/16 13:00 DC Info 1 each 1 each PRN DAILY PRN 03/17/16 09:15 UNV Labetalol HCl (Normodyne) 10 mg PRN Q1HR PRN 03/17/16 13:00 03/18/16 12:59 Levetiracetam (Keppra) 500 mg BID 03/13/16 16:00 03/18/16 08:16 500 MG Levofloxacin/ Dextrose (LEVAQUIN 500mg PREMIX) 100 ml @ 100 mls/hr Q48H 03/13/16 09:00 03/14/16 08:17 DC 03/13/16 09:13 100 MLS/HR Levofloxacin/ Dextrose 1 each 1 each PRN DAILY PRN 03/13/16 08:15 03/13/16 14:44 DC Methylprednisolone Sodium Succinate (Solu-Medrol 125mg Vial) 125 mg 1X ONCE 03/13/16 08:00 03/13/16 08:02 DC 03/13/16 08:09 125 MG Non-Formulary Medication 1 each BID 03/13/16 21:00 03/13/16 21:00 DC Nystatin (Nystop) 1 marley BID 03/13/16 16:00 Cancel Ondansetron HCl (Zofran) 4 mg PRN Q6HRS PRN 03/13/16 15:15 03/15/16 11:11 4 MG Oxybutynin Chloride (Ditropan) 5 mg DAILY 03/13/16 16:00 03/18/16 08:16 5 MG Prednisone (Prednisone) 40 mg DAILY 03/13/16 16:00 03/18/16 08:16 40 MG Sodium Chloride (Iv Sodium Chloride 0.9% 1000ml Bag) 1,000 ml @ 1,000 mls/hr Q1H PRN 03/17/16 12:55 03/17/16 18:54 DC Sodium Chloride (Normal Saline Flush) 10 ml 1X PRN PRN 03/17/16 09:15 03/17/16 19:00 DC Venlafaxine HCl (Effexor) 50 mg TID 03/13/16 15:45 03/18/16 08:16 50 MG HERB KEYS MD Mar 18, 2016 12:59
--- NOTE | 2016-03-18 14:28 | PDOC3 ---
Discharge Summary [facility] Date of Admission: Mar 13, 2016 Discharge Date: Mar 18, 2016 Admitting Diagnosis 1. acute on chronic hypoxic resp failure 2. COPD exacerbation, SEVERE 3. possible diastolic CHF 4. recent CAP 5. ESRD ON HD MWF 6. H/O CAD 7. htn 8. hld 9. depression 10. smoker 11. metabolic acidosis Problems: Final Diagnosis Problems Medical Problems: (1) Chest pain Status: Acute (2) COPD exacerbation Status: Acute (3) Elevated troponin Status: Acute (4) ESRD (end stage renal disease) on dialysis Status: Acute (5) Respiratory failure Status: Acute CONSULTS renal pulm card Brief Hospital Course Patient is a 65 year old female who presents with dyspnea and dry cough for the past 2 months. Pt was DCed here last month for PNA, however, since DC, pt never feels better ,still cough with yellowish sputum, and sop, on home NC 2L. She is on HD WMF, didnot miss HD. Pt came for worsening sob, with cough and sputum. No FEVEr, chills, chest pian, N/V, abd pain or diarrhea. Pt feels better with bipap .pt has nebs listed as home meds, however, she told me she had no pulm nor use nebs at home. smoker. Pt on HD with right upper chest port for 1 y wo AVF, not sure why. ABX dced by ID. pt improved with prednisone, still cough tho dc home with home o2, taper steroid, nebs. dc time 35min GEN.: No apparent distress. Alert and oriented. on bipap HEENT: Head is normocephalic, atraumatic NECK: Supple. LUNGS: bl mild wheezing, tight. dialysis shunt right upper chest HEART: RRR, S1, S2 present. Peripheral pulses intact ABDOMEN: Soft, nontender. Positive bowel sounds. EXTREMITIES: Without any cyanosis. no edema NEUROLOGIC: Normal speech, normal tone PSYCHIATRIC: Normal affect, normal mood. SKIN: No ulcerations Patient History: FH: CHF (congestive heart failure) 32 MOTHER (chf) FH: [place] (myocardial infarction) FH: stroke 33 FATHER Family history: Cardiovascular disease (situation) G8 BROTHER Unknown Problems: Disposition HH CONDITION AT DISCHARGE: Improved, Stable Diet CARDIAC Scheduled Atorvastatin Calcium (Atorvastatin Calcium) 20 MG PO QHS (Reported) Cefpodoxime Proxetil (Cefpodoxime Proxetil) 200 MG PO DAILY Clopidogrel Bisulfate (Plavix) 75 MG PO DAILY (Reported) Ergocalciferol (Vitamin D2) (Vitamin D2) 1 CAP PO WEEKLY (Reported) Fluticasone/Salmeterol (Advair 500-50 Diskus) 1 EACH IH BID (Reported) Folic Acid (Folic Acid) 1 TAB PO DAILY (Reported) Folic Acid/Vitamin B Comp W-C (Nephro-Fay Tablet) 0.8 MG PO DAILY (Reported) Ipratropium/Albuterol Sulfate (Duoneb 0.5 Mg-3 Mg/3 Ml Soln) 3 ML IH Q6HRS ( Reported) Levetiracetam (Levetiracetam) 500 MG PO BID (Reported) Nystatin (Nystop) 1 ISHA TP BID Nystatin (Nystatin) 5 ML SWSW QID Nystatin/Triamcin (Nystatin-Triamcinolone Ointm) 30 GM TP BID (Reported) Oxybutynin Chloride (Ditropan Xl) 5 MG PO DAILY (Reported) Venlafaxine Hcl (Venlafaxine Hcl Er) 150 MG PO DAILY (Reported) Scheduled PRN Benzonatate (Benzonatate) 100 MG PO TID PRN PRN COUGH Hydrocodone/[place] 5-325 ([place] 5-325 Tablet) 1 TAB PO PRN Q6HRS PRN PRN PAIN Ondansetron (Ondansetron Odt) 1 TAB PO TID PRN PRN NAUSEA (Reported) Follow Up pcp and pulm in 2 weeks AUNG AGRCIA MD Mar 18, 2016 14:28
[2016-03-18] MEDS ORDERED: PRED20TA PO (14:37)
[2016-03-18] MEDS ORDERED: FLUT1DIS5 IH (14:37)
[2016-03-18] MEDS ORDERED: BENZ100C2 PO (14:37)
[2016-03-18] MEDS ORDERED: GUAI600T38 PO (14:37)
[2016-03-18] MEDS ORDERED: NYST60PO TP (14:37)
[2016-03-18] MEDS ORDERED: ALBU2.5V5 NEB (14:37)
[2016-03-18 15:00] VITALS: BP 136/64
--- NOTE | 2016-03-18 16:59 | PDOC ---
PULMONARY PROGRESS NOTES Subjective less soa off bipap Vitals Vital Signs Date Time Temp Pulse Resp B/P Pulse Ox O2 Delivery O2 Flow Rate FiO2 03/18/16 15:44 95 Nasal Cannula 2.5 03/18/16 15:09 18 03/18/16 15:00 97.9 77 136/64 97.9 ROS: No Nausea, No Chest Pain, No Abdominal Pain, No Increase Cough General: Alert Lungs: Clear Cardiovascular: S1, S2 Abdomen: Soft, Non-tender Neuro Exam: Alert Extremities: No Edema Skin: Warm Medications Active Scripts Medications Dose Route/Sig Days Date Category Nystatin 100,000 Unit/1 Ml Oral.susp 5 Ml SWSW QID 01/21/16 Rx Nystop (Nystatin) 60 Gm Powder 1 Jesus TP BID 01/21/16 Rx Cefpodoxime Proxetil 200 Mg Tablet 200 Mg PO DAILY 01/21/16 Rx Benzonatate 100 Mg Capsule 100 Mg PO TID PRN 01/21/16 Rx Folic Acid 1 Mg Tablet 1 Tab PO DAILY 01/14/16 Reported Levetiracetam 500 Mg Tablet 500 Mg PO BID 01/14/16 Reported Vitamin D2 (Ergocalciferol (Vitamin D2)) 50,000 Unit Capsule 1 Cap PO WEEKLY 01/14/16 Reported Ondansetron Odt (Ondansetron) 4 Mg Tab.rapdis 1 Tab PO TID PRN 01/14/16 Reported [place] 5-325 Tablet (Acetaminophen/Hydrocodone Bitart) 1 Each Tablet 1 Tab PO PRN Q6HRS PRN 10/12/15 Rx Nystatin-Triamcinolone Ointm (Nystatin/Triamcin) 30 Gm Oint...g. 30 Gm TP BID 05/20/13 Reported Venlafaxine Hcl Er (Venlafaxine Hcl) 150 Mg Cap.er.24h 150 Mg PO DAILY 05/20/13 Reported Plavix (Clopidogrel Bisulfate) 75 Mg Tablet 75 Mg PO DAILY 05/20/13 Reported Nephro-Fay Tablet (Folic Acid/Vitamin B Comp W-C) 0.8 Mg Tablet 0.8 Mg PO DAILY 05/20/13 Reported Duoneb 0.5 Mg-3 Mg/3 Ml Soln (Ipratropium/Albuterol Sulfate) 3 Ml Ampul.neb 3 Ml IH Q6HRS 05/20/13 Reported Ditropan Xl (Oxybutynin Chloride) 5 Mg Tab.er.24 5 Mg PO DAILY 05/20/13 Reported Atorvastatin Calcium 20 Mg Tablet 20 Mg PO QHS 05/20/13 Reported Advair 500-50 Diskus (Fluticasone/Salmeterol) 1 Each Disk.w.dev 1 Each IH BID 05/20/13 Reported Impression . 1. Acute respiratory failure, multifactorial secondary to [id number] diastolic heart failure, renal failure, possible viral syndrome, and acute exacerbation of chronic obstructive pulmonary disease. 2. Acute exacerbation of chronic obstructive pulmonary disease. 3. Elevated troponin. 4. Hypertension. 5. Hyperlipidemia. 6. Leukocytosis. 7. Tobacco dependence. Plan . Echo report noted resp status improving Pt wants to go home 6 min walk ok to d/c ASIA BACH MD Mar 18, 2016 16:59
[2016-03-18 19:45] VITALS: BP 121/69
[2016-03-18] MEDS: ATORVASTATIN CALCIUM 20 MG TABLET PO SCH (21:42)
[2016-03-18 23:45] VITALS: BP 132/64
[2016-03-19 03:10] VITALS: BP 142/81
[2016-03-19] MEDS: HEPARIN PF for SUB-Q USE 5,000 UNIT/0.5 ML VIAL. SQ SCH (06:07)
[2016-03-19 07:00] VITALS: BP 117/82
[2016-03-19] MEDS: IPRATRPIUM/ALBUTEROL 0.5/2.5MG 3 ML NEBU. IH SCH ×2 (08:14→11:56)
[2016-03-19] MEDS: BUDESONIDE 0.5 MG/2 ML NEBU NEB SCH (08:14)
[2016-03-19] MEDS: CLOPIDOGREL BISULFATE 75 MG TABLET PO SCH (08:36)
[2016-03-19] MEDS: CALCIUM ACETATE 667 MG CAPSULE PO SCH ×2 (08:36→11:57)
[2016-03-19] MEDS: GUAIFENESIN DM 200MG/20MG 10 ML SYRUP. PO SCH (08:36)
[2016-03-19] MEDS: BENZONATATE 100 MG CAPSULE. PO SCH (08:36)
[2016-03-19] MEDS: FOLIC/VIT B COMP W-C (RENAL) TABLET. PO SCH (08:36)
[2016-03-19] MEDS: VENLAFAXINE 50 MG TABLET. PO SCH (08:37)
[2016-03-19] MEDS: PREDNISONE 20 MG TABLET PO SCH (08:37)
[2016-03-19] MEDS: GUAIFENESIN ER 600 MG TABLET.ER PO SCH (08:37)
[2016-03-19] MEDS: LEVETIRACETAM 500 MG TABLET PO SCH (08:37)
[2016-03-19] MEDS: OXYBUTYNIN CHLORIDE 5 MG TABLET PO SCH (08:37)
[2016-03-19] MEDS: FAMOTIDINE 20 MG TABLET. PO SCH (08:37)
[2016-03-19] MEDS: HYDROCODONE/APAP 5/325MG TABLET. PO PRN (08:39)
[2016-03-19 11:00] VITALS: BP 105/68
--- NOTE | 2016-03-19 13:41 | PDOC ---
SUBJECTIVE ROS ESRD Doign and feeling well - ready to go home OBJECTIVE Vital Signs Vital Signs Date Time Temp Pulse Resp B/P Pulse Ox O2 Delivery O2 Flow Rate FiO2 03/19/16 11:56 Nasal Cannula 2.5 03/19/16 11:00 98.7 78 18 105/68 98.7 03/19/16 09:39 95 I & 0 Intake and Output 03/19/16 07:00 Intake Total 500 ml Balance 500 ml Intake Oral 500 ml # Voids 3 PHYSICAL EXAM Physical Exam General Appearance: Awake: Alert Oriented x 3 Neck: No JVD or JVP Chest: CTA Josiah Heart: S1 S2 Abdomen - Soft NTND Extremities - No Edema DIAGNOSIS/ASSESSMENT Assessment & Plan ESRD: Current fluid and E-lyte status does not necessitate emergent need for dialysis. Will re-evaluate for dialysis in the am and continue on MWFschedule. COMMENT/RELEVANT DATA Meds Current Medications Medications (Trade) Dose Ordered Sig/Negro Start Time Stop Time Status Last Admin Dose Admin Acetaminophen (Tylenol) 650 mg PRN Q6HRS PRN 03/13/16 15:15 Acetaminophen/ Hydrocodone Bitart (Lortab 5/325) 1 tab PRN Q6HRS PRN 03/13/16 15:15 03/19/16 08:39 1 TAB Albumin Human (Albuminar) 200 ml @ 200 mls/hr 1X PRN PRN 03/15/16 09:15 03/15/16 15:14 DC Albuterol Sulfate (Ventolin Neb Soln) 2.5 mg PRN Q4HRS PRN 03/13/16 15:15 Albuterol/ Ipratropium (Duoneb) 3 ml Q6HRS 03/13/16 18:00 03/19/16 11:56 3 ML Aspirin (Ramu Aspirin) 325 mg 1X ONCE 03/13/16 11:30 03/13/16 11:31 DC 03/13/16 12:29 325 MG Atorvastatin Calcium (Lipitor) 20 mg QHS 03/13/16 21:00 03/18/16 21:42 20 MG Benzonatate (Tessalon Perle) 100 mg TID 03/14/16 14:00 03/19/16 08:36 100 MG Budesonide (Pulmicort) 0.5 mg RTBID 03/13/16 20:00 03/19/16 08:14 0.5 MG Calcium Acetate (Phoslo) 2,001 mg TIDWMEALS 03/16/16 17:00 03/19/16 11:57 2,001 MG Calcium Acetate 1334 mg 1,334 mg TIDWMEALS 03/14/16 12:00 03/16/16 14:45 DC 03/16/16 12:45 1,334 MG Clopidogrel Bisulfate (Plavix) 75 mg DAILY 03/13/16 16:00 03/19/16 08:36 75 MG Diphenhydramine HCl (Benadryl) 25 mg 1X PRN PRN 03/17/16 13:00 03/18/16 12:59 Cancel Ergocalciferol (Vitamin D2) 50,000 unit We 03/15/16 09:00 03/15/16 13:24 50,000 UNIT Famotidine (Pepcid) 20 mg DAILY 03/13/16 16:00 03/19/16 08:37 20 MG Fentanyl Citrate (Fentanyl 2ml Vial) 50 mcg PRN Q2HR PRN 03/13/16 08:30 03/14/16 08:29 DC Folic Acid/ Multivitamins/Vit B12 (Nephro-Fay) 1 tab DAILY 03/13/16 16:00 03/19/16 08:36 1 TAB Furosemide (Lasix) 80 mg TID 03/14/16 14:00 03/16/16 14:45 DC 03/16/16 08:44 80 MG Guaifenesin (Mucinex) 600 mg BID 03/13/16 21:00 03/19/16 08:37 600 MG Guaifenesin (Robitussin Dm) 10 ml QID 03/14/16 13:00 03/19/16 08:36 10 ML Heparin Sodium (Porcine) 5,000 unit Q8HRS 03/13/16 16:00 03/19/16 06:07 5,000 UNIT Info (PHARMACY MONITORING -- do not chart) 1 each PRN DAILY PRN 03/17/16 13:00 03/17/16 13:00 DC Info 1 each 1 each PRN DAILY PRN 03/17/16 09:15 UNV Labetalol HCl (Normodyne) 10 mg PRN Q1HR PRN 03/17/16 13:00 03/18/16 12:59 DC Levetiracetam (Keppra) 500 mg BID 03/13/16 16:00 03/19/16 08:37 500 MG Levofloxacin/ Dextrose (LEVAQUIN 500mg PREMIX) 100 ml @ 100 mls/hr Q48H 03/13/16 09:00 03/14/16 08:17 DC 03/13/16 09:13 100 MLS/HR Levofloxacin/ Dextrose 1 each 1 each PRN DAILY PRN 03/13/16 08:15 03/13/16 14:44 DC Methylprednisolone Sodium Succinate (Solu-Medrol 125mg Vial) 125 mg 1X ONCE 03/13/16 08:00 03/13/16 08:02 DC 03/13/16 08:09 125 MG Non-Formulary Medication 1 each BID 03/13/16 21:00 03/13/16 21:00 DC Nystatin (Nystop) 1 marley BID 03/13/16 16:00 Cancel Ondansetron HCl (Zofran) 4 mg PRN Q6HRS PRN 03/13/16 15:15 03/15/16 11:11 4 MG Oxybutynin Chloride (Ditropan) 5 mg DAILY 03/13/16 16:00 03/19/16 08:37 5 MG Prednisone (Prednisone) 40 mg DAILY 03/13/16 16:00 03/19/16 08:37 40 MG Sodium Chloride (Iv Sodium Chloride 0.9% 1000ml Bag) 1,000 ml @ 1,000 mls/hr Q1H PRN 03/17/16 12:55 03/17/16 18:54 DC Sodium Chloride (Normal Saline Flush) 10 ml 1X PRN PRN 03/17/16 09:15 03/17/16 19:00 DC Venlafaxine HCl (Effexor) 50 mg TID 03/13/16 15:45 03/19/16 08:37 50 MG HERB KEYS MD Mar 19, 2016 13:41
--- NOTE | 2016-03-19 13:43 | PDOC3 ---
Discharge Summary [facility] Date of Admission: Mar 13, 2016 Discharge Date: Mar 19, 2016 Admitting Diagnosis 1. acute on chronic hypoxic resp failure 2. COPD exacerbation, SEVERE 3. possible diastolic CHF 4. recent CAP 5. ESRD ON HD MWF 6. H/O CAD 7. htn 8. hld 9. depression 10. smoker 11. metabolic acidosis Problems: Final Diagnosis Problems Medical Problems: (1) Chest pain Status: Acute (2) COPD exacerbation Status: Acute (3) Elevated troponin Status: Acute (4) ESRD (end stage renal disease) on dialysis Status: Acute (5) Respiratory failure Status: Acute CONSULTS renal pulm card Brief Hospital Course Brief Hospital Course Patient is a 65 year old female who presents with dyspnea and dry cough for the past 2 months. Pt was DCed here last month for PNA, however, since DC, pt never feels better ,still cough with yellowish sputum, and sop, on home NC 2L. She is on HD WMF, didnot miss HD. Pt came for worsening sob, with cough and sputum. No FEVEr, chills, chest pian, N/V, abd pain or diarrhea. Pt feels better with bipap .pt has nebs listed as home meds, however, she told me she had no pulm nor use nebs at home. smoker. Pt on HD with right upper chest port for 1 y wo AVF, not sure why. ABX dced by ID. pt improved with prednisone, still cough tho dc home with home o2 2L, taper steroid, nebs. dc time 35min GEN.: No apparent distress. Alert and oriented. on bipap HEENT: Head is normocephalic, atraumatic NECK: Supple. LUNGS: bl mild wheezing, tight. dialysis shunt right upper chest HEART: RRR, S1, S2 present. Peripheral pulses intact ABDOMEN: Soft, nontender. Positive bowel sounds. EXTREMITIES: Without any cyanosis. no edema NEUROLOGIC: Normal speech, normal tone PSYCHIATRIC: Normal affect, normal mood. SKIN: No ulcerations Patient History: FH: CHF (congestive heart failure) 32 MOTHER (chf) FH: FL (myocardial infarction) FH: stroke 33 FATHER Family history: Cardiovascular disease (situation) G8 BROTHER Unknown Problems: Disposition HH CONDITION AT DISCHARGE: Improved, Stable Diet RENAL Scheduled Atorvastatin Calcium (Atorvastatin Calcium) 20 MG PO QHS (Reported) Clopidogrel Bisulfate (Plavix) 75 MG PO DAILY (Reported) Ergocalciferol (Vitamin D2) (Vitamin D2) 1 CAP PO WEEKLY (Reported) Fluticasone/Salmeterol (Advair 500-50 Diskus) 1 EACH IH BID Folic Acid (Folic Acid) 1 TAB PO DAILY (Reported) Folic Acid/Vitamin B Comp W-C (Nephro-Fay Tablet) 0.8 MG PO DAILY (Reported) Guaifenesin (Mucinex) 600 MG PO BID Ipratropium/Albuterol Sulfate (Duoneb 0.5 Mg-3 Mg/3 Ml Soln) 3 ML IH Q6HRS ( Reported) Levetiracetam (Levetiracetam) 500 MG PO BID (Reported) Nystatin (Nystatin) 5 ML SWSW QID Nystatin (Nystop) 1 ISHA TP BID Nystatin/Triamcin (Nystatin-Triamcinolone Ointm) 30 GM TP BID (Reported) Oxybutynin Chloride (Ditropan Xl) 5 MG PO DAILY (Reported) Prednisone (Prednisone) 40 MG PO DAILY Venlafaxine Hcl (Venlafaxine Hcl Er) 150 MG PO DAILY (Reported) Scheduled PRN Albuterol Sulfate (Albuterol Sulfate Neb Soln) 2.5 MG NEB PRN Q4HRS PRN PRN SHORTNESS OF BREATH Benzonatate (Benzonatate) 100 MG PO TID PRN PRN COUGH Hydrocodone/Apap 5-325 ([place] 5-325 Tablet) 1 TAB PO PRN Q6HRS PRN PRN PAIN Ondansetron (Ondansetron Odt) 1 TAB PO TID PRN PRN NAUSEA (Reported) Discontinued Medications Cefpodoxime Proxetil (Cefpodoxime Proxetil) 200 MG PO DAILY Follow Up pcp in 2 weeks AUNG GARCIA MD Mar 19, 2016 13:43
== END 2016-03-19 14:44 | disposition home health service (06) | DRG 291 ==
LOC: ER 07:16 → 2 SOUTH 08:00
PROVIDERS: ADMIT Internal Medicine; ATTEND Internal Medicine
PROC: 5A1D60Z (ICD-10-PCS; principal; 2016-03-13)
PROC: 5A09357 Assistance with Respiratory Ventilation, Less than 24 Consecutive Hours, Continuous Positive Airway Pressure (ICD-10-PCS; 2016-03-13)
DX: I13.2 Hypertensive heart and chronic kidney disease with heart failure and with stage 5 chronic kidney disease, or end stage renal disease (principal); I50.33 Acute on chronic diastolic (congestive) heart failure; J96.21 Acute and chronic respiratory failure with hypoxia; N18.6 End stage renal disease; J44.1 Chronic obstructive pulmonary disease with (acute) exacerbation; E87.2 Acidosis; E78.5 Hyperlipidemia, unspecified; E78.00 Pure hypercholesterolemia, unspecified; F17.210 Nicotine dependence, cigarettes, uncomplicated; F32.9 Major depressive disorder, single episode, unspecified; G47.33 Obstructive sleep apnea (adult) (pediatric); I25.10 Atherosclerotic heart disease of native coronary artery without angina pectoris; K21.9 Gastro-esophageal reflux disease without esophagitis; M79.7 Fibromyalgia; E66.9 Obesity, unspecified; F41.9 Anxiety disorder, unspecified; G89.29 Other chronic pain; D64.9 Anemia, unspecified; K59.00 Constipation, unspecified; R13.10 Dysphagia, unspecified; M54.5 Low back pain; D72.829 Elevated white blood cell count, unspecified; T38.0X5A Adverse effect of glucocorticoids and synthetic analogues, initial encounter; Z82.3 Family history of stroke; Z82.49 Family history of ischemic heart disease and other diseases of the circulatory system; Z83.3 Family history of diabetes mellitus; Z86.73 Personal history of transient ischemic attack (TIA), and cerebral infarction without residual deficits; Z87.01 Personal history of pneumonia (recurrent); Z87.11 Personal history of peptic ulcer disease; Z99.2 Dependence on renal dialysis; Z99.81 Dependence on supplemental oxygen; Z98.890 Other specified postprocedural states
CPT/HCPCS: 36415; 36600; 71010; 71020; 80048; 80061; 80069; 82805; 82947; 83605; 83880; 84484; 85007; 85027; 87040; 93005; 93306; 94620; 94640; 94660; 94760; 96374; 96375; J1956; J2405; J2930; J7512; J7620; 97110; 97116; 97530; 99291-25

== ENCOUNTER 2016-10-04 14:44 | Emergency (ER) | payer MEDICARE ==
[~2016-10-04] VITALS: Ht 167.6 cm; Wt 66.7 kg
[~2016-10-04 14:44] MED LIST changes: +ALBU2.5V5 NEB; +BENZ100C15 PO; -BENZ100C2 PO; -CLOP75TA27 PO; +CLOP75TA57 PO; +DEXT237L PO; +DILT120C80 PO; -DILT120C97 PO; -ERGO500012 PO; +ERGO500027 PO; +GUAI600T47 PO; -MAGN400O4 PO; +MAGN400O7 PO; -NYST1000 SWSW; +NYST100054 SWSW; +POLY17PO29 PO; -POLY17PO5 PO; +PRED20TA PO; +TUBE5VIA12 ID; -TUBE5VIA3 ID; -[UNRECOGNIZED DRUG - CODE] PO
[2016-10-04] MEDS ORDERED: IPRATRPIUM/ALBUTEROL 0.5/2.5MG 3 ML NEBU. NEB ONE (15:45)
--- NOTE | 2016-10-04 15:49 | PHYS DOC ---
Past Medical History Past Medical History: CHF, Constipation, COPD, CVA, Depression, High Cholesterol, Hypertension, OR, Renal Failure Additional Past Medical Histor: dysphagia, obesity, HD, constipation, cataract , right shoulder fx, intubati Past Surgical History: Other Additional Past Surgical Histo: left wrist; back; carotid; dialysis shunt right upper chest Alcohol Use: None Drug Use: None Adult General Chief Complaint Chief Complaint: DYSPNEA/RESPIRATOY DISTRESS HPI HPI Patient is a 66 year old female who presents with complaint of shortness of breath. Patient states her symptoms started while at dialysis earlier today prior to arrival. The patient had completed approximately 50% of her dialysis when she started to become significantly short of breath. EMS was called and patient was treated with albuterol nebulized treatment prior to arrival. Patient states that this helped her tremendously and currently her symptoms are very mild. Patient denies any fever, chest pain, or abdominal pain. Patient has history of stroke with permanent right-sided deficits and affected speech. The patient states that she is still short of breath but is much improved. The patient has history of COPD and is on 2 L nasal cannula at all times. Review of Systems Review of Systems Constitutional: Denies fever or chills [] Eyes: Denies change in visual acuity, redness, or eye pain [] HENT: Denies nasal congestion or sore throat [] Respiratory: Shortness of breath [] Cardiovascular: Denies chest pain or edema [] GI: Denies abdominal pain, nausea, vomiting, bloody stools or diarrhea [] : Denies dysuria or hematuria [] Musculoskeletal: Denies back pain or joint pain [] Integument: Denies rash or skin lesions [] Neurologic: Denies headache, focal weakness or sensory changes [] Current Medications Current Medications Current Medications Medications (Trade) Dose Ordered Sig/Negro Start Time Stop Time Status Last Admin Dose Admin Albuterol/ Ipratropium (Duoneb) 3 ml 1X ONCE 10/04/16 15:45 10/04/16 15:46 DC 10/04/16 16:04 3 ML Allergies Allergies Allergies Coded Allergies Type Severity Reaction Last Updated Verified No Known Allergies Allergy Unknown 08/02/15 Yes Physical Exam Physical Exam Constitutional: Alert, afebrile, no acute distress, vital signs are stable. [] HENT: Normocephalic, atraumatic, bilateral external ears normal, oropharynx moist, no oral exudates, nose normal. [] Eyes: PERRLA, EOMI, conjunctiva normal, no discharge. [] Neck: Normal range of motion, no tenderness, supple, no stridor. [] Cardiovascular:Heart rate regular rhythm, no murmur [] Lungs & Thorax: Mild to moderate restriction of air movement bilaterally, no wheezes, rhonchi bilaterally, no rales [] Abdomen: Bowel sounds normal, soft, no tenderness, no masses, no pulsatile masses. [] Skin: Warm, dry, no erythema, no rash. [] Back: No tenderness, no CVA tenderness. [] Extremities: No tenderness, no cyanosis, no clubbing, ROM intact, no edema. [] Neurologic: Alert and oriented X 3, mild dysarthria, spastic right-sided hemiplegia. [] Current Patient Data Vital Signs Vital Signs Date Time Temp Pulse Resp B/P (MAP) Pulse Ox O2 Delivery O2 Flow Rate FiO2 10/04/16 16:08 98 Nasal Cannula 2.0 10/04/16 14:51 97.9 75 18 127/92 (104) 97.9 Lab Values Laboratory Tests Test 10/04/16 16:04 White Blood Count 7.0 x10^3/uL (4.0-11.0) Red Blood Count 4.27 x10^6/uL (3.50-5.40) Hemoglobin 12.1 g/dL (12.0-15.5) Hematocrit 36.3 % (36.0-47.0) Mean Corpuscular Volume 85 fL (79-100) Mean Corpuscular Hemoglobin 28 pg (25-35) Mean Corpuscular Hemoglobin Concent 33 g/dL (31-37) Red Cell Distribution Width 15.4 % (11.5-14.5) H Platelet Count 140 x10^3/uL (140-400) Neutrophils (%) (Auto) 73 % (31-73) Lymphocytes (%) (Auto) 17 % (24-48) L Monocytes (%) (Auto) 7 % (0-9) Eosinophils (%) (Auto) 2 % (0-3) Basophils (%) (Auto) 1 % (0-3) Neutrophils # (Auto) 5.1 x10^3uL (1.8-7.7) Lymphocytes # (Auto) 1.2 x10^3/uL (1.0-4.8) Monocytes # (Auto) 0.5 x10^3/uL (0.0-1.1) Eosinophils # (Auto) 0.2 x10^3/uL (0.0-0.7) Basophils # (Auto) 0.1 x10^3/uL (0.0-0.2) Sodium Level 140 mmol/L (136-145) Potassium Level 3.7 mmol/L (3.5-5.1) Chloride Level 106 mmol/L (98-107) Carbon Dioxide Level 24 mmol/L (21-32) Anion Gap 10 (6-14) Blood Urea Nitrogen 28 mg/dL (7-20) H Creatinine 4.4 mg/dL (0.6-1.0) H Estimated GFR (Cockcroft-Gault) 10.0 Glucose Level 126 mg/dL (70-99) H Calcium Level 8.9 mg/dL (8.5-10.1) Magnesium Level 2.0 mg/dL (1.8-2.4) Laboratory Tests 10/04/16 16:04 Laboratory Tests 10/04/16 16:04 EKG EKG Interpreted by me: Heart rate 89, sinus rhythm, normal intervals, leftward axis , no acute ST/T-wave abnormalities present [] Radiology/Procedures Radiology/Procedures [facility] [address] [place] [address] IMAGING REPORT Signed PATIENT: SHARDA JOSEPH ACCOUNT: [id number] : 1950 LOCATION: ER AGE: 66 SEX: F EXAM STATUS: REG ER ORD. PHYSICIAN: RUBEN ROME MD REASON: shortness of breath PROCEDURE: PORTABLE CHEST 1V Portable chest, 10/04/2016: History: Shortness of breath, weakness Comparison is made to a study from 03/16/2016. A left jugular dialysis type catheter is now in place extending into the right atrium. The heart size is normal. The pulmonary vascularity appears congested. There are predominantly interstitial opacities in the lungs with mild patchy basilar infiltrates. The findings probably reflect pulmonary edema. Blunting of the right lateral costophrenic angle is compatible with a small amount of associated pleural fluid. Surgical clips are present in the lower neck on the left. Postsurgical changes are noted in the lower cervical spine. There is an old fracture/subluxation of the right shoulder. IMPRESSION: Interstitial and air space opacities most compatible with mild pulmonary edema with a small amount of associated right-sided pleural fluid. DICTATED and SIGNED BY: BRINDA ANDRADE MD DATE: 10/04/16 6430 CC: RUBEN ROME MD; LUZ CHARLTON Jr, MD ~ [] Course & Med Decision Making Course & Med Decision Making Pertinent Labs and Imaging studies reviewed. (See chart for details) Patient was given DuoNeb treatment in the emergency department with improvement in symptoms. The patient's blood work appears stable. The patient's chest x-ray does show signs of mild interstitial edema. I contacted Dr. Toth who was on- call for Dr. Rordiguez. I spoke with him regarding findings. I also informed him that the patient stated that she felt comfortable and would like to go home. He stated that this would be reasonable and he recommended that if the patient has any worsening shortness of breath tomorrow she could call her dialysis center to set up dialysis tomorrow. If the patient was feeling well tomorrow he stated that the patient could be permitted to follow-up at her next dialysis appointment on Sunday for routine dialysis. I spoke with the patient regarding this plan of care and she was in agreement. I asked the patient if she had any DuoNeb solution at home for use which she stated she did not. The patient was written for prescription for DuoNeb solution. Patient states that she would be able to fill this prescription today to continue use at home. Recommended return to the emergency department for any worsening symptoms. Patient voiced understanding and in agreement with treatment plan upon discharge. Dragon Disclaimer Dragon Disclaimer This electronic medical record was generated, in whole or in part, using a voice recognition dictation system. Departure Departure Impression: Primary Impression: Pulmonary edema Additional Impressions: End stage renal disease COPD (chronic obstructive pulmonary disease) Disposition: 01 HOME, SELF-CARE Condition: IMPROVED Referrals: LUZ CHARLTON Jr, MD (PCP) Patient Instructions: Chronic Obstructive Pulmonary Disease, End Stage Kidney Disease, Pulmonary Edema Additional Instructions: You may follow-up with your dialysis center tomorrow for any worsening shortness of breath. If you are feeling well tomorrow you may follow-up at your next scheduled dialysis appointment. Return to the emergency department for any worsening symptoms. Scripts Ipratropium/Albuterol Sulfate (DUONEB 0.5-3(2.5) MG/3 ML) 3 Ml Ampul.neb 3 ML NEB QID Y for SHORTNESS OF BREATH, #30 EACH Prov: RUBEN ROME MD 10/04/16 Problem Qualifiers Primary Impression: Pulmonary edema Chronicity: acute Qualified Codes: J81.0 - Acute pulmonary edema Additional Impressions: COPD (chronic obstructive pulmonary disease) COPD type: unspecified COPD Qualified Codes: J44.9 - Chronic obstructive pulmonary disease, unspecified RUBEN ROME MD Oct 04, 2016 15:49
--- NOTE | 2016-10-04 16:02 | RAD ---
Portable chest, 10/04/2016: History: Shortness of breath, weakness Comparison is made to a study from 03/16/2016. A left jugular dialysis type catheter is now in place extending into the right atrium. The heart size is normal. The pulmonary vascularity appears congested. There are predominantly interstitial opacities in the lungs with mild patchy basilar infiltrates. The findings probably reflect pulmonary edema. Blunting of the right lateral costophrenic angle is compatible with a small amount of associated pleural fluid. Surgical clips are present in the lower neck on the left. Postsurgical changes are noted in the lower cervical spine. There is an old fracture/subluxation of the right shoulder. IMPRESSION: Interstitial and air space opacities most compatible with mild pulmonary edema with a small amount of associated right-sided pleural fluid.
--- NOTE | 2016-10-04 16:04 | EKG ---
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
[2016-10-04 16:10] LABS: BASO # 0.1 x10^3/uL (0.0-0.2); BASO % 1 % (0-3); EOS % 2 % (0-3); HEMATOCRIT 36.3 % (36.0-47.0); HEMOGLOBIN 12.1 g/dL (12.0-15.5); LYMPH # 1.2 x10^3/uL (1.0-4.8); LYMPH % 17 % (24-48); MEAN CORPUSCULAR HEMOGLOBIN 28 pg (25-35); MEAN CORPUSCULAR HGB CONC 33 g/dL (31-37); MEAN CORPUSCULAR VOLUME 85 fL (79-100); MONO % 7 % (0-9); NEUT % 73 % (31-73); PLATELET COUNT 140 x10^3/uL (140-400); RED BLOOD COUNT 4.27 x10^6/uL (3.50-5.40); RED CELL DISTRIBUTION WIDTH 15.4 % (11.5-14.5)
[2016-10-04 16:21] LABS: CALCIUM 8.9 mg/dL (8.5-10.1); CREATININE 4.4 mg/dL (0.6-1.0); POTASSIUM 3.7 mmol/L (3.5-5.1)
[2016-10-04 16:30] VITALS: BP 132/70
[2016-10-04] MEDS ORDERED: IPRA3AMP NEB (16:45)
== END 2016-10-04 17:19 | disposition home or self-care (01) ==
LOC: ER 14:44
DX: J81.0 Acute pulmonary edema (principal); J44.9 Chronic obstructive pulmonary disease, unspecified; I13.2 Hypertensive heart and chronic kidney disease with heart failure and with stage 5 chronic kidney disease, or end stage renal disease; N18.6 End stage renal disease; I50.9 Heart failure, unspecified; Z99.2 Dependence on renal dialysis; E78.00 Pure hypercholesterolemia, unspecified; I25.2 Old myocardial infarction; Z86.73 Personal history of transient ischemic attack (TIA), and cerebral infarction without residual deficits
CPT/HCPCS: 36415; 71010; 80048; 83735; 85025; 93005; 94640; 99285; J7620

== ENCOUNTER 2016-11-17 09:37 | Inpatient (IN) | payer MEDICARE ==
[2016-11-17] VITALS (11 sets, daily range): BP systolic 72–135; BP diastolic 52–87
[~2016-11-17] VITALS: Ht 167.6 cm; Wt 68.2 kg
[~2016-11-17 09:37] MED LIST changes: +IPRA3AMP NEB; +TRAM-48 PO
[2016-11-17] MEDS ORDERED: ALBUTEROL SULFATE 2.5 MG/3 ML NEBU. ONE (09:40)
[2016-11-17] MEDS ORDERED: ALBUTEROL SULFATE 2.5 MG/3 ML NEBU. NEB ONE (10:00)
--- NOTE | 2016-11-17 10:08 | EKG ---
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
--- NOTE | 2016-11-17 10:15 | RAD ---
Chest x-ray Indication: Cough, shortness of head, hypoxia Technique: Portable AP upright chest x-ray Comparison: Previous study from 10/31/2016. Findings: Central venous catheter is seen with its tip in the atrium, stable compared to prior study. Heart is slightly enlarged in size. Stable blunting of the bilateral costophrenic angles noted with bibasilar patchy opacities. There is mild prominence of pulmonary interstitium. No pneumothorax. Chronic fracture deformity of the right proximal humerus. Impression: Stable bilateral small pleural effusions with passive atelectasis and/or pneumonia. No significant change when compared to prior study from 10/31/2016.
[2016-11-17 10:17] LABS: HCO3 ABG 15 mmol/L (21-28); PCO2 ABG 28 mmHg (35-46); PH ABG 7.35 (7.35-7.45); PO2 ABG 104 mmHg (65-108); SAT O2 ABG 97 % (92-99)
[2016-11-17 10:27] LABS: FIO2 ABG 30%
[2016-11-17] MEDS ORDERED: levOFLOXacin PER PHARMACY. MC PRN (10:30)
[2016-11-17] MEDS ORDERED: PIPERACILLIN/TAZOBACTAM 2.25 GM in IV NORMAL SALINE 50ML 50 ML IV ONE (10:30)
[2016-11-17] MEDS ORDERED: VANCOMYCIN 1.5 GM in IV NORMAL SALINE 500ML BAG 500 ML IV ONE (10:30)
[2016-11-17] MEDS ORDERED: PIP/TAZO PER PHARMACY MC PRN (10:30)
[2016-11-17 10:45] LABS: BASO # 0.1 x10^3/uL (0.0-0.2); BASO % 1 % (0-3); EOS % 2 % (0-3); HEMATOCRIT 33.3 % (36.0-47.0); HEMOGLOBIN 10.5 g/dL (12.0-15.5); LYMPH # 0.8 x10^3/uL (1.0-4.8); LYMPH % 13 % (24-48); MEAN CORPUSCULAR HEMOGLOBIN 27 pg (25-35); MEAN CORPUSCULAR HGB CONC 32 g/dL (31-37); MEAN CORPUSCULAR VOLUME 86 fL (79-100); MONO % 5 % (0-9); NEUT % 79 % (31-73); PLATELET COUNT 131 x10^3/uL (140-400); RED BLOOD COUNT 3.87 x10^6/uL (3.50-5.40); RED CELL DISTRIBUTION WIDTH 16.8 % (11.5-14.5); WHITE BLOOD COUNT 6.7 x10^3/uL (4.0-11.0)
[2016-11-17 11:20] LABS: CALCIUM 9.6 mg/dL (8.5-10.1); CREATININE 7.4 mg/dL (0.6-1.0); GFR 5.5
[2016-11-17 11:26] LABS: ALBUMIN 3.2 g/dL (3.4-5.0); ALBUMIN/GLOBULIN RATIO 0.8 (1.0-1.7); MAGNESIUM 2.3 mg/dL (1.8-2.4); TOTAL BILIRUBIN 0.5 mg/dL (0.2-1.0)
--- NOTE | 2016-11-17 11:56 | PDOC2 ---
CONSULT Date of Consult Date of Consult DATE: 11/17/16 TIME: 11:48 Reason for Consult Reason for Consult: ESRD Referring Physician Referring Physician: CARMEN Identification/Chief Complaint Chief Complaint SOB Problems: Source Source: Chart review, Patient History of Present Illness Reason for Visit: THIS IS A 66 YR OLD ADMITTED WITH SOB. SHE HAS ESRD AND IS ON OP HD ON MWF. SHE MISSED HER TX ON SUN. NOW IN WITH SOB. CXRAY SUGGESTIVE OF HYPERVOLEMIA AND POSSIBLE PNA WITH PL EFFUSIONS. LABS C/W ESRD. SHE IS HYPOXIC AND NEEDING BIPAP Past Medical History Cardiovascular: CHF, HTN, Hyperlipidemia, Other Pulmonary: COPD, Pneumonia, Other CENTRAL NERVOUS SYSTEM: CVA, TIA GI: Constipation, GERD, Peptic Ulcer disease, Other Heme/Onc: Anemia NOS Psych: Anxiety, Depression Rheumatologic: Fibromyalgia Infectious disease: No pertinent hx Renal/: Chronic renal failure Endocrine: No pertinent hx, Hyperparathyroidism Past Surgical History Past Surgical History: Cataract Removal, Tonsillectomy, Other Family History Family History: Coronary Artery Disease, Diabetes, Hypertension, Stroke Social History ALCOHOL: rare Drugs: None Lives: Friends Domestic Violence: Neg Current Medications Current Medications Current Medications Albuterol Sulfate (Ventolin Neb Soln) 2.5 mg STK-MED ONCE .ROUTE ; Start at 09:40; Stop 11/17/16 at 09:41; Status DC Albuterol Sulfate (Ventolin Neb Soln) 2.5 mg 1X ONCE NEB Last administered on 11/17/16t 09:46; Start 11/17/16 at 10:00; Stop 11/17/16 at 10:01; Status DC Vancomycin HCl (Vanco Per Pharmacy) 1 each PRN DAILY PRN MC SEE COMMENTS; Start 11/17/16 at 10:30 Levofloxacin/ Dextrose (Levaquin Per Pharmacy) 1 each PRN DAILY PRN MC SEE COMMENTS; Start 11/17/16 at 10:30 Piperacillin Sod/ Tazobactam Sod (Zosyn Per Pharmacy) 1 each PRN DAILY PRN MC SEE COMMENTS; Start 11/17/16 at 10:30 Vancomycin HCl 1.5 gm/Sodium Chloride 500 ml @ 250 mls/hr ONCE ONCE IV ; Start 11/17/16 at 10:30; Stop 11/17/16 at 12:29 Piperacillin Sod/ Tazobactam Sod 2.25 gm/Sodium Chloride 50 ml @ 100 mls/hr ONCE ONCE IV ; Start 11/17/16 at 10:30; Stop 11/17/16 at 10:59; Status DC Levofloxacin/ Dextrose 150 ml @ 100 mls/hr ONCE ONCE IV ; Start 11/17/16 at 10 :30; Stop 11/17/16 at 11:59 Active Scripts Active Ultram (Tramadol Hcl) 50 Mg Tablet 1 Tab PO Q6HRS Prednisone 10 Mg Tablet 10 Mg PO UD Take 4 tablets by mouth daily for 3 days, then take 3 tablets by mouth daily for 3 days, then take 2 tablet by mouth daily for 3 days, then take 1 tablet by mouth daily x 3 days, then stop. Duoneb 0.5-3(2.5) Mg/3 Ml (Albuterol/Ipratropium) 3 Ml Ampul.neb 3 Ml NEB QID PRN Prednisone 20 Mg Tablet 40 Mg PO DAILY Mucinex (Guaifenesin) 600 Mg Tablet.er 600 Mg PO BID Albuterol Sulfate Neb Soln (Albuterol Sulfate) 2.5 Mg/3 Ml Vial.neb 2.5 Mg NEB PRN Q4HRS PRN 30 Days Nystop (Nystatin) 60 Gm Powder 1 Jesus TP BID Benzonatate 100 Mg Capsule 100 Mg PO TID PRN Advair 500-50 Diskus (Fluticasone/Salmeterol) 1 Each Disk.w.dev 1 Each IH BID Nystatin 100,000 Unit/1 Ml Oral.susp 5 Ml SWSW QID [place] 5-325 Tablet (Acetaminophen/Hydrocodone Bitart) 1 Each Tablet 1 Tab PO PRN Q6HRS PRN Reported Folic Acid 1 Mg Tablet 1 Tab PO DAILY Levetiracetam 500 Mg Tablet 500 Mg PO BID Vitamin D2 (Ergocalciferol (Vitamin D2)) 50,000 Unit Capsule 1 Cap PO WEEKLY Ondansetron Odt (Ondansetron) 4 Mg Tab.rapdis 1 Tab PO TID PRN Nystatin-Triamcinolone Ointm (Nystatin/Triamcin) 30 Gm Oint...g. 30 Gm TP BID Venlafaxine Hcl Er (Venlafaxine Hcl) 150 Mg Cap.er.24h 150 Mg PO DAILY Plavix (Clopidogrel Bisulfate) 75 Mg Tablet 75 Mg PO DAILY Nephro-Fay Tablet (Folic Acid/Vitamin B Comp W-C) 0.8 Mg Tablet 0.8 Mg PO DAILY Duoneb 0.5 Mg-3 Mg/3 Ml Soln (Ipratropium/Albuterol Sulfate) 3 Ml Ampul.neb 3 Ml IH Q6HRS Ditropan Xl (Oxybutynin Chloride) 5 Mg Tab.er.24 5 Mg PO DAILY Atorvastatin Calcium 20 Mg Tablet 20 Mg PO QHS Allergies Allergies: Coded Allergies: I S O L A T I O N *CONTACT* (Verified Allergy, Unknown, 10/30/16) vre No Known Allergies (Verified Allergy, Unknown, 08/02/15) ROS Review of System UNABLE TO OBTAIN Physical Exam General: Alert, Cooperative, moderate distress HEENT: Atraumatic, PERRLA Lungs: Other (BASILAR WHEEZING AND RALES) Heart: Regular rate, Normal S1 Abdomen: Normal bowel sounds, Soft Extremities: No clubbing, No cyanosis, No edema Skin: No rashes, No breakdown, No significant lesion Neuro: Other (UNABLE TO ASSESS) Psych/Mental Status: Other (ANXIOUS AFFECT) MUSCULOSKELETAL: No deformity, No swelling Vitals VITALS Vital Signs Date Time Temp Pulse Resp B/P (MAP) Pulse Ox O2 Delivery O2 Flow Rate FiO2 11/17/16 11:20 100 BiPAP/CPAP Labs Labs Laboratory Tests Test 11/17/16 09:58 11/17/16 10:18 11/17/16 10:35 O2 Saturation 97 % (92-99) Arterial Blood pH 7.35 (7.35-7.45) Arterial Blood pCO2 at Patient Temp 28 mmHg (35-46) Arterial Blood pO2 at Patient Temp 104 mmHg (65-108) Arterial Blood HCO3 15 mmol/L (21-28) Arterial Blood Base Excess -9 mmol/L (-3-3) FiO2 30% Lactic Acid Level 0.6 mmol/L (0.4-2.0) White Blood Count 6.7 x10^3/uL (4.0-11.0) Red Blood Count 3.87 x10^6/uL (3.50-5.40) Hemoglobin 10.5 g/dL (12.0-15.5) Hematocrit 33.3 % (36.0-47.0) Mean Corpuscular Volume 86 fL (79-100) Mean Corpuscular Hemoglobin 27 pg (25-35) Mean Corpuscular Hemoglobin Concent 32 g/dL (31-37) Red Cell Distribution Width 16.8 % (11.5-14.5) Platelet Count 131 x10^3/uL (140-400) Neutrophils (%) (Auto) 79 % (31-73) Lymphocytes (%) (Auto) 13 % (24-48) Monocytes (%) (Auto) 5 % (0-9) Eosinophils (%) (Auto) 2 % (0-3) Basophils (%) (Auto) 1 % (0-3) Neutrophils # (Auto) 5.2 x10^3uL (1.8-7.7) Lymphocytes # (Auto) 0.8 x10^3/uL (1.0-4.8) Monocytes # (Auto) 0.4 x10^3/uL (0.0-1.1) Eosinophils # (Auto) 0.2 x10^3/uL (0.0-0.7) Basophils # (Auto) 0.1 x10^3/uL (0.0-0.2) Sodium Level 142 mmol/L (136-145) Potassium Level 5.0 mmol/L (3.5-5.1) Chloride Level 104 mmol/L (98-107) Carbon Dioxide Level 21 mmol/L (21-32) Anion Gap 17 (6-14) Blood Urea Nitrogen 53 mg/dL (7-20) Creatinine 7.4 mg/dL (0.6-1.0) Estimated GFR (Cockcroft-Gault) 5.5 BUN/Creatinine Ratio 7 (6-20) Glucose Level 85 mg/dL (70-99) Calcium Level 9.6 mg/dL (8.5-10.1) Magnesium Level 2.3 mg/dL (1.8-2.4) Total Bilirubin 0.5 mg/dL (0.2-1.0) Aspartate Amino Transf (AST/SGOT) 21 U/L (15-37) Alanine Aminotransferase (ALT/SGPT) 19 U/L (14-59) Alkaline Phosphatase 87 U/L (46-116) Troponin I Quantitative 0.058 ng/mL (0.000-0.055) Total Protein 7.0 g/dL (6.4-8.2) Albumin 3.2 g/dL (3.4-5.0) Albumin/Globulin Ratio 0.8 (1.0-1.7) Laboratory Tests Test 11/17/16 09:58 11/17/16 10:18 11/17/16 10:35 O2 Saturation 97 % (92-99) Arterial Blood pH 7.35 (7.35-7.45) Arterial Blood pCO2 at Patient Temp 28 mmHg (35-46) Arterial Blood pO2 at Patient Temp 104 mmHg (65-108) Arterial Blood HCO3 15 mmol/L (21-28) Arterial Blood Base Excess -9 mmol/L (-3-3) FiO2 30% Lactic Acid Level 0.6 mmol/L (0.4-2.0) White Blood Count 6.7 x10^3/uL (4.0-11.0) Red Blood Count 3.87 x10^6/uL (3.50-5.40) Hemoglobin 10.5 g/dL (12.0-15.5) Hematocrit 33.3 % (36.0-47.0) Mean Corpuscular Volume 86 fL (79-100) Mean Corpuscular Hemoglobin 27 pg (25-35) Mean Corpuscular Hemoglobin Concent 32 g/dL (31-37) Red Cell Distribution Width 16.8 % (11.5-14.5) Platelet Count 131 x10^3/uL (140-400) Neutrophils (%) (Auto) 79 % (31-73) Lymphocytes (%) (Auto) 13 % (24-48) Monocytes (%) (Auto) 5 % (0-9) Eosinophils (%) (Auto) 2 % (0-3) Basophils (%) (Auto) 1 % (0-3) Neutrophils # (Auto) 5.2 x10^3uL (1.8-7.7) Lymphocytes # (Auto) 0.8 x10^3/uL (1.0-4.8) Monocytes # (Auto) 0.4 x10^3/uL (0.0-1.1) Eosinophils # (Auto) 0.2 x10^3/uL (0.0-0.7) Basophils # (Auto) 0.1 x10^3/uL (0.0-0.2) Sodium Level 142 mmol/L (136-145) Potassium Level 5.0 mmol/L (3.5-5.1) Chloride Level 104 mmol/L (98-107) Carbon Dioxide Level 21 mmol/L (21-32) Anion Gap 17 (6-14) Blood Urea Nitrogen 53 mg/dL (7-20) Creatinine 7.4 mg/dL (0.6-1.0) Estimated GFR (Cockcroft-Gault) 5.5 BUN/Creatinine Ratio 7 (6-20) Glucose Level 85 mg/dL (70-99) Calcium Level 9.6 mg/dL (8.5-10.1) Magnesium Level 2.3 mg/dL (1.8-2.4) Total Bilirubin 0.5 mg/dL (0.2-1.0) Aspartate Amino Transf (AST/SGOT) 21 U/L (15-37) Alanine Aminotransferase (ALT/SGPT) 19 U/L (14-59) Alkaline Phosphatase 87 U/L (46-116) Troponin I Quantitative 0.058 ng/mL (0.000-0.055) Total Protein 7.0 g/dL (6.4-8.2) Albumin 3.2 g/dL (3.4-5.0) Albumin/Globulin Ratio 0.8 (1.0-1.7) Assessment/Plan Assessment/Plan IMP PROB PNEUMONIA HYPERVOLEMIA HYPOXIA PL EFFUSIONS ANEMIA ESRD - MWF NON COMPLIANCE-SKIPPED HD WED HTN PLAN ARANESP BIPAP HD TODAY UF TO DW ENC COMPLIANCE VERITO CHAPPELL MD Nov 17, 2016 11:56
[2016-11-17] MEDS ORDERED: guaiFENesin DM 200MG/20MG 10 ML SYRUP PO PRN (13:00)
[2016-11-17] MEDS ORDERED: ONDANSETRON ODT 4 MG TAB.RAPDIS. PO PRN (13:00)
[2016-11-17] MEDS ORDERED: MORPHINE SULFATE 2 MG/ML DISP.SYRIN. IV PRN (13:00)
[2016-11-17] MEDS ORDERED: BENZONATATE 100 MG CAPSULE. PO PRN (13:00)
[2016-11-17] MEDS ORDERED: ONDANSETRON PF 4 MG/2 ML VIAL. IV PRN (13:00)
--- NOTE | 2016-11-17 13:18 | PDOC1 ---
History and Physical Date of Admission Date of Admission DATE: 11/17/16 TIME: 13:08 Identification/Chief Complaint Chief Complaint SOA Problems: Source Source: Caregiver, Chart review, Patient History of Present Illness History of Present Illness Very pleasant 66 y/o female who has a lot of co morbidities, was just here for the ff: Date of Admission: Oct 25, 2016 Date of Discharge: Nov 01, 2016 Admitting Diagnosis: weakness, uti Final Diagnosis UTI ESRD hypoxia, dyspnea, CXR not improved, moderate bilateral pleural effusions 1. 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 Dyspnea: speech eval rec Dysphagia II Diet 3. ?CHF: echo with normal EF and wall motion 4. COPD: nebs PRN 5. Tobaccoism: cessation urged 6. ESRD: on HD M// 7. Anemia: chronic, 2/2 ESRD. on EPO and iron as pr nephrology 8. HTN, HLD: no acute issues. cont home meds 9. PVD: hx TIA/CVA 10. GERD: on PPI. 11. Anxiety/Depression: continue home meds 12: OA, Fibromyalgia: cont home meds 13 SARITHA on home bipap, COmes in bec she was not feeling well so she missed Wed session HD. MAIN COMPLAINT IS SOA AND GENERALIZED WEAKNESS, BMP shows creat 7,4, K and bicarb ok , was SOA and by reports hypoxic on arrival needing BIPAP. ABG ON BIPAP ph 7.3, Co2 28 O2 good. NOw seen in ICU on NC but still clearly tachypneic after short phrases. HAs been on HD x 5 yrs for HTN, she has left HD cath - no functioning AV fistula bec of bad vasculature per her acct. Denies URI sxs, CXR read as atelectasis, cardiomegaly and some fluid but no acute infiltrate that could be identified at this point, STarted on HAP coverage at ER, vanc, zosyn,levaquin, no allergies, Hx of CHF, no cards as OP, only sees PCP Dr. Mikaela Mccann Past Medical History Cardiovascular: CHF, HTN, Hyperlipidemia, Other Pulmonary: COPD, Pneumonia, Other CENTRAL NERVOUS SYSTEM: CVA, TIA GI: Constipation, GERD, Peptic Ulcer disease, Other Heme/Onc: Anemia NOS Psych: Anxiety, Depression Rheumatologic: Fibromyalgia Infectious disease: No pertinent hx Renal/: Chronic renal failure Endocrine: No pertinent hx, Hyperparathyroidism Past Surgical History Past Surgical History: Cataract Removal, Tonsillectomy, Other Family History Family History: Coronary Artery Disease, Diabetes, Hypertension, Stroke Social History Smoke: Quit ALCOHOL: rare Drugs: None Current Medications Current Medications Current Medications Albuterol Sulfate (Ventolin Neb Soln) 2.5 mg STK-MED ONCE .ROUTE ; Start at 09:40; Stop 11/17/16 at 09:41; Status DC Albuterol Sulfate (Ventolin Neb Soln) 2.5 mg 1X ONCE NEB Last administered on 11/17/16 09:46; Start 11/17/16 at 10:00; Stop 11/17/16 at 10:01; Status DC Vancomycin HCl (Vanco Per Pharmacy) 1 each PRN DAILY PRN MC SEE COMMENTS; Start 11/17/16 at 10:30 Levofloxacin/ Dextrose (Levaquin Per Pharmacy) 1 each PRN DAILY PRN MC SEE COMMENTS; Start 11/17/16 at 10:30 Piperacillin Sod/ Tazobactam Sod (Zosyn Per Pharmacy) 1 each PRN DAILY PRN MC SEE COMMENTS; Start 11/17/16 at 10:30 Vancomycin HCl 1.5 gm/Sodium Chloride 500 ml @ 250 mls/hr ONCE ONCE IV Last administered on 11/17/16 12:36; Start 11/17/16 at 10:30; Stop 11/17/16 at 12:29 ; Status DC Piperacillin Sod/ Tazobactam Sod 2.25 gm/Sodium Chloride 50 ml @ 100 mls/hr ONCE ONCE IV Last administered on 11/17/16 12:35; Start 11/17/16 at 10:30; Stop 11/17/16 at 10:59; Status DC Levofloxacin/ Dextrose 150 ml @ 100 mls/hr ONCE ONCE IV ; Start 11/17/16 at 10 :30; Stop 11/17/16 at 11:59; Status DC Darbepoetin Omar (Aranesp) 60 mcg WEEKLYHS SQ ; Start 11/17/16 at 21:00 Albuterol/ Ipratropium (Duoneb) 3 ml RTQID NEB ; Start 11/17/16 at 13:30 Guaifenesin (Robitussin Dm) 10 ml PRN Q6HRS PRN PO COUGH; Start 11/17/16 at 13: 00 Atorvastatin Calcium (Lipitor) 20 mg QHS PO ; Start 11/17/16 at 21:00 Benzonatate (Tessalon Perle) 100 mg PRN TID PRN PO COUGH; Start 11/17/16 at 13: 00 Clopidogrel Bisulfate (Plavix) 75 mg DAILY PO ; Start 11/17/16 at 14:00 Ergocalciferol (Vitamin D2) 50,000 unit WEEKLY PO ; Start 11/24/16 at 09:00 Folic Acid (Folic Acid) 1 mg DAILY PO ; Start 11/18/16 at 09:00 Vitamin B Complex/ Vitamin C (Radha-Fay) 1 tab DAILY PO ; Start 11/18/16 at 09: 00 Guaifenesin (Mucinex) 600 mg BID PO ; Start 11/17/16 at 14:00 Acetaminophen/ Hydrocodone Bitart (Lortab 5/325) 1 tab PRN Q6HRS PRN PO PAIN; Start 11/17/16 at 13:00 Levetiracetam (Keppra) 500 mg BID PO ; Start 11/17/16 at 14:00 Nystatin (Nystop) 1 jesus BID TP ; Start 11/17/16 at 14:00 Ondansetron HCl (Zofran Odt) 4 mg PRN TID PRN PO NAUSEA; Start 11/17/16 at 13: 00 Prednisone (Prednisone) 40 mg DAILY PO ; Start 11/17/16 at 14:00 Tramadol HCl (Ultram) 50 mg Q6HRS PO ; Start 11/17/16 at 18:00 Non-Formulary Medication 1 each BID IH ; Start 11/17/16 at 21:00; Status UNV Non-Formulary Medication 5 ml QID SWSW ; Start 11/17/16 at 13:00; Status UNV Non-Formulary Medication 30 gm BID TP ; Start 11/17/16 at 21:00; Status UNV Oxybutynin Chloride (Ditropan) 5 mg BID PO ; Start 11/17/16 at 14:00 Venlafaxine HCl (Effexor) 50 mg TID PO ; Start 11/17/16 at 14:00 Ondansetron HCl (Zofran) 4 mg PRN Q6HRS PRN IV NAUSEA/VOMITING; Start 11/17/16 at 13:00 Morphine Sulfate 2 mg PRN Q2HR PRN IV PAIN; Start 11/17/16 at 13:00 Active Scripts Active Ultram (Tramadol Hcl) 50 Mg Tablet 1 Tab PO Q6HRS Prednisone 10 Mg Tablet 10 Mg PO UD Take 4 tablets by mouth daily for 3 days, then take 3 tablets by mouth daily for 3 days, then take 2 tablet by mouth daily for 3 days, then take 1 tablet by mouth daily x 3 days, then stop. Duoneb 0.5-3(2.5) Mg/3 Ml (Albuterol/Ipratropium) 3 Ml Ampul.neb 3 Ml NEB QID PRN Prednisone 20 Mg Tablet 40 Mg PO DAILY Mucinex (Guaifenesin) 600 Mg Tablet.er 600 Mg PO BID Albuterol Sulfate Neb Soln (Albuterol Sulfate) 2.5 Mg/3 Ml Vial.neb 2.5 Mg NEB PRN Q4HRS PRN 30 Days Nystop (Nystatin) 60 Gm Powder 1 Jesus TP BID Benzonatate 100 Mg Capsule 100 Mg PO TID PRN Advair 500-50 Diskus (Fluticasone/Salmeterol) 1 Each Disk.w.dev 1 Each IH BID Nystatin 100,000 Unit/1 Ml Oral.susp 5 Ml SWSW QID Mccrory 5-325 Tablet (Acetaminophen/Hydrocodone Bitart) 1 Each Tablet 1 Tab PO PRN Q6HRS PRN Reported Folic Acid 1 Mg Tablet 1 Tab PO DAILY Levetiracetam 500 Mg Tablet 500 Mg PO BID Vitamin D2 (Ergocalciferol (Vitamin D2)) 50,000 Unit Capsule 1 Cap PO WEEKLY Ondansetron Odt (Ondansetron) 4 Mg Tab.rapdis 1 Tab PO TID PRN Nystatin-Triamcinolone Ointm (Nystatin/Triamcin) 30 Gm Oint...g. 30 Gm TP BID Venlafaxine Hcl Er (Venlafaxine Hcl) 150 Mg Cap.er.24h 150 Mg PO DAILY Plavix (Clopidogrel Bisulfate) 75 Mg Tablet 75 Mg PO DAILY Nephro-Fay Tablet (Folic Acid/Vitamin B Comp W-C) 0.8 Mg Tablet 0.8 Mg PO DAILY Duoneb 0.5 Mg-3 Mg/3 Ml Soln (Ipratropium/Albuterol Sulfate) 3 Ml Ampul.neb 3 Ml IH Q6HRS Ditropan Xl (Oxybutynin Chloride) 5 Mg Tab.er.24 5 Mg PO DAILY Atorvastatin Calcium 20 Mg Tablet 20 Mg PO QHS Allergies Allergies: Coded Allergies: I S O L A T I O N *CONTACT* (Verified Allergy, Unknown, 10/30/16) vre No Known Allergies (Verified Allergy, Unknown, 08/02/15) ROS Review of System SOA, weak , fatigued, no cp, chronic clear cough, no leg swelling, no CP Physical Exam General: Alert, Oriented X3, Cooperative, No acute distress, mild distress, Other (slightly tachypneic) HEENT: PERRLA Lungs: Normal air movement, Other (dec BS bases, no wheezes, some rales) Heart: S1S2, no thrills Cardiovascular: S1, S2 Breasts: Normal, Rt breast nml w/o mass, Lt breast nml w/o mass, Nipples normal Abdomen: Normal bowel sounds, Soft, No tenderness, No hepatosplenomegaly, No masses Rectal Exam: not examined PELVIC: Nml ext genitalia Extremities: No clubbing, No cyanosis, No edema, Normal pulses, No tenderness/ swelling Skin: No rashes, No breakdown, No significant lesion Neuro: Normal gait, Normal speech, Strength at 5/5 X4 ext, Normal tone, Sensation intact, Cranial nerves 3-12 NL, Reflexes 2+ Psych/Mental Status: Mental status NL, Mood NL Vitals Vitals Vital Signs Date Time Temp Pulse Resp B/P (MAP) Pulse Ox O2 Delivery O2 Flow Rate FiO2 11/17/16 12:38 98 BiPAP/CPAP 11/17/16 09:37 98.3 96 20 137/104 (115) 30.0 98.3 Labs Labs Laboratory Tests Test 11/17/16 09:58 11/17/16 10:18 11/17/16 10:35 O2 Saturation 97 % (92-99) Arterial Blood pH 7.35 (7.35-7.45) Arterial Blood pCO2 at Patient Temp 28 mmHg (35-46) Arterial Blood pO2 at Patient Temp 104 mmHg (65-108) Arterial Blood HCO3 15 mmol/L (21-28) Arterial Blood Base Excess -9 mmol/L (-3-3) FiO2 30% Lactic Acid Level 0.6 mmol/L (0.4-2.0) White Blood Count 6.7 x10^3/uL (4.0-11.0) Red Blood Count 3.87 x10^6/uL (3.50-5.40) Hemoglobin 10.5 g/dL (12.0-15.5) Hematocrit 33.3 % (36.0-47.0) Mean Corpuscular Volume 86 fL (79-100) Mean Corpuscular Hemoglobin 27 pg (25-35) Mean Corpuscular Hemoglobin Concent 32 g/dL (31-37) Red Cell Distribution Width 16.8 % (11.5-14.5) Platelet Count 131 x10^3/uL (140-400) Neutrophils (%) (Auto) 79 % (31-73) Lymphocytes (%) (Auto) 13 % (24-48) Monocytes (%) (Auto) 5 % (0-9) Eosinophils (%) (Auto) 2 % (0-3) Basophils (%) (Auto) 1 % (0-3) Neutrophils # (Auto) 5.2 x10^3uL (1.8-7.7) Lymphocytes # (Auto) 0.8 x10^3/uL (1.0-4.8) Monocytes # (Auto) 0.4 x10^3/uL (0.0-1.1) Eosinophils # (Auto) 0.2 x10^3/uL (0.0-0.7) Basophils # (Auto) 0.1 x10^3/uL (0.0-0.2) Sodium Level 142 mmol/L (136-145) Potassium Level 5.0 mmol/L (3.5-5.1) Chloride Level 104 mmol/L (98-107) Carbon Dioxide Level 21 mmol/L (21-32) Anion Gap 17 (6-14) Blood Urea Nitrogen 53 mg/dL (7-20) Creatinine 7.4 mg/dL (0.6-1.0) Estimated GFR (Cockcroft-Gault) 5.5 BUN/Creatinine Ratio 7 (6-20) Glucose Level 85 mg/dL (70-99) Calcium Level 9.6 mg/dL (8.5-10.1) Magnesium Level 2.3 mg/dL (1.8-2.4) Total Bilirubin 0.5 mg/dL (0.2-1.0) Aspartate Amino Transf (AST/SGOT) 21 U/L (15-37) Alanine Aminotransferase (ALT/SGPT) 19 U/L (14-59) Alkaline Phosphatase 87 U/L (46-116) Troponin I Quantitative 0.058 ng/mL (0.000-0.055) Total Protein 7.0 g/dL (6.4-8.2) Albumin 3.2 g/dL (3.4-5.0) Albumin/Globulin Ratio 0.8 (1.0-1.7) Laboratory Tests Test 11/17/16 09:58 11/17/16 10:18 11/17/16 10:35 O2 Saturation 97 % (92-99) Arterial Blood pH 7.35 (7.35-7.45) Arterial Blood pCO2 at Patient Temp 28 mmHg (35-46) Arterial Blood pO2 at Patient Temp 104 mmHg (65-108) Arterial Blood HCO3 15 mmol/L (21-28) Arterial Blood Base Excess -9 mmol/L (-3-3) FiO2 30% Lactic Acid Level 0.6 mmol/L (0.4-2.0) White Blood Count 6.7 x10^3/uL (4.0-11.0) Red Blood Count 3.87 x10^6/uL (3.50-5.40) Hemoglobin 10.5 g/dL (12.0-15.5) Hematocrit 33.3 % (36.0-47.0) Mean Corpuscular Volume 86 fL (79-100) Mean Corpuscular Hemoglobin 27 pg (25-35) Mean Corpuscular Hemoglobin Concent 32 g/dL (31-37) Red Cell Distribution Width 16.8 % (11.5-14.5) Platelet Count 131 x10^3/uL (140-400) Neutrophils (%) (Auto) 79 % (31-73) Lymphocytes (%) (Auto) 13 % (24-48) Monocytes (%) (Auto) 5 % (0-9) Eosinophils (%) (Auto) 2 % (0-3) Basophils (%) (Auto) 1 % (0-3) Neutrophils # (Auto) 5.2 x10^3uL (1.8-7.7) Lymphocytes # (Auto) 0.8 x10^3/uL (1.0-4.8) Monocytes # (Auto) 0.4 x10^3/uL (0.0-1.1) Eosinophils # (Auto) 0.2 x10^3/uL (0.0-0.7) Basophils # (Auto) 0.1 x10^3/uL (0.0-0.2) Sodium Level 142 mmol/L (136-145) Potassium Level 5.0 mmol/L (3.5-5.1) Chloride Level 104 mmol/L (98-107) Carbon Dioxide Level 21 mmol/L (21-32) Anion Gap 17 (6-14) Blood Urea Nitrogen 53 mg/dL (7-20) Creatinine 7.4 mg/dL (0.6-1.0) Estimated GFR (Cockcroft-Gault) 5.5 BUN/Creatinine Ratio 7 (6-20) Glucose Level 85 mg/dL (70-99) Calcium Level 9.6 mg/dL (8.5-10.1) Magnesium Level 2.3 mg/dL (1.8-2.4) Total Bilirubin 0.5 mg/dL (0.2-1.0) Aspartate Amino Transf (AST/SGOT) 21 U/L (15-37) Alanine Aminotransferase (ALT/SGPT) 19 U/L (14-59) Alkaline Phosphatase 87 U/L (46-116) Troponin I Quantitative 0.058 ng/mL (0.000-0.055) Total Protein 7.0 g/dL (6.4-8.2) Albumin 3.2 g/dL (3.4-5.0) Albumin/Globulin Ratio 0.8 (1.0-1.7) VTE Prophylaxis Ordered VTE Prophylaxis Devices: Yes VTE Pharmacological Prophylaxi: Yes Assessment/Plan Assessment/Plan 1. Acute respiratory failure, likely vol overload, atelectasis 2. ESRD missed a session 3. CHF, decompensated currently 4. Dyslipidemia, HTN, COPD, constipation, GERD, fibromyalgia - chronic stable 5. Fluid overload vs HAP, recent hospitalization PLAN: Admit ICU HAP coverage started at ER level COugh meds, nebs Resume home emds Add pulmo consult To be dialyzed today per renal Check CXR lauryn after HD PT/OT Ok for diet Supprotive meds Seen in ICU MAMTA MORALES MD Nov 17, 2016 13:18
[2016-11-17] MEDS: IPRATRPIUM/ALBUTEROL 0.5/2.5MG 3 ML NEBU. NEB SCH ×3 (13:29→19:42)
[2016-11-17] MEDS: BUDESONIDE 0.5 MG/2 ML NEBU. NEB SCH ×2 (13:29→19:42)
[2016-11-17] MEDS: OXYBUTYNIN CHLORIDE 5 MG TABLET PO SCH ×2 (13:33→21:22)
[2016-11-17] MEDS: CLOPIDOGREL BISULFATE 75 MG TABLET PO SCH (13:33)
[2016-11-17] MEDS: predniSONE 20 MG TABLET PO SCH (13:33)
[2016-11-17] MEDS: VENLAFAXINE 50 MG TABLET. PO SCH ×2 (13:33→21:22)
[2016-11-17] MEDS: levETIRAcetam 500 MG TABLET PO SCH ×2 (13:33→21:22)
[2016-11-17] MEDS: NYSTATIN TOPICAL POWDER 15GM BOTTLE. TP SCH ×2 (13:33→21:23)
[2016-11-17] MEDS: NYSTATIN/TRIAMCIN TOPICAL CREAM 15GM TUBE. TP SCH (13:34)
[2016-11-17] MEDS ORDERED: 0.9 % SODIUM CHLORIDE 10 ML DISP.SYRIN. IV PRN ×2 (14:00)
[2016-11-17] MEDS ORDERED: IV NORMAL SALINE 1000ML BAG 1,000 ML IV PRN ×2 (14:00)
[2016-11-17] MEDS ORDERED: DIALYSIS PATIENT. MC PRN ×2 (14:45)
[2016-11-17] MEDS: VANCOMYCIN PER PHARMACY MC PRN (15:30)
--- NOTE | 2016-11-17 15:42 | PHYS DOC ---
Past Medical History Past Medical History: CHF, Constipation, COPD, CVA, Depression, High Cholesterol, Hypertension, AR, Renal Failure Additional Past Medical Histor: dysphagia, obesity, HD, constipation, cataract , right shoulder fx, intubati Past Surgical History: Other Additional Past Surgical Histo: left wrist; back; carotid; dialysis shunt LEFT upper chest Alcohol Use: None Drug Use: None Adult General Chief Complaint Chief Complaint: DYSPNEA/RESPIRATOY DISTRESS HPI HPI Patient is a 66 year old female who presents with shortness of breath and cough. Denies known fevers. Pt has end stage renal disease and missed her last dialysis because she wasn't feeling well. Pt reportedly hypoxic in the field, placed on bipap by EMS. Pt reports improvement with bipap and breathing treatments. She denies chest pain with her SOB. Pt's history limited due to her SOB. She reports feeling improved on the bipap Review of Systems Review of Systems per hpi, difficulty to obtain 2/2 to med condition Current Medications Current Medications Current Medications Medications (Trade) Dose Ordered Sig/Negro Start Time Stop Time Status Last Admin Dose Admin Albuterol Sulfate (Ventolin Neb Soln) 2.5 mg 1X ONCE 11/17/16 10:00 11/17/16 10:01 DC 11/17/16 09:46 2.5 MG Levofloxacin/ Dextrose 150 ml @ 100 mls/hr ONCE ONCE 11/17/16 10:30 11/17/16 11:59 DC 11/17/16 10:30 100 MLS/HR Levofloxacin/ Dextrose (Levaquin Per Pharmacy) 1 each PRN DAILY PRN 11/17/16 10:30 11/19/16 12:49 DC Piperacillin Sod/ Tazobactam Sod (Zosyn Per Pharmacy) 1 each PRN DAILY PRN 11/17/16 10:30 11/19/16 12:49 DC Piperacillin Sod/ Tazobactam Sod 2.25 gm/Sodium Chloride 50 ml @ 100 mls/hr ONCE ONCE 11/17/16 10:30 11/17/16 10:59 DC 11/17/16 12:35 100 MLS/HR Vancomycin HCl (Vanco Per Pharmacy) 1 each PRN DAILY PRN 11/17/16 10:30 11/19/16 15:29 DC 11/18/16 16:32 1 EACH Vancomycin HCl 1.5 gm/Sodium Chloride 500 ml @ 250 mls/hr ONCE ONCE 11/17/16 10:30 11/17/16 12:29 DC 11/17/16 12:36 250 MLS/HR Allergies Allergies Allergies Coded Allergies Type Severity Reaction Last Updated Verified I S O L A T I O N *CONTACT* Allergy Unknown 10/30/16 Yes No Known Allergies Allergy Unknown 08/02/15 Yes Physical Exam Physical Exam Constitutional: Well developed, well nourished,significant distress, on bipap, tachypnic HENT: Normocephalic, atraumatic, bilateral external ears normal, oropharynx moist, no oral exudates, nose normal. [] Eyes: PERRLA, EOMI, conjunctiva normal, no discharge. [] Neck: Normal range of motion, no tenderness, supple, no stridor. [] Cardiovascular:Heart rate regular with regular rhythm Lungs & Thorax: Bilateral breath sounds, poor air movement, insp/exp wheeze, no appreciable crackles Abdomen: soft, no tenderness, no masses, no pulsatile masses. [] Skin: Warm, dry, no erythema, no rash. [] Back: No tenderness, no CVA tenderness. [] Extremities: No tenderness, no cyanosis, no clubbing, ROM intact Neurologic: Alert and oriented X 3, normal motor function, normal sensory function, no focal deficits noted. [] Current Patient Data Vital Signs Vital Signs Date Time Temp Pulse Resp B/P (MAP) Pulse Ox O2 Delivery O2 Flow Rate FiO2 11/17/16 10:45 92 125/68 (87) 98 BiPAP/CPAP 11/17/16 09:37 98.3 20 30.0 98.3 Lab Values Laboratory Tests Test 11/17/16 09:58 11/17/16 10:18 11/17/16 10:35 O2 Saturation 97 % (92-99) Arterial Blood pH 7.35 (7.35-7.45) Arterial Blood pCO2 at Patient Temp 28 mmHg (35-46) L Arterial Blood pO2 at Patient Temp 104 mmHg (65-108) Arterial Blood HCO3 15 mmol/L (21-28) L Arterial Blood Base Excess -9 mmol/L (-3-3) L FiO2 30% Lactic Acid Level 0.6 mmol/L (0.4-2.0) White Blood Count 6.7 x10^3/uL (4.0-11.0) Red Blood Count 3.87 x10^6/uL (3.50-5.40) Hemoglobin 10.5 g/dL (12.0-15.5) L Hematocrit 33.3 % (36.0-47.0) L Mean Corpuscular Volume 86 fL (79-100) Mean Corpuscular Hemoglobin 27 pg (25-35) Mean Corpuscular Hemoglobin Concent 32 g/dL (31-37) Red Cell Distribution Width 16.8 % (11.5-14.5) H Platelet Count 131 x10^3/uL (140-400) L Neutrophils (%) (Auto) 79 % (31-73) H Lymphocytes (%) (Auto) 13 % (24-48) L Monocytes (%) (Auto) 5 % (0-9) Eosinophils (%) (Auto) 2 % (0-3) Basophils (%) (Auto) 1 % (0-3) Neutrophils # (Auto) 5.2 x10^3uL (1.8-7.7) Lymphocytes # (Auto) 0.8 x10^3/uL (1.0-4.8) L Monocytes # (Auto) 0.4 x10^3/uL (0.0-1.1) Eosinophils # (Auto) 0.2 x10^3/uL (0.0-0.7) Basophils # (Auto) 0.1 x10^3/uL (0.0-0.2) Sodium Level 142 mmol/L (136-145) Potassium Level 5.0 mmol/L (3.5-5.1) Chloride Level 104 mmol/L (98-107) Carbon Dioxide Level 21 mmol/L (21-32) Anion Gap 17 (6-14) H Blood Urea Nitrogen 53 mg/dL (7-20) H Creatinine 7.4 mg/dL (0.6-1.0) H Estimated GFR (Cockcroft-Gault) 5.5 BUN/Creatinine Ratio 7 (6-20) Glucose Level 85 mg/dL (70-99) Calcium Level 9.6 mg/dL (8.5-10.1) Magnesium Level 2.3 mg/dL (1.8-2.4) Total Bilirubin 0.5 mg/dL (0.2-1.0) Aspartate Amino Transferase (AST) 21 U/L (15-37) Alanine Aminotransferase (ALT) 19 U/L (14-59) Alkaline Phosphatase 87 U/L (46-116) Troponin I Quantitative 0.058 ng/mL (0.000-0.055) Total Protein 7.0 g/dL (6.4-8.2) Albumin 3.2 g/dL (3.4-5.0) L Albumin/Globulin Ratio 0.8 (1.0-1.7) L Laboratory Tests 11/17/16 10:35 Laboratory Tests 11/17/16 10:35 Microbiology 11/17/16 Blood Culture - Preliminary, Resulted NO GROWTH AFTER 3 DAYS EKG EKG 98 bpm, and redness with wandering baseline, no significant appreciable ST elevation although difficult to appreciate, PVCs present, T waves appear nonischemic with exception of aVL potentially Radiology/Procedures Radiology/Procedures CXR: Impression: Stable bilateral small pleural effusions with passive atelectasis and/or pneumonia. No significant change when compared to prior study from 10/31/2016. [] Course & Med Decision Making Course & Med Decision Making Pertinent Labs and Imaging studies reviewed. (See chart for details) Patient was continued on BiPAP and given breathing treatments. She was starting to improve. I contsulted Dr. Toth, who would like pt admitted to ICU. Pna on the CXR, pt's had recent hospitalization. Vanc, zosyn and levaquin ordered. Pt admitted to Dr. Strauss in ICU. Dragon Disclaimer Dragon Disclaimer This electronic medical record was generated, in whole or in part, using a voice recognition dictation system. Departure Departure Impression: Primary Impression: Respiratory failure Disposition: ADMITTED INPATIENT Condition: CRITICAL Referrals: LUZ CHRALTON Jr, MD (PCP) JENNY TAN MD Nov 17, 2016 15:42
[2016-11-17] MEDS ORDERED: NYSTATIN 100,000 UNITS/ML 5 ML ORAL.SUSP. SWSW SCH (17:00)
[2016-11-17] MEDS: traMADol 50 MG TABLET PO SCH (18:15)
[2016-11-17] MEDS ORDERED: NON FORMULARY ITEM (Fluticasone/Salmeterol (Advair 500-50 Diskus) 1 EACH) IH SCH (21:00)
[2016-11-17] MEDS ORDERED: DARBEPOETIN ALFA 60 MCG/0.3 ML DISP.SYRIN. SQ SCH (21:00)
[2016-11-17] MEDS ORDERED: NOREPINEPHRIN PREMIX 250 ML IV PRN (21:00)
[2016-11-17] MEDS: ATORVASTATIN CALCIUM 20 MG TABLET PO SCH (21:22)
[2016-11-17] MEDS: PIPERACILLIN/TAZOBACTAM 2.25 GM in IV NORMAL SALINE 50ML 50 ML IV SCH (21:23)
[2016-11-17] MEDS: HYDROcodone/APAP 5/325MG 1 TAB TABLET PO PRN (21:30)
[2016-11-18] VITALS (18 sets, daily range): BP systolic 89–133; BP diastolic 47–73
[2016-11-18 03:17] LABS: HEP B SURFACE ABDY Non Reactive (.)
[2016-11-18] MEDS: PIPERACILLIN/TAZOBACTAM 2.25 GM in IV NORMAL SALINE 50ML 50 ML IV SCH ×2 (05:22→14:09)
[2016-11-18] MEDS: traMADol 50 MG TABLET PO SCH ×5 (05:22→22:57)
[2016-11-18] MEDS ORDERED: VANCOMYCIN RANDOM LEVEL. MC ONE (06:00)
[2016-11-18 06:34] LABS: BASO % 1 % (0-3); EOS % 0 % (0-3); HEMATOCRIT 31.4 % (36.0-47.0); HEMOGLOBIN 10.3 g/dL (12.0-15.5); LYMPH # 0.2 x10^3/uL (1.0-4.8); LYMPH % 4 % (24-48); MEAN CORPUSCULAR HEMOGLOBIN 28 pg (25-35); MEAN CORPUSCULAR HGB CONC 33 g/dL (31-37); MEAN CORPUSCULAR VOLUME 84 fL (79-100); MONO % 2 % (0-9); NEUT % 94 % (31-73); PLATELET COUNT 121 x10^3/uL (140-400); RED BLOOD COUNT 3.76 x10^6/uL (3.50-5.40); RED CELL DISTRIBUTION WIDTH 16.6 % (11.5-14.5)
[2016-11-18 07:19] LABS: CALCIUM 9.3 mg/dL (8.5-10.1); CREATININE 2.7 mg/dL (0.6-1.0); GFR 17.6; MAGNESIUM 2.1 mg/dL (1.8-2.4); POTASSIUM 3.6 mmol/L (3.5-5.1)
--- NOTE | 2016-11-18 07:26 | RAD ---
Portable chest, 11/18/2016: History: Congestive heart failure, shortness of breath Comparison is made to yesterday's study. A left jugular dialysis type catheter remains in place extending into the right atrium. The heart is mildly enlarged and unchanged. The pulmonary vascularity is at the upper limits of normal. The vascular margins are slightly better defined than on yesterday study. There is a moderate ongoing left basilar opacity compatible with pleural fluid and underlying atelectasis/infiltrate. There is a small ongoing right pleural effusion, which appears to have improved slightly, with mild underlying right basilar atelectasis. 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 There are postsurgical changes in the lower neck and cervical spine. IMPRESSION: Ongoing pleural effusions and basilar atelectasis/infiltrate, left greater than right, with slight interval improvement.
[2016-11-18] MEDS: IPRATRPIUM/ALBUTEROL 0.5/2.5MG 3 ML NEBU. NEB SCH ×5 (08:00→19:17)
[2016-11-18] MEDS: BUDESONIDE 0.5 MG/2 ML NEBU. NEB SCH ×2 (08:03→19:17)
[2016-11-18] MEDS: VENLAFAXINE 50 MG TABLET. PO SCH ×3 (08:13→21:33)
[2016-11-18] MEDS: predniSONE 20 MG TABLET PO SCH (08:13)
[2016-11-18] MEDS: FOLIC/VIT B COMP W-C (RENAL) TABLET. PO SCH (08:14)
[2016-11-18] MEDS: levETIRAcetam 500 MG TABLET PO SCH ×2 (08:14→21:32)
[2016-11-18] MEDS: OXYBUTYNIN CHLORIDE 5 MG TABLET PO SCH ×2 (08:14→21:33)
[2016-11-18] MEDS: CLOPIDOGREL BISULFATE 75 MG TABLET PO SCH (08:14)
[2016-11-18] MEDS: NYSTATIN TOPICAL POWDER 15GM BOTTLE. TP SCH ×2 (08:15→21:44)
[2016-11-18] MEDS: NYSTATIN/TRIAMCIN TOPICAL CREAM 15GM TUBE. TP SCH ×2 (08:15→21:00)
[2016-11-18] MEDS ORDERED: FOLIC ACID 1 MG TABLET. PO SCH (09:00)
[2016-11-18] MEDS ORDERED: ACETAMINOPHEN 325 MG TABLET. PO PRN ×2 (09:00→13:15)
--- NOTE | 2016-11-18 10:43 | PDOC ---
SUBJECTIVE ROS ESRD Doing Better togolese am. I was called about transient Hypotension and SOB yest pm. Levophed was ordered but I'm not sure she was started on it CVS: no Orthopnea, no CP RESP: + SOB, ? ORONA + Cough GI: no Nausea, no Vomiting : no Dysuria, no Urgency OBJECTIVE Vital Signs Vital Signs Date Time Temp Pulse Resp B/P (MAP) Pulse Ox O2 Delivery O2 Flow Rate FiO2 11/18/16 08:07 97 Nasal Cannula 2.0 11/18/16 08:00 98.3 86 20 99/47 (64) 98.3 I & 0 Intake and Output 11/19/16 07:00 Intake Total 200 ml Balance 200 ml Intake Oral 200 ml PHYSICAL EXAM Physical Exam GEN: Awake, Oriented x 3, In no distress EYES: Vision Unchanged, Conjunctiva Normal EN: No EN Drainage, Mucous Membranes moist NECK: no JVD, min JVP, Supple, no Thyromegaly CVS: S1S2, + Murmur, No Gallop, No Rub,no Edema RESP: Coarse Rales, occ Rhonchi,no Acc. Muscle Use GI: BS + ve, NO Bruit, Non Tender, Non Distended : no CVA tenderness, no Suprapubic Tenderness DIAGNOSIS/ASSESSMENT Assessment & Plan ESRD: Current fluid and E-lyte status does not necessitate emergent need for dialysis. Will re-evaluate for dialysis in the am and continue on MWF schedule. SOB - ? Fluid overload vs Pn - +ve Cough; BP have been labile which limits aggressive Uf on Hd. HD in am unless reqd emergently overnite. ANEMIA; Aranap as ordered, Transfuse with next HD as needed HTN: Current BP meds as reviewed. See orders for changes. Discussed Plan of Care with pt at bedside - will watch in ICU for today Problems: COMMENT/RELEVANT DATA Meds Current Medications Medications (Trade) Dose Ordered Sig/Negro Start Time Stop Time Status Last Admin Dose Admin Acetaminophen (Tylenol) 650 mg PRN Q6HRS PRN 11/18/16 09:00 Acetaminophen/ Hydrocodone Bitart (Lortab 5/325) 1 tab PRN Q6HRS PRN 11/17/16 13:00 11/17/16 21:30 1 TAB Albuterol Sulfate (Ventolin Neb Soln) 2.5 mg 1X ONCE 11/17/16 10:00 11/17/16 10:01 DC 11/17/16 09:46 2.5 MG Albuterol/ Ipratropium (Duoneb) 3 ml RTQID 11/18/16 08:00 Atorvastatin Calcium (Lipitor) 20 mg QHS 11/17/16 21:00 11/17/16 21:22 20 MG Benzonatate (Tessalon Perle) 100 mg PRN TID PRN 11/17/16 13:00 11/17/16 13:33 100 MG Budesonide (Pulmicort) 0.5 mg RTBID 11/17/16 14:00 11/18/16 08:03 0.5 MG Clopidogrel Bisulfate (Plavix) 75 mg DAILY 11/17/16 14:00 11/18/16 08:14 75 MG Darbepoetin Omar (Aranesp) 60 mcg WEEKLYHS 11/17/16 21:00 11/17/16 21:23 60 MCG Ergocalciferol (Vitamin D2) 50,000 unit WEEKLY 11/24/16 09:00 Folic Acid (Folic Acid) 1 mg DAILY 11/18/16 09:00 11/18/16 09:00 DC 11/18/16 08:14 1 MG Guaifenesin (Mucinex) 600 mg BID 11/17/16 14:00 11/18/16 08:14 600 MG Guaifenesin (Robitussin Dm) 10 ml PRN Q6HRS PRN 11/17/16 13:00 Info (PHARMACY MONITORING -- do not chart) 1 each PRN DAILY PRN 11/17/16 14:45 Levetiracetam (Keppra) 500 mg BID 11/17/16 14:00 11/18/16 08:14 500 MG Levofloxacin/ Dextrose 100 ml @ 100 mls/hr Q48H 11/19/16 09:00 Levofloxacin/ Dextrose (Levaquin Per Pharmacy) 1 each PRN DAILY PRN 11/17/16 10:30 Morphine Sulfate 2 mg PRN Q2HR PRN 11/17/16 13:00 Non-Formulary Medication 1 each BID 11/17/16 21:00 UNV Norepinephrine Bitartrate 250 ml @ 0 mls/hr CONT PRN 11/17/16 21:00 Nystatin 5 ml [id number] 11/17/16 17:00 Cancel Nystatin (Nystop) 1 marley BID 11/17/16 14:00 11/18/16 08:15 1 MARLEY Nystatin/ Triamcinolone Acetonide (Mycolog Ii) 1 marley BID 11/17/16 21:00 11/18/16 08:15 1 MARLEY Ondansetron HCl (Zofran Odt) 4 mg PRN TID PRN 11/17/16 13:00 11/18/16 08:48 DC Ondansetron HCl (Zofran) 4 mg PRN Q6HRS PRN 11/17/16 13:00 Oxybutynin Chloride (Ditropan) 5 mg BID 11/17/16 14:00 11/18/16 08:14 5 MG Piperacillin Sod/ Tazobactam Sod (Zosyn Per Pharmacy) 1 each PRN DAILY PRN 11/17/16 10:30 Piperacillin Sod/ Tazobactam Sod 2.25 gm/Sodium Chloride 50 ml @ 100 mls/hr Q8HRS 11/17/16 22:00 11/18/16 05:22 100 MLS/HR Prednisone (Prednisone) 40 mg DAILY 11/17/16 14:00 11/18/16 08:13 40 MG Sodium Chloride 1,000 ml @ 400 mls/hr Q2H30M PRN 11/17/16 14:00 11/17/16 21:00 DC Sodium Chloride (Normal Saline Flush) 10 ml 1X PRN PRN 11/17/16 14:00 11/17/16 21:00 DC Tramadol HCl (Ultram) 50 mg Q6HRS 11/17/16 18:00 11/18/16 05:22 50 MG Vancomycin HCl 1 each 1X ONCE 11/18/16 06:00 11/18/16 06:01 DC 11/18/16 06:00 1 EACH Vancomycin HCl (Vanco Per Pharmacy) 1 each PRN DAILY PRN 11/17/16 10:30 11/17/16 15:30 1 EACH Vancomycin HCl 1.5 gm/Sodium Chloride 500 ml @ 250 mls/hr ONCE ONCE 11/17/16 10:30 11/17/16 12:29 DC 11/17/16 12:36 250 MLS/HR Venlafaxine HCl (Effexor) 50 mg TID 11/17/16 14:00 11/18/16 08:13 50 MG Vitamin B Complex/ Vitamin C (Radha-Fay) 1 tab DAILY 11/18/16 09:00 11/18/16 08:14 1 TAB Lab Laboratory Tests Test 11/17/16 10:35 11/17/16 13:00 11/17/16 15:50 11/17/16 23:23 White Blood Count 6.7 x10^3/uL (4.0-11.0) Red Blood Count 3.87 x10^6/uL (3.50-5.40) Hemoglobin 10.5 g/dL (12.0-15.5) Hematocrit 33.3 % (36.0-47.0) Mean Corpuscular Volume 86 fL (79-100) Mean Corpuscular Hemoglobin 27 pg (25-35) Mean Corpuscular Hemoglobin Concent 32 g/dL (31-37) Red Cell Distribution Width 16.8 % (11.5-14.5) Platelet Count 131 x10^3/uL (140-400) Neutrophils (%) (Auto) 79 % (31-73) Lymphocytes (%) (Auto) 13 % (24-48) Monocytes (%) (Auto) 5 % (0-9) Eosinophils (%) (Auto) 2 % (0-3) Basophils (%) (Auto) 1 % (0-3) Neutrophils # (Auto) 5.2 x10^3uL (1.8-7.7) Lymphocytes # (Auto) 0.8 x10^3/uL (1.0-4.8) Monocytes # (Auto) 0.4 x10^3/uL (0.0-1.1) Eosinophils # (Auto) 0.2 x10^3/uL (0.0-0.7) Basophils # (Auto) 0.1 x10^3/uL (0.0-0.2) Sodium Level 142 mmol/L (136-145) Potassium Level 5.0 mmol/L (3.5-5.1) Chloride Level 104 mmol/L (98-107) Carbon Dioxide Level 21 mmol/L (21-32) Anion Gap 17 (6-14) Blood Urea Nitrogen 53 mg/dL (7-20) Creatinine 7.4 mg/dL (0.6-1.0) Estimated GFR (Cockcroft-Gault) 5.5 BUN/Creatinine Ratio 7 (6-20) Glucose Level 85 mg/dL (70-99) Calcium Level 9.6 mg/dL (8.5-10.1) Magnesium Level 2.3 mg/dL (1.8-2.4) Total Bilirubin 0.5 mg/dL (0.2-1.0) Aspartate Amino Transf (AST/SGOT) 21 U/L (15-37) Alanine Aminotransferase (ALT/SGPT) 19 U/L (14-59) Alkaline Phosphatase 87 U/L (46-116) Troponin I Quantitative 0.058 ng/mL (0.000-0.055) 0.052 ng/mL (0.000-0.055) 0.060 ng/mL (0.000-0.055) Total Protein 7.0 g/dL (6.4-8.2) Albumin 3.2 g/dL (3.4-5.0) Albumin/Globulin Ratio 0.8 (1.0-1.7) Nasal Screen MRSA (PCR) Positive (Negative) Hepatitis B Surface Antigen Negative (Negative) Hepatitis B Surface Antibody Non reactive (.) Test 11/18/16 04:00 11/18/16 04:30 Random Vancomycin Level 1.0 mcg/mL White Blood Count 6.0 x10^3/uL (4.0-11.0) Red Blood Count 3.76 x10^6/uL (3.50-5.40) Hemoglobin 10.3 g/dL (12.0-15.5) Hematocrit 31.4 % (36.0-47.0) Mean Corpuscular Volume 84 fL (79-100) Mean Corpuscular Hemoglobin 28 pg (25-35) Mean Corpuscular Hemoglobin Concent 33 g/dL (31-37) Red Cell Distribution Width 16.6 % (11.5-14.5) Platelet Count 121 x10^3/uL (140-400) Neutrophils (%) (Auto) 94 % (31-73) Lymphocytes (%) (Auto) 4 % (24-48) Monocytes (%) (Auto) 2 % (0-9) Eosinophils (%) (Auto) 0 % (0-3) Basophils (%) (Auto) 1 % (0-3) Neutrophils # (Auto) 5.6 x10^3uL (1.8-7.7) Lymphocytes # (Auto) 0.2 x10^3/uL (1.0-4.8) Monocytes # (Auto) 0.1 x10^3/uL (0.0-1.1) Eosinophils # (Auto) 0.0 x10^3/uL (0.0-0.7) Basophils # (Auto) 0.0 x10^3/uL (0.0-0.2) Sodium Level 141 mmol/L (136-145) Potassium Level 3.6 mmol/L (3.5-5.1) Chloride Level 102 mmol/L (98-107) Carbon Dioxide Level 30 mmol/L (21-32) Anion Gap 9 (6-14) Blood Urea Nitrogen 17 mg/dL (7-20) Creatinine 2.7 mg/dL (0.6-1.0) Estimated GFR (Cockcroft-Gault) 17.6 Glucose Level 112 mg/dL (70-99) Calcium Level 9.3 mg/dL (8.5-10.1) Magnesium Level 2.1 mg/dL (1.8-2.4) HERB KEYS MD Nov 18, 2016 10:43
[2016-11-18] MEDS ORDERED: traMADol 50 MG TABLET PO PRN (13:15)
[2016-11-18] MEDS ORDERED: ONDANSETRON PF 4 MG/2 ML VIAL. IV PRN (13:15)
[2016-11-18] MEDS ORDERED: MORPHINE SULFATE 2 MG/ML DISP.SYRIN. IV PRN (13:15)
[2016-11-18] MEDS ORDERED: DOCUSATE SODIUM 100 MG CAPSULE. PO PRN (13:15)
[2016-11-18] MEDS ORDERED: hydrALAZINE 20 MG/ML VIAL. IVP PRN (13:15)
--- NOTE | 2016-11-18 13:18 | PDOC ---
PROGRESS NOTES Chief Complaint Chief Complaint 1. Acute respiratory failure, likely vol overload, atelectasis vs. HAP 2. ESRD missed a session on Sun 3. CHF, decompensated currently 4. Dyslipidemia, HTN, COPD, constipation, GERD, fibromyalgia - chronic stable 5. recent hospitalization for UTI PLAN: fu with renal on vanco, levaquin, zosyn, cough meds, duoneb cont HD MWF on prednisone dvt ppx PTOT History of Present Illness History of Present Illness ROS: no fever, chills, chest pain still cough a lot, non productive, said sob not better with HD on NC 2L, bipap at night for dionte at home was told low BP in ER, doubt levaphad used Vitals Vitals Vital Signs Date Time Temp Pulse Resp B/P (MAP) Pulse Ox O2 Delivery O2 Flow Rate FiO2 11/18/16 12:00 Nasal Cannula 2.0 11/18/16 12:00 98.1 87 17 118/62 (80) 95 98.1 Physical Exam General: Alert, Oriented X3, Cooperative, No acute distress, mild distress, Other (slightly tachypneic) Heart: Regular rate, Normal S1 Lungs: Other (bl coarse bs) Abdomen: Normal bowel sounds, Soft, No tenderness, No hepatosplenomegaly, No masses Extremities: No clubbing, No cyanosis, No edema, Normal pulses, No tenderness/ swelling Skin: No rashes, No breakdown, No significant lesion Labs LABS Laboratory Tests Test 11/17/16 15:50 11/17/16 23:23 11/18/16 04:00 11/18/16 04:30 Troponin I Quantitative 0.052 ng/mL (0.000-0.055) 0.060 ng/mL (0.000-0.055) Hepatitis B Surface Antigen Negative (Negative) Hepatitis B Surface Antibody Non reactive (.) Random Vancomycin Level 1.0 mcg/mL White Blood Count 6.0 x10^3/uL (4.0-11.0) Red Blood Count 3.76 x10^6/uL (3.50-5.40) Hemoglobin 10.3 g/dL (12.0-15.5) Hematocrit 31.4 % (36.0-47.0) Mean Corpuscular Volume 84 fL (79-100) Mean Corpuscular Hemoglobin 28 pg (25-35) Mean Corpuscular Hemoglobin Concent 33 g/dL (31-37) Red Cell Distribution Width 16.6 % (11.5-14.5) Platelet Count 121 x10^3/uL (140-400) Neutrophils (%) (Auto) 94 % (31-73) Lymphocytes (%) (Auto) 4 % (24-48) Monocytes (%) (Auto) 2 % (0-9) Eosinophils (%) (Auto) 0 % (0-3) Basophils (%) (Auto) 1 % (0-3) Neutrophils # (Auto) 5.6 x10^3uL (1.8-7.7) Lymphocytes # (Auto) 0.2 x10^3/uL (1.0-4.8) Monocytes # (Auto) 0.1 x10^3/uL (0.0-1.1) Eosinophils # (Auto) 0.0 x10^3/uL (0.0-0.7) Basophils # (Auto) 0.0 x10^3/uL (0.0-0.2) Sodium Level 141 mmol/L (136-145) Potassium Level 3.6 mmol/L (3.5-5.1) Chloride Level 102 mmol/L (98-107) Carbon Dioxide Level 30 mmol/L (21-32) Anion Gap 9 (6-14) Blood Urea Nitrogen 17 mg/dL (7-20) Creatinine 2.7 mg/dL (0.6-1.0) Estimated GFR (Cockcroft-Gault) 17.6 Glucose Level 112 mg/dL (70-99) Calcium Level 9.3 mg/dL (8.5-10.1) Magnesium Level 2.1 mg/dL (1.8-2.4) Assessment and Plan Assessmemt and Plan Problems Medical Problems: (1) Respiratory failure Status: Acute Problems: Comment Review of Relevant I have reviewed the following items sarahi (where applicable) has been applied. Labs Laboratory Tests Test 11/17/16 09:58 11/17/16 10:18 11/17/16 10:35 11/17/16 13:00 O2 Saturation 97 % (92-99) Arterial Blood pH 7.35 (7.35-7.45) Arterial Blood pCO2 at Patient Temp 28 mmHg (35-46) Arterial Blood pO2 at Patient Temp 104 mmHg (65-108) Arterial Blood HCO3 15 mmol/L (21-28) Arterial Blood Base Excess -9 mmol/L (-3-3) FiO2 30% Lactic Acid Level 0.6 mmol/L (0.4-2.0) White Blood Count 6.7 x10^3/uL (4.0-11.0) Red Blood Count 3.87 x10^6/uL (3.50-5.40) Hemoglobin 10.5 g/dL (12.0-15.5) Hematocrit 33.3 % (36.0-47.0) Mean Corpuscular Volume 86 fL (79-100) Mean Corpuscular Hemoglobin 27 pg (25-35) Mean Corpuscular Hemoglobin Concent 32 g/dL (31-37) Red Cell Distribution Width 16.8 % (11.5-14.5) Platelet Count 131 x10^3/uL (140-400) Neutrophils (%) (Auto) 79 % (31-73) Lymphocytes (%) (Auto) 13 % (24-48) Monocytes (%) (Auto) 5 % (0-9) Eosinophils (%) (Auto) 2 % (0-3) Basophils (%) (Auto) 1 % (0-3) Neutrophils # (Auto) 5.2 x10^3uL (1.8-7.7) Lymphocytes # (Auto) 0.8 x10^3/uL (1.0-4.8) Monocytes # (Auto) 0.4 x10^3/uL (0.0-1.1) Eosinophils # (Auto) 0.2 x10^3/uL (0.0-0.7) Basophils # (Auto) 0.1 x10^3/uL (0.0-0.2) Sodium Level 142 mmol/L (136-145) Potassium Level 5.0 mmol/L (3.5-5.1) Chloride Level 104 mmol/L (98-107) Carbon Dioxide Level 21 mmol/L (21-32) Anion Gap 17 (6-14) Blood Urea Nitrogen 53 mg/dL (7-20) Creatinine 7.4 mg/dL (0.6-1.0) Estimated GFR (Cockcroft-Gault) 5.5 BUN/Creatinine Ratio 7 (6-20) Glucose Level 85 mg/dL (70-99) Calcium Level 9.6 mg/dL (8.5-10.1) Magnesium Level 2.3 mg/dL (1.8-2.4) Total Bilirubin 0.5 mg/dL (0.2-1.0) Aspartate Amino Transf (AST/SGOT) 21 U/L (15-37) Alanine Aminotransferase (ALT/SGPT) 19 U/L (14-59) Alkaline Phosphatase 87 U/L (46-116) Troponin I Quantitative 0.058 ng/mL (0.000-0.055) Total Protein 7.0 g/dL (6.4-8.2) Albumin 3.2 g/dL (3.4-5.0) Albumin/Globulin Ratio 0.8 (1.0-1.7) Nasal Screen MRSA (PCR) Positive (Negative) Test 11/17/16 15:50 11/17/16 23:23 11/18/16 04:00 11/18/16 04:30 Troponin I Quantitative 0.052 ng/mL (0.000-0.055) 0.060 ng/mL (0.000-0.055) Hepatitis B Surface Antigen Negative (Negative) Hepatitis B Surface Antibody Non reactive (.) Random Vancomycin Level 1.0 mcg/mL White Blood Count 6.0 x10^3/uL (4.0-11.0) Red Blood Count 3.76 x10^6/uL (3.50-5.40) Hemoglobin 10.3 g/dL (12.0-15.5) Hematocrit 31.4 % (36.0-47.0) Mean Corpuscular Volume 84 fL (79-100) Mean Corpuscular Hemoglobin 28 pg (25-35) Mean Corpuscular Hemoglobin Concent 33 g/dL (31-37) Red Cell Distribution Width 16.6 % (11.5-14.5) Platelet Count 121 x10^3/uL (140-400) Neutrophils (%) (Auto) 94 % (31-73) Lymphocytes (%) (Auto) 4 % (24-48) Monocytes (%) (Auto) 2 % (0-9) Eosinophils (%) (Auto) 0 % (0-3) Basophils (%) (Auto) 1 % (0-3) Neutrophils # (Auto) 5.6 x10^3uL (1.8-7.7) Lymphocytes # (Auto) 0.2 x10^3/uL (1.0-4.8) Monocytes # (Auto) 0.1 x10^3/uL (0.0-1.1) Eosinophils # (Auto) 0.0 x10^3/uL (0.0-0.7) Basophils # (Auto) 0.0 x10^3/uL (0.0-0.2) Sodium Level 141 mmol/L (136-145) Potassium Level 3.6 mmol/L (3.5-5.1) Chloride Level 102 mmol/L (98-107) Carbon Dioxide Level 30 mmol/L (21-32) Anion Gap 9 (6-14) Blood Urea Nitrogen 17 mg/dL (7-20) Creatinine 2.7 mg/dL (0.6-1.0) Estimated GFR (Cockcroft-Gault) 17.6 Glucose Level 112 mg/dL (70-99) Calcium Level 9.3 mg/dL (8.5-10.1) Magnesium Level 2.1 mg/dL (1.8-2.4) Laboratory Tests Test 11/17/16 15:50 11/17/16 23:23 11/18/16 04:00 11/18/16 04:30 Troponin I Quantitative 0.052 ng/mL (0.000-0.055) 0.060 ng/mL (0.000-0.055) Hepatitis B Surface Antigen Negative (Negative) Hepatitis B Surface Antibody Non reactive (.) Random Vancomycin Level 1.0 mcg/mL White Blood Count 6.0 x10^3/uL (4.0-11.0) Red Blood Count 3.76 x10^6/uL (3.50-5.40) Hemoglobin 10.3 g/dL (12.0-15.5) Hematocrit 31.4 % (36.0-47.0) Mean Corpuscular Volume 84 fL (79-100) Mean Corpuscular Hemoglobin 28 pg (25-35) Mean Corpuscular Hemoglobin Concent 33 g/dL (31-37) Red Cell Distribution Width 16.6 % (11.5-14.5) Platelet Count 121 x10^3/uL (140-400) Neutrophils (%) (Auto) 94 % (31-73) Lymphocytes (%) (Auto) 4 % (24-48) Monocytes (%) (Auto) 2 % (0-9) Eosinophils (%) (Auto) 0 % (0-3) Basophils (%) (Auto) 1 % (0-3) Neutrophils # (Auto) 5.6 x10^3uL (1.8-7.7) Lymphocytes # (Auto) 0.2 x10^3/uL (1.0-4.8) Monocytes # (Auto) 0.1 x10^3/uL (0.0-1.1) Eosinophils # (Auto) 0.0 x10^3/uL (0.0-0.7) Basophils # (Auto) 0.0 x10^3/uL (0.0-0.2) Sodium Level 141 mmol/L (136-145) Potassium Level 3.6 mmol/L (3.5-5.1) Chloride Level 102 mmol/L (98-107) Carbon Dioxide Level 30 mmol/L (21-32) Anion Gap 9 (6-14) Blood Urea Nitrogen 17 mg/dL (7-20) Creatinine 2.7 mg/dL (0.6-1.0) Estimated GFR (Cockcroft-Gault) 17.6 Glucose Level 112 mg/dL (70-99) Calcium Level 9.3 mg/dL (8.5-10.1) Magnesium Level 2.1 mg/dL (1.8-2.4) Medications Current Medications Albuterol Sulfate (Ventolin Neb Soln) 2.5 mg STK-MED ONCE .ROUTE ; Start at 09:40; Stop 11/17/16 at 09:41; Status DC Albuterol Sulfate (Ventolin Neb Soln) 2.5 mg 1X ONCE NEB Last administered on 11/17/16 09:46; Start 11/17/16 at 10:00; Stop 11/17/16 at 10:01; Status DC Vancomycin HCl (Vanco Per Pharmacy) 1 each PRN DAILY PRN MC SEE COMMENTS Last administered on 11/17/16 15:30; Start 11/17/16 at 10:30 Levofloxacin/ Dextrose (Levaquin Per Pharmacy) 1 each PRN DAILY PRN MC SEE COMMENTS; Start 11/17/16 at 10:30 Piperacillin Sod/ Tazobactam Sod (Zosyn Per Pharmacy) 1 each PRN DAILY PRN MC SEE COMMENTS; Start 11/17/16 at 10:30 Vancomycin HCl 1.5 gm/Sodium Chloride 500 ml @ 250 mls/hr ONCE ONCE IV Last administered on 11/17/16 12:36; Start 11/17/16 at 10:30; Stop 11/17/16 at 12:29 ; Status DC Piperacillin Sod/ Tazobactam Sod 2.25 gm/Sodium Chloride 50 ml @ 100 mls/hr ONCE ONCE IV Last administered on 11/17/16 12:35; Start 11/17/16 at 10:30; Stop 11/17/16 at 10:59; Status DC Levofloxacin/ Dextrose 150 ml @ 100 mls/hr ONCE ONCE IV Last administered on 11/17/16 10:30; Start 11/17/16 at 10:30; Stop 11/17/16 at 11:59; Status DC Darbepoetin Omar (Aranesp) 60 mcg WEEKLYHS SQ Last administered on 11/17/16 21 :23; Start 11/17/16 at 21:00 Albuterol/ Ipratropium (Duoneb) 3 ml RTQID NEB Last administered on 11/18/16 08:03; Start 11/17/16 at 13:30; Stop 11/18/16 at 08:48; Status DC Guaifenesin (Robitussin Dm) 10 ml PRN Q6HRS PRN PO COUGH; Start 11/17/16 at 13: 00 Atorvastatin Calcium (Lipitor) 20 mg QHS PO Last administered on 11/17/16 21: 22; Start 11/17/16 at 21:00 Benzonatate (Tessalon Perle) 100 mg PRN TID PRN PO COUGH Last administered on 11/17/16 13:33; Start 11/17/16 at 13:00 Clopidogrel Bisulfate (Plavix) 75 mg DAILY PO Last administered on 11/18/16 08 :14; Start 11/17/16 at 14:00 Ergocalciferol (Vitamin D2) 50,000 unit WEEKLY PO ; Start 11/24/16 at 09:00 Folic Acid (Folic Acid) 1 mg DAILY PO Last administered on 11/18/16 08:14; Start 11/18/16 at 09:00; Stop 11/18/16 at 09:00; Status DC Vitamin B Complex/ Vitamin C (Radha-Fay) 1 tab DAILY PO Last administered on 08:14; Start 11/18/16 at 09:00 Guaifenesin (Mucinex) 600 mg BID PO Last administered on 11/18/16 08:14; Start 11/17/16 at 14:00 Acetaminophen/ Hydrocodone Bitart (Lortab 5/325) 1 tab PRN Q6HRS PRN PO PAIN Last administered on 11/17/16 21:30; Start 11/17/16 at 13:00 Levetiracetam (Keppra) 500 mg BID PO Last administered on 11/18/16 08:14; Start 11/17/16 at 14:00 Nystatin (Nystop) 1 jesus BID TP Last administered on 11/18/16 08:15; Start 11/17/16 at 14:00 Ondansetron HCl (Zofran Odt) 4 mg PRN TID PRN PO NAUSEA; Start 11/17/16 at 13: 00; Stop 11/18/16 at 08:48; Status DC Prednisone (Prednisone) 40 mg DAILY PO Last administered on 11/18/16 08:13; Start 11/17/16 at 14:00 Tramadol HCl (Ultram) 50 mg Q6HRS PO Last administered on 11/18/16 11:58; Start 11/17/16 at 18:00 Non-Formulary Medication 1 each BID IH ; Start 11/17/16 at 21:00; Status UNV Nystatin 5 ml [id number] ; Start 11/17/16 at 17:00; Status Cancel Nystatin/ Triamcinolone Acetonide (Mycolog Ii) 1 jesus BID TP Last administered on 11/18/16 08:15; Start 11/17/16 at 21:00 Oxybutynin Chloride (Ditropan) 5 mg BID PO Last administered on 11/18/16 08:14 ; Start 11/17/16 at 14:00 Venlafaxine HCl (Effexor) 50 mg TID PO Last administered on 11/18/16 08:13; Start 11/17/16 at 14:00 Ondansetron HCl (Zofran) 4 mg PRN Q6HRS PRN IV NAUSEA/VOMITING; Start 11/17/16 at 13:00 Morphine Sulfate 2 mg PRN Q2HR PRN IV PAIN; Start 11/17/16 at 13:00 Budesonide (Pulmicort) 0.5 mg RTBID NEB Last administered on 11/18/16 08:03; Start 11/17/16 at 14:00 Sodium Chloride 1,000 ml @ 1,000 mls/hr Q1H PRN IV hypotension; Start 11/17/16 at 14:00; Stop 11/17/16 at 21:00; Status DC Sodium Chloride (Normal Saline Flush) 10 ml 1X PRN PRN IV AP catheter pack; Start 11/17/16 at 14:00; Stop 11/17/16 at 21:00; Status DC Sodium Chloride (Normal Saline Flush) 10 ml 1X PRN PRN IV [employer] catheter pack; Start 11/17/16 at 14:00; Stop 11/17/16 at 21:00; Status DC Sodium Chloride 1,000 ml @ 400 mls/hr Q2H30M PRN IV PATENCY; Start 11/17/16 at 14:00; Stop 11/17/16 at 21:00; Status DC Info (PHARMACY MONITORING -- do not chart) 1 each PRN DAILY PRN MC SEE COMMENTS ; Start 11/17/16 at 14:45; Status UNV Info (PHARMACY MONITORING -- do not chart) 1 each PRN DAILY PRN MC SEE COMMENTS ; Start 11/17/16 at 14:45 Vancomycin HCl 1 each 1X ONCE MC Last administered on 11/18/16 06:00; Start 11/18/16 at 06:00; Stop 11/18/16 at 06:01; Status DC Piperacillin Sod/ Tazobactam Sod 2.25 gm/Sodium Chloride 50 ml @ 100 mls/hr Q8HRS IV Last administered on 11/18/16 05:22; Start 11/17/16 at 22:00 Levofloxacin/ Dextrose 100 ml @ 100 mls/hr Q48H IV ; Start 11/19/16 at 09:00 Norepinephrine Bitartrate 250 ml @ 0 mls/hr CONT PRN IV SEE I/O RECORD; Start 11/17/16 at 21:00 Albuterol/ Ipratropium (Duoneb) 3 ml RTQID NEB Last administered on 11/18/16t 11:44; Start 11/18/16 at 08:00 Acetaminophen (Tylenol) 650 mg PRN Q6HRS PRN PO FEVER > 100.5'F; Start at 09:00 Active Scripts Active Duoneb 0.5-3(2.5) Mg/3 Ml (Albuterol/Ipratropium) 3 Ml Ampul.neb 3 Ml NEB QID PRN Albuterol Sulfate Neb Soln (Albuterol Sulfate) 2.5 Mg/3 Ml Vial.neb 2.5 Mg NEB PRN Q4HRS PRN 30 Days Nystop (Nystatin) 60 Gm Powder 1 Jesus TP BID [place] 5-325 Tablet (Acetaminophen/Hydrocodone Bitart) 1 Each Tablet 1 Tab PO PRN Q6HRS PRN Reported Folic Acid 1 Mg Tablet 1 Tab PO BID Levetiracetam 500 Mg Tablet 500 Mg PO BID Vitamin D2 (Ergocalciferol (Vitamin D2)) 50,000 Unit Capsule 1 Cap PO WEEKLY Nystatin-Triamcinolone Ointm (Nystatin/Triamcin) 30 Gm Oint...g. 30 Gm TP BID Venlafaxine Hcl Er (Venlafaxine Hcl) 150 Mg Cap.er.24h 150 Mg PO DAILY Plavix (Clopidogrel Bisulfate) 75 Mg Tablet 75 Mg PO DAILY Duoneb 0.5 Mg-3 Mg/3 Ml Soln (Ipratropium/Albuterol Sulfate) 3 Ml Ampul.neb 3 Ml IH Q6HRS Ditropan Xl (Oxybutynin Chloride) 5 Mg Tab.er.24 5 Mg PO DAILY Vitals/I & O Vital Sign - Last 24 Hours 11/17/16 11/17/16 11/17/16 11/17/16 14:00 15:00 15:34 16:00 Pulse 90 86 Resp 16 16 B/P (MAP) 135/87 (103) 99/76 (84) Pulse Ox 98 97 99 O2 Delivery Nasal Cannula Nasal Cannula Nasal Cannula Nasal Cannula O2 Flow Rate 3.0 3.0 2.0 3.0 11/17/16 11/17/16 11/17/16 11/17/16 16:00 17:00 18:00 18:15 Temp 99.0 99.0 Pulse 86 84 88 Resp 20 20 20 24 B/P (MAP) 111/70 (84) 113/72 (86) 115/68 (84) Pulse Ox 95 96 94 94 O2 Delivery Nasal Cannula Nasal Cannula Nasal Cannula Nasal Cannula O2 Flow Rate 3.0 3.0 3.0 3.0 11/17/16 11/17/16 11/17/16 11/17/16 19:00 19:30 20:00 20:00 Temp 98.4 98.4 Pulse 89 88 Resp 20 20 B/P (MAP) 89/60 (70) 72/52 (59) Pulse Ox 94 97 95 O2 Delivery Nasal Cannula Nasal Cannula Nasal Cannula Nasal Cannula O2 Flow Rate 3.0 2.0 3.0 3.0 11/17/16 11/17/16 11/17/16 11/17/16 21:00 21:30 22:00 22:30 Pulse 88 86 Resp 20 22 20 22 B/P (MAP) 99/56 (70) 109/64 (79) Pulse Ox 95 97 O2 Delivery Nasal Cannula Nasal Cannula BiPAP/CPAP BiPAP/CPAP O2 Flow Rate 3.0 2.0 11/17/16 11/17/16 11/17/16 11/18/16 23:00 23:27 23:56 00:00 Pulse 84 84 Resp 16 16 B/P (MAP) 130/67 (88) 117/67 (84) Pulse Ox 97 100 97 O2 Delivery BiPAP/CPAP BiPAP/CPAP Bi-pap BiPAP/CPAP 11/18/16 11/18/16 11/18/16 11/18/16 01:02 02:07 03:09 04:13 Temp 98.2 98.2 Pulse 77 84 77 Resp 16 16 16 B/P (MAP) 119/60 (79) 120/60 (80) 121/67 (85) Pulse Ox 96 95 95 O2 Delivery BiPAP/CPAP Nasal Cannula Nasal Cannula Nasal Cannula O2 Flow Rate 2.0 2.0 2.0 11/18/16 11/18/16 11/18/16 11/18/16 05:22 05:30 06:00 07:00 Temp 97.7 97.7 Pulse 84 83 82 Resp 18 16 16 24 B/P (MAP) 110/60 (77) 109/60 (76) 128/73 (91) Pulse Ox 99 99 O2 Delivery BiPAP/CPAP BiPAP/CPAP BiPAP/CPAP 11/18/16 11/18/16 11/18/16 11/18/16 07:15 08:00 08:00 08:03 Pulse 66 Resp 24 15 B/P (MAP) 105/68 (80) Pulse Ox 95 100 100 O2 Delivery Nasal Cannula Nasal Cannula Nasal Cannula BiPAP/CPAP O2 Flow Rate 2.0 2.0 2.0 11/18/16 11/18/16 11/18/16 11/18/16 08:07 09:00 10:00 10:40 Pulse 84 86 Resp 28 21 B/P (MAP) 99/58 (72) 116/72 (87) Pulse Ox 97 94 96 O2 Delivery Nasal Cannula Nasal Cannula Nasal Cannula Nasal Cannula O2 Flow Rate 2.0 2.0 2.0 2.0 11/18/16 11/18/16 11/18/16 11/18/16 11:00 11:45 11:58 12:00 Temp 98.1 98.1 Pulse 84 87 Resp 23 19 17 B/P (MAP) 133/70 (91) 118/62 (80) Pulse Ox 97 96 95 95 O2 Delivery Nasal Cannula Nasal Cannula Nasal Cannula Nasal Cannula O2 Flow Rate 2.0 2.0 2.0 2.0 11/18/16 12:00 O2 Delivery Nasal Cannula O2 Flow Rate 2.0 Intake and Output 11/18/16 11/18/16 11/19/16 15:00 23:00 07:00 Intake Total 200 ml Output Total 0 ml Balance 200 ml AUNG GARCIA MD Nov 18, 2016 13:18
[2016-11-18] MEDS: HEPARIN PF for SUB-Q USE 5,000 UNIT/0.5 ML VIAL. SQ SCH ×2 (14:10→21:38)
[2016-11-18] MEDS: VANCOMYCIN PER PHARMACY MC PRN (16:32)
--- NOTE | 2016-11-18 16:40 | PDOC ---
PULMONARY PROGRESS NOTES Vitals Vital Signs Date Time Temp Pulse Resp B/P (MAP) Pulse Ox O2 Delivery O2 Flow Rate FiO2 11/18/16 16:00 91 19 114/52 (72) 94 Nasal Cannula 2.0 11/18/16 15:51 98.2 98.2 HEENT: Other Labs Laboratory Tests Test 11/17/16 09:58 11/17/16 10:18 11/17/16 10:35 11/17/16 13:00 O2 Saturation 97 % (92-99) Arterial Blood pH 7.35 (7.35-7.45) Arterial Blood pCO2 at Patient Temp 28 mmHg (35-46) Arterial Blood pO2 at Patient Temp 104 mmHg (65-108) Arterial Blood HCO3 15 mmol/L (21-28) Arterial Blood Base Excess -9 mmol/L (-3-3) FiO2 30% Lactic Acid Level 0.6 mmol/L (0.4-2.0) White Blood Count 6.7 x10^3/uL (4.0-11.0) Red Blood Count 3.87 x10^6/uL (3.50-5.40) Hemoglobin 10.5 g/dL (12.0-15.5) Hematocrit 33.3 % (36.0-47.0) Mean Corpuscular Volume 86 fL (79-100) Mean Corpuscular Hemoglobin 27 pg (25-35) Mean Corpuscular Hemoglobin Concent 32 g/dL (31-37) Red Cell Distribution Width 16.8 % (11.5-14.5) Platelet Count 131 x10^3/uL (140-400) Neutrophils (%) (Auto) 79 % (31-73) Lymphocytes (%) (Auto) 13 % (24-48) Monocytes (%) (Auto) 5 % (0-9) Eosinophils (%) (Auto) 2 % (0-3) Basophils (%) (Auto) 1 % (0-3) Neutrophils # (Auto) 5.2 x10^3uL (1.8-7.7) Lymphocytes # (Auto) 0.8 x10^3/uL (1.0-4.8) Monocytes # (Auto) 0.4 x10^3/uL (0.0-1.1) Eosinophils # (Auto) 0.2 x10^3/uL (0.0-0.7) Basophils # (Auto) 0.1 x10^3/uL (0.0-0.2) Sodium Level 142 mmol/L (136-145) Potassium Level 5.0 mmol/L (3.5-5.1) Chloride Level 104 mmol/L (98-107) Carbon Dioxide Level 21 mmol/L (21-32) Anion Gap 17 (6-14) Blood Urea Nitrogen 53 mg/dL (7-20) Creatinine 7.4 mg/dL (0.6-1.0) Estimated GFR (Cockcroft-Gault) 5.5 BUN/Creatinine Ratio 7 (6-20) Glucose Level 85 mg/dL (70-99) Calcium Level 9.6 mg/dL (8.5-10.1) Magnesium Level 2.3 mg/dL (1.8-2.4) Total Bilirubin 0.5 mg/dL (0.2-1.0) Aspartate Amino Transf (AST/SGOT) 21 U/L (15-37) Alanine Aminotransferase (ALT/SGPT) 19 U/L (14-59) Alkaline Phosphatase 87 U/L (46-116) Troponin I Quantitative 0.058 ng/mL (0.000-0.055) Total Protein 7.0 g/dL (6.4-8.2) Albumin 3.2 g/dL (3.4-5.0) Albumin/Globulin Ratio 0.8 (1.0-1.7) Nasal Screen MRSA (PCR) Positive (Negative) Test 11/17/16 15:50 11/17/16 23:23 11/18/16 04:00 11/18/16 04:30 Troponin I Quantitative 0.052 ng/mL (0.000-0.055) 0.060 ng/mL (0.000-0.055) Hepatitis B Surface Antigen Negative (Negative) Hepatitis B Surface Antibody Non reactive (.) Random Vancomycin Level 1.0 mcg/mL White Blood Count 6.0 x10^3/uL (4.0-11.0) Red Blood Count 3.76 x10^6/uL (3.50-5.40) Hemoglobin 10.3 g/dL (12.0-15.5) Hematocrit 31.4 % (36.0-47.0) Mean Corpuscular Volume 84 fL (79-100) Mean Corpuscular Hemoglobin 28 pg (25-35) Mean Corpuscular Hemoglobin Concent 33 g/dL (31-37) Red Cell Distribution Width 16.6 % (11.5-14.5) Platelet Count 121 x10^3/uL (140-400) Neutrophils (%) (Auto) 94 % (31-73) Lymphocytes (%) (Auto) 4 % (24-48) Monocytes (%) (Auto) 2 % (0-9) Eosinophils (%) (Auto) 0 % (0-3) Basophils (%) (Auto) 1 % (0-3) Neutrophils # (Auto) 5.6 x10^3uL (1.8-7.7) Lymphocytes # (Auto) 0.2 x10^3/uL (1.0-4.8) Monocytes # (Auto) 0.1 x10^3/uL (0.0-1.1) Eosinophils # (Auto) 0.0 x10^3/uL (0.0-0.7) Basophils # (Auto) 0.0 x10^3/uL (0.0-0.2) Sodium Level 141 mmol/L (136-145) Potassium Level 3.6 mmol/L (3.5-5.1) Chloride Level 102 mmol/L (98-107) Carbon Dioxide Level 30 mmol/L (21-32) Anion Gap 9 (6-14) Blood Urea Nitrogen 17 mg/dL (7-20) Creatinine 2.7 mg/dL (0.6-1.0) Estimated GFR (Cockcroft-Gault) 17.6 Glucose Level 112 mg/dL (70-99) Calcium Level 9.3 mg/dL (8.5-10.1) Magnesium Level 2.1 mg/dL (1.8-2.4) Laboratory Tests Test 11/17/16 23:23 11/18/16 04:00 11/18/16 04:30 Troponin I Quantitative 0.060 ng/mL (0.000-0.055) Random Vancomycin Level 1.0 mcg/mL White Blood Count 6.0 x10^3/uL (4.0-11.0) Red Blood Count 3.76 x10^6/uL (3.50-5.40) Hemoglobin 10.3 g/dL (12.0-15.5) Hematocrit 31.4 % (36.0-47.0) Mean Corpuscular Volume 84 fL (79-100) Mean Corpuscular Hemoglobin 28 pg (25-35) Mean Corpuscular Hemoglobin Concent 33 g/dL (31-37) Red Cell Distribution Width 16.6 % (11.5-14.5) Platelet Count 121 x10^3/uL (140-400) Neutrophils (%) (Auto) 94 % (31-73) Lymphocytes (%) (Auto) 4 % (24-48) Monocytes (%) (Auto) 2 % (0-9) Eosinophils (%) (Auto) 0 % (0-3) Basophils (%) (Auto) 1 % (0-3) Neutrophils # (Auto) 5.6 x10^3uL (1.8-7.7) Lymphocytes # (Auto) 0.2 x10^3/uL (1.0-4.8) Monocytes # (Auto) 0.1 x10^3/uL (0.0-1.1) Eosinophils # (Auto) 0.0 x10^3/uL (0.0-0.7) Basophils # (Auto) 0.0 x10^3/uL (0.0-0.2) Sodium Level 141 mmol/L (136-145) Potassium Level 3.6 mmol/L (3.5-5.1) Chloride Level 102 mmol/L (98-107) Carbon Dioxide Level 30 mmol/L (21-32) Anion Gap 9 (6-14) Blood Urea Nitrogen 17 mg/dL (7-20) Creatinine 2.7 mg/dL (0.6-1.0) Estimated GFR (Cockcroft-Gault) 17.6 Glucose Level 112 mg/dL (70-99) Calcium Level 9.3 mg/dL (8.5-10.1) Magnesium Level 2.1 mg/dL (1.8-2.4) Medications Active Scripts Medications Dose Route/Sig Max Daily Dose Days Date Category Duoneb 0.5-3(2.5) Mg/3 Ml (Albuterol/Ipratropium) 3 Ml Ampul.neb 3 Ml NEB QID PRN 10/04/16 Rx Albuterol Sulfate Neb Soln (Albuterol Sulfate) 2.5 Mg/3 Ml Vial.neb 2.5 Mg NEB PRN Q4HRS PRN 30 03/18/16 Rx Nystop (Nystatin) 60 Gm Powder 1 Jesus TP BID 03/18/16 Rx Folic Acid 1 Mg Tablet 1 Tab PO BID 01/14/16 Reported Levetiracetam 500 Mg Tablet 500 Mg PO BID 01/14/16 Reported Vitamin D2 (Ergocalciferol (Vitamin D2)) 50,000 Unit Capsule 1 Cap PO WEEKLY 01/14/16 Reported [place] 5-325 Tablet (Acetaminophen/Hydrocodone Bitart) 1 Each Tablet 1 Tab PO PRN Q6HRS PRN 10/12/15 Rx Nystatin-Triamcinolone Ointm (Nystatin/Triamcin) 30 Gm Oint...g. 30 Gm TP BID 05/20/13 Reported Venlafaxine Hcl Er (Venlafaxine Hcl) 150 Mg Cap.er.24h 150 Mg PO DAILY 05/20/13 Reported Plavix (Clopidogrel Bisulfate) 75 Mg Tablet 75 Mg PO DAILY 05/20/13 Reported Duoneb 0.5 Mg-3 Mg/3 Ml Soln (Ipratropium/Albuterol Sulfate) 3 Ml Ampul.neb 3 Ml IH Q6HRS 05/20/13 Reported Ditropan Xl (Oxybutynin Chloride) 5 Mg Tab.er.24 5 Mg PO DAILY 05/20/13 Reported Impression . CONSULT DICTATED NO NEED FOR ANTIBX I THINK MOSTLY VOLUME OVERLOAD AND AECOPD ASIA BACH MD Nov 18, 2016 16:40
[2016-11-18] MEDS ORDERED: VANCOMYCIN 1 GM in IV NORMAL SALINE 250ML 250 ML IV ONE (17:00)
[2016-11-18] MEDS: ATORVASTATIN CALCIUM 20 MG TABLET PO SCH (21:33)
--- NOTE | 2016-11-19 00:46 | CONS ---
DATE OF CONSULTATION: 11/18/2016 ATTENDING PHYSICIAN: Marianela Florence MD. REASON FOR CONSULTATION: The patient was seen in pulmonary consultation at the request of Dr. Florence for [id number] hypoxemic respiratory failure requiring noninvasive ventilation with BiPAP. HISTORY OF PRESENT ILLNESS: The patient is a 66-year-old that has end-stage renal disease. She presented with increasing shortness of breath. Chest x-ray was reviewed. There is evidence of vascular congestion. The patient is complaining of increasing shortness of breath and low-grade fever at home. She states that she thought she had a temperature of about 100, cough, mostly nonproductive. She continues to smoke. She is normally on 2 liters of oxygen supplementation. She presented to the Emergency Room this time and had an arterial blood gas revealing a pH of 7.35, PaCO2 of 28, pO2 of 104 on BiPAP at 30%. She had hepatitis B surface antigen negative. Electrolytes were noted. Her BUN and creatinine were elevated. Troponin level was slightly elevated. White count was normal. PAST MEDICAL HISTORY: 1. Chronic respiratory failure, on 2 liters of oxygen supplementation. 2. COPD. 3. Tobacco dependence, ongoing. 4. Hypertension. 5. End-stage renal disease. 6. Obstructive sleep apnea. 7. Previous CVA with right-sided residual deficits. 8. Anxiety and depression. 9. Chronic pain. PAST SURGICAL HISTORY: Status post tonsillectomy, cataract removal. FAMILY HISTORY: Coronary artery disease, hypertension, diabetes and stroke. SOCIAL HISTORY: She continues to smoke, rare use of alcohol. REVIEW OF SYSTEMS: As indicated above. Otherwise, a 10-point system was reviewed and negative. CURRENT MEDICATIONS: List was reviewed. PHYSICAL EXAMINATION: GENERAL: The patient is currently in the Intensive Care Unit. She is off her BiPAP. VITAL SIGNS: Stable, currently on oxygen supplementation at 2 liters per nasal cannula. HEENT: Eyes: The sclerae were nonicteric. NECK: Jugular venous distention was not elevated. No lymphadenopathy. CHEST: Full expansion. LUNGS: Crackles bilaterally with no wheezes. CARDIOVASCULAR: Regular rate and rhythm with S1 and S2, no S3. ABDOMEN: Soft, nontender, nondistended. EXTREMITIES: No clubbing, cyanosis or edema. LABORATORY DATA: As indicated above. Chest x-ray in comparison to yesterday, there is improvement in the bilateral infiltrates. There are ongoing pleural effusions. IMPRESSION: 1. Acute on chronic hypoxemic respiratory failure. 2. Acute exacerbation of chronic obstructive pulmonary disease. 3. Acute pulmonary edema. 4. Bilateral pulmonary infiltrates compatible with edema. 5. Elevated troponin, suspect as a result of hypoxemia and increased work of breathing. PLAN: 1. Continue negative fluid balance with dialysis. 2. Steroids for acute exacerbation of COPD. 3. No need for antibiotics. 4. Deep vein thrombosis prophylaxis. 5. Follow Nephrology input. 6. The patient instructed on the importance of discontinuing her tobacco use. Total cumulative critical care time of 40 minutes. ASIA BACH MD DR: EVON/francois JOB#: [id number] / [id number]
[2016-11-19 03:40] VITALS: BP 120/71
[2016-11-19] MEDS: traMADol 50 MG TABLET PO SCH ×3 (05:42→18:40)
[2016-11-19] MEDS: HEPARIN PF for SUB-Q USE 5,000 UNIT/0.5 ML VIAL. SQ SCH ×3 (05:47→21:30)
[2016-11-19] MEDS: IPRATRPIUM/ALBUTEROL 0.5/2.5MG 3 ML NEBU. NEB SCH ×4 (07:48→19:25)
[2016-11-19] MEDS: BUDESONIDE 0.5 MG/2 ML NEBU. NEB SCH ×2 (07:48→19:25)
[2016-11-19 08:08] VITALS: BP 109/71
[2016-11-19 09:16] LABS: BASO # 0.1 x10^3/uL (0.0-0.2); BASO % 1 % (0-3); EOS % 0 % (0-3); HEMATOCRIT 30.9 % (36.0-47.0); HEMOGLOBIN 9.7 g/dL (12.0-15.5); LYMPH # 1.4 x10^3/uL (1.0-4.8); LYMPH % 18 % (24-48); MEAN CORPUSCULAR HEMOGLOBIN 27 pg (25-35); MEAN CORPUSCULAR HGB CONC 32 g/dL (31-37); MEAN CORPUSCULAR VOLUME 86 fL (79-100); MONO % 6 % (0-9); NEUT % 74 % (31-73); PLATELET COUNT 119 x10^3/uL (140-400); RED BLOOD COUNT 3.59 x10^6/uL (3.50-5.40); RED CELL DISTRIBUTION WIDTH 16.6 % (11.5-14.5); WHITE BLOOD COUNT 7.5 x10^3/uL (4.0-11.0)
[2016-11-19 09:37] LABS: CREATININE 5.2 mg/dL (0.6-1.0); GFR 8.3; POTASSIUM 3.9 mmol/L (3.5-5.1)
[2016-11-19] MEDS: VENLAFAXINE 50 MG TABLET. PO SCH ×3 (10:09→21:24)
[2016-11-19] MEDS: FOLIC/VIT B COMP W-C (RENAL) TABLET. PO SCH (10:09)
[2016-11-19] MEDS: predniSONE 20 MG TABLET PO SCH (10:09)
[2016-11-19] MEDS: CLOPIDOGREL BISULFATE 75 MG TABLET PO SCH (10:09)
[2016-11-19] MEDS: levETIRAcetam 500 MG TABLET PO SCH ×2 (10:09→21:24)
[2016-11-19] MEDS: OXYBUTYNIN CHLORIDE 5 MG TABLET PO SCH ×2 (10:09→21:24)
[2016-11-19] MEDS: NYSTATIN/TRIAMCIN TOPICAL CREAM 15GM TUBE. TP SCH ×2 (10:15→21:24)
[2016-11-19] MEDS: NYSTATIN TOPICAL POWDER 15GM BOTTLE. TP SCH ×2 (10:16→21:24)
[2016-11-19] MEDS ORDERED: VANCOMYCIN RANDOM LEVEL. MC ONE (12:00)
[2016-11-19 12:31] VITALS: BP 112/59
[2016-11-19] MEDS ORDERED: CALCIUM CARBONATE 500 MG TAB.CHEW PO PRN (12:45)
--- NOTE | 2016-11-19 13:04 | PDOC ---
SUBJECTIVE ROS ESRD Doing OK - no new complains CVS: no Orthopnea, no CP RESP: no SOB, no ORONA + Cough GI: no Nausea, no Vomiting : no Dysuria, no Urgency OBJECTIVE Vital Signs Vital Signs Date Time Temp Pulse Resp B/P (MAP) Pulse Ox O2 Delivery O2 Flow Rate FiO2 11/19/16 12:31 97.2 69 20 112/59 (76) 95 Nasal Cannula 97.2 11/19/16 12:00 2.0 PHYSICAL EXAM Physical Exam EYES: Vision Unchanged, Conjunctiva Normal EN: No EN Drainage, Mucous Membranes moist NECK: no JVD, min JVP, Supple, no Thyromegaly CVS: S1S2, + Murmur, No Gallop, No Rub,no Edema RESP: Coarse Rales, occ Rhonchi,no Acc. Muscle Use GI: BS + ve, NO Bruit, Non Tender, Non Distended : no CVA tenderness, no Suprapubic Tenderness DIAGNOSIS/ASSESSMENT Assessment & Plan ESRD: Current fluid and E-lyte status does not necessitate emergent need for dialysis. Will re-evaluate for dialysis in the am and continue on MWF schedule. SOB - ? Fluid overload vs Pn - +ve Cough; BP have been labile which limits aggressive Uf on Hd. Now better. HD in am unless reqd emergently overnite. ANEMIA; Aranesp as ordered, Transfuse with next HD as needed HTN:/ occ Hypotension: Current meds as reviewed. See orders for changes. Discussed Plan of Care with pt at bedside COMMENT/RELEVANT DATA Meds Current Medications Medications (Trade) Dose Ordered Sig/Negro Start Time Stop Time Status Last Admin Dose Admin Acetaminophen (Tylenol) 650 mg PRN Q6HRS PRN 11/18/16 13:15 Acetaminophen/ Hydrocodone Bitart (Lortab 5/325) 1 tab PRN Q6HRS PRN 11/17/16 13:00 11/17/16 21:30 1 TAB Albuterol Sulfate (Ventolin Neb Soln) 2.5 mg 1X ONCE 11/17/16 10:00 11/17/16 10:01 DC 11/17/16 09:46 2.5 MG Albuterol/ Ipratropium (Duoneb) 3 ml RTQID 11/18/16 08:00 11/19/16 11:59 3 ML Atorvastatin Calcium (Lipitor) 20 mg QHS 10/6/17 21:00 11/18/16 21:33 20 MG Benzonatate (Tessalon Perle) 100 mg PRN TID PRN 11/17/16 13:00 11/17/16 13:33 100 MG Budesonide (Pulmicort) 0.5 mg RTBID 11/17/16 14:00 11/19/16 07:48 0.5 MG Calcium Carbonate/ Glycine (Tums) 500 mg PRN AFTMEALHC PRN 11/19/16 12:45 Clopidogrel Bisulfate (Plavix) 75 mg DAILY 11/17/16 14:00 11/19/16 10:09 75 MG Darbepoetin Omar (Aranesp) 60 mcg WEEKLYHS 11/17/16 21:00 11/17/16 21:23 60 MCG Docusate Sodium (Colace) 100 mg PRN DAILY PRN 11/18/16 13:15 Ergocalciferol (Vitamin D2) 50,000 unit WEEKLY 11/24/16 09:00 Folic Acid (Folic Acid) 1 mg DAILY 11/18/16 09:00 11/18/16 09:00 DC 11/18/16 08:14 1 MG Guaifenesin (Mucinex) 600 mg BID 11/17/16 14:00 11/19/16 10:10 600 MG Guaifenesin (Robitussin Dm) 10 ml PRN Q6HRS PRN 11/17/16 13:00 Heparin Sodium (Porcine) (Heparin Sq) 5,000 unit Q8HRS 11/18/16 14:00 11/19/16 05:47 5,000 UNIT Hydralazine HCl (Apresoline) 10 mg PRN Q4HRS PRN 11/18/16 13:15 Info (PHARMACY MONITORING -- do not chart) 1 each PRN DAILY PRN 11/17/16 14:45 Levetiracetam (Keppra) 500 mg BID 11/17/16 14:00 11/19/16 10:09 500 MG Levofloxacin/ Dextrose 100 ml @ 100 mls/hr Q48H 11/19/16 09:00 11/19/16 09:00 DC Levofloxacin/ Dextrose (Levaquin Per Pharmacy) 1 each PRN DAILY PRN 11/17/16 10:30 11/19/16 12:49 DC Morphine Sulfate 2 mg PRN Q2HR PRN 11/18/16 13:15 Non-Formulary Medication 1 each BID 11/17/16 21:00 UNV Norepinephrine Bitartrate 250 ml @ 0 mls/hr CONT PRN 11/17/16 21:00 11/19/16 12:51 DC Nystatin 5 ml [id number] 11/17/16 17:00 Cancel Nystatin (Nystop) 1 marley BID 11/17/16 14:00 11/19/16 10:16 1 MARLEY Nystatin/ Triamcinolone Acetonide (Mycolog Ii) 1 marley BID 11/17/16 21:00 11/19/16 10:15 1 MARLEY Ondansetron HCl (Zofran Odt) 4 mg PRN TID PRN 11/17/16 13:00 11/18/16 08:48 DC Ondansetron HCl (Zofran) 4 mg PRN Q6HRS PRN 11/18/16 13:15 Oxybutynin Chloride (Ditropan) 5 mg BID 11/17/16 14:00 11/19/16 10:09 5 MG Pantoprazole Sodium (Protonix) 40 mg DAILYAC 11/19/16 13:00 Piperacillin Sod/ Tazobactam Sod (Zosyn Per Pharmacy) 1 each PRN DAILY PRN 11/17/16 10:30 11/19/16 12:49 DC Piperacillin Sod/ Tazobactam Sod 2.25 gm/Sodium Chloride 50 ml @ 100 mls/hr Q8HRS 11/17/16 22:00 11/18/16 16:38 DC 11/18/16 14:09 100 MLS/HR Prednisone (Prednisone) 40 mg DAILY 11/17/16 14:00 11/19/16 10:09 40 MG Sodium Chloride 1,000 ml @ 400 mls/hr Q2H30M PRN 11/17/16 14:00 11/17/16 21:00 DC Sodium Chloride (Normal Saline Flush) 10 ml 1X PRN PRN 11/17/16 14:00 11/17/16 21:00 DC Tramadol HCl (Ultram) 50 mg PRN Q6HRS PRN 11/18/16 13:15 Vancomycin HCl 1 each 1X ONCE 11/19/16 12:00 11/19/16 12:01 DC Vancomycin HCl (Vanco Per Pharmacy) 1 each PRN DAILY PRN 11/17/16 10:30 11/18/16 16:32 1 EACH Vancomycin HCl 1.5 gm/Sodium Chloride 500 ml @ 250 mls/hr ONCE ONCE 11/17/16 10:30 11/17/16 12:29 DC 11/17/16 12:36 250 MLS/HR Vancomycin HCl 1 gm/Sodium Chloride 250 ml @ 250 mls/hr 1X ONCE 11/18/16 17:00 11/18/16 17:59 DC 11/18/16 18:00 250 MLS/HR Venlafaxine HCl (Effexor) 50 mg TID 11/17/16 14:00 11/19/16 10:09 50 MG Vitamin B Complex/ Vitamin C (Radha-Fay) 1 tab DAILY 11/18/16 09:00 11/19/16 10:09 1 TAB Lab Laboratory Tests Test 11/19/16 09:00 11/19/16 11:45 White Blood Count 7.5 x10^3/uL (4.0-11.0) Red Blood Count 3.59 x10^6/uL (3.50-5.40) Hemoglobin 9.7 g/dL (12.0-15.5) Hematocrit 30.9 % (36.0-47.0) Mean Corpuscular Volume 86 fL (79-100) Mean Corpuscular Hemoglobin 27 pg (25-35) Mean Corpuscular Hemoglobin Concent 32 g/dL (31-37) Red Cell Distribution Width 16.6 % (11.5-14.5) Platelet Count 119 x10^3/uL (140-400) Neutrophils (%) (Auto) 74 % (31-73) Lymphocytes (%) (Auto) 18 % (24-48) Monocytes (%) (Auto) 6 % (0-9) Eosinophils (%) (Auto) 0 % (0-3) Basophils (%) (Auto) 1 % (0-3) Neutrophils # (Auto) 5.6 x10^3uL (1.8-7.7) Lymphocytes # (Auto) 1.4 x10^3/uL (1.0-4.8) Monocytes # (Auto) 0.5 x10^3/uL (0.0-1.1) Eosinophils # (Auto) 0.0 x10^3/uL (0.0-0.7) Basophils # (Auto) 0.1 x10^3/uL (0.0-0.2) Sodium Level 139 mmol/L (136-145) Potassium Level 3.9 mmol/L (3.5-5.1) Chloride Level 101 mmol/L (98-107) Carbon Dioxide Level 27 mmol/L (21-32) Anion Gap 11 (6-14) Blood Urea Nitrogen 43 mg/dL (7-20) Creatinine 5.2 mg/dL (0.6-1.0) Estimated GFR (Cockcroft-Gault) 8.3 Glucose Level 96 mg/dL (70-99) Calcium Level 9.0 mg/dL (8.5-10.1) Random Vancomycin Level 15.5 mcg/mL HERB KEYS MD Nov 19, 2016 13:04
[2016-11-19] MEDS: PANTOPRAZOLE 40 MG TABLET.DR. PO SCH (13:13)
[2016-11-19] MEDS: HYDROcodone/APAP 5/325MG 1 TAB TABLET PO PRN (13:14)
--- NOTE | 2016-11-19 14:19 | PDOC ---
PROGRESS NOTES Chief Complaint Chief Complaint cute hypoxic respiratory failure ASSESSMENT AND PLAN: 1. CHF: with fluid overload after missing HD. manage with UF/HD. rpt echo: previous in 02/2016 with nl systolic and diastolic fxn. 2. ESRD: cont HD. Dr Bettencourt following 3. COPD exacerbation: prob brought on by viral URI. stop Abx. cont steroids for 2 more days 4. HTN/HLD: cont home regimen 5. GERD: PPI 6. Constipation 7. Fibromyalgia: chronic, stable 8. Prohylaxis: heparin SQ History of Present Illness History of Present Illness feels much better. thirsty Vitals Vitals Vital Signs Date Time Temp Pulse Resp B/P (MAP) Pulse Ox O2 Delivery O2 Flow Rate FiO2 11/19/16 12:31 97.2 69 20 112/59 (76) 95 Nasal Cannula 97.2 11/19/16 12:00 2.0 Physical Exam General: Alert, Oriented X3, Cooperative, No acute distress Heart: Regular rate Lungs: Clear Abdomen: Normal bowel sounds, Soft, No tenderness Extremities: No edema Skin: No rashes Labs LABS Laboratory Tests Test 11/19/16 09:00 11/19/16 11:45 White Blood Count 7.5 x10^3/uL (4.0-11.0) Red Blood Count 3.59 x10^6/uL (3.50-5.40) Hemoglobin 9.7 g/dL (12.0-15.5) Hematocrit 30.9 % (36.0-47.0) Mean Corpuscular Volume 86 fL (79-100) Mean Corpuscular Hemoglobin 27 pg (25-35) Mean Corpuscular Hemoglobin Concent 32 g/dL (31-37) Red Cell Distribution Width 16.6 % (11.5-14.5) Platelet Count 119 x10^3/uL (140-400) Neutrophils (%) (Auto) 74 % (31-73) Lymphocytes (%) (Auto) 18 % (24-48) Monocytes (%) (Auto) 6 % (0-9) Eosinophils (%) (Auto) 0 % (0-3) Basophils (%) (Auto) 1 % (0-3) Neutrophils # (Auto) 5.6 x10^3uL (1.8-7.7) Lymphocytes # (Auto) 1.4 x10^3/uL (1.0-4.8) Monocytes # (Auto) 0.5 x10^3/uL (0.0-1.1) Eosinophils # (Auto) 0.0 x10^3/uL (0.0-0.7) Basophils # (Auto) 0.1 x10^3/uL (0.0-0.2) Sodium Level 139 mmol/L (136-145) Potassium Level 3.9 mmol/L (3.5-5.1) Chloride Level 101 mmol/L (98-107) Carbon Dioxide Level 27 mmol/L (21-32) Anion Gap 11 (6-14) Blood Urea Nitrogen 43 mg/dL (7-20) Creatinine 5.2 mg/dL (0.6-1.0) Estimated GFR (Cockcroft-Gault) 8.3 Glucose Level 96 mg/dL (70-99) Calcium Level 9.0 mg/dL (8.5-10.1) Random Vancomycin Level 15.5 mcg/mL WESTLEY GOLDEN MD Nov 19, 2016 14:19
--- NOTE | 2016-11-19 14:42 | PDOC ---
PULMONARY PROGRESS NOTES Subjective pt with cough Vitals Vital Signs Date Time Temp Pulse Resp B/P (MAP) Pulse Ox O2 Delivery O2 Flow Rate FiO2 11/19/16 12:31 97.2 69 20 112/59 (76) 95 Nasal Cannula 97.2 11/19/16 12:00 2.0 ROS: No Nausea, No Chest Pain, No Abdominal Pain HEENT: Other Lungs: Clear Cardiovascular: S1, S2 Abdomen: Soft Neuro Exam: Alert Extremities: No Edema Skin: Warm Labs Laboratory Tests Test 11/17/16 15:50 11/17/16 23:23 11/18/16 04:00 11/18/16 04:30 Troponin I Quantitative 0.052 ng/mL (0.000-0.055) 0.060 ng/mL (0.000-0.055) Hepatitis B Surface Antigen Negative (Negative) Hepatitis B Surface Antibody Non reactive (.) Random Vancomycin Level 1.0 mcg/mL White Blood Count 6.0 x10^3/uL (4.0-11.0) Red Blood Count 3.76 x10^6/uL (3.50-5.40) Hemoglobin 10.3 g/dL (12.0-15.5) Hematocrit 31.4 % (36.0-47.0) Mean Corpuscular Volume 84 fL (79-100) Mean Corpuscular Hemoglobin 28 pg (25-35) Mean Corpuscular Hemoglobin Concent 33 g/dL (31-37) Red Cell Distribution Width 16.6 % (11.5-14.5) Platelet Count 121 x10^3/uL (140-400) Neutrophils (%) (Auto) 94 % (31-73) Lymphocytes (%) (Auto) 4 % (24-48) Monocytes (%) (Auto) 2 % (0-9) Eosinophils (%) (Auto) 0 % (0-3) Basophils (%) (Auto) 1 % (0-3) Neutrophils # (Auto) 5.6 x10^3uL (1.8-7.7) Lymphocytes # (Auto) 0.2 x10^3/uL (1.0-4.8) Monocytes # (Auto) 0.1 x10^3/uL (0.0-1.1) Eosinophils # (Auto) 0.0 x10^3/uL (0.0-0.7) Basophils # (Auto) 0.0 x10^3/uL (0.0-0.2) Sodium Level 141 mmol/L (136-145) Potassium Level 3.6 mmol/L (3.5-5.1) Chloride Level 102 mmol/L (98-107) Carbon Dioxide Level 30 mmol/L (21-32) Anion Gap 9 (6-14) Blood Urea Nitrogen 17 mg/dL (7-20) Creatinine 2.7 mg/dL (0.6-1.0) Estimated GFR (Cockcroft-Gault) 17.6 Glucose Level 112 mg/dL (70-99) Calcium Level 9.3 mg/dL (8.5-10.1) Magnesium Level 2.1 mg/dL (1.8-2.4) Test 11/19/16 09:00 11/19/16 11:45 White Blood Count 7.5 x10^3/uL (4.0-11.0) Red Blood Count 3.59 x10^6/uL (3.50-5.40) Hemoglobin 9.7 g/dL (12.0-15.5) Hematocrit 30.9 % (36.0-47.0) Mean Corpuscular Volume 86 fL (79-100) Mean Corpuscular Hemoglobin 27 pg (25-35) Mean Corpuscular Hemoglobin Concent 32 g/dL (31-37) Red Cell Distribution Width 16.6 % (11.5-14.5) Platelet Count 119 x10^3/uL (140-400) Neutrophils (%) (Auto) 74 % (31-73) Lymphocytes (%) (Auto) 18 % (24-48) Monocytes (%) (Auto) 6 % (0-9) Eosinophils (%) (Auto) 0 % (0-3) Basophils (%) (Auto) 1 % (0-3) Neutrophils # (Auto) 5.6 x10^3uL (1.8-7.7) Lymphocytes # (Auto) 1.4 x10^3/uL (1.0-4.8) Monocytes # (Auto) 0.5 x10^3/uL (0.0-1.1) Eosinophils # (Auto) 0.0 x10^3/uL (0.0-0.7) Basophils # (Auto) 0.1 x10^3/uL (0.0-0.2) Sodium Level 139 mmol/L (136-145) Potassium Level 3.9 mmol/L (3.5-5.1) Chloride Level 101 mmol/L (98-107) Carbon Dioxide Level 27 mmol/L (21-32) Anion Gap 11 (6-14) Blood Urea Nitrogen 43 mg/dL (7-20) Creatinine 5.2 mg/dL (0.6-1.0) Estimated GFR (Cockcroft-Gault) 8.3 Glucose Level 96 mg/dL (70-99) Calcium Level 9.0 mg/dL (8.5-10.1) Random Vancomycin Level 15.5 mcg/mL Laboratory Tests Test 11/19/16 09:00 11/19/16 11:45 White Blood Count 7.5 x10^3/uL (4.0-11.0) Red Blood Count 3.59 x10^6/uL (3.50-5.40) Hemoglobin 9.7 g/dL (12.0-15.5) Hematocrit 30.9 % (36.0-47.0) Mean Corpuscular Volume 86 fL (79-100) Mean Corpuscular Hemoglobin 27 pg (25-35) Mean Corpuscular Hemoglobin Concent 32 g/dL (31-37) Red Cell Distribution Width 16.6 % (11.5-14.5) Platelet Count 119 x10^3/uL (140-400) Neutrophils (%) (Auto) 74 % (31-73) Lymphocytes (%) (Auto) 18 % (24-48) Monocytes (%) (Auto) 6 % (0-9) Eosinophils (%) (Auto) 0 % (0-3) Basophils (%) (Auto) 1 % (0-3) Neutrophils # (Auto) 5.6 x10^3uL (1.8-7.7) Lymphocytes # (Auto) 1.4 x10^3/uL (1.0-4.8) Monocytes # (Auto) 0.5 x10^3/uL (0.0-1.1) Eosinophils # (Auto) 0.0 x10^3/uL (0.0-0.7) Basophils # (Auto) 0.1 x10^3/uL (0.0-0.2) Sodium Level 139 mmol/L (136-145) Potassium Level 3.9 mmol/L (3.5-5.1) Chloride Level 101 mmol/L (98-107) Carbon Dioxide Level 27 mmol/L (21-32) Anion Gap 11 (6-14) Blood Urea Nitrogen 43 mg/dL (7-20) Creatinine 5.2 mg/dL (0.6-1.0) Estimated GFR (Cockcroft-Gault) 8.3 Glucose Level 96 mg/dL (70-99) Calcium Level 9.0 mg/dL (8.5-10.1) Random Vancomycin Level 15.5 mcg/mL Medications Active Scripts Medications Dose Route/Sig Max Daily Dose Days Date Category Duoneb 0.5-3(2.5) Mg/3 Ml (Albuterol/Ipratropium) 3 Ml Ampul.neb 3 Ml NEB QID PRN 10/04/16 Rx Albuterol Sulfate Neb Soln (Albuterol Sulfate) 2.5 Mg/3 Ml Vial.neb 2.5 Mg NEB PRN Q4HRS PRN 30 03/18/16 Rx Nystop (Nystatin) 60 Gm Powder 1 Jesus TP BID 03/18/16 Rx Folic Acid 1 Mg Tablet 1 Tab PO BID 01/14/16 Reported Levetiracetam 500 Mg Tablet 500 Mg PO BID 01/14/16 Reported Vitamin D2 (Ergocalciferol (Vitamin D2)) 50,000 Unit Capsule 1 Cap PO WEEKLY 01/14/16 Reported [place] 5-325 Tablet (Acetaminophen/Hydrocodone Bitart) 1 Each Tablet 1 Tab PO PRN Q6HRS PRN 10/12/15 Rx Nystatin-Triamcinolone Ointm (Nystatin/Triamcin) 30 Gm Oint...g. 30 Gm TP BID 05/20/13 Reported Venlafaxine Hcl Er (Venlafaxine Hcl) 150 Mg Cap.er.24h 150 Mg PO DAILY 05/20/13 Reported Plavix (Clopidogrel Bisulfate) 75 Mg Tablet 75 Mg PO DAILY 05/20/13 Reported Duoneb 0.5 Mg-3 Mg/3 Ml Soln (Ipratropium/Albuterol Sulfate) 3 Ml Ampul.neb 3 Ml IH Q6HRS 4/8/14 Reported Ditropan Xl (Oxybutynin Chloride) 5 Mg Tab.er.24 5 Mg PO DAILY 05/20/13 Reported Impression . IMPRESSION: 1. Acute on chronic hypoxemic respiratory failure. 2. Acute exacerbation of chronic obstructive pulmonary disease. 3. Acute pulmonary edema. 4. Bilateral pulmonary infiltrates compatible with edema. 5. Elevated troponin, suspect as a result of hypoxemia and increased work of breathing. 6. Cough Plan . add tessalon perles 1. Continue negative fluid balance with dialysis. 2. Steroids for acute exacerbation of COPD. 3. No need for antibiotics. 4. Deep vein thrombosis prophylaxis. 5. Follow Nephrology input. 6. The patient instructed on the importance of discontinuing her tobacco use. ASIA BACH MD Nov 19, 2016 14:42
[2016-11-19 15:55] VITALS: BP 121/68
[2016-11-19 17:28] LABS: BASO % 0 % (0-3); EOS % 0 % (0-3); HEMOGLOBIN 10.4 g/dL (12.0-15.5); LYMPH # 0.3 x10^3/uL (1.0-4.8); LYMPH % 5 % (24-48); MEAN CORPUSCULAR HEMOGLOBIN 27 pg (25-35); MEAN CORPUSCULAR HGB CONC 32 g/dL (31-37); MEAN CORPUSCULAR VOLUME 85 fL (79-100); MONO % 1 % (0-9); NEUT % 93 % (31-73); PLATELET COUNT 128 x10^3/uL (140-400); RED BLOOD COUNT 3.87 x10^6/uL (3.50-5.40); RED CELL DISTRIBUTION WIDTH 16.5 % (11.5-14.5); WHITE BLOOD COUNT 6.3 x10^3/uL (4.0-11.0)
[2016-11-19 17:40] LABS: CALCIUM 9.4 mg/dL (8.5-10.1); POTASSIUM 4.6 mmol/L (3.5-5.1)
[2016-11-19 17:51] LABS: PLT ESTIMATE DECREASED (ADEQUATE); POLYCHROMASIA SLIGHT; TOXIC GRANULATION SLIGHT
[2016-11-19] MEDS: BENZONATATE 100 MG CAPSULE. PO SCH ×2 (18:40→21:24)
[2016-11-19 19:00] VITALS: BP 117/64
[2016-11-19] MEDS: ATORVASTATIN CALCIUM 20 MG TABLET PO SCH (21:24)
[2016-11-19 23:10] VITALS: BP 137/75
[2016-11-20] MEDS: traMADol 50 MG TABLET PO SCH ×5 (00:18→17:48)
[2016-11-20 03:00] VITALS: BP 136/82
[2016-11-20] MEDS: HEPARIN PF for SUB-Q USE 5,000 UNIT/0.5 ML VIAL. SQ SCH ×3 (06:02→22:02)
[2016-11-20 07:00] VITALS: BP 139/87
[2016-11-20] MEDS: IPRATRPIUM/ALBUTEROL 0.5/2.5MG 3 ML NEBU. NEB SCH ×4 (07:56→19:54)
[2016-11-20] MEDS: BUDESONIDE 0.5 MG/2 ML NEBU. NEB SCH ×2 (07:57→19:54)
[2016-11-20] MEDS: NYSTATIN TOPICAL POWDER 15GM BOTTLE. TP SCH ×2 (09:00→21:54)
[2016-11-20] MEDS: NYSTATIN/TRIAMCIN TOPICAL CREAM 15GM TUBE. TP SCH ×2 (09:00→21:00)
[2016-11-20] MEDS: OXYBUTYNIN CHLORIDE 5 MG TABLET PO SCH ×2 (09:03→21:50)
[2016-11-20] MEDS: CLOPIDOGREL BISULFATE 75 MG TABLET PO SCH (09:03)
[2016-11-20] MEDS: VENLAFAXINE 50 MG TABLET. PO SCH ×3 (09:03→21:50)
[2016-11-20] MEDS: PANTOPRAZOLE 40 MG TABLET.DR. PO SCH (09:03)
[2016-11-20] MEDS: BENZONATATE 100 MG CAPSULE. PO SCH ×3 (09:03→21:51)
[2016-11-20] MEDS: levETIRAcetam 500 MG TABLET PO SCH ×2 (09:03→21:51)
[2016-11-20] MEDS: FOLIC/VIT B COMP W-C (RENAL) TABLET. PO SCH (09:04)
[2016-11-20] MEDS: predniSONE 20 MG TABLET PO SCH (09:04)
--- NOTE | 2016-11-20 10:10 | PDOC ---
PROGRESS NOTES Chief Complaint Chief Complaint Acute hypoxic respiratory failure ASSESSMENT AND PLAN: 1. CHF: with fluid overload after missing HD. manage with UF/HD, due today. rpt echo: moderate to moderately severe eccentric mitral regurgitation. 2. ESRD: cont HD. Dr Bettencourt following 3. COPD exacerbation: prob brought on by viral URI. stop Abx. cont steroids for 2 more days 4. HTN/HLD: cont home regimen 5. GERD: PPI 6. Constipation: resolved 7. Fibromyalgia: chronic, stable 8. Prohylaxis: heparin SQ History of Present Illness History of Present Illness in HD. no c/o Vitals Vitals Vital Signs Date Time Temp Pulse Resp B/P (MAP) Pulse Ox O2 Delivery O2 Flow Rate FiO2 11/20/16 08:04 Room Air 2.0 11/20/16 08:01 100 11/20/16 07:00 97.6 86 20 139/87 (104) 97.6 Physical Exam General: Alert, Oriented X3, Cooperative, No acute distress Heart: Regular rate Lungs: Clear Abdomen: Normal bowel sounds, Soft, No tenderness Extremities: No edema Skin: No rashes Labs LABS Laboratory Tests Test 11/19/16 11:45 11/19/16 17:15 Random Vancomycin Level 15.5 mcg/mL White Blood Count 6.3 x10^3/uL (4.0-11.0) Red Blood Count 3.87 x10^6/uL (3.50-5.40) Hemoglobin 10.4 g/dL (12.0-15.5) Hematocrit 33.0 % (36.0-47.0) Mean Corpuscular Volume 85 fL (79-100) Mean Corpuscular Hemoglobin 27 pg (25-35) Mean Corpuscular Hemoglobin Concent 32 g/dL (31-37) Red Cell Distribution Width 16.5 % (11.5-14.5) Platelet Count 128 x10^3/uL (140-400) Neutrophils (%) (Auto) 93 % (31-73) Lymphocytes (%) (Auto) 5 % (24-48) Monocytes (%) (Auto) 1 % (0-9) Eosinophils (%) (Auto) 0 % (0-3) Basophils (%) (Auto) 0 % (0-3) Neutrophils # (Auto) 5.9 x10^3uL (1.8-7.7) Lymphocytes # (Auto) 0.3 x10^3/uL (1.0-4.8) Monocytes # (Auto) 0.1 x10^3/uL (0.0-1.1) Eosinophils # (Auto) 0.0 x10^3/uL (0.0-0.7) Basophils # (Auto) 0.0 x10^3/uL (0.0-0.2) Segmented Neutrophils % 91 % (35-66) Band Neutrophils % 2 % (0-9) Lymphocytes % 5 % (24-48) Monocytes % 2 % (0-10) Toxic Granulation Slight Platelet Estimate Decreased (ADEQUATE) Polychromasia Slight Sodium Level 138 mmol/L (136-145) Potassium Level 4.6 mmol/L (3.5-5.1) Chloride Level 99 mmol/L (98-107) Carbon Dioxide Level 26 mmol/L (21-32) Anion Gap 13 (6-14) Blood Urea Nitrogen 48 mg/dL (7-20) Creatinine 6.0 mg/dL (0.6-1.0) Estimated GFR (Cockcroft-Gault) 7.0 Glucose Level 122 mg/dL (70-99) Calcium Level 9.4 mg/dL (8.5-10.1) WESTLEY GOLDEN MD Nov 20, 2016 10:10
[2016-11-20] MEDS ORDERED: ALBUMIN HUMAN 25% 100 ML IV ONE ×2 (11:15)
--- NOTE | 2016-11-20 11:55 | PDOC ---
Renal-Progress Notes Subjective Notes Notes STILL SOB History of Present Illness Hx of present illness STABLE Vitals Vitals Vital Signs Date Time Temp Pulse Resp B/P (MAP) Pulse Ox O2 Delivery O2 Flow Rate FiO2 11/20/16 08:04 Room Air 2.0 11/20/16 08:01 100 11/20/16 07:00 97.6 86 20 139/87 (104) 97.6 Weight Weight [ ] Labs Labs Laboratory Tests Test 11/19/16 17:15 White Blood Count 6.3 x10^3/uL (4.0-11.0) Red Blood Count 3.87 x10^6/uL (3.50-5.40) Hemoglobin 10.4 g/dL (12.0-15.5) Hematocrit 33.0 % (36.0-47.0) Mean Corpuscular Volume 85 fL (79-100) Mean Corpuscular Hemoglobin 27 pg (25-35) Mean Corpuscular Hemoglobin Concent 32 g/dL (31-37) Red Cell Distribution Width 16.5 % (11.5-14.5) Platelet Count 128 x10^3/uL (140-400) Neutrophils (%) (Auto) 93 % (31-73) Lymphocytes (%) (Auto) 5 % (24-48) Monocytes (%) (Auto) 1 % (0-9) Eosinophils (%) (Auto) 0 % (0-3) Basophils (%) (Auto) 0 % (0-3) Neutrophils # (Auto) 5.9 x10^3uL (1.8-7.7) Lymphocytes # (Auto) 0.3 x10^3/uL (1.0-4.8) Monocytes # (Auto) 0.1 x10^3/uL (0.0-1.1) Eosinophils # (Auto) 0.0 x10^3/uL (0.0-0.7) Basophils # (Auto) 0.0 x10^3/uL (0.0-0.2) Segmented Neutrophils % 91 % (35-66) Band Neutrophils % 2 % (0-9) Lymphocytes % 5 % (24-48) Monocytes % 2 % (0-10) Toxic Granulation Slight Platelet Estimate Decreased (ADEQUATE) Polychromasia Slight Sodium Level 138 mmol/L (136-145) Potassium Level 4.6 mmol/L (3.5-5.1) Chloride Level 99 mmol/L (98-107) Carbon Dioxide Level 26 mmol/L (21-32) Anion Gap 13 (6-14) Blood Urea Nitrogen 48 mg/dL (7-20) Creatinine 6.0 mg/dL (0.6-1.0) Estimated GFR (Cockcroft-Gault) 7.0 Glucose Level 122 mg/dL (70-99) Calcium Level 9.4 mg/dL (8.5-10.1) Micro Micro Microbiology 11/17/16 Blood Culture - Preliminary, Resulted NO GROWTH AFTER 2 DAYS Review of Systems Constitutional: yes: weakness, oriented Ears/Nose/Throat: Yes: no symptom reported Eyes: Yes: no symptom reported Pulmonary: Yes cough dry, Yes dyspnea Cardiovascular: Yes no symptom reported Gastrointestional: Yes: constipation Genitourinary: Yes: no symptom reported Musculoskeletal: Yes: muscle stiffness Skin: Yes no symptom reported Psychiatric/Neurological: Yes: no symptom reported Physical Exam General Appearance: no apparent distress Skin: warm Respiratory: decreased breath sounds Heart: S1S2, RRR Abdomen: soft, bowel sounds present Genitourinary: bladder flat Extremities: pulses present Neurology: alert, oriented Assessment Assessment IMP ESRD PL EFFUSION ANEMIA CHF HTN PLAN HD TODAY UF [facility] VERITO CHAPPELL MD Nov 20, 2016 11:55
[2016-11-20] MEDS ORDERED: DIALYSIS PATIENT. MC PRN ×2 (12:00)
[2016-11-20] MEDS: HYDROcodone/APAP 5/325MG 1 TAB TABLET PO PRN ×2 (14:28→22:07)
[2016-11-20 15:00] VITALS: BP 136/78
[2016-11-20 16:18] VITALS: BP 136/78
--- NOTE | 2016-11-20 17:22 | PDOC ---
PULMONARY PROGRESS NOTES Subjective pt with cough Vitals Vital Signs Date Time Temp Pulse Resp B/P (MAP) Pulse Ox O2 Delivery O2 Flow Rate FiO2 11/20/16 16:18 97.6 97 20 136/78 (97) 98 Nasal Cannula 2.0 97.6 ROS: No Nausea, No Chest Pain, No Abdominal Pain HEENT: Other Lungs: Clear Cardiovascular: S1, S2 Abdomen: Soft Neuro Exam: Alert Extremities: No Edema Skin: Warm Labs Laboratory Tests Test 11/19/16 09:00 11/19/16 11:45 11/19/16 17:15 White Blood Count 7.5 x10^3/uL (4.0-11.0) 6.3 x10^3/uL (4.0-11.0) Red Blood Count 3.59 x10^6/uL (3.50-5.40) 3.87 x10^6/uL (3.50-5.40) Hemoglobin 9.7 g/dL (12.0-15.5) 10.4 g/dL (12.0-15.5) Hematocrit 30.9 % (36.0-47.0) 33.0 % (36.0-47.0) Mean Corpuscular Volume 86 fL (79-100) 85 fL (79-100) Mean Corpuscular Hemoglobin 27 pg (25-35) 27 pg (25-35) Mean Corpuscular Hemoglobin Concent 32 g/dL (31-37) 32 g/dL (31-37) Red Cell Distribution Width 16.6 % (11.5-14.5) 16.5 % (11.5-14.5) Platelet Count 119 x10^3/uL (140-400) 128 x10^3/uL (140-400) Neutrophils (%) (Auto) 74 % (31-73) 93 % (31-73) Lymphocytes (%) (Auto) 18 % (24-48) 5 % (24-48) Monocytes (%) (Auto) 6 % (0-9) 1 % (0-9) Eosinophils (%) (Auto) 0 % (0-3) 0 % (0-3) Basophils (%) (Auto) 1 % (0-3) 0 % (0-3) Neutrophils # (Auto) 5.6 x10^3uL (1.8-7.7) 5.9 x10^3uL (1.8-7.7) Lymphocytes # (Auto) 1.4 x10^3/uL (1.0-4.8) 0.3 x10^3/uL (1.0-4.8) Monocytes # (Auto) 0.5 x10^3/uL (0.0-1.1) 0.1 x10^3/uL (0.0-1.1) Eosinophils # (Auto) 0.0 x10^3/uL (0.0-0.7) 0.0 x10^3/uL (0.0-0.7) Basophils # (Auto) 0.1 x10^3/uL (0.0-0.2) 0.0 x10^3/uL (0.0-0.2) Sodium Level 139 mmol/L (136-145) 138 mmol/L (136-145) Potassium Level 3.9 mmol/L (3.5-5.1) 4.6 mmol/L (3.5-5.1) Chloride Level 101 mmol/L (98-107) 99 mmol/L (98-107) Carbon Dioxide Level 27 mmol/L (21-32) 26 mmol/L (21-32) Anion Gap 11 (6-14) 13 (6-14) Blood Urea Nitrogen 43 mg/dL (7-20) 48 mg/dL (7-20) Creatinine 5.2 mg/dL (0.6-1.0) 6.0 mg/dL (0.6-1.0) Estimated GFR (Cockcroft-Gault) 8.3 7.0 Glucose Level 96 mg/dL (70-99) 122 mg/dL (70-99) Calcium Level 9.0 mg/dL (8.5-10.1) 9.4 mg/dL (8.5-10.1) Cortisol AM Sample 3.9 ug/dL (6.2-19.4) Random Vancomycin Level 15.5 mcg/mL Segmented Neutrophils % 91 % (35-66) Band Neutrophils % 2 % (0-9) Lymphocytes % 5 % (24-48) Monocytes % 2 % (0-10) Toxic Granulation Slight Platelet Estimate Decreased (ADEQUATE) Polychromasia Slight Medications Active Scripts Medications Dose Route/Sig Max Daily Dose Days Date Category Duoneb 0.5-3(2.5) Mg/3 Ml (Albuterol/Ipratropium) 3 Ml Ampul.neb 3 Ml NEB QID PRN 10/04/16 Rx Albuterol Sulfate Neb Soln (Albuterol Sulfate) 2.5 Mg/3 Ml Vial.neb 2.5 Mg NEB PRN Q4HRS PRN 30 03/18/16 Rx Nystop (Nystatin) 60 Gm Powder 1 Jesus TP BID 03/18/16 Rx Folic Acid 1 Mg Tablet 1 Tab PO BID 01/14/16 Reported Levetiracetam 500 Mg Tablet 500 Mg PO BID 01/14/16 Reported Vitamin D2 (Ergocalciferol (Vitamin D2)) 50,000 Unit Capsule 1 Cap PO WEEKLY 01/14/16 Reported [place] 5-325 Tablet (Acetaminophen/Hydrocodone Bitart) 1 Each Tablet 1 Tab PO PRN Q6HRS PRN 10/12/15 Rx Nystatin-Triamcinolone Ointm (Nystatin/Triamcin) 30 Gm Oint...g. 30 Gm TP BID 05/20/13 Reported Venlafaxine Hcl Er (Venlafaxine Hcl) 150 Mg Cap.er.24h 150 Mg PO DAILY 05/20/13 Reported Plavix (Clopidogrel Bisulfate) 75 Mg Tablet 75 Mg PO DAILY 05/20/13 Reported Duoneb 0.5 Mg-3 Mg/3 Ml Soln (Ipratropium/Albuterol Sulfate) 3 Ml Ampul.neb 3 Ml IH Q6HRS 05/20/13 Reported Ditropan Xl (Oxybutynin Chloride) 5 Mg Tab.er.24 5 Mg PO DAILY 05/20/13 Reported Impression . IMPRESSION: 1. Acute on chronic hypoxemic respiratory failure. 2. Acute exacerbation of chronic obstructive pulmonary disease. 3. Acute pulmonary edema. 4. Bilateral pulmonary infiltrates compatible with edema. 5. Elevated troponin, suspect as a result of hypoxemia and increased work of breathing. 6. Cough Plan . add tessalon perles COUGH NOT BETTER AWAITING SPEECH 1. Continue negative fluid balance with dialysis. 2. Steroids for acute exacerbation of COPD. 3. No need for antibiotics. 4. Deep vein thrombosis prophylaxis. 5. Follow Nephrology input. 6. The patient instructed on the importance of discontinuing her tobacco use. ASIA BACH MD Nov 20, 2016 17:22
--- NOTE | 2016-11-20 17:37 | CARD ---
APPROVED REPORT EXAM: Two-dimensional and M-mode echocardiogram with Doppler and color Doppler. Other Information Quality : Fair Rhythm : NSR INDICATION Congestive Heart Failure 2D DIMENSIONS RVDd3.1 (2.9-3.5cm)Left Atrium(2D)3.5 (1.6-4.0cm) IVSd1.1 (0.7-1.1cm)Aortic Root(2D)2.6 (2.0-3.7cm) LVDd4.3 (3.9-5.9cm)LVOT Diameter2.0 (1.8-2.4cm) PWd1.1 (0.7-1.1cm)LVDs3.2 (2.5-4.0cm) FS (%) 25.7 %SV42.7 ml LVEF(%)50.9 (>50%) Aortic Valve AoV Peak Fco.102.1cm/sAoV VTI18.9cm AO Peak GR.4.2mmHgLVOT VTI 12.27cm AO Mean GR.3mmHgAVA (VTI)1.94cm2 Mitral Valve MV E Ailevogt763.4cm/sMV E Peak Gr.132mmHg MV DECEL JRAY380msGH A Krkleabc23.0cm/s MV GJO44xdW/A Ratio1.8 MV A Ahnejfse573zjURM (PHT)5.00cm2 Tricuspid Valve TR P. Jslfqiqr462no/sRAP FLTGCWTM8ozEq TR Peak Gr.01ygOjBJNB91kxHb LEFT VENTRICLE The left ventricle is normal size. There is normal left ventricular wall thickness. Left ventricle sy stolic function is low normal. The Ejection Fraction is 50-55%. There is normal LV segmental wall mot ion. The left ventricular diastolic function and filling is normal for age. RIGHT VENTRICLE The right ventricle is normal size. The right ventricular systolic function is normal. ATRIA The left atrium size is normal. The right atrium size is normal. The interatrial septum is intact wit h no evidence for an atrial septal defect or patent foramen ovale as noted on 2-D or Doppler imaging. AORTIC VALVE The aortic valve is not well visualized. Doppler and Color Flow revealed no significant aortic regurg itation. There is no significant aortic valvular stenosis. MITRAL VALVE Mitral annular calcification is moderate. The posterior mitral valve leaflet appears fixed. There is no mitral valve stenosis. Doppler and Color Flow revealed moderate to moderately severe eccentric esha ral regurgitation. TRICUSPID VALVE The tricuspid valve is normal in structure. Doppler and Color Flow revealed mild to moderate tricuspi d regurgitation. The PA pressure was estimated at 43 mmHg. There is no tricuspid valve stenosis. PULMONIC VALVE The pulmonic valve is not well visualized. Doppler and Color Flow revealed no pulmonic valvular regur gitation. There is no pulmonic valvular stenosis. GREAT VESSELS The aortic root is normal in size. The IVC is dilated and collapses >50% with inspiration. PERICARDIAL EFFUSION There are bilateral pleural effusions. There is a trace pericardial effusion with no hemodynamic comp romise. Critical Notification Critical Value: No <Conclusion> The left ventricle is normal size. Left ventricle systolic function is low normal. The Ejection Fraction is 50-55%. There is no significant aortic valvular stenosis. Doppler and Color Flow revealed moderate to moderately severe eccentric mitral regurgitation. Doppler and Color Flow revealed mild to moderate tricuspid regurgitation. The PA pressure was estimated at 43 mmHg. There is a trace pericardial effusion with no hemodynamic compromise.
[2016-11-20 19:05] VITALS: BP 107/67
[2016-11-20] MEDS: ATORVASTATIN CALCIUM 20 MG TABLET PO SCH (21:51)
[2016-11-20 23:05] VITALS: BP 115/80
[2016-11-21 03:05] VITALS: BP 125/92
[2016-11-21] MEDS: traMADol 50 MG TABLET PO SCH ×3 (06:00→12:00)
[2016-11-21] MEDS: HEPARIN PF for SUB-Q USE 5,000 UNIT/0.5 ML VIAL. SQ SCH (06:25)
[2016-11-21 07:00] VITALS: BP 129/81
[2016-11-21] MEDS: IPRATRPIUM/ALBUTEROL 0.5/2.5MG 3 ML NEBU. NEB SCH ×3 (08:00→15:43)
[2016-11-21] MEDS: BUDESONIDE 0.5 MG/2 ML NEBU. NEB SCH (08:00)
--- NOTE | 2016-11-21 09:06 | PDOC ---
PROGRESS NOTES Chief Complaint Chief Complaint Acute hypoxic respiratory failure ASSESSMENT AND PLAN: 1. CHF: with fluid overload after missing HD. manage with UF/HD. rpt echo: previous in 02/2016 with nl systolic and diastolic fxn. 2. ESRD: cont HD. Dr Bettencourt following 3. COPD exacerbation: prob brought on by viral URI. stop steroids 4. Adrenal insufficieny?: low AM cortisol, but in setting of exogenous steroid dosing. will have to be repeated off Prednisone. 5. HTN/HLD: cont home regimen 6. GERD: PPI 7. Constipation 8. Fibromyalgia: chronic, stable 9. Prohylaxis: heparin SQ 10. Dispo: home w/ services (vs SNF); OT/PT eval today History of Present Illness History of Present Illness feels better, tired. no SOB or Cp, min cough Vitals Vitals Vital Signs Date Time Temp Pulse Resp B/P (MAP) Pulse Ox O2 Delivery O2 Flow Rate FiO2 11/21/16 08:11 99 Nasal Cannula 2.0 11/21/16 07:00 97.6 90 20 129/81 (97) 97.6 Physical Exam General: Alert, Oriented X3, Cooperative, No acute distress Heart: Regular rate Lungs: Clear Abdomen: Normal bowel sounds, Soft, No tenderness Extremities: No edema Skin: No rashes WESTLEY GOLDEN MD Nov 21, 2016 09:06
[2016-11-21] MEDS: BENZONATATE 100 MG CAPSULE. PO SCH (10:50)
[2016-11-21] MEDS: OXYBUTYNIN CHLORIDE 5 MG TABLET PO SCH (10:50)
[2016-11-21] MEDS: VENLAFAXINE 50 MG TABLET. PO SCH (10:50)
[2016-11-21] MEDS: levETIRAcetam 500 MG TABLET PO SCH (10:50)
[2016-11-21] MEDS: CLOPIDOGREL BISULFATE 75 MG TABLET PO SCH (10:50)
[2016-11-21] MEDS: PANTOPRAZOLE 40 MG TABLET.DR. PO SCH (10:51)
[2016-11-21] MEDS: predniSONE 20 MG TABLET PO SCH (10:51)
[2016-11-21 11:00] VITALS: BP 123/77
--- NOTE | 2016-11-21 11:53 | PDOC ---
Renal-Progress Notes Subjective Notes Notes BETTER History of Present Illness Hx of present illness STABLE Vitals Vitals Vital Signs Date Time Temp Pulse Resp B/P (MAP) Pulse Ox O2 Delivery O2 Flow Rate FiO2 11/21/16 11:00 97.6 90 20 123/77 (92) 97 Nasal Cannula 2.0 97.6 Weight Weight [ ] Micro Micro Microbiology 11/17/16 Blood Culture - Preliminary, Resulted NO GROWTH AFTER 3 DAYS Review of Systems Constitutional: yes: weakness, oriented Ears/Nose/Throat: Yes: no symptom reported Eyes: Yes: no symptom reported Pulmonary: Yes cough dry, Yes dyspnea Cardiovascular: Yes no symptom reported Gastrointestional: Yes: constipation Genitourinary: Yes: no symptom reported Musculoskeletal: Yes: muscle stiffness Skin: Yes no symptom reported Psychiatric/Neurological: Yes: no symptom reported Physical Exam General Appearance: no apparent distress Skin: warm Respiratory: decreased breath sounds Heart: S1S2, RRR Abdomen: soft, bowel sounds present Genitourinary: bladder flat Extremities: pulses present Neurology: alert, oriented Assessment Assessment IMP ESRD PL EFFUSION ANEMIA CHF HTN PLAN HD TOMORROW ENC FLUID LIMITS VERITO CHAPPELL MD Nov 21, 2016 11:53
[2016-11-21] MEDS ORDERED: PANT40TA5 PO (13:02)
[2016-11-21] MEDS ORDERED: BENZ100C15 PO (13:02)
[2016-11-21] MEDS ORDERED: TRAM50TA PO (13:02)
[2016-11-21] MEDS ORDERED: FOLI0.8T21 PO (13:02)
[2016-11-21] MEDS ORDERED: BARIUM SULFATE 40% (APPLE) 148 GM PWD. PO ONE (13:15)
--- NOTE | 2016-11-21 14:35 | RAD ---
Indication signs and symptoms of aspiration. With a member of the Department of speech pathology swallowing was evaluated. No fluoroscopic images were obtained with the examination. Fluoroscopy time associated with the study was 3.3 minutes. Initiation of swallowing was normal. With the swallowing of thin liquids there were occasional episodes of deep flash penetration. No roberth aspiration was seen. Solids and thick material was swallowed unremarkably. When the patient employed a chin tuck maneuver there was improvement in the penetration seen with thin liquids. See speech pathology notes for additional details. IMPRESSION: No evidence of aspiration. Occasional episodes of deep penetration with thin liquids. This improved when the patient employed a chin tuck maneuver
--- NOTE | 2016-11-23 00:22 | DS ---
DATE OF DISCHARGE: 11/21/2016 CHIEF COMPLAINT: Acute hypoxic respiratory failure. HOSPITAL COURSE: The patient is a 66-year-old woman, well known to our service, with a history of CHF as well as end-stage renal disease and frequent admissions for fluid overload. She had presented to the Emergency Room with shortness of breath, which was found to be secondary to fluid overload, as she had once again missed hemodialysis. This was managed with additional dialysis and ultrafiltration with rapid improvement of her respiratory symptoms. She did have a component of suspected COPD exacerbation, brought on by a viral upper respiratory infection. She was continued on steroids for 5 days and then stopped. All her other home medications were continued and no complications arose. Once again, the patient was deemed appropriate for SNF placement by OT/PT. She, however, declined and was therefore discharged to home with services. DISCHARGE DIAGNOSES: Congestive heart failure exacerbation, end-stage renal disease, COPD exacerbation. DISCHARGE DISPOSITION: To home with services. DISCHARGE CONDITION: Improved. DISCHARGE MEDICATIONS: Please refer to the MAR. DISCHARGE INSTRUCTIONS: The patient will follow up with dialysis and her PCP in 1-2 weeks. Greater than 30 minutes were spent in arranging her discharge. WESTLEY GOLDEN MD DR: UR/nts JOB#: [id number] / [id number] LUZ Wright MD
[2016-11-24] MEDS ORDERED: ERGOCALCIFEROL (VITAMIN D2) 50,000 UNIT CAPSULE. PO SCH (09:00)
== END 2016-11-21 16:00 | disposition home health service (06) | DRG 291 ==
LOC: ER 09:37 → 1 WEST ICU 10:58 → 6 SOUTH 11-18 16:45
PROVIDERS: ADMIT Internal Medicine; ATTEND Internal Medicine
PROC: 5A09457 Assistance with Respiratory Ventilation, 24-96 Consecutive Hours, Continuous Positive Airway Pressure (ICD-10-PCS; principal; 2016-11-17)
DX: I13.2 Hypertensive heart and chronic kidney disease with heart failure and with stage 5 chronic kidney disease, or end stage renal disease (principal); N18.6 End stage renal disease; J96.21 Acute and chronic respiratory failure with hypoxia; I50.23 Acute on chronic systolic (congestive) heart failure; J44.0 Chronic obstructive pulmonary disease with (acute) lower respiratory infection; R13.10 Dysphagia, unspecified; J44.1 Chronic obstructive pulmonary disease with (acute) exacerbation; J98.11 Atelectasis; D64.9 Anemia, unspecified; E78.5 Hyperlipidemia, unspecified; F17.200 Nicotine dependence, unspecified, uncomplicated; G47.33 Obstructive sleep apnea (adult) (pediatric); K21.9 Gastro-esophageal reflux disease without esophagitis; K59.00 Constipation, unspecified; M79.7 Fibromyalgia; E66.9 Obesity, unspecified; F32.9 Major depressive disorder, single episode, unspecified; F41.9 Anxiety disorder, unspecified; G89.29 Other chronic pain; Z82.3 Family history of stroke; Z82.49 Family history of ischemic heart disease and other diseases of the circulatory system; Z83.3 Family history of diabetes mellitus; Z86.73 Personal history of transient ischemic attack (TIA), and cerebral infarction without residual deficits; Z87.11 Personal history of peptic ulcer disease; Z91.19 Patient's noncompliance with other medical treatment and regimen; Z99.2 Dependence on renal dialysis; Z87.440 Personal history of urinary (tract) infections; Z98.49 Cataract extraction status, unspecified eye; Z90.49 Acquired absence of other specified parts of digestive tract
CPT/HCPCS: 36415; 36600; 71010; 74230; 80048; 80053; 80202; 82533; 82805; 83605; 83735; 84484; 85007; 85025; 86706; 87040; 87340; 87341; 87641; 93005; 93306; 94250; 94640; 94660; 94760; 96365; J0881; J1956; J2543; J3370; J7040; J7050; J7512; J7613; J7620; J7626; P9046; 92526; 92610; 92611; 97116; 97530; 97535; 99285-25; J7030

== ENCOUNTER 2016-12-24 09:47 | Inpatient (IN) | payer MEDICARE ==
[~2016-12-24] VITALS: Ht 167.6 cm; Wt 66.8 kg
[2016-12-24] VITALS (13 sets, daily range): BP systolic 83–133; BP diastolic 48–84
[~2016-12-24 09:47] MED LIST changes: +BENZ-8 PO; -BENZ100C15 PO; +FOLI0.8T21 PO; +PANT40TA5 PO
--- NOTE | 2016-12-24 09:59 | PHYS DOC ---
Past Medical History Past Medical History: CHF, Constipation, COPD, CVA, Depression, High Cholesterol, Hypertension, OR, Renal Failure, UTI Additional Past Medical Histor: dysphagia, obesity, HD, constipation, cataract , right shoulder fx, intubati Past Surgical History: Other Additional Past Surgical Histo: left wrist; back; carotid; dialysis shunt LEFT upper chest Alcohol Use: None Drug Use: None Adult General Chief Complaint Chief Complaint: SHORTNESS OF BREATH HPI HPI Patient is a 66 year old F who presents with increased shortness of breath and wheezing. Patient has significant COPD and is on dialysis who developed wheezing proximal a half hour prior to arrival. Patient is on 2 L days a cannula baseline. Patient called EMS for worsening shortness of breath and wheezing. When EMS got there patient was tachypnea with O2 saturation of 85% therefore they placed her on BiPAP and brought her to the emergency room. On BiPAP patient is oxygenating above 90% and is in no acute rest were distress. Patient denies any chest pain. Patient denies any fevers. Patient has no other complaints. Review of Systems Review of Systems GEN: Denies fevers, chills, sweats HEENT: Denies blurred vision, sore throat CV: Denies chest pain RESP: Wheezing GI: Denies n/v/d NEURO: Denies confusion, dizziness MSK: Denies weakness, joint pain/swelling All other systems were reviewed and found to be within normal limits, except as documented in this note. Current Medications Current Medications Current Medications Medications (Trade) Dose Ordered Sig/Negro Start Time Stop Time Status Last Admin Dose Admin Acetaminophen (Tylenol) 650 mg PRN Q4HRS PRN 12/24/16 10:45 12/25/16 10:44 Azithromycin 250 ml @ 250 mls/hr 1X ONCE 12/24/16 11:00 12/24/16 11:59 Benzonatate (Tessalon Perle) 100 mg PRN TID PRN 12/24/16 11:00 UNV Cefepime HCl 1 gm/ Dextrose 50 ml @ 100 mls/hr Q8HRS 12/24/16 14:00 UNV Ceftriaxone Sodium 50 ml @ 100 mls/hr 1X ONCE 12/24/16 11:00 12/24/16 11:29 Clopidogrel Bisulfate (Plavix) 75 mg DAILY 12/25/16 09:00 UNV Dexamethasone Sodium Phosphate (Decadron) 10 mg 1X ONCE 12/24/16 10:30 12/24/16 10:31 DC 12/24/16 10:30 10 MG Levofloxacin/ Dextrose (Levaquin Per Pharmacy) 1 each PRN DAILY PRN 12/24/16 11:00 UNV Morphine Sulfate 4 mg PRN Q2HR PRN 12/24/16 10:45 12/25/16 10:44 Ondansetron HCl (Zofran) 4 mg PRN Q6HRS PRN 12/24/16 11:00 12/25/16 10:59 UNV Allergies Allergies Allergies Coded Allergies Type Severity Reaction Last Updated Verified I S O L A T I O N *CONTACT* Allergy Unknown 10/30/16 Yes No Known Allergies Allergy Unknown 08/02/15 Yes Physical Exam Physical Exam GEN.: mod distress. Alert and oriented. HEENT: Head is normocephalic, atraumatic NECK: Supple. LUNGS: Wheezing bilaterally with decreased breath sounds at the bases bilaterally HEART: RRR, 3/6 murmur. Peripheral pulses intact ABDOMEN: Soft, nontender. Positive bowel sounds. EXTREMITIES: Without any cyanosis. NEUROLOGIC: Normal speech, normal tone PSYCHIATRIC: Normal affect, normal mood. SKIN: No ulcerations Current Patient Data Vital Signs Vital Signs Date Time Temp Pulse Resp B/P (MAP) Pulse Ox O2 Delivery O2 Flow Rate FiO2 12/24/16 09:57 98.1 88 143/73 (96) 97 BiPAP/CPAP 98.1 Lab Values Laboratory Tests Test 12/24/16 09:54 12/24/16 10:10 O2 Saturation 95 % (92-99) Arterial Blood pH 7.38 (7.35-7.45) Arterial Blood pCO2 at Patient Temp 30 mmHg (35-46) L Arterial Blood pO2 at Patient Temp 79 mmHg (65-108) Arterial Blood HCO3 17 mmol/L (21-28) L Arterial Blood Base Excess -7 mmol/L (-3-3) L FiO2 30.0 White Blood Count 6.1 x10^3/uL (4.0-11.0) Red Blood Count 3.82 x10^6/uL (3.50-5.40) Hemoglobin 10.5 g/dL (12.0-15.5) L Hematocrit 32.8 % (36.0-47.0) L Mean Corpuscular Volume 86 fL (79-100) Mean Corpuscular Hemoglobin 28 pg (25-35) Mean Corpuscular Hemoglobin Concent 32 g/dL (31-37) Red Cell Distribution Width 18.9 % (11.5-14.5) H Platelet Count 145 x10^3/uL (140-400) Neutrophils (%) (Auto) 71 % (31-73) Lymphocytes (%) (Auto) 19 % (24-48) L Monocytes (%) (Auto) 7 % (0-9) Eosinophils (%) (Auto) 2 % (0-3) Basophils (%) (Auto) 1 % (0-3) Neutrophils # (Auto) 4.3 x10^3uL (1.8-7.7) Lymphocytes # (Auto) 1.2 x10^3/uL (1.0-4.8) Monocytes # (Auto) 0.4 x10^3/uL (0.0-1.1) Eosinophils # (Auto) 0.1 x10^3/uL (0.0-0.7) Basophils # (Auto) 0.1 x10^3/uL (0.0-0.2) Sodium Level 142 mmol/L (136-145) Potassium Level 3.5 mmol/L (3.5-5.1) Chloride Level 107 mmol/L (98-107) Carbon Dioxide Level 20 mmol/L (21-32) L Anion Gap 15 (6-14) H Blood Urea Nitrogen 35 mg/dL (7-20) H Creatinine 4.7 mg/dL (0.6-1.0) H Estimated GFR (Cockcroft-Gault) 9.3 BUN/Creatinine Ratio 7 (6-20) Glucose Level 99 mg/dL (70-99) Calcium Level 9.2 mg/dL (8.5-10.1) Total Bilirubin 0.7 mg/dL (0.2-1.0) Aspartate Amino Transferase (AST) 24 U/L (15-37) Alanine Aminotransferase (ALT) 29 U/L (14-59) Alkaline Phosphatase 100 U/L (46-116) Troponin I Quantitative 0.066 ng/mL (0.000-0.055) Total Protein 6.2 g/dL (6.4-8.2) L Albumin 3.2 g/dL (3.4-5.0) L Albumin/Globulin Ratio 1.1 (1.0-1.7) Laboratory Tests 12/24/16 10:10 Laboratory Tests 12/24/16 10:10 EKG EKG 0958: EKG shows normal sinus rhythm rate of 88 no STEMI[] Radiology/Procedures Radiology/Procedures Chest x-ray: IMPRESSION: Pulmonary congestion with suspected superimposed increased left and stable right lower lobe infiltrate and small to moderate pleural effusions. [] Course & Med Decision Making Course & Med Decision Making Pertinent Labs and Imaging studies reviewed. (See chart for details) ED course: Patient was seen and examined emergency room, CBC, CMP, EKG, ABG, chest x-ray were ordered along with a troponin She'll be continued on BiPAP and will obtain an ABG Chest x-ray shows an acute pneumonia with pleural effusions patient will be started on daily cardiac back so 1030: Updated agent on results and plan 1049: Discussed CC/HP/PMH with Dr. Florence and recommends admit [] MDM: After reviewing the chart, CC/HPI/PMH, physical exam, [lab results], [ radiological results], I think the patient's having acute COPD exacerbation along with pneumonia and bilateral pleural effusions requiring admission to the hospital on BiPAP. Patient had elevated troponin however do not believe the patient have an acute OR. I believe the elevated troponin is secondary to her pneumonia and COPD exacerbation. Critical care time was 35 minutes exclusive of procedures.[] Dragon Disclaimer Dragon Disclaimer This electronic medical record was generated, in whole or in part, using a voice recognition dictation system. Departure Departure Impression: Primary Impression: Respiratory failure Additional Impression: CAP (community acquired pneumonia) Disposition: 01 HOME, SELF-CARE Admitting Physician: Marianela Florence Condition: IMPROVED Referrals: LUZ CHARLTON Jr, MD (PCP) Problem Qualifiers MARCUS ZIMMER DO Dec 24, 2016 09:59
--- NOTE | 2016-12-24 10:01 | EKG ---
[facility] [address] [place] [address] Test Date: 2016-12-24 Test Time: 09:56:35 Pat Name: SHARDA JOSEPH Department: Room: Gender: F Sanitation Lead: : 1950 Requested By: MARCUS ZIMMER Order Number: [id number] Reading MD: Pasquale Rocha MD Measurements Intervals [place] Rate: 87 P: 48 MD: 144 QRS: -9 QRSD: 78 T: -172 QT: 314 QTc: 382 Interpretive Statements SINUS RHYTHM NON-SPECIFIC ST/T CHANGES Electronically Signed On 12-25-2016 10:07:31 INTERNET SYSTEMS ADMINISTRATOR by Pasquale Rocha MD
--- NOTE | 2016-12-24 10:14 | RAD ---
EXAM: Chest, single view. HISTORY: Shortness of air. COMPARISON: 12/12/2016. FINDINGS: A frontal view of the chest is obtained. There are stable small to moderate bilateral pleural effusions. There is increased left and stable right lower lobe infiltrate superimposed on pulmonary congestion. The cardiac silhouette is upper normal in size for portable technique. There is no pneumothorax. There is a catheter within the right atrium. 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 There is cervical spinal fusion instrumentation. IMPRESSION: Pulmonary congestion with suspected superimposed increased left and stable right lower lobe infiltrate and small to moderate pleural effusions.
[2016-12-24 10:24] LABS: HCO3 ABG 17 mmol/L (21-28); PO2 ABG 79 mmHg (65-108); SAT O2 ABG 95 % (92-99)
[2016-12-24 10:25] LABS: PCO2 ABG 30 mmHg (35-46); PH ABG 7.38 (7.35-7.45)
[2016-12-24 10:28] LABS: BASO # 0.1 x10^3/uL (0.0-0.2); BASO % 1 % (0-3); EOS % 2 % (0-3); HEMATOCRIT 32.8 % (36.0-47.0); HEMOGLOBIN 10.5 g/dL (12.0-15.5); LYMPH # 1.2 x10^3/uL (1.0-4.8); LYMPH % 19 % (24-48); MEAN CORPUSCULAR HEMOGLOBIN 28 pg (25-35); MEAN CORPUSCULAR HGB CONC 32 g/dL (31-37); MEAN CORPUSCULAR VOLUME 86 fL (79-100); MONO % 7 % (0-9); NEUT % 71 % (31-73); PLATELET COUNT 145 x10^3/uL (140-400); RED BLOOD COUNT 3.82 x10^6/uL (3.50-5.40); RED CELL DISTRIBUTION WIDTH 18.9 % (11.5-14.5); WHITE BLOOD COUNT 6.1 x10^3/uL (4.0-11.0)
[2016-12-24] MEDS ORDERED: DEXAMETHASONE SOD PHOS 4 MG/ML VIAL IV ONE (10:30)
[2016-12-24 10:38] LABS: CALCIUM 9.2 mg/dL (8.5-10.1); CREATININE 4.7 mg/dL (0.6-1.0); GFR 9.3; POTASSIUM 3.5 mmol/L (3.5-5.1)
[2016-12-24 10:44] LABS: ALBUMIN 3.2 g/dL (3.4-5.0); ALBUMIN/GLOBULIN RATIO 1.1 (1.0-1.7); TOTAL BILIRUBIN 0.7 mg/dL (0.2-1.0); TOTAL PROTEIN 6.2 g/dL (6.4-8.2)
[2016-12-24] MEDS ORDERED: ACETAMINOPHEN 325 MG TABLET. PO PRN (10:45)
[2016-12-24] MEDS ORDERED: MORPHINE SULFATE 4 MG/ML DISP.SYRIN. IV PRN (10:45)
[2016-12-24] MEDS ORDERED: ONDANSETRON PF 4 MG/2 ML VIAL. IV PRN ×2 (10:45→11:00)
[2016-12-24] MEDS ORDERED: AZITHRMYCN 500MG IVPB FOR OMNI 250 ML IV ONE (11:00)
[2016-12-24] MEDS ORDERED: guaiFENesin DM 200MG/20MG 10 ML SYRUP PO PRN (11:00)
[2016-12-24] MEDS ORDERED: levOFLOXacin PER PHARMACY. MC PRN (11:00)
[2016-12-24] MEDS ORDERED: BENZONATATE 100 MG CAPSULE. PO PRN (11:00)
[2016-12-24] MEDS ORDERED: ASPIRIN CHEWABLE 81 MG TABLET. PO ONE (11:00)
[2016-12-24] MEDS ORDERED: traMADol 50 MG TABLET PO PRN (11:00)
[2016-12-24] MEDS ORDERED: CEFEPIME HCL 1 GM in IV DEXTROSE 5% 50 ML IV ONE (11:00)
[2016-12-24] MEDS: CLOPIDOGREL BISULFATE 75 MG TABLET PO SCH (11:03)
[2016-12-24] MEDS: IPRATRPIUM/ALBUTEROL 0.5/2.5MG 3 ML NEBU. NEB SCH ×3 (11:28→19:58)
--- NOTE | 2016-12-24 13:41 | PDOC1 ---
History and Physical Date of Admission Date of Admission DATE: 12/24/16 TIME: 13:34 Identification/Chief Complaint Chief Complaint SOA Problems: Source Source: Caregiver, Chart review, Patient History of Present Illness History of Present Illness 66 yo [place] female with lots of co morbids, was just here 1 month ago for the ff:cherelle niño 66 y/o female who has a lot of co morbidities, was just here for the ff: UTI, VRE ESRD hypoxia, dyspnea, weakness CHF anemia, tobaccoism HTN, HLD: PVD: hx TIA/CVA GERD: on PPI. Anxiety/Depression: continue home meds OA, Fibromyalgia: cont home meds SARITHA on O2 2-3 LNC 24.7 COmes in bec of SOA, HD MWF did not skip any, completed full course,. On CXR bilateral small pleural eff maybe some infiltrate. Desat 80s on arrival, better after BIPAP,admitted to ICU possibly just overnight., NOW feeling better 2 LNC good sats no CP, Claims compliance to meds Abg PH 7.3 CO2 90s, O2 good Denies recent ill contacts or travel, lacks URI sxs Past Medical History Cardiovascular: CHF, HTN, Hyperlipidemia, Other Pulmonary: COPD, Pneumonia, Other CENTRAL NERVOUS SYSTEM: CVA, TIA GI: Constipation, GERD, Peptic Ulcer disease, Other Heme/Onc: Anemia NOS Psych: Anxiety, Depression Rheumatologic: Fibromyalgia Infectious disease: No pertinent hx Renal/: Chronic renal failure Endocrine: No pertinent hx, Hyperparathyroidism Past Surgical History Past Surgical History: Cataract Removal, Tonsillectomy, Other Family History Family History: Coronary Artery Disease, Diabetes, Hypertension, Stroke Social History Smoke: <1 pack per day ALCOHOL: rare Drugs: None Current Medications Current Medications Current Medications Dexamethasone Sodium Phosphate (Decadron) 10 mg 1X ONCE IV Last administered on 12/24/16 10:30; Start 12/24/16 at 10:30; Stop 12/24/16 at 10:31; Status DC Azithromycin 250 ml @ 250 mls/hr 1X ONCE IV Last administered on 12/24/16 12:05; Start 12/24/16 at 11:00; Stop 12/24/16 at 11:59; Status DC Ceftriaxone Sodium 50 ml @ 100 mls/hr 1X ONCE IV Last administered on 11:01; Start 12/24/16 at 11:00; Stop 12/24/16 at 11:29; Status DC Ondansetron HCl (Zofran) 4 mg PRN Q8HRS PRN IV NAUSEA/VOMITING; Start at 10:45; Stop 12/24/16 at 10:53; Status DC Morphine Sulfate 4 mg PRN Q2HR PRN IV PAIN; Start 12/24/16 at 10:45; Stop at 10:44 Acetaminophen (Tylenol) 650 mg PRN Q4HRS PRN PO FEVER; Start 12/24/16 at 10:45 ; Stop 12/25/16 at 10:44 Ondansetron HCl (Zofran) 4 mg PRN Q6HRS PRN IV NAUSEA/VOMITING; Start at 11:00; Stop 12/25/16 at 10:59 Cefepime HCl 1 gm/ Dextrose 50 ml @ 100 mls/hr Q8HRS IV ; Start 12/24/16 at 14 :00; Status UNV Levofloxacin/ Dextrose (Levaquin Per Pharmacy) 1 each PRN DAILY PRN MC SEE COMMENTS; Start 12/24/16 at 11:00; Status UNV Benzonatate (Tessalon Perle) 100 mg PRN TID PRN PO COUGH; Start 12/24/16 at 11 :00 Clopidogrel Bisulfate (Plavix) 75 mg DAILY PO Last administered on 12/24/16t 11:03; Start 12/24/16 at 11:00 Ergocalciferol (Vitamin D2) 50,000 unit WEEKLY PO ; Start 12/31/16 at 09:00 Folic Acid (Folic Acid) 1 mg BID PO ; Start 12/24/16 at 21:00; Stop 12/24/16 at 21:00; Status DC Vitamin B Complex/ Vitamin C (Radha-Fay) 1 tab DAILY PO ; Start 12/25/16 at 09: 00; Stop 12/25/16 at 09:00; Status DC Acetaminophen/ Hydrocodone Bitart (Lortab 5/325) 1 tab PRN Q6HRS PRN PO PAIN; Start 12/24/16 at 11:00 Levetiracetam (Keppra) 500 mg BID PO ; Start 12/24/16 at 21:00 Nystatin (Nystop) 1 jesus BID TP ; Start 12/24/16 at 21:00 Pantoprazole Sodium (Protonix) 40 mg DAILYAC PO ; Start 12/25/16 at 07:30 Tramadol HCl (Ultram) 50 mg PRN Q6HRS PRN PO MILD PAIN; Start 12/24/16 at 11: 00; Stop 12/24/16 at 12:19; Status DC Nystatin (Mycostatin) 1 jesus BID TP ; Start 12/24/16 at 21:00 Oxybutynin Chloride (Ditropan) 5 mg DAILY PO ; Start 12/25/16 at 09:00 Venlafaxine HCl (Effexor) 50 mg TID PO ; Start 12/24/16 at 14:00 Albuterol/ Ipratropium (Duoneb) 3 ml RTQID NEB Last administered on 12/24/16 11:28; Start 12/24/16 at 12:00 Guaifenesin (Robitussin Dm) 10 ml PRN Q6HRS PRN PO COUGH; Start 12/24/16 at 11 :00 Aspirin (Children'S Aspirin) 324 mg 1X ONCE PO Last administered on 11:01; Start 12/24/16 at 11:00; Stop 12/24/16 at 11:01; Status DC Cefepime HCl 1 gm/ Dextrose 50 ml @ 100 mls/hr 1X ONCE IV Last administered on 12/24/16 11:33; Start 12/24/16 at 11:00; Stop 12/24/16 at 11:29; Status DC Levofloxacin/ Dextrose 100 ml @ 100 mls/hr 1X ONCE IV ; Start 12/24/16 at 11: 00; Stop 12/24/16 at 11:59; Status DC Triamcinolone Acetonide (Kenalog) 1 jesus BID TP ; Start 12/24/16 at 21:00 Cefepime HCl (Maxipime) 1 gm Q24H IVP ; Start 12/25/16 at 11:00 Levofloxacin/ Dextrose 100 ml @ 100 mls/hr Q48H IV ; Start 12/26/16 at 10:00 Active Scripts Active Prednisone 10 Mg Tablet 10 Mg PO UD take 4 tablets by mouth daily for 3 days, then decrease by 1 tablet every 3 days til gone. Pantoprazole Sodium 40 Mg Tablet.dr 40 Mg PO DAILYAC Benzonatate 100 Mg Capsule 100 Mg PO PRN TID PRN Duoneb 0.5-3(2.5) Mg/3 Ml (Albuterol/Ipratropium) 3 Ml Ampul.neb 3 Ml NEB QID PRN Albuterol Sulfate Neb Soln (Albuterol Sulfate) 2.5 Mg/3 Ml Vial.neb 2.5 Mg NEB PRN Q4HRS PRN 30 Days Nystop (Nystatin) 60 Gm Powder 1 Jesus TP BID Moffat 5-325 Tablet (Acetaminophen/Hydrocodone Bitart) 1 Each Tablet 1 Tab PO PRN Q6HRS PRN Reported Levetiracetam 500 Mg Tablet 500 Mg PO BID Vitamin D2 (Ergocalciferol (Vitamin D2)) 50,000 Unit Capsule 1 Cap PO WEEKLY Nystatin-Triamcinolone Ointm (Nystatin/Triamcin) 30 Gm Oint...g. 30 Gm TP BID Venlafaxine Hcl Er (Venlafaxine Hcl) 150 Mg Cap.er.24h 150 Mg PO DAILY Plavix (Clopidogrel Bisulfate) 75 Mg Tablet 75 Mg PO DAILY Duoneb 0.5 Mg-3 Mg/3 Ml Soln (Ipratropium/Albuterol Sulfate) 3 Ml Ampul.neb 3 Ml IH Q6HRS Ditropan Xl (Oxybutynin Chloride) 5 Mg Tab.er.24 5 Mg PO DAILY Allergies Allergies: Coded Allergies: I S O L A T I O N *CONTACT* (Verified Allergy, Unknown, 10/30/16) vre No Known Allergies (Verified Allergy, Unknown, 08/02/15) ROS General: No: Chills, Night Sweats, Fatigue, Malaise, Appetite, Other PSYCHOLOGICAL ROS: No: Anxiety, Behavioral Disorder, Concentration difficultie , Decreased libido, Depression, Disorientation, Hallucinations, Hostility, Irritablity, Memory difficulties, Mood Swings, Obsessive thoughts, Physical abuse, Sexual abuse, Sleep disturbances, Suicidal ideation, Other Eyes: No Blurry vision, No Decreased vision, No Double vision, No Dry eyes, No Excessive tearing, No Eye Pain, No Itchy Eyes, No Loss of vision, No Photophobia , No Scotomata, No Uses contacts, No Uses glasses, No Other HEENT: No: Heacaches, Visual Changes, Hearing change, Nasal congestion, Nasal discharge, Oral lesions, Sinus pain, Sore Throat, Epistaxis, Sneezing, Snoring, Tinnitus, Vertigo, Vocal changes, Other Hematological and Lymphatic: No: Bleeding Problems, Blood Clots, Blood Transfusions, Brusing, Night Sweats, Pallor, Swollen Lymph Nodes, Other ENDOCRINE: No: Breast Changes, Galactorrhea, Hair Pattern Changes, Hot Flashes , Malaise/lethargy, Mood Swings, Palpitations, Polydipsia/polyuria, Skin Changes , Temperature Intolerance, Unexpected Weight Changes, Other Respiratory: YES: Shortness of breath, SOB with excertion Cardiovascular: No Chest Pain, No Palpitations, No Orthopnea, No Paroxysmal Noc. Dyspnea, No Edema, No Lt Headedness, No Other Gastrointestinal: No Nausea, No Vomiting, No Abdominal Pain, No Diarrhea, No Constipation, No Melena, No Hematochezia, No Other Genitourinary: No Dysuria, No Frequency, No Incontinence, No Hematuria, No Retention, No Discharge, No Urgency, No Pain, No Flank Pain, No Other, No , No , No , No , No , No , No Musculoskeletal: No Gait Disturbance, No Joint Pain, No Joint Stiffness, No Joint Swelling, No Muscle Pain, No Muscular Weakness, No Pain In:, No Swelling In:, No Other Neurological: No Behavorial Changes, No Bowel/Bladder ControlChng, No Confusion , No Dizziness, No Gait Disturbance, No Headaches, No Impaired Coord/balance, No Memory Loss, No Numbness/Tingling, No Seizures, No Speech Problems, No Tremors, No Visual Changes, No Weakness, No Other Skin: No Dry Skin, No Eczema, No Hair Changes, No Lumps, No Mole Changes, No Mottling, No Nail Changes, No Pruritus, No Rash, No Skin Lesion Changes, No Other, No Acne Physical Exam General: Alert, Oriented X3, Cooperative, No acute distress HEENT: Atraumatic, PERRLA Lungs: Normal air movement, Other (ec BS no rales or wheezes) Heart: S1S2, RRR, no thrills, no rubs, no gallops, no murmurs Cardiovascular: S1 Breasts: Normal, Rt breast nml w/o mass, Lt breast nml w/o mass, Nipples normal Abdomen: Normal bowel sounds, Soft, No tenderness, No hepatosplenomegaly, No masses Rectal Exam: not examined PELVIC: Nml ext vulva Extremities: No clubbing, No cyanosis, No edema, Normal pulses, No tenderness/ swelling Skin: No rashes, No breakdown, No significant lesion Neuro: Normal gait, Normal speech, Strength at 5/5 X4 ext, Normal tone, Sensation intact, Cranial nerves 3-12 NL, Reflexes 2+ Psych/Mental Status: Mental status NL, Mood NL Vitals Vitals Vital Signs Date Time Temp Pulse Resp B/P (MAP) Pulse Ox O2 Delivery O2 Flow Rate FiO2 12/24/16 12:47 97.6 100 16 133/70 (91) 92 Nasal Cannula 3.0 97.6 Labs Labs Laboratory Tests Test 12/24/16 09:54 12/24/16 10:10 O2 Saturation 95 % (92-99) Arterial Blood pH 7.38 (7.35-7.45) Arterial Blood pCO2 at Patient Temp 30 mmHg (35-46) Arterial Blood pO2 at Patient Temp 79 mmHg (65-108) Arterial Blood HCO3 17 mmol/L (21-28) Arterial Blood Base Excess -7 mmol/L (-3-3) FiO2 30.0 White Blood Count 6.1 x10^3/uL (4.0-11.0) Red Blood Count 3.82 x10^6/uL (3.50-5.40) Hemoglobin 10.5 g/dL (12.0-15.5) Hematocrit 32.8 % (36.0-47.0) Mean Corpuscular Volume 86 fL (79-100) Mean Corpuscular Hemoglobin 28 pg (25-35) Mean Corpuscular Hemoglobin Concent 32 g/dL (31-37) Red Cell Distribution Width 18.9 % (11.5-14.5) Platelet Count 145 x10^3/uL (140-400) Neutrophils (%) (Auto) 71 % (31-73) Lymphocytes (%) (Auto) 19 % (24-48) Monocytes (%) (Auto) 7 % (0-9) Eosinophils (%) (Auto) 2 % (0-3) Basophils (%) (Auto) 1 % (0-3) Neutrophils # (Auto) 4.3 x10^3uL (1.8-7.7) Lymphocytes # (Auto) 1.2 x10^3/uL (1.0-4.8) Monocytes # (Auto) 0.4 x10^3/uL (0.0-1.1) Eosinophils # (Auto) 0.1 x10^3/uL (0.0-0.7) Basophils # (Auto) 0.1 x10^3/uL (0.0-0.2) Sodium Level 142 mmol/L (136-145) Potassium Level 3.5 mmol/L (3.5-5.1) Chloride Level 107 mmol/L (98-107) Carbon Dioxide Level 20 mmol/L (21-32) Anion Gap 15 (6-14) Blood Urea Nitrogen 35 mg/dL (7-20) Creatinine 4.7 mg/dL (0.6-1.0) Estimated GFR (Cockcroft-Gault) 9.3 BUN/Creatinine Ratio 7 (6-20) Glucose Level 99 mg/dL (70-99) Lactic Acid Level 0.6 mmol/L (0.4-2.0) Calcium Level 9.2 mg/dL (8.5-10.1) Total Bilirubin 0.7 mg/dL (0.2-1.0) Aspartate Amino Transf (AST/SGOT) 24 U/L (15-37) Alanine Aminotransferase (ALT/SGPT) 29 U/L (14-59) Alkaline Phosphatase 100 U/L (46-116) Troponin I Quantitative 0.066 ng/mL (0.000-0.055) Total Protein 6.2 g/dL (6.4-8.2) Albumin 3.2 g/dL (3.4-5.0) Albumin/Globulin Ratio 1.1 (1.0-1.7) Laboratory Tests Test 12/24/16 09:54 12/24/16 10:10 O2 Saturation 95 % (92-99) Arterial Blood pH 7.38 (7.35-7.45) Arterial Blood pCO2 at Patient Temp 30 mmHg (35-46) Arterial Blood pO2 at Patient Temp 79 mmHg (65-108) Arterial Blood HCO3 17 mmol/L (21-28) Arterial Blood Base Excess -7 mmol/L (-3-3) FiO2 30.0 White Blood Count 6.1 x10^3/uL (4.0-11.0) Red Blood Count 3.82 x10^6/uL (3.50-5.40) Hemoglobin 10.5 g/dL (12.0-15.5) Hematocrit 32.8 % (36.0-47.0) Mean Corpuscular Volume 86 fL (79-100) Mean Corpuscular Hemoglobin 28 pg (25-35) Mean Corpuscular Hemoglobin Concent 32 g/dL (31-37) Red Cell Distribution Width 18.9 % (11.5-14.5) Platelet Count 145 x10^3/uL (140-400) Neutrophils (%) (Auto) 71 % (31-73) Lymphocytes (%) (Auto) 19 % (24-48) Monocytes (%) (Auto) 7 % (0-9) Eosinophils (%) (Auto) 2 % (0-3) Basophils (%) (Auto) 1 % (0-3) Neutrophils # (Auto) 4.3 x10^3uL (1.8-7.7) Lymphocytes # (Auto) 1.2 x10^3/uL (1.0-4.8) Monocytes # (Auto) 0.4 x10^3/uL (0.0-1.1) Eosinophils # (Auto) 0.1 x10^3/uL (0.0-0.7) Basophils # (Auto) 0.1 x10^3/uL (0.0-0.2) Sodium Level 142 mmol/L (136-145) Potassium Level 3.5 mmol/L (3.5-5.1) Chloride Level 107 mmol/L (98-107) Carbon Dioxide Level 20 mmol/L (21-32) Anion Gap 15 (6-14) Blood Urea Nitrogen 35 mg/dL (7-20) Creatinine 4.7 mg/dL (0.6-1.0) Estimated GFR (Cockcroft-Gault) 9.3 BUN/Creatinine Ratio 7 (6-20) Glucose Level 99 mg/dL (70-99) Lactic Acid Level 0.6 mmol/L (0.4-2.0) Calcium Level 9.2 mg/dL (8.5-10.1) Total Bilirubin 0.7 mg/dL (0.2-1.0) Aspartate Amino Transf (AST/SGOT) 24 U/L (15-37) Alanine Aminotransferase (ALT/SGPT) 29 U/L (14-59) Alkaline Phosphatase 100 U/L (46-116) Troponin I Quantitative 0.066 ng/mL (0.000-0.055) Total Protein 6.2 g/dL (6.4-8.2) Albumin 3.2 g/dL (3.4-5.0) Albumin/Globulin Ratio 1.1 (1.0-1.7) VTE Prophylaxis Ordered VTE Prophylaxis Devices: Yes VTE Pharmacological Prophylaxi: Yes Assessment/Plan Assessment/Plan 1. Acute hypoxic respi failure needing NIPPV, transient 2,. HX SARITHA on CPAP suppsoedly? 3. Chronic RF on Home O2 dependent 4. Tobaccoism on file 5. ESRD on HD mWF 6, Anemia of ESRD 7. HTN. controlled 8. Fibromylagia, depression PCM, NOS, chronic stable PLan: Admit overnight only ICU T.ransfer out tmr Pulmo consult Renal consult HD per renal PT.OT dvt ppx Renal diet Await home meds supportive care HIgh threshold to start /cont abx MAMTA Alejo RN, MD Dec 24, 2016 13:41
[2016-12-24] MEDS ORDERED: CEFEPIME HCL 1 GM in IV DEXTROSE 5% 50 ML IV SCH (14:00)
[2016-12-24] MEDS: VENLAFAXINE 50 MG TABLET. PO SCH ×2 (15:54→21:27)
[2016-12-24] MEDS ORDERED: DIALYSIS PATIENT. MC PRN (16:45)
[2016-12-24] MEDS ORDERED: 0.9 % SODIUM CHLORIDE 10 ML DISP.SYRIN. IV PRN ×2 (16:45)
--- NOTE | 2016-12-24 16:55 | PDOC ---
PULMONARY PROGRESS NOTES Vitals Vital Signs Date Time Temp Pulse Resp B/P (MAP) Pulse Ox O2 Delivery O2 Flow Rate FiO2 12/24/16 15:08 92 Nasal Cannula 2.0 12/24/16 12:47 97.6 100 16 133/70 (91) 97.6 HEENT: Other Lungs: Clear Cardiovascular: S1 Abdomen: Soft Extremities: No Edema Labs Laboratory Tests Test 12/24/16 09:54 12/24/16 10:10 12/24/16 16:00 O2 Saturation 95 % (92-99) Arterial Blood pH 7.38 (7.35-7.45) Arterial Blood pCO2 at Patient Temp 30 mmHg (35-46) Arterial Blood pO2 at Patient Temp 79 mmHg (65-108) Arterial Blood HCO3 17 mmol/L (21-28) Arterial Blood Base Excess -7 mmol/L (-3-3) FiO2 30.0 White Blood Count 6.1 x10^3/uL (4.0-11.0) Red Blood Count 3.82 x10^6/uL (3.50-5.40) Hemoglobin 10.5 g/dL (12.0-15.5) Hematocrit 32.8 % (36.0-47.0) Mean Corpuscular Volume 86 fL (79-100) Mean Corpuscular Hemoglobin 28 pg (25-35) Mean Corpuscular Hemoglobin Concent 32 g/dL (31-37) Red Cell Distribution Width 18.9 % (11.5-14.5) Platelet Count 145 x10^3/uL (140-400) Neutrophils (%) (Auto) 71 % (31-73) Lymphocytes (%) (Auto) 19 % (24-48) Monocytes (%) (Auto) 7 % (0-9) Eosinophils (%) (Auto) 2 % (0-3) Basophils (%) (Auto) 1 % (0-3) Neutrophils # (Auto) 4.3 x10^3uL (1.8-7.7) Lymphocytes # (Auto) 1.2 x10^3/uL (1.0-4.8) Monocytes # (Auto) 0.4 x10^3/uL (0.0-1.1) Eosinophils # (Auto) 0.1 x10^3/uL (0.0-0.7) Basophils # (Auto) 0.1 x10^3/uL (0.0-0.2) Sodium Level 142 mmol/L (136-145) Potassium Level 3.5 mmol/L (3.5-5.1) Chloride Level 107 mmol/L (98-107) Carbon Dioxide Level 20 mmol/L (21-32) Anion Gap 15 (6-14) Blood Urea Nitrogen 35 mg/dL (7-20) Creatinine 4.7 mg/dL (0.6-1.0) Estimated GFR (Cockcroft-Gault) 9.3 BUN/Creatinine Ratio 7 (6-20) Glucose Level 99 mg/dL (70-99) Lactic Acid Level 0.6 mmol/L (0.4-2.0) Calcium Level 9.2 mg/dL (8.5-10.1) Total Bilirubin 0.7 mg/dL (0.2-1.0) Aspartate Amino Transf (AST/SGOT) 24 U/L (15-37) Alanine Aminotransferase (ALT/SGPT) 29 U/L (14-59) Alkaline Phosphatase 100 U/L (46-116) Troponin I Quantitative 0.066 ng/mL (0.000-0.055) 0.062 ng/mL (0.000-0.055) Total Protein 6.2 g/dL (6.4-8.2) Albumin 3.2 g/dL (3.4-5.0) Albumin/Globulin Ratio 1.1 (1.0-1.7) Laboratory Tests Test 12/24/16 09:54 12/24/16 10:10 12/24/16 16:00 O2 Saturation 95 % (92-99) Arterial Blood pH 7.38 (7.35-7.45) Arterial Blood pCO2 at Patient Temp 30 mmHg (35-46) Arterial Blood pO2 at Patient Temp 79 mmHg (65-108) Arterial Blood HCO3 17 mmol/L (21-28) Arterial Blood Base Excess -7 mmol/L (-3-3) FiO2 30.0 White Blood Count 6.1 x10^3/uL (4.0-11.0) Red Blood Count 3.82 x10^6/uL (3.50-5.40) Hemoglobin 10.5 g/dL (12.0-15.5) Hematocrit 32.8 % (36.0-47.0) Mean Corpuscular Volume 86 fL (79-100) Mean Corpuscular Hemoglobin 28 pg (25-35) Mean Corpuscular Hemoglobin Concent 32 g/dL (31-37) Red Cell Distribution Width 18.9 % (11.5-14.5) Platelet Count 145 x10^3/uL (140-400) Neutrophils (%) (Auto) 71 % (31-73) Lymphocytes (%) (Auto) 19 % (24-48) Monocytes (%) (Auto) 7 % (0-9) Eosinophils (%) (Auto) 2 % (0-3) Basophils (%) (Auto) 1 % (0-3) Neutrophils # (Auto) 4.3 x10^3uL (1.8-7.7) Lymphocytes # (Auto) 1.2 x10^3/uL (1.0-4.8) Monocytes # (Auto) 0.4 x10^3/uL (0.0-1.1) Eosinophils # (Auto) 0.1 x10^3/uL (0.0-0.7) Basophils # (Auto) 0.1 x10^3/uL (0.0-0.2) Sodium Level 142 mmol/L (136-145) Potassium Level 3.5 mmol/L (3.5-5.1) Chloride Level 107 mmol/L (98-107) Carbon Dioxide Level 20 mmol/L (21-32) Anion Gap 15 (6-14) Blood Urea Nitrogen 35 mg/dL (7-20) Creatinine 4.7 mg/dL (0.6-1.0) Estimated GFR (Cockcroft-Gault) 9.3 BUN/Creatinine Ratio 7 (6-20) Glucose Level 99 mg/dL (70-99) Lactic Acid Level 0.6 mmol/L (0.4-2.0) Calcium Level 9.2 mg/dL (8.5-10.1) Total Bilirubin 0.7 mg/dL (0.2-1.0) Aspartate Amino Transf (AST/SGOT) 24 U/L (15-37) Alanine Aminotransferase (ALT/SGPT) 29 U/L (14-59) Alkaline Phosphatase 100 U/L (46-116) Troponin I Quantitative 0.066 ng/mL (0.000-0.055) 0.062 ng/mL (0.000-0.055) Total Protein 6.2 g/dL (6.4-8.2) Albumin 3.2 g/dL (3.4-5.0) Albumin/Globulin Ratio 1.1 (1.0-1.7) Medications Active Scripts Medications Dose Route/Sig Max Daily Dose Days Date Category Dose Instructions Prednisone 10 Mg Tablet 10 Mg PO UD 12/15/16 Rx take 4 tablets by mouth daily for 3 days, then decrease by 1 tablet every 3 days til gone. Pantoprazole Sodium 40 Mg Tablet.dr 40 Mg PO DAILYAC 11/21/16 Rx Benzonatate 100 Mg Capsule 100 Mg PO PRN TID PRN 11/21/16 Rx Duoneb 0.5-3(2.5) Mg/3 Ml (Albuterol/Ipratropium) 3 Ml Ampul.neb 3 Ml NEB QID PRN 10/04/16 Rx Albuterol Sulfate Neb Soln (Albuterol Sulfate) 2.5 Mg/3 Ml Vial.neb 2.5 Mg NEB PRN Q4HRS PRN 30 03/18/16 Rx Nystop (Nystatin) 60 Gm Powder 1 Jesus TP BID 03/18/16 Rx Levetiracetam 500 Mg Tablet 500 Mg PO BID 01/14/16 Reported Vitamin D2 (Ergocalciferol (Vitamin D2)) 50,000 Unit Capsule 1 Cap PO WEEKLY 01/14/16 Reported Dougherty 5-325 Tablet (Acetaminophen/Hydrocodone Bitart) 1 Each Tablet 1 Tab PO PRN Q6HRS PRN 10/12/15 Rx Nystatin-Triamcinolone Ointm (Nystatin/Triamcin) 30 Gm Oint...g. 30 Gm TP BID 05/20/13 Reported Venlafaxine Hcl Er (Venlafaxine Hcl) 150 Mg Cap.er.24h 150 Mg PO DAILY 05/20/13 Reported Plavix (Clopidogrel Bisulfate) 75 Mg Tablet 75 Mg PO DAILY 05/20/13 Reported Duoneb 0.5 Mg-3 Mg/3 Ml Soln (Ipratropium/Albuterol Sulfate) 3 Ml Ampul.neb 3 Ml IH Q6HRS 05/20/13 Reported Ditropan Xl (Oxybutynin Chloride) 5 Mg Tab.er.24 5 Mg PO DAILY 05/20/13 Reported Impression . FULL CONSULT DICTATED A/C RESP F SEC TO PULMONARY EDEMA SEE ORDERS D/W ASIA RESTREPO MD Dec 24, 2016 16:55
[2016-12-24] MEDS ORDERED: IV NORMAL SALINE 1000ML BAG 1,000 ML IV PRN (17:00)
[2016-12-24] MEDS ORDERED: FOLIC ACID 1 MG TABLET. PO SCH (21:00)
[2016-12-24] MEDS: NYSTATIN 100,000 UNIT/GM TOPICAL CREAM 15GM TUBE. TP SCH ×2 (21:00→21:28)
[2016-12-24] MEDS: TRIAMCINOLONE ACETONIDE 0.1% TOPICAL CREAM 15GM TUBE. TP SCH ×2 (21:00→21:27)
[2016-12-24] MEDS: levETIRAcetam 500 MG TABLET PO SCH (21:27)
[2016-12-24] MEDS: NYSTATIN TOPICAL POWDER 15GM BOTTLE. TP SCH (21:28)
[2016-12-24] MEDS: HYDROcodone/APAP 5/325MG 1 TAB TABLET PO PRN (21:29)
[2016-12-25] VITALS (13 sets, daily range): BP systolic 85–145; BP diastolic 53–77
--- NOTE | 2016-12-25 00:41 | CONS ---
DATE OF CONSULTATION: 12/24/2016 ATTENDING PHYSICIAN: Kurt Ornelas DO. REASON FOR CONSULTATION: The patient is seen in pulmonary consultation at the request of Dr. Florence for acute on chronic respiratory failure requiring noninvasive ventilation. HISTORY OF PRESENT ILLNESS: The patient is a 66-year-old female well known to me from previous hospitalization; chronic respiratory failure, on 2 liters of oxygen supplementation; COPD; tobacco dependence, ongoing, presented with increasing shortness of breath. No fever or chills. Cough, mostly nonproductive. Chest x-ray was personally reviewed. There is increased vascular congestion. The patient does have end-stage renal disease and is on hemodialysis. I reviewed the case with Dr. Rodriguez. The patient is due to undergo emergent hemodialysis later today. PAST MEDICAL HISTORY: Chronic respiratory failure, on home oxygen at 2 liters; COPD; tobacco dependence, ongoing; hypertension; end-stage renal disease; obstructive sleep apnea; previous CVA with right-sided residual deficit; no neurogenic dysphagia; anxiety; depression; chronic pain. PAST SURGICAL HISTORY: Status post tonsillectomy, cataract removal. FAMILY HISTORY: Coronary artery disease, hypertension, diabetes, stroke. SOCIAL HISTORY: She continues to smoke, rare use of alcohol. REVIEW OF SYSTEMS: As indicated above. Otherwise, a 10-point system was reviewed and negative. CONSTITUTIONAL: No fever or chills. EYES: No changes in visual acuity. HEENT: No nasal congestion or sore throat. RESPIRATORY: As indicated above. CARDIOVASCULAR: No chest pain or pressure. GASTROINTESTINAL: No nausea, vomiting, or diarrhea. GENITOURINARY: No dysuria or hematuria. MUSCULOSKELETAL: No localized muscle aches or joint pains. SKIN: No new skin rashes. NEUROLOGIC: Residual hemiparesis from previous CVA. CURRENT MEDICATIONS: List was reviewed. Please see the MRAD. ALLERGIES: No known drug allergies. PHYSICAL EXAMINATION: GENERAL: The patient was in no respiratory distress. VITAL SIGNS: Stable. O2 saturation was greater than 92%, currently on 2 liters. HEENT: Eyes: The sclerae were nonicteric. NECK: Jugular venous distention was not elevated. No lymphadenopathy. CHEST: Full expansion. LUNGS: Crackles bilaterally without any wheezes. CARDIOVASCULAR: Regular rate and rhythm with S1 and S2, no S3. ABDOMEN: Soft, nontender, nondistended. EXTREMITIES: No clubbing, cyanosis or pitting edema. NEUROLOGIC: The patient was awake, alert, following commands. A detailed neuro exam was not performed. LABORATORY DATA: Arterial blood gas; pH of 7.38, PaCO2 of 30, pO2 of 79, FiO2 was 30%. Electrolytes were noted. BUN and creatinine was noted. Troponin level was elevated. Albumin was low. IMPRESSION: 1. Acute on chronic respiratory failure. 2. Acute on chronic diastolic and systolic heart failure. 3. Abnormal x-ray compatible with pulmonary edema. 4. Mild protein malnutrition, present upon admission. 5. Non-ST segment elevation myocardial infarction. PLAN: 1. Recommend continue p.r.n. BiPAP. 2. Emergent hemodialysis. 3. Consult Cardiology. 4. No need for antibiotics. 5. Nebulized treatments. 6. The patient instructed on the importance of discontinuing tobacco use. I do appreciate the privilege in sharing in the patient's care. ASIA BACH MD DR: EVON/francois JOB#: [id number] / [id number]
--- NOTE | 2016-12-25 01:13 | CONS ---
DATE OF CONSULTATION: 12/24/2016 REQUESTING PHYSICIAN: Hospitalist. REASON FOR CONSULTATION: Renal failure. HISTORY OF PRESENT ILLNESS: This is a 66-year-old female well known to this physician with history of end-stage renal disease secondary to hypertensive nephrosclerosis. The patient is currently admitted with increasing shortness of breath. She has history of tobacco use and obstructive sleep apnea. She denies nausea, vomiting, diarrhea. Her white count is 6.1, hemoglobin 10.5, hematocrit 32.8. Potassium 3.5. GFR is 9.3. PAST MEDICAL HISTORY: 1. Hypertension, end-stage renal disease, hemodialysis dependent, anemia of chronic kidney disease, secondary hyperparathyroidism, renal disease. 2. Cerebrovascular disease. 3. Urinary tract infection. 4. Hyperlipidemia. 5. GE reflux disease. 6. Obstructive sleep apnea. 7. Fibromyalgia. 8. Anxiety and depression. ALLERGIES: None noted. MEDICATIONS: See med list. FAMILY HISTORY: Noncontributory. SOCIAL HISTORY: The patient resides with assistance. REVIEW OF SYSTEMS: No headaches, sinus problem, nasal drainage, epistaxis, change in vision or hearing. No difficulty swallowing. No fever, chills, cough, sputum production, or hemoptysis. No chest pain. She does have shortness of breath. No abdominal pain or upper or lower gastrointestinal blood loss. No nausea, vomiting, diarrhea, seizures. She has history of CVA. PHYSICAL EXAMINATION: GENERAL: The patient awake, conversant. HEENT: Clear. NECK: No increased JVD. No thyromegaly, mass, or adenopathy. LUNGS: Decreased breath sound at bases, otherwise clear. CARDIAC: Without S3 or rub. ABDOMEN: Soft, nontender, no bruits. EXTREMITIES: Without edema. NEUROPSYCHIATRIC: Status post cerebrovascular accident, appropriate affect. LABORATORY DATA: Potassium 3.5, CO2 20, creatinine 4.7, GFR 9.3. Hemoglobin 10.5, hematocrit 32.8, white count 6.1. ABG, pO2 of 79 on 30% FiO2. Chest radiograph bilateral infiltrates. IMPRESSION: 1. End-stage renal disease secondary to hypertensive nephrosclerosis - hemodialysis dependent, 3 times per week. 2. Respiratory compromise - possible versus volume overload. 3. Chronic kidney disease. RECOMMENDATIONS: The patient is oxygenating well and is undergoing respiratory treatments. Plan is for ongoing dialysis. We will continue that and continue to follow. KO POPE MD DR: Latrice JOB#: [id number] / [id number]
[2016-12-25] MEDS: HYDROcodone/APAP 5/325MG 1 TAB TABLET PO PRN (06:22)
[2016-12-25] MEDS: IPRATRPIUM/ALBUTEROL 0.5/2.5MG 3 ML NEBU. NEB SCH ×4 (08:09→20:22)
[2016-12-25 08:19] LABS: BASO # 0.1 x10^3/uL (0.0-0.2); BASO % 1 % (0-3); EOS % 0 % (0-3); HEMATOCRIT 30.1 % (36.0-47.0); HEMOGLOBIN 9.7 g/dL (12.0-15.5); LYMPH # 1.2 x10^3/uL (1.0-4.8); LYMPH % 16 % (24-48); MEAN CORPUSCULAR HEMOGLOBIN 27 pg (25-35); MEAN CORPUSCULAR HGB CONC 32 g/dL (31-37); MEAN CORPUSCULAR VOLUME 84 fL (79-100); MONO % 8 % (0-9); NEUT % 75 % (31-73); PLATELET COUNT 139 x10^3/uL (140-400); RED BLOOD COUNT 3.58 x10^6/uL (3.50-5.40); RED CELL DISTRIBUTION WIDTH 18.8 % (11.5-14.5); WHITE BLOOD COUNT 7.9 x10^3/uL (4.0-11.0)
[2016-12-25 08:28] LABS: CALCIUM 9.4 mg/dL (8.5-10.1); CREATININE 3.6 mg/dL (0.6-1.0); GFR 12.6; POTASSIUM 3.2 mmol/L (3.5-5.1)
[2016-12-25] MEDS: VENLAFAXINE 50 MG TABLET. PO SCH ×3 (08:31→22:25)
[2016-12-25] MEDS: OXYBUTYNIN CHLORIDE 5 MG TABLET PO SCH (08:31)
[2016-12-25] MEDS: CLOPIDOGREL BISULFATE 75 MG TABLET PO SCH (08:31)
[2016-12-25] MEDS: levETIRAcetam 500 MG TABLET PO SCH ×2 (08:31→22:25)
[2016-12-25] MEDS: NYSTATIN TOPICAL POWDER 15GM BOTTLE. TP SCH ×2 (08:32→22:26)
[2016-12-25] MEDS: NYSTATIN 100,000 UNIT/GM TOPICAL CREAM 15GM TUBE. TP SCH ×2 (08:32→21:00)
[2016-12-25] MEDS: TRIAMCINOLONE ACETONIDE 0.1% TOPICAL CREAM 15GM TUBE. TP SCH ×2 (08:32→21:00)
[2016-12-25] MEDS: PANTOPRAZOLE 40 MG TABLET.DR. PO SCH (08:34)
[2016-12-25] MEDS ORDERED: FOLIC/VIT B COMP W-C (RENAL) TABLET. PO SCH (09:00)
[2016-12-25] MEDS ORDERED: POTASSIUM CHLORIDE 20 MEQ TABLET.ER. PO ONE ×2 (10:00→13:00)
--- NOTE | 2016-12-25 10:08 | PDOC ---
PROGRESS NOTES Chief Complaint Chief Complaint 1. Acute hypoxic and hypercapneic respi failure needing NIPPV in ER, improved 2,. pneumonia or pneumonitis 3. COPD, Home O2 dependent 4. Tobaccoism history 5. ESRD on HD MWF w/ hyopokalemia 6, Anemia of ESRD 7. HTN. controlled 8. Fibromylagia, depression PCM, NOS, chronic stable 9. 4 prior CVA, chronic encephalopathy, weakness 10 right wrist pain, History of Present Illness History of Present Illness Admitted to ICU - transfer to the floor right wrist pain, s/p 4 strokes, consult PT and OT and physiatry med issues improved, still coughing Renal diet hypokalemia, leave for HD to adjust today home meds supportive care Vitals Vitals Vital Signs Date Time Temp Pulse Resp B/P (MAP) Pulse Ox O2 Delivery O2 Flow Rate FiO2 12/25/16 09:00 93 18 125/72 (89) 95 Nasal Cannula 3.0 12/25/16 07:00 98.0 98.0 Physical Exam General: Alert, Oriented X3, Cooperative, No acute distress Lungs: Clear Abdomen: Normal bowel sounds, Soft, No tenderness, No hepatosplenomegaly, No masses Extremities: No clubbing, No cyanosis, No edema, Normal pulses, No tenderness/ swelling Skin: No rashes, No breakdown, No significant lesion Labs LABS Laboratory Tests Test 12/24/16 10:10 12/24/16 12:30 12/24/16 16:00 12/25/16 07:32 White Blood Count 6.1 x10^3/uL (4.0-11.0) 7.9 x10^3/uL (4.0-11.0) Red Blood Count 3.82 x10^6/uL (3.50-5.40) 3.58 x10^6/uL (3.50-5.40) Hemoglobin 10.5 g/dL (12.0-15.5) 9.7 g/dL (12.0-15.5) Hematocrit 32.8 % (36.0-47.0) 30.1 % (36.0-47.0) Mean Corpuscular Volume 86 fL (79-100) 84 fL (79-100) Mean Corpuscular Hemoglobin 28 pg (25-35) 27 pg (25-35) Mean Corpuscular Hemoglobin Concent 32 g/dL (31-37) 32 g/dL (31-37) Red Cell Distribution Width 18.9 % (11.5-14.5) 18.8 % (11.5-14.5) Platelet Count 145 x10^3/uL (140-400) 139 x10^3/uL (140-400) Neutrophils (%) (Auto) 71 % (31-73) 75 % (31-73) Lymphocytes (%) (Auto) 19 % (24-48) 16 % (24-48) Monocytes (%) (Auto) 7 % (0-9) 8 % (0-9) Eosinophils (%) (Auto) 2 % (0-3) 0 % (0-3) Basophils (%) (Auto) 1 % (0-3) 1 % (0-3) Neutrophils # (Auto) 4.3 x10^3uL (1.8-7.7) 5.9 x10^3uL (1.8-7.7) Lymphocytes # (Auto) 1.2 x10^3/uL (1.0-4.8) 1.2 x10^3/uL (1.0-4.8) Monocytes # (Auto) 0.4 x10^3/uL (0.0-1.1) 0.6 x10^3/uL (0.0-1.1) Eosinophils # (Auto) 0.1 x10^3/uL (0.0-0.7) 0.0 x10^3/uL (0.0-0.7) Basophils # (Auto) 0.1 x10^3/uL (0.0-0.2) 0.1 x10^3/uL (0.0-0.2) Sodium Level 142 mmol/L (136-145) 142 mmol/L (136-145) Potassium Level 3.5 mmol/L (3.5-5.1) 3.2 mmol/L (3.5-5.1) Chloride Level 107 mmol/L (98-107) 102 mmol/L (98-107) Carbon Dioxide Level 20 mmol/L (21-32) 31 mmol/L (21-32) Anion Gap 15 (6-14) 9 (6-14) Blood Urea Nitrogen 35 mg/dL (7-20) 32 mg/dL (7-20) Creatinine 4.7 mg/dL (0.6-1.0) 3.6 mg/dL (0.6-1.0) Estimated GFR (Cockcroft-Gault) 9.3 12.6 BUN/Creatinine Ratio 7 (6-20) Glucose Level 99 mg/dL (70-99) 89 mg/dL (70-99) Lactic Acid Level 0.6 mmol/L (0.4-2.0) Calcium Level 9.2 mg/dL (8.5-10.1) 9.4 mg/dL (8.5-10.1) Total Bilirubin 0.7 mg/dL (0.2-1.0) Aspartate Amino Transf (AST/SGOT) 24 U/L (15-37) Alanine Aminotransferase (ALT/SGPT) 29 U/L (14-59) Alkaline Phosphatase 100 U/L (46-116) Troponin I Quantitative 0.066 ng/mL (0.000-0.055) 0.062 ng/mL (0.000-0.055) Total Protein 6.2 g/dL (6.4-8.2) Albumin 3.2 g/dL (3.4-5.0) Albumin/Globulin Ratio 1.1 (1.0-1.7) Nasal Screen MRSA (PCR) Negative (Negative) Review of Systems Review of Systems breathing better wrist pain 09/21 Assessment and Plan Assessmemt and Plan out of ICU consult following Dr. Crum to see for weakness and pain cont nebs, still wheezy Problems: Comment Review of Relevant I have reviewed the following items sarahi (where applicable) has been applied. Labs Laboratory Tests Test 12/24/16 09:54 12/24/16 10:10 12/24/16 12:30 12/24/16 16:00 O2 Saturation 95 % (92-99) Arterial Blood pH 7.38 (7.35-7.45) Arterial Blood pCO2 at Patient Temp 30 mmHg (35-46) Arterial Blood pO2 at Patient Temp 79 mmHg (65-108) Arterial Blood HCO3 17 mmol/L (21-28) Arterial Blood Base Excess -7 mmol/L (-3-3) FiO2 30.0 White Blood Count 6.1 x10^3/uL (4.0-11.0) Red Blood Count 3.82 x10^6/uL (3.50-5.40) Hemoglobin 10.5 g/dL (12.0-15.5) Hematocrit 32.8 % (36.0-47.0) Mean Corpuscular Volume 86 fL (79-100) Mean Corpuscular Hemoglobin 28 pg (25-35) Mean Corpuscular Hemoglobin Concent 32 g/dL (31-37) Red Cell Distribution Width 18.9 % (11.5-14.5) Platelet Count 145 x10^3/uL (140-400) Neutrophils (%) (Auto) 71 % (31-73) Lymphocytes (%) (Auto) 19 % (24-48) Monocytes (%) (Auto) 7 % (0-9) Eosinophils (%) (Auto) 2 % (0-3) Basophils (%) (Auto) 1 % (0-3) Neutrophils # (Auto) 4.3 x10^3uL (1.8-7.7) Lymphocytes # (Auto) 1.2 x10^3/uL (1.0-4.8) Monocytes # (Auto) 0.4 x10^3/uL (0.0-1.1) Eosinophils # (Auto) 0.1 x10^3/uL (0.0-0.7) Basophils # (Auto) 0.1 x10^3/uL (0.0-0.2) Sodium Level 142 mmol/L (136-145) Potassium Level 3.5 mmol/L (3.5-5.1) Chloride Level 107 mmol/L (98-107) Carbon Dioxide Level 20 mmol/L (21-32) Anion Gap 15 (6-14) Blood Urea Nitrogen 35 mg/dL (7-20) Creatinine 4.7 mg/dL (0.6-1.0) Estimated GFR (Cockcroft-Gault) 9.3 BUN/Creatinine Ratio 7 (6-20) Glucose Level 99 mg/dL (70-99) Lactic Acid Level 0.6 mmol/L (0.4-2.0) Calcium Level 9.2 mg/dL (8.5-10.1) Total Bilirubin 0.7 mg/dL (0.2-1.0) Aspartate Amino Transf (AST/SGOT) 24 U/L (15-37) Alanine Aminotransferase (ALT/SGPT) 29 U/L (14-59) Alkaline Phosphatase 100 U/L (46-116) Troponin I Quantitative 0.066 ng/mL (0.000-0.055) 0.062 ng/mL (0.000-0.055) Total Protein 6.2 g/dL (6.4-8.2) Albumin 3.2 g/dL (3.4-5.0) Albumin/Globulin Ratio 1.1 (1.0-1.7) Nasal Screen MRSA (PCR) Negative (Negative) Test 12/25/16 07:32 White Blood Count 7.9 x10^3/uL (4.0-11.0) Red Blood Count 3.58 x10^6/uL (3.50-5.40) Hemoglobin 9.7 g/dL (12.0-15.5) Hematocrit 30.1 % (36.0-47.0) Mean Corpuscular Volume 84 fL (79-100) Mean Corpuscular Hemoglobin 27 pg (25-35) Mean Corpuscular Hemoglobin Concent 32 g/dL (31-37) Red Cell Distribution Width 18.8 % (11.5-14.5) Platelet Count 139 x10^3/uL (140-400) Neutrophils (%) (Auto) 75 % (31-73) Lymphocytes (%) (Auto) 16 % (24-48) Monocytes (%) (Auto) 8 % (0-9) Eosinophils (%) (Auto) 0 % (0-3) Basophils (%) (Auto) 1 % (0-3) Neutrophils # (Auto) 5.9 x10^3uL (1.8-7.7) Lymphocytes # (Auto) 1.2 x10^3/uL (1.0-4.8) Monocytes # (Auto) 0.6 x10^3/uL (0.0-1.1) Eosinophils # (Auto) 0.0 x10^3/uL (0.0-0.7) Basophils # (Auto) 0.1 x10^3/uL (0.0-0.2) Sodium Level 142 mmol/L (136-145) Potassium Level 3.2 mmol/L (3.5-5.1) Chloride Level 102 mmol/L (98-107) Carbon Dioxide Level 31 mmol/L (21-32) Anion Gap 9 (6-14) Blood Urea Nitrogen 32 mg/dL (7-20) Creatinine 3.6 mg/dL (0.6-1.0) Estimated GFR (Cockcroft-Gault) 12.6 Glucose Level 89 mg/dL (70-99) Calcium Level 9.4 mg/dL (8.5-10.1) Laboratory Tests Test 12/24/16 10:10 12/24/16 12:30 12/24/16 16:00 12/25/16 07:32 White Blood Count 6.1 x10^3/uL (4.0-11.0) 7.9 x10^3/uL (4.0-11.0) Red Blood Count 3.82 x10^6/uL (3.50-5.40) 3.58 x10^6/uL (3.50-5.40) Hemoglobin 10.5 g/dL (12.0-15.5) 9.7 g/dL (12.0-15.5) Hematocrit 32.8 % (36.0-47.0) 30.1 % (36.0-47.0) Mean Corpuscular Volume 86 fL (79-100) 84 fL (79-100) Mean Corpuscular Hemoglobin 28 pg (25-35) 27 pg (25-35) Mean Corpuscular Hemoglobin Concent 32 g/dL (31-37) 32 g/dL (31-37) Red Cell Distribution Width 18.9 % (11.5-14.5) 18.8 % (11.5-14.5) Platelet Count 145 x10^3/uL (140-400) 139 x10^3/uL (140-400) Neutrophils (%) (Auto) 71 % (31-73) 75 % (31-73) Lymphocytes (%) (Auto) 19 % (24-48) 16 % (24-48) Monocytes (%) (Auto) 7 % (0-9) 8 % (0-9) Eosinophils (%) (Auto) 2 % (0-3) 0 % (0-3) Basophils (%) (Auto) 1 % (0-3) 1 % (0-3) Neutrophils # (Auto) 4.3 x10^3uL (1.8-7.7) 5.9 x10^3uL (1.8-7.7) Lymphocytes # (Auto) 1.2 x10^3/uL (1.0-4.8) 1.2 x10^3/uL (1.0-4.8) Monocytes # (Auto) 0.4 x10^3/uL (0.0-1.1) 0.6 x10^3/uL (0.0-1.1) Eosinophils # (Auto) 0.1 x10^3/uL (0.0-0.7) 0.0 x10^3/uL (0.0-0.7) Basophils # (Auto) 0.1 x10^3/uL (0.0-0.2) 0.1 x10^3/uL (0.0-0.2) Sodium Level 142 mmol/L (136-145) 142 mmol/L (136-145) Potassium Level 3.5 mmol/L (3.5-5.1) 3.2 mmol/L (3.5-5.1) Chloride Level 107 mmol/L (98-107) 102 mmol/L (98-107) Carbon Dioxide Level 20 mmol/L (21-32) 31 mmol/L (21-32) Anion Gap 15 (6-14) 9 (6-14) Blood Urea Nitrogen 35 mg/dL (7-20) 32 mg/dL (7-20) Creatinine 4.7 mg/dL (0.6-1.0) 3.6 mg/dL (0.6-1.0) Estimated GFR (Cockcroft-Gault) 9.3 12.6 BUN/Creatinine Ratio 7 (6-20) Glucose Level 99 mg/dL (70-99) 89 mg/dL (70-99) Lactic Acid Level 0.6 mmol/L (0.4-2.0) Calcium Level 9.2 mg/dL (8.5-10.1) 9.4 mg/dL (8.5-10.1) Total Bilirubin 0.7 mg/dL (0.2-1.0) Aspartate Amino Transf (AST/SGOT) 24 U/L (15-37) Alanine Aminotransferase (ALT/SGPT) 29 U/L (14-59) Alkaline Phosphatase 100 U/L (46-116) Troponin I Quantitative 0.066 ng/mL (0.000-0.055) 0.062 ng/mL (0.000-0.055) Total Protein 6.2 g/dL (6.4-8.2) Albumin 3.2 g/dL (3.4-5.0) Albumin/Globulin Ratio 1.1 (1.0-1.7) Nasal Screen MRSA (PCR) Negative (Negative) Medications Current Medications Dexamethasone Sodium Phosphate (Decadron) 10 mg 1X ONCE IV Last administered on 12/24/16 10:30; Start 12/24/16 at 10:30; Stop 12/24/16 at 10:31; Status DC Azithromycin 250 ml @ 250 mls/hr 1X ONCE IV Last administered on 12/24/16 12:05; Start 12/24/16 at 11:00; Stop 12/24/16 at 11:59; Status DC Ceftriaxone Sodium 50 ml @ 100 mls/hr 1X ONCE IV Last administered on 11:01; Start 12/24/16 at 11:00; Stop 12/24/16 at 11:29; Status DC Ondansetron HCl (Zofran) 4 mg PRN Q8HRS PRN IV NAUSEA/VOMITING; Start at 10:45; Stop 12/24/16 at 10:53; Status DC Morphine Sulfate 4 mg PRN Q2HR PRN IV PAIN; Start 12/24/16 at 10:45; Stop at 10:44 Acetaminophen (Tylenol) 650 mg PRN Q4HRS PRN PO FEVER; Start 12/24/16 at 10:45 ; Stop 12/25/16 at 10:44 Ondansetron HCl (Zofran) 4 mg PRN Q6HRS PRN IV NAUSEA/VOMITING; Start at 11:00; Stop 12/25/16 at 10:59 Cefepime HCl 1 gm/ Dextrose 50 ml @ 100 mls/hr Q8HRS IV ; Start 12/24/16 at 14 :00; Status UNV Levofloxacin/ Dextrose (Levaquin Per Pharmacy) 1 each PRN DAILY PRN [facility] SEE COMMENTS; Start 12/24/16 at 11:00; Status UNV Benzonatate (Tessalon Perle) 100 mg PRN TID PRN PO COUGH; Start 12/24/16 at 11 :00 Clopidogrel Bisulfate (Plavix) 75 mg DAILY PO Last administered on 12/25/16 08:31; Start 12/24/16 at 11:00 Ergocalciferol (Vitamin D2) 50,000 unit WEEKLY PO ; Start 12/31/16 at 09:00 Folic Acid (Folic Acid) 1 mg BID PO ; Start 12/24/16 at 21:00; Stop 12/24/16 at 21:00; Status DC Vitamin B Complex/ Vitamin C (Radha-Fay) 1 tab DAILY PO ; Start 12/25/16 at 09: 00; Stop 12/25/16 at 09:00; Status DC Acetaminophen/ Hydrocodone Bitart (Lortab 5/325) 1 tab PRN Q6HRS PRN PO PAIN Last administered on 12/25/16 06:22; Start 12/24/16 at 11:00 Levetiracetam (Keppra) 500 mg BID PO Last administered on 12/25/16 08:31; Start 12/24/16 at 21:00 Nystatin (Nystop) 1 jesus BID TP Last administered on 12/24/16 21:28; Start at 21:00 Pantoprazole Sodium (Protonix) 40 mg DAILYAC PO Last administered on 08:34; Start 12/25/16 at 07:30 Tramadol HCl (Ultram) 50 mg PRN Q6HRS PRN PO MILD PAIN; Start 12/24/16 at 11: 00; Stop 12/24/16 at 12:19; Status DC Nystatin (Mycostatin) 1 jesus BID TP ; Start 12/24/16 at 21:00 Oxybutynin Chloride (Ditropan) 5 mg DAILY PO Last administered on 12/25/16 08 :31; Start 12/25/16 at 09:00 Venlafaxine HCl (Effexor) 50 mg TID PO Last administered on 12/25/16 08:31; Start 12/24/16 at 14:00 Albuterol/ Ipratropium (Duoneb) 3 ml RTQID NEB Last administered on 12/25/16 08:09; Start 12/24/16 at 12:00 Guaifenesin (Robitussin Dm) 10 ml PRN Q6HRS PRN PO COUGH; Start 12/24/16 at 11 :00 Aspirin (Children'S Aspirin) 324 mg 1X ONCE PO Last administered on 11:01; Start 12/24/16 at 11:00; Stop 12/24/16 at 11:01; Status DC Cefepime HCl 1 gm/ Dextrose 50 ml @ 100 mls/hr 1X ONCE IV Last administered on 12/24/16 11:33; Start 12/24/16 at 11:00; Stop 12/24/16 at 11:29; Status DC Levofloxacin/ Dextrose 100 ml @ 100 mls/hr 1X ONCE IV Last administered on 15:54; Start 12/24/16 at 11:00; Stop 12/24/16 at 11:59; Status DC Triamcinolone Acetonide (Kenalog) 1 jesus BID TP ; Start 12/24/16 at 21:00 Cefepime HCl (Maxipime) 1 gm Q24H IVP ; Start 12/25/16 at 11:00 Levofloxacin/ Dextrose 100 ml @ 100 mls/hr Q48H IV ; Start 12/26/16 at 10:00 Sodium Chloride 1,000 ml @ 1,000 mls/hr Q1H PRN IV hypotension; Start at 17:00; Stop 12/24/16 at 23:00; Status DC Sodium Chloride (Normal Saline Flush) 10 ml 1X PRN PRN IV AP catheter pack; Start 12/24/16 at 16:45; Stop 12/25/16 at 16:44 Sodium Chloride (Normal Saline Flush) 10 ml 1X PRN PRN IV [employer] catheter pack; Start 12/24/16 at 16:45; Stop 12/25/16 at 16:44 Info (PHARMACY MONITORING -- do not chart) 1 each PRN DAILY PRN [facility] SEE COMMENTS ; Start 12/24/16 at 16:45 Lorazepam (Ativan) 1 mg PRN Q4HRS PRN IV ANXIETY / AGITATION; Start 12/25/16 at 06:45 Potassium Chloride (Klor-Con) 40 meq 1X ONCE PO ; Start 12/25/16 at 10:00; Stop 12/25/16 at 10:01; Status UNV Active Scripts Active Prednisone 10 Mg Tablet 10 Mg PO UD take 4 tablets by mouth daily for 3 days, then decrease by 1 tablet every 3 days til gone. Pantoprazole Sodium 40 Mg Tablet.dr 40 Mg PO DAILYAC Benzonatate 100 Mg Capsule 100 Mg PO PRN TID PRN Duoneb 0.5-3(2.5) Mg/3 Ml (Albuterol/Ipratropium) 3 Ml Ampul.neb 3 Ml NEB QID PRN Albuterol Sulfate Neb Soln (Albuterol Sulfate) 2.5 Mg/3 Ml Vial.neb 2.5 Mg NEB PRN Q4HRS PRN 30 Days Nystop (Nystatin) 60 Gm Powder 1 Jesus TP BID [place] 5-325 Tablet (Acetaminophen/Hydrocodone Bitart) 1 Each Tablet 1 Tab PO PRN Q6HRS PRN Reported Levetiracetam 500 Mg Tablet 500 Mg PO BID Vitamin D2 (Ergocalciferol (Vitamin D2)) 50,000 Unit Capsule 1 Cap PO WEEKLY Nystatin-Triamcinolone Ointm (Nystatin/Triamcin) 30 Gm Oint...g. 30 Gm TP BID Venlafaxine Hcl Er (Venlafaxine Hcl) 150 Mg Cap.er.24h 150 Mg PO DAILY Plavix (Clopidogrel Bisulfate) 75 Mg Tablet 75 Mg PO DAILY Duoneb 0.5 Mg-3 Mg/3 Ml Soln (Ipratropium/Albuterol Sulfate) 3 Ml Ampul.neb 3 Ml IH Q6HRS Ditropan Xl (Oxybutynin Chloride) 5 Mg Tab.er.24 5 Mg PO DAILY Vitals/I & O Vital Sign - Last 24 Hours 12/24/16 12/24/16 12/24/16 12/24/16 10:16 10:32 11:04 11:28 Pulse 86 90 96 Resp 22 20 24 B/P (MAP) 125/67 (86) 120/69 (86) 116/80 (92) Pulse Ox 98 98 93 96 O2 Delivery BiPAP/CPAP BiPAP/CPAP BiPAP/CPAP BiPAP/CPAP 12/24/16 12/24/16 12/24/16 12/24/16 11:34 12:00 12:19 12:47 Temp 97.6 97.6 97.6 97.6 Pulse 98 92 100 Resp 16 16 16 B/P (MAP) 153/83 (106) 133/72 (92) 133/70 (91) Pulse Ox 95 92 O2 Delivery BiPAP/CPAP Nasal Cannula Nasal Cannula Nasal Cannula O2 Flow Rate 3.0 3.0 3.0 12/24/16 12/24/16 12/24/16 12/24/16 13:00 14:00 15:00 15:08 Pulse 104 98 96 Resp 22 20 22 B/P (MAP) 117/84 (95) 97/66 (76) 114/62 (79) Pulse Ox 90 93 96 92 O2 Delivery Nasal Cannula Nasal Cannula Nasal Cannula Nasal Cannula O2 Flow Rate 3.0 3.0 3.0 2.0 12/24/16 12/24/16 12/24/16 12/24/16 16:00 16:00 17:00 18:00 Temp 98.5 98.5 Pulse 94 81 87 Resp 24 B/P (MAP) 115/70 (85) 93/59 (70) 120/71 (87) Pulse Ox 93 94 90 O2 Delivery Nasal Cannula Nasal Cannula Nasal Cannula Nasal Cannula O2 Flow Rate 3.0 3.0 3.0 3.0 12/24/16 12/24/16 12/24/16 12/24/16 19:00 19:58 20:00 20:00 Temp 98.5 98.5 Pulse 91 82 Resp 27 18 B/P (MAP) 103/75 (84) 83/48 (60) Pulse Ox 94 94 90 O2 Delivery Nasal Cannula Nasal Cannula Nasal Cannula Nasal Cannula O2 Flow Rate 3.0 2.0 3.0 3.0 12/24/16 12/24/16 12/24/16 12/24/16 21:00 21:29 22:00 22:29 Pulse 86 89 Resp 18 21 17 16 B/P (MAP) 92/53 (66) 97/58 (71) Pulse Ox 90 95 96 O2 Delivery Nasal Cannula Nasal Cannula Nasal Cannula O2 Flow Rate 3.0 2.0 3.0 12/24/16 12/25/16 12/25/16 12/25/16 23:00 00:00 00:00 00:10 Temp 98.7 98.7 Pulse 94 91 Resp 21 15 B/P (MAP) 99/58 (72) 138/77 (97) Pulse Ox 96 99 98 O2 Delivery Nasal Cannula Nasal Cannula BiPAP/CPAP BiPAP/CPAP O2 Flow Rate 3.0 3.0 12/25/16 12/25/16 12/25/16 12/25/16 01:00 02:00 02:19 03:00 Temp 98.3 98.3 Pulse 93 89 89 Resp 15 18 17 B/P (MAP) 137/73 (94) 133/71 (91) 140/72 (94) Pulse Ox 99 99 99 96 O2 Delivery BiPAP/CPAP BiPAP/CPAP BiPAP/CPAP BiPAP/CPAP 12/25/16 12/25/16 12/25/16 12/25/16 04:00 04:00 05:00 06:00 Pulse 89 82 94 Resp 20 15 20 B/P (MAP) 120/57 (78) 138/70 (92) 136/71 (92) Pulse Ox 98 94 99 O2 Delivery BiPAP/CPAP Nasal Cannula Nasal Cannula Nasal Cannula O2 Flow Rate 3.0 3.0 3.0 12/25/16 12/25/16 12/25/16 12/25/16 06:22 07:00 07:27 08:00 Temp 98.0 98.0 Pulse 94 90 Resp 27 16 20 B/P (MAP) 145/65 (91) 127/72 (90) Pulse Ox 99 98 99 98 O2 Delivery Nasal Cannula Nasal Cannula Nasal Cannula Nasal Cannula O2 Flow Rate 3.0 3.0 3.0 3.0 12/25/16 12/25/16 12/25/16 08:00 08:09 09:00 Pulse 93 Resp 18 B/P (MAP) 125/72 (89) Pulse Ox 99 95 O2 Delivery Nasal Cannula Nasal Cannula Nasal Cannula O2 Flow Rate 3.0 3.0 3.0 WILLIAM MORRISSEY MD Dec 25, 2016 10:08
[2016-12-25] MEDS ORDERED: methylPREDNISolone ACETATE 40 MG/ML VIAL. IM ONE (10:45)
[2016-12-25] MEDS ORDERED: BUPIVACAINE MPF 0.25% 10 ML VIAL. IJ ONE (10:45)
[2016-12-25] MEDS ORDERED: methylPREDNISolone ACETATE 40 MG/ML VIAL. ONE (11:00)
[2016-12-25] MEDS ORDERED: BUPIVACAINE MPF 0.25% 10 ML VIAL. ONE (11:00)
[2016-12-25] MEDS: CEFEPIME HCL IV Push 1 GM VIAL. IVP SCH (11:00)
--- NOTE | 2016-12-25 11:29 | PDOC ---
Renal-Progress Notes Subjective Notes Notes SOMNOLENT History of Present Illness Hx of present illness STABLE Vitals Vitals Vital Signs Date Time Temp Pulse Resp B/P (MAP) Pulse Ox O2 Delivery O2 Flow Rate FiO2 12/25/16 10:00 88 20 117/65 (82) 100 Nasal Cannula 3.0 12/25/16 07:00 98.0 98.0 Weight Weight [ ] I.O. Intake and Output Intake and Output 12/25/16 07:00 Intake Total 590 ml Output Total 0 ml Balance 590 ml Intake Oral 540 ml IV Total 50 ml Output Urine Total 0 ml Labs Labs Laboratory Tests Test 12/24/16 12:30 12/24/16 16:00 12/25/16 07:30 12/25/16 07:32 Nasal Screen MRSA (PCR) Negative (Negative) Troponin I Quantitative 0.062 ng/mL (0.000-0.055) 0.065 ng/mL (0.000-0.055) White Blood Count 7.9 x10^3/uL (4.0-11.0) Red Blood Count 3.58 x10^6/uL (3.50-5.40) Hemoglobin 9.7 g/dL (12.0-15.5) Hematocrit 30.1 % (36.0-47.0) Mean Corpuscular Volume 84 fL (79-100) Mean Corpuscular Hemoglobin 27 pg (25-35) Mean Corpuscular Hemoglobin Concent 32 g/dL (31-37) Red Cell Distribution Width 18.8 % (11.5-14.5) Platelet Count 139 x10^3/uL (140-400) Neutrophils (%) (Auto) 75 % (31-73) Lymphocytes (%) (Auto) 16 % (24-48) Monocytes (%) (Auto) 8 % (0-9) Eosinophils (%) (Auto) 0 % (0-3) Basophils (%) (Auto) 1 % (0-3) Neutrophils # (Auto) 5.9 x10^3uL (1.8-7.7) Lymphocytes # (Auto) 1.2 x10^3/uL (1.0-4.8) Monocytes # (Auto) 0.6 x10^3/uL (0.0-1.1) Eosinophils # (Auto) 0.0 x10^3/uL (0.0-0.7) Basophils # (Auto) 0.1 x10^3/uL (0.0-0.2) Sodium Level 142 mmol/L (136-145) Potassium Level 3.2 mmol/L (3.5-5.1) Chloride Level 102 mmol/L (98-107) Carbon Dioxide Level 31 mmol/L (21-32) Anion Gap 9 (6-14) Blood Urea Nitrogen 32 mg/dL (7-20) Creatinine 3.6 mg/dL (0.6-1.0) Estimated GFR (Cockcroft-Gault) 12.6 Glucose Level 89 mg/dL (70-99) Calcium Level 9.4 mg/dL (8.5-10.1) Micro Micro Microbiology 12/24/16 Blood Culture - Preliminary, Resulted NO GROWTH AFTER 1 DAY Review of Systems Constitutional: yes: other (SOMNOLENT) Physical Exam General Appearance: no apparent distress Skin: warm Respiratory: bilateral CTA Heart: S1S2 Abdomen: soft, bowel sounds present Genitourinary: bladder flat Extremities: pulses present Assessment Assessment IMP CHF PNEUMONIA ANEMIA DYSPHAGIA DEMENTIA PLAN HD TODAY UF TO DW DYSPHAGIA II DIET START VERITO VINCENT MD Dec 25, 2016 11:29
--- NOTE | 2016-12-25 11:29 | PDOC ---
PULMONARY PROGRESS NOTES Subjective feels SOA Vitals Vital Signs Date Time Temp Pulse Resp B/P (MAP) Pulse Ox O2 Delivery O2 Flow Rate FiO2 12/25/16 10:00 88 20 117/65 (82) 100 Nasal Cannula 3.0 12/25/16 07:00 98.0 98.0 General: Alert, No acute distress HEENT: Other Lungs: Clear Cardiovascular: S1 Abdomen: Soft Neuro Exam: Alert Extremities: No Edema Skin: Warm Labs Laboratory Tests Test 12/24/16 09:54 12/24/16 10:10 12/24/16 12:30 12/24/16 16:00 O2 Saturation 95 % (92-99) Arterial Blood pH 7.38 (7.35-7.45) Arterial Blood pCO2 at Patient Temp 30 mmHg (35-46) Arterial Blood pO2 at Patient Temp 79 mmHg (65-108) Arterial Blood HCO3 17 mmol/L (21-28) Arterial Blood Base Excess -7 mmol/L (-3-3) FiO2 30.0 White Blood Count 6.1 x10^3/uL (4.0-11.0) Red Blood Count 3.82 x10^6/uL (3.50-5.40) Hemoglobin 10.5 g/dL (12.0-15.5) Hematocrit 32.8 % (36.0-47.0) Mean Corpuscular Volume 86 fL (79-100) Mean Corpuscular Hemoglobin 28 pg (25-35) Mean Corpuscular Hemoglobin Concent 32 g/dL (31-37) Red Cell Distribution Width 18.9 % (11.5-14.5) Platelet Count 145 x10^3/uL (140-400) Neutrophils (%) (Auto) 71 % (31-73) Lymphocytes (%) (Auto) 19 % (24-48) Monocytes (%) (Auto) 7 % (0-9) Eosinophils (%) (Auto) 2 % (0-3) Basophils (%) (Auto) 1 % (0-3) Neutrophils # (Auto) 4.3 x10^3uL (1.8-7.7) Lymphocytes # (Auto) 1.2 x10^3/uL (1.0-4.8) Monocytes # (Auto) 0.4 x10^3/uL (0.0-1.1) Eosinophils # (Auto) 0.1 x10^3/uL (0.0-0.7) Basophils # (Auto) 0.1 x10^3/uL (0.0-0.2) Sodium Level 142 mmol/L (136-145) Potassium Level 3.5 mmol/L (3.5-5.1) Chloride Level 107 mmol/L (98-107) Carbon Dioxide Level 20 mmol/L (21-32) Anion Gap 15 (6-14) Blood Urea Nitrogen 35 mg/dL (7-20) Creatinine 4.7 mg/dL (0.6-1.0) Estimated GFR (Cockcroft-Gault) 9.3 BUN/Creatinine Ratio 7 (6-20) Glucose Level 99 mg/dL (70-99) Lactic Acid Level 0.6 mmol/L (0.4-2.0) Calcium Level 9.2 mg/dL (8.5-10.1) Total Bilirubin 0.7 mg/dL (0.2-1.0) Aspartate Amino Transf (AST/SGOT) 24 U/L (15-37) Alanine Aminotransferase (ALT/SGPT) 29 U/L (14-59) Alkaline Phosphatase 100 U/L (46-116) Troponin I Quantitative 0.066 ng/mL (0.000-0.055) 0.062 ng/mL (0.000-0.055) Total Protein 6.2 g/dL (6.4-8.2) Albumin 3.2 g/dL (3.4-5.0) Albumin/Globulin Ratio 1.1 (1.0-1.7) Nasal Screen MRSA (PCR) Negative (Negative) Test 12/25/16 07:30 12/25/16 07:32 Troponin I Quantitative 0.065 ng/mL (0.000-0.055) White Blood Count 7.9 x10^3/uL (4.0-11.0) Red Blood Count 3.58 x10^6/uL (3.50-5.40) Hemoglobin 9.7 g/dL (12.0-15.5) Hematocrit 30.1 % (36.0-47.0) Mean Corpuscular Volume 84 fL (79-100) Mean Corpuscular Hemoglobin 27 pg (25-35) Mean Corpuscular Hemoglobin Concent 32 g/dL (31-37) Red Cell Distribution Width 18.8 % (11.5-14.5) Platelet Count 139 x10^3/uL (140-400) Neutrophils (%) (Auto) 75 % (31-73) Lymphocytes (%) (Auto) 16 % (24-48) Monocytes (%) (Auto) 8 % (0-9) Eosinophils (%) (Auto) 0 % (0-3) Basophils (%) (Auto) 1 % (0-3) Neutrophils # (Auto) 5.9 x10^3uL (1.8-7.7) Lymphocytes # (Auto) 1.2 x10^3/uL (1.0-4.8) Monocytes # (Auto) 0.6 x10^3/uL (0.0-1.1) Eosinophils # (Auto) 0.0 x10^3/uL (0.0-0.7) Basophils # (Auto) 0.1 x10^3/uL (0.0-0.2) Sodium Level 142 mmol/L (136-145) Potassium Level 3.2 mmol/L (3.5-5.1) Chloride Level 102 mmol/L (98-107) Carbon Dioxide Level 31 mmol/L (21-32) Anion Gap 9 (6-14) Blood Urea Nitrogen 32 mg/dL (7-20) Creatinine 3.6 mg/dL (0.6-1.0) Estimated GFR (Cockcroft-Gault) 12.6 Glucose Level 89 mg/dL (70-99) Calcium Level 9.4 mg/dL (8.5-10.1) Laboratory Tests Test 12/24/16 12:30 12/24/16 16:00 12/25/16 07:30 12/25/16 07:32 Nasal Screen MRSA (PCR) Negative (Negative) Troponin I Quantitative 0.062 ng/mL (0.000-0.055) 0.065 ng/mL (0.000-0.055) White Blood Count 7.9 x10^3/uL (4.0-11.0) Red Blood Count 3.58 x10^6/uL (3.50-5.40) Hemoglobin 9.7 g/dL (12.0-15.5) Hematocrit 30.1 % (36.0-47.0) Mean Corpuscular Volume 84 fL (79-100) Mean Corpuscular Hemoglobin 27 pg (25-35) Mean Corpuscular Hemoglobin Concent 32 g/dL (31-37) Red Cell Distribution Width 18.8 % (11.5-14.5) Platelet Count 139 x10^3/uL (140-400) Neutrophils (%) (Auto) 75 % (31-73) Lymphocytes (%) (Auto) 16 % (24-48) Monocytes (%) (Auto) 8 % (0-9) Eosinophils (%) (Auto) 0 % (0-3) Basophils (%) (Auto) 1 % (0-3) Neutrophils # (Auto) 5.9 x10^3uL (1.8-7.7) Lymphocytes # (Auto) 1.2 x10^3/uL (1.0-4.8) Monocytes # (Auto) 0.6 x10^3/uL (0.0-1.1) Eosinophils # (Auto) 0.0 x10^3/uL (0.0-0.7) Basophils # (Auto) 0.1 x10^3/uL (0.0-0.2) Sodium Level 142 mmol/L (136-145) Potassium Level 3.2 mmol/L (3.5-5.1) Chloride Level 102 mmol/L (98-107) Carbon Dioxide Level 31 mmol/L (21-32) Anion Gap 9 (6-14) Blood Urea Nitrogen 32 mg/dL (7-20) Creatinine 3.6 mg/dL (0.6-1.0) Estimated GFR (Cockcroft-Gault) 12.6 Glucose Level 89 mg/dL (70-99) Calcium Level 9.4 mg/dL (8.5-10.1) Medications Active Scripts Medications Dose Route/Sig Max Daily Dose Days Date Category Dose Instructions Prednisone 10 Mg Tablet 10 Mg PO UD 12/15/16 Rx take 4 tablets by mouth daily for 3 days, then decrease by 1 tablet every 3 days til gone. Pantoprazole Sodium 40 Mg Tablet.dr 40 Mg PO DAILYAC 11/21/16 Rx Benzonatate 100 Mg Capsule 100 Mg PO PRN TID PRN 11/21/16 Rx Duoneb 0.5-3(2.5) Mg/3 Ml (Albuterol/Ipratropium) 3 Ml Ampul.neb 3 Ml NEB QID PRN 10/04/16 Rx Albuterol Sulfate Neb Soln (Albuterol Sulfate) 2.5 Mg/3 Ml Vial.neb 2.5 Mg NEB PRN Q4HRS PRN 30 03/18/16 Rx Nystop (Nystatin) 60 Gm Powder 1 Jesus TP BID 03/18/16 Rx Levetiracetam 500 Mg Tablet 500 Mg PO BID 01/14/16 Reported Vitamin D2 (Ergocalciferol (Vitamin D2)) 50,000 Unit Capsule 1 Cap PO WEEKLY 01/14/16 Reported [place] 5-325 Tablet (Acetaminophen/Hydrocodone Bitart) 1 Each Tablet 1 Tab PO PRN Q6HRS PRN 10/12/15 Rx Nystatin-Triamcinolone Ointm (Nystatin/Triamcin) 30 Gm Oint...g. 30 Gm TP BID 05/20/13 Reported Venlafaxine Hcl Er (Venlafaxine Hcl) 150 Mg Cap.er.24h 150 Mg PO DAILY 05/20/13 Reported Plavix (Clopidogrel Bisulfate) 75 Mg Tablet 75 Mg PO DAILY 05/20/13 Reported Duoneb 0.5 Mg-3 Mg/3 Ml Soln (Ipratropium/Albuterol Sulfate) 3 Ml Ampul.neb 3 Ml IH Q6HRS 05/20/13 Reported Ditropan Xl (Oxybutynin Chloride) 5 Mg Tab.er.24 5 Mg PO DAILY 05/20/13 Reported Impression . 1. Acute on chronic respiratory failure. 2. Acute on chronic diastolic and systolic heart failure. 3. Abnormal x-ray compatible with pulmonary edema. 4. Mild protein malnutrition, present upon admission. 5. Non-ST segment elevation myocardial infarction. 6. h/o SARITHA, on home BIPAP Plan . 1. Recommend continue p.r.n. BiPAP./ nasal canula 2. hemodialysis per renal 3. Consult Cardiology. 4. No need for antibiotics. 5. Nebulized treatments. 6. The patient instructed on the importance of discontinuing tobacco use. 7. f/u CXR in few days JAMEE HULL MD Dec 25, 2016 11:29
[2016-12-25 12:15] LABS: PTH INTACT 377 pg/mL (15-65)
--- NOTE | 2016-12-25 12:46 | PDOC2 ---
[place] GONZALEZ [employer] MANAGEMENT CONSULTING MANAGER 12/25/16 1245: CARDIAC CONSULT DATE OF CONSULT Date of Consult DATE: 12/25/16 TIME: 12:27 REASON FOR CONSULT Reason for Consult: Elevated troponin REFERRING PHYSICIAN Referring Physician: Luis SOURCE Source: Chart review, Patient HISTORY OF PRESENT ILLNESS HISTORY OF PRESENT ILLNESS .This is a pleasant 66 yo female admitted for complains of SOA and increased wheezing. She was noted tawny hypoxic with O2 sat in the 80s and better after bipap. She is currently doing better. Denies any prior CP, palpitations. Verbalized compliance with her meds and HD but continue to smoke tobacco. PAST MEDICAL HISTORY Past Medical History Cardiovascular: CHF, HTN, Hyperlipidemia, Other (PVD) Pulmonary: COPD, Pneumonia, Other (SARITHA) CENTRAL NERVOUS SYSTEM: CVA (right-sided residual), TIA Heme/Onc: Anemia NOS Psych: Anxiety, Depression Musculoskeletal: low back pain, Osteoarthritis Rheumatologic: Fibromyalgia Infectious disease: No pertinent hx ENT: No pertinent hx Renal/: Chronic renal failure (on HD ) Endocrine: No pertinent hx Dermatology: No pertinent hx PAST SURGICAL HISTORY Past Surgical History Cataract Removal, Tonsillectomy (adenoidectomy ), Other (back sx, abdominal sx) FAMILY HISTORY Family History Coronary Artery Disease, Diabetes, Hypertension, Stroke SOCIAL HISTORY Social History Smoke: 1 pack per day ALCOHOL: rare Drugs: None Lives: Friends CURRENT MEDICATIONS CURRENT MEDICATIONS Current Medications Medications (Trade) Dose Ordered Sig/Negro Route PRN Reason Start Time Stop Time Status Last Admin Dose Admin Levetiracetam (Keppra) 500 mg BID PO 12/24/16 21:00 12/25/16 08:31 Nystatin (Nystop) 1 marley BID TP 12/24/16 21:00 12/24/16 21:28 Pantoprazole Sodium (Protonix) 40 mg DAILYAC PO 12/25/16 07:30 12/25/16 08:34 Oxybutynin Chloride (Ditropan) 5 mg DAILY PO 12/25/16 09:00 12/25/16 08:31 Venlafaxine HCl (Effexor) 50 mg TID PO 12/24/16 14:00 12/25/16 08:31 Cefepime HCl (Maxipime) 1 gm Q24H IVP 12/25/16 11:00 12/25/16 11:00 ALLERGIES ALLERGIES: Coded Allergies: I S O L A T I O N *CONTACT* (Verified Allergy, Unknown, 10/30/16) vre No Known Allergies (Verified Allergy, Unknown, 08/02/15) ROS Review of System 14 point ROS evaluated with pertinent positives noted per HPI PHYSICAL EXAM General: Alert, Oriented X3, Cooperative, No acute distress HEENT: Atraumatic, Mucous membr. moist/pink Lungs: Other (diffuse wheeze) Heart: Regular rate (SR with PVCs and PACs) Extremities: No cyanosis, No edema Skin: No breakdown, No significant lesion Neuro: Normal speech, Sensation intact Psych/Mental Status: Mental status NL, Mood NL MUSCULOSKELETAL: Osteoarthritic changes both hands VITALS VITALS Vital Signs Date Time Temp Pulse Resp B/P (MAP) Pulse Ox O2 Delivery O2 Flow Rate FiO2 12/25/16 11:51 97 Nasal Cannula 2.0 12/25/16 10:00 88 20 117/65 (82) 12/25/16 07:00 98.0 98.0 LABS Lab: Laboratory Tests Test 12/24/16 12:30 12/24/16 13:55 12/24/16 16:00 12/25/16 07:30 Nasal Screen MRSA (PCR) Negative (Negative) Estimated GFR (Non- 9 (>59) EGFR 10 (>59) PTH (Intact) Specimen Description Comment (.) Parathyroid Hormone (Intact) 377 pg/mL (15-65) Calcium (PTH Intact) 9.0 mg/dL (8.7-10.3) Creatinine (PTH Intact) 4.74 mg/dL (0.57-1.00) Phosphorus (PTH Intact) 4.3 mg/dL (2.5-4.5) Troponin I Quantitative 0.062 ng/mL (0.000-0.055) 0.065 ng/mL (0.000-0.055) Test 12/25/16 07:32 White Blood Count 7.9 x10^3/uL (4.0-11.0) Red Blood Count 3.58 x10^6/uL (3.50-5.40) Hemoglobin 9.7 g/dL (12.0-15.5) Hematocrit 30.1 % (36.0-47.0) Mean Corpuscular Volume 84 fL (79-100) Mean Corpuscular Hemoglobin 27 pg (25-35) Mean Corpuscular Hemoglobin Concent 32 g/dL (31-37) Red Cell Distribution Width 18.8 % (11.5-14.5) Platelet Count 139 x10^3/uL (140-400) Neutrophils (%) (Auto) 75 % (31-73) Lymphocytes (%) (Auto) 16 % (24-48) Monocytes (%) (Auto) 8 % (0-9) Eosinophils (%) (Auto) 0 % (0-3) Basophils (%) (Auto) 1 % (0-3) Neutrophils # (Auto) 5.9 x10^3uL (1.8-7.7) Lymphocytes # (Auto) 1.2 x10^3/uL (1.0-4.8) Monocytes # (Auto) 0.6 x10^3/uL (0.0-1.1) Eosinophils # (Auto) 0.0 x10^3/uL (0.0-0.7) Basophils # (Auto) 0.1 x10^3/uL (0.0-0.2) Sodium Level 142 mmol/L (136-145) Potassium Level 3.2 mmol/L (3.5-5.1) Chloride Level 102 mmol/L (98-107) Carbon Dioxide Level 31 mmol/L (21-32) Anion Gap 9 (6-14) Blood Urea Nitrogen 32 mg/dL (7-20) Creatinine 3.6 mg/dL (0.6-1.0) Estimated GFR (Cockcroft-Gault) 12.6 Glucose Level 89 mg/dL (70-99) Calcium Level 9.4 mg/dL (8.5-10.1) ECHOCARDIOGRAM ECHOCARDIOGRAM <Conclusion> The left ventricle is normal size. Left ventricle systolic function is low normal. The Ejection Fraction is 50-55%. There is no significant aortic valvular stenosis. Doppler and Color Flow revealed moderate to moderately severe eccentric mitral regurgitation. Doppler and Color Flow revealed mild to moderate tricuspid regurgitation. The PA pressure was estimated at 43 mmHg. There is a trace pericardial effusion with no hemodynamic compromise. DATE: 11/20/16 7746 ASSESSMENT/PLAN ASSESSMENT/PLAN 1. Elevated troponin: peaked at 0.066, EKG SR without acute changes. Likely demand mediate with cofactors below. 2. Acute on chronic respiratory failure with underlying COPD and continued tobaccoism: pulmonary following. Off bipap, doing better but remains with wheeze. 3. Acute on Chronic diastolic heart failure: superimposed by pulmonary issues 4. ESRD 5. HTN: controlled, no coverage 6. HLP: no coverage. 7. Mod to severe eccentric MR 8. Hx of Noncompliance: limited financial means but verbalized treatment compliance this time. Failed to f/u in office and cancelled. 9. Hx of CVA and PVD Recommendations 1. Continue with secondary prevention and home plavix 2. Reinforced treatment compliance. Smoking cessation 3. Fluid off loading per HD. Lipid panel. 4. Will plan for MPI prior to DC when pulmonary status is optimized for further risk stratification given her significant risk factors and refractory episodes of dyspnea. Problems: JIN LANDEROS MD 12/25/166: CARDIAC CONSULT ALLERGIES ALLERGIES: Coded Allergies: I S O L A T I O N *CONTACT* (Verified Allergy, Unknown, 10/30/16) vre No Known Allergies (Verified Allergy, Unknown, 08/02/15) ASSESSMENT/PLAN ASSESSMENT/PLAN Pt. seen and examined. Agree with above MENTAL HEALTH ORDERLY note. 66 y.o woman presenting with elevated trop and resp failure. Given multiple risk factors and prior echo reveailing the possibility of ischemic MR, will plan for right and left heart cath to rule out CAD given multiple risk factors. Thanks. Problems: [place] GONZALEZ APRN Dec 25, 2016 12:45 JIN LANDEROS MD Dec 25, 2016 21:56
[2016-12-25 13:16] LABS: CHOLESTEROL/HDL RATIO 2.3
--- NOTE | 2016-12-25 14:18 | CONS ---
DATE OF CONSULTATION: 12/25/2016 ATTENDING PHYSICIAN: Dr. Florence. The patient was seen at the request of Dr. Pickering for evaluation about her right upper extremity pain. HISTORY OF PRESENT ILLNESS: This is a 66-year-old right-handed female known to me, the patient with old cerebrovascular accident with residual spastic right upper extremity with minimal function of right upper extremity. The patient complains of pain in her right shoulder and hand. The patient was admitted on 12/24/2016 with acute hypoxic respiratory failure needing an IPPV transient in a patient with known obstructive sleep apnea on CPAP supposedly; chronic renal failure, on hemodialysis; chronic respiratory failure, on home oxygen dependent; tobaccoism; anemia; hypertension; fibromyalgia; depression; PCM, NOS, chronic, stable. The patient is not known allergic to any medication. The patient lives with her son who helps with cooking and home making. PHYSICAL EXAMINATION: Today revealed an elderly female. She is alert, oriented to place and person, follows commands appropriately, moves all 4 extremities voluntarily. She has stiffness of her right upper extremity, especially shoulder with tenderness to palpation at right shoulder and limitation of right shoulder joint range of motion. She also had deformity of her right hand fingers, but she had some movement of her right wrist and right hand fingers. She had increased muscle tone in her right upper extremity with tightness of finger flexors. She had equal perception of touch and pinprick sensation bilaterally. Deep tendon reflexes are 1-2+ and symmetrical. She is independent with bed mobility, transfers using a cane. Her skin is intact. She is using oxygen by nasal cannula. ASSESSMENT: 1. 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 2. Chronic obstructive pulmonary disease with recent exacerbation and respiratory failure, congestive heart failure, hypertension, hyperlipidemia, chronic constipation, gastroesophageal reflux disease, peptic ulcer disease, anemia, anxiety, depression, fibromyalgia, chronic renal failure on hemodialysis, hyperparathyroidism. RECOMMENDATION: To proceed with injecting her right shoulder with Depo-Medrol and Marcaine to help ease some of the stiffness and pain and to consider Botox injection to right forearm finger flexors on an outpatient basis if she can provide transportation to the office. Unfortunately, hospital does not get paid for Botox that is why we could not perform the procedure in the hospital. Dr. Pickering, I appreciate asking me to participate in the care of this interesting patient. I will be glad to see her for followup on as needed basis. FLOR WELCH MD DR: PEE/francois JOB#: [id number] / [id number]
[2016-12-25] MEDS ORDERED: IV NORMAL SALINE 1000ML BAG 1,000 ML IV PRN ×2 (15:02)
[2016-12-25] MEDS ORDERED: DIALYSIS PATIENT. MC PRN ×2 (15:15)
[2016-12-25] MEDS ORDERED: 0.9 % SODIUM CHLORIDE 10 ML DISP.SYRIN. IV PRN ×2 (15:15)
[2016-12-25 16:18] LABS: HEP B SURFACE ABDY Non Reactive (.)
--- NOTE | 2016-12-25 19:13 | PDOC4 ---
PROCEDURE Procedure At her request,I have injected her right shoulder under aseptic skin technique, with marcaine and depomedrol solution and she tolerated the procedure satisfactorily without any side effects. FLOR WELCH MD Dec 25, 2016 19:13
[2016-12-25] MEDS: LACTOBACILLUS RHAMNOSUS GG 1 CAPSULE. PO SCH (22:25)
[2016-12-26] VITALS (14 sets, daily range): BP systolic 91–131; BP diastolic 57–81
[2016-12-26] MEDS: IPRATRPIUM/ALBUTEROL 0.5/2.5MG 3 ML NEBU. NEB SCH ×4 (08:07→20:17)
[2016-12-26] MEDS: NYSTATIN 100,000 UNIT/GM TOPICAL CREAM 15GM TUBE. TP SCH ×2 (09:00→20:49)
[2016-12-26] MEDS: NYSTATIN TOPICAL POWDER 15GM BOTTLE. TP SCH ×2 (09:00→20:49)
[2016-12-26] MEDS: TRIAMCINOLONE ACETONIDE 0.1% TOPICAL CREAM 15GM TUBE. TP SCH ×2 (09:00→20:48)
--- NOTE | 2016-12-26 09:25 | PDOC ---
PROGRESS NOTES Subjective Subjective No new complaints. Objective Objective Vital Signs Date Time Temp Pulse Resp B/P (MAP) Pulse Ox O2 Delivery O2 Flow Rate FiO2 12/26/16 08:07 99 Nasal Cannula 2.0 12/26/16 07:00 98.1 75 24 127/62 (83) 98.1 Intake and Output 12/26/16 07:00 Intake Total 240 ml Output Total 0 ml Balance 240 ml Intake Oral 240 ml Output Urine Total 0 ml # Voids 1 Physical Exam Physical Exam She is comfortable sitting in bedside chair and moving right shoulder with less discomfort. She had old non united fracture right humeral neck. Plan Plan of Care To continue present physical and occupational therapy follow up as tolerated. Comment Review of Relevant I have reviewed the following items sarahi (where applicable) has been applied. Labs Laboratory Tests Test 12/24/16 09:54 12/24/16 10:10 12/24/16 12:30 12/24/16 13:55 O2 Saturation 95 % (92-99) Arterial Blood pH 7.38 (7.35-7.45) Arterial Blood pCO2 at Patient Temp 30 mmHg (35-46) Arterial Blood pO2 at Patient Temp 79 mmHg (65-108) Arterial Blood HCO3 17 mmol/L (21-28) Arterial Blood Base Excess -7 mmol/L (-3-3) FiO2 30.0 Hepatitis B Surface Antigen Negative (Negative) Hepatitis B Surface Antibody Non reactive (.) White Blood Count 6.1 x10^3/uL (4.0-11.0) Red Blood Count 3.82 x10^6/uL (3.50-5.40) Hemoglobin 10.5 g/dL (12.0-15.5) Hematocrit 32.8 % (36.0-47.0) Mean Corpuscular Volume 86 fL (79-100) Mean Corpuscular Hemoglobin 28 pg (25-35) Mean Corpuscular Hemoglobin Concent 32 g/dL (31-37) Red Cell Distribution Width 18.9 % (11.5-14.5) Platelet Count 145 x10^3/uL (140-400) Neutrophils (%) (Auto) 71 % (31-73) Lymphocytes (%) (Auto) 19 % (24-48) Monocytes (%) (Auto) 7 % (0-9) Eosinophils (%) (Auto) 2 % (0-3) Basophils (%) (Auto) 1 % (0-3) Neutrophils # (Auto) 4.3 x10^3uL (1.8-7.7) Lymphocytes # (Auto) 1.2 x10^3/uL (1.0-4.8) Monocytes # (Auto) 0.4 x10^3/uL (0.0-1.1) Eosinophils # (Auto) 0.1 x10^3/uL (0.0-0.7) Basophils # (Auto) 0.1 x10^3/uL (0.0-0.2) Sodium Level 142 mmol/L (136-145) Potassium Level 3.5 mmol/L (3.5-5.1) Chloride Level 107 mmol/L (98-107) Carbon Dioxide Level 20 mmol/L (21-32) Anion Gap 15 (6-14) Blood Urea Nitrogen 35 mg/dL (7-20) Creatinine 4.7 mg/dL (0.6-1.0) Estimated GFR (Cockcroft-Gault) 9.3 BUN/Creatinine Ratio 7 (6-20) Glucose Level 99 mg/dL (70-99) Lactic Acid Level 0.6 mmol/L (0.4-2.0) Calcium Level 9.2 mg/dL (8.5-10.1) Total Bilirubin 0.7 mg/dL (0.2-1.0) Aspartate Amino Transf (AST/SGOT) 24 U/L (15-37) Alanine Aminotransferase (ALT/SGPT) 29 U/L (14-59) Alkaline Phosphatase 100 U/L (46-116) Troponin I Quantitative 0.066 ng/mL (0.000-0.055) Total Protein 6.2 g/dL (6.4-8.2) Albumin 3.2 g/dL (3.4-5.0) Albumin/Globulin Ratio 1.1 (1.0-1.7) Nasal Screen MRSA (PCR) Negative (Negative) Estimated GFR (Non- 9 (>59) EGFR 10 (>59) PTH (Intact) Specimen Description Comment (.) Parathyroid Hormone (Intact) 377 pg/mL (15-65) Calcium (PTH Intact) 9.0 mg/dL (8.7-10.3) Creatinine (PTH Intact) 4.74 mg/dL (0.57-1.00) Phosphorus (PTH Intact) 4.3 mg/dL (2.5-4.5) Test 12/24/16 16:00 12/25/16 07:30 12/25/16 07:32 Troponin I Quantitative 0.062 ng/mL (0.000-0.055) 0.065 ng/mL (0.000-0.055) White Blood Count 7.9 x10^3/uL (4.0-11.0) Red Blood Count 3.58 x10^6/uL (3.50-5.40) Hemoglobin 9.7 g/dL (12.0-15.5) Hematocrit 30.1 % (36.0-47.0) Mean Corpuscular Volume 84 fL (79-100) Mean Corpuscular Hemoglobin 27 pg (25-35) Mean Corpuscular Hemoglobin Concent 32 g/dL (31-37) Red Cell Distribution Width 18.8 % (11.5-14.5) Platelet Count 139 x10^3/uL (140-400) Neutrophils (%) (Auto) 75 % (31-73) Lymphocytes (%) (Auto) 16 % (24-48) Monocytes (%) (Auto) 8 % (0-9) Eosinophils (%) (Auto) 0 % (0-3) Basophils (%) (Auto) 1 % (0-3) Neutrophils # (Auto) 5.9 x10^3uL (1.8-7.7) Lymphocytes # (Auto) 1.2 x10^3/uL (1.0-4.8) Monocytes # (Auto) 0.6 x10^3/uL (0.0-1.1) Eosinophils # (Auto) 0.0 x10^3/uL (0.0-0.7) Basophils # (Auto) 0.1 x10^3/uL (0.0-0.2) Sodium Level 142 mmol/L (136-145) Potassium Level 3.2 mmol/L (3.5-5.1) Chloride Level 102 mmol/L (98-107) Carbon Dioxide Level 31 mmol/L (21-32) Anion Gap 9 (6-14) Blood Urea Nitrogen 32 mg/dL (7-20) Creatinine 3.6 mg/dL (0.6-1.0) Estimated GFR (Cockcroft-Gault) 12.6 Glucose Level 89 mg/dL (70-99) Calcium Level 9.4 mg/dL (8.5-10.1) Magnesium Level 2.0 mg/dL (1.8-2.4) Triglycerides Level 37 mg/dL (0-150) Cholesterol Level 148 mg/dL (0-200) LDL Cholesterol, Calculated 76 mg/dL (0-100) VLDL Cholesterol, Calculated 7 mg/dL (0-40) Non-HDL Cholesterol Calculated 83 mg/dL (0-129) HDL Cholesterol 65 mg/dL (40-60) Cholesterol/HDL Ratio 2.3 Microbiology 12/24/16 Blood Culture - Preliminary, Resulted NO GROWTH AFTER 1 DAY Medications Current Medications Dexamethasone Sodium Phosphate (Decadron) 10 mg 1X ONCE IV Last administered on 12/24/16 10:30; Start 12/24/16 at 10:30; Stop 12/24/16 at 10:31; Status DC Azithromycin 250 ml @ 250 mls/hr 1X ONCE IV Last administered on 12/24/16 12:05; Start 12/24/16 at 11:00; Stop 12/24/16 at 11:59; Status DC Ceftriaxone Sodium 50 ml @ 100 mls/hr 1X ONCE IV Last administered on 11:01; Start 12/24/16 at 11:00; Stop 12/24/16 at 11:29; Status DC Ondansetron HCl (Zofran) 4 mg PRN Q8HRS PRN IV NAUSEA/VOMITING; Start at 10:45; Stop 12/24/16 at 10:53; Status DC Morphine Sulfate 4 mg PRN Q2HR PRN IV PAIN; Start 12/24/16 at 10:45; Stop at 10:44; Status DC Acetaminophen (Tylenol) 650 mg PRN Q4HRS PRN PO FEVER; Start 12/24/16 at 10:45 ; Stop 12/25/16 at 10:44; Status DC Ondansetron HCl (Zofran) 4 mg PRN Q6HRS PRN IV NAUSEA/VOMITING; Start at 11:00; Stop 12/25/16 at 10:59; Status DC Cefepime HCl 1 gm/ Dextrose 50 ml @ 100 mls/hr Q8HRS IV ; Start 12/24/16 at 14 :00; Status UNV Levofloxacin/ Dextrose (Levaquin Per Pharmacy) 1 each PRN DAILY PRN MC SEE COMMENTS; Start 12/24/16 at 11:00; Status UNV Benzonatate (Tessalon Perle) 100 mg PRN TID PRN PO COUGH; Start 12/24/16 at 11 :00 Clopidogrel Bisulfate (Plavix) 75 mg DAILY PO Last administered on 12/25/16 08:31; Start 12/24/16 at 11:00 Ergocalciferol (Vitamin D2) 50,000 unit WEEKLY PO ; Start 12/31/16 at 09:00 Folic Acid (Folic Acid) 1 mg BID PO ; Start 12/24/16 at 21:00; Stop 12/24/16 at 21:00; Status DC Vitamin B Complex/ Vitamin C (Radha-Fay) 1 tab DAILY PO ; Start 12/25/16 at 09: 00; Stop 12/25/16 at 09:00; Status DC Acetaminophen/ Hydrocodone Bitart (Lortab 5/325) 1 tab PRN Q6HRS PRN PO PAIN Last administered on 12/25/16 06:22; Start 12/24/16 at 11:00 Levetiracetam (Keppra) 500 mg BID PO Last administered on 12/25/16 22:25; Start 12/24/16 at 21:00 Nystatin (Nystop) 1 jesus BID TP Last administered on 12/25/16 22:26; Start at 21:00 Pantoprazole Sodium (Protonix) 40 mg DAILYAC PO Last administered on 08:34; Start 12/25/16 at 07:30 Tramadol HCl (Ultram) 50 mg PRN Q6HRS PRN PO MILD PAIN; Start 12/24/16 at 11: 00; Stop 12/24/16 at 12:19; Status DC Nystatin (Mycostatin) 1 jesus BID TP ; Start 12/24/16 at 21:00 Oxybutynin Chloride (Ditropan) 5 mg DAILY PO Last administered on 12/25/16 08 :31; Start 12/25/16 at 09:00 Venlafaxine HCl (Effexor) 50 mg TID PO Last administered on 12/25/16 22:25; Start 12/24/16 at 14:00 Albuterol/ Ipratropium (Duoneb) 3 ml RTQID NEB Last administered on 12/26/16 08:07; Start 12/24/16 at 12:00 Guaifenesin (Robitussin Dm) 10 ml PRN Q6HRS PRN PO COUGH; Start 12/24/16 at 11 :00 Aspirin (Children'S Aspirin) 324 mg 1X ONCE PO Last administered on 11:01; Start 12/24/16 at 11:00; Stop 12/24/16 at 11:01; Status DC Cefepime HCl 1 gm/ Dextrose 50 ml @ 100 mls/hr 1X ONCE IV Last administered on 12/24/16 11:33; Start 12/24/16 at 11:00; Stop 12/24/16 at 11:29; Status DC Levofloxacin/ Dextrose 100 ml @ 100 mls/hr 1X ONCE IV Last administered on 15:54; Start 12/24/16 at 11:00; Stop 12/25/16 at 11:09; Status DC Triamcinolone Acetonide (Kenalog) 1 jesus BID TP ; Start 12/24/16 at 21:00 Cefepime HCl (Maxipime) 1 gm Q24H IVP Last administered on 12/25/16 11:00; Start 12/25/16 at 11:00 Levofloxacin/ Dextrose 100 ml @ 100 mls/hr Q48H IV ; Start 12/26/16 at 10:00; Stop 12/26/16 at 10:00; Status DC Sodium Chloride 1,000 ml @ 1,000 mls/hr Q1H PRN IV hypotension; Start at 17:00; Stop 12/24/16 at 23:00; Status DC Sodium Chloride (Normal Saline Flush) 10 ml 1X PRN PRN IV AP catheter pack; Start 12/24/16 at 16:45; Stop 12/25/16 at 16:44; Status DC Sodium Chloride (Normal Saline Flush) 10 ml 1X PRN PRN IV [employer]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 catheter pack; Start 12/24/16 at 16:45; Stop 12/25/16 at 16:44; Status DC Info (PHARMACY MONITORING -- do not chart) 1 each PRN DAILY PRN MC SEE COMMENTS ; Start 12/24/16 at 16:45 Lorazepam (Ativan) 1 mg PRN Q4HRS PRN IV ANXIETY / AGITATION; Start 12/25/16 at 06:45 Potassium Chloride (Klor-Con) 40 meq 1X ONCE PO ; Start 12/25/16 at 10:00; Stop 12/25/16 at 10:01; Status UNV Methylprednisolone Acetate (DEPO-Medrol 40MG VIAL) 40 mg 1X ONCE IM ; Start at 10:45; Stop 12/25/16 at 10:46; Status DC Bupivacaine HCl (Sensorcaine-Mpf 0.25%) 10 ml 1X ONCE IJ ; Start 12/25/16 at 10:45; Stop 12/25/16 at 10:46; Status DC Lactobacillus Rhamnosus (Culturelle) 1 cap BID PO Last administered on t 22:25; Start 12/25/16 at 21:00 Potassium Chloride (Klor-Con) 40 meq 1X ONCE PO Last administered on t 13:06; Start 12/25/16 at 13:00; Stop 12/25/16 at 13:01; Status DC Sodium Chloride 1,000 ml @ 1,000 mls/hr Q1H PRN IV hypotension; Start at 15:02; Stop 12/25/16 at 21:01; Status DC Sodium Chloride (Normal Saline Flush) 10 ml 1X PRN PRN IV AP catheter pack; Start 12/25/16 at 15:15; Stop 12/26/16 at 15:14 Sodium Chloride (Normal Saline Flush) 10 ml 1X PRN PRN IV 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 catheter pack; Start 12/25/16 at 15:15; Stop 12/26/16 at 15:14 Sodium Chloride 1,000 ml @ 400 mls/hr Q2H30M PRN IV PATENCY; Start 12/25/16 at 15:02; Stop 12/26/16 at 03:01; Status DC Info (PHARMACY MONITORING -- do not chart) 1 each PRN DAILY PRN MC SEE COMMENTS ; Start 12/25/16 at 15:15; Status UNV Info (PHARMACY MONITORING -- do not chart) 1 each PRN DAILY PRN MC SEE COMMENTS ; Start 12/25/16 at 15:15; Status UNV Active Scripts Active Prednisone 10 Mg Tablet 10 Mg PO UD take 4 tablets by mouth daily for 3 days, then decrease by 1 tablet every 3 days til gone. Pantoprazole Sodium 40 Mg Tablet.dr 40 Mg PO DAILYAC Benzonatate 100 Mg Capsule 100 Mg PO PRN TID PRN Duoneb 0.5-3(2.5) Mg/3 Ml (Albuterol/Ipratropium) 3 Ml Ampul.neb 3 Ml NEB QID PRN Albuterol Sulfate Neb Soln (Albuterol Sulfate) 2.5 Mg/3 Ml Vial.neb 2.5 Mg NEB PRN Q4HRS PRN 30 Days Nystop (Nystatin) 60 Gm Powder 1 Jesus TP BID [place] 5-325 Tablet (Acetaminophen/Hydrocodone Bitart) 1 Each Tablet 1 Tab PO PRN Q6HRS PRN Reported Levetiracetam 500 Mg Tablet 500 Mg PO BID Vitamin D2 (Ergocalciferol (Vitamin D2)) 50,000 Unit Capsule 1 Cap PO WEEKLY Nystatin-Triamcinolone Ointm (Nystatin/Triamcin) 30 Gm Oint...g. 30 Gm TP BID Venlafaxine Hcl Er (Venlafaxine Hcl) 150 Mg Cap.er.24h 150 Mg PO DAILY Plavix (Clopidogrel Bisulfate) 75 Mg Tablet 75 Mg PO DAILY Duoneb 0.5 Mg-3 Mg/3 Ml Soln (Ipratropium/Albuterol Sulfate) 3 Ml Ampul.neb 3 Ml IH Q6HRS Ditropan Xl (Oxybutynin Chloride) 5 Mg Tab.er.24 5 Mg PO DAILY Vitals/I & O Vital Sign - Last 24 Hours 12/25/16 12/25/16 12/25/16 12/25/16 10:00 11:51 20:00 20:00 Temp 98.3 98.3 Pulse 88 88 Resp 20 18 B/P (MAP) 117/65 (82) 85/60 (68) Pulse Ox 100 97 97 O2 Delivery Nasal Cannula Nasal Cannula Nasal Cannula Nasal Cannula O2 Flow Rate 3.0 2.0 3.0 3.0 12/25/16 12/25/16 12/25/16 12/26/16 20:23 23:30 23:30 00:57 Temp 98.3 98.3 Pulse 80 Resp 19 B/P (MAP) 87/53 (64) Pulse Ox 99 99 O2 Delivery Nasal Cannula BiPAP/CPAP Nasal Cannula BiPAP/CPAP O2 Flow Rate 2.0 3.0 12/26/16 12/26/16 12/26/16 12/26/16 03:00 03:15 07:00 07:38 Temp 97.5 98.1 97.5 98.1 Pulse 81 75 Resp 20 24 B/P (MAP) 123/66 (85) 127/62 (83) Pulse Ox 97 96 O2 Delivery BiPAP/CPAP BiPAP/CPAP Nasal Cannula Nasal Cannula O2 Flow Rate 3.0 3.0 12/26/16 08:07 Pulse Ox 99 O2 Delivery Nasal Cannula O2 Flow Rate 2.0 Intake and Output 12/25/16 12/25/16 12/26/16 15:00 23:00 07:00 Intake Total 240 ml Output Total 0 ml Balance 0 ml 240 ml FLOR WELCH MD Dec 26, 2016 09:25
--- NOTE | 2016-12-26 11:00 | PDOC ---
Renal-Progress Notes Subjective Notes Notes SITTING UP AND TIRED History of Present Illness Hx of present illness STABLE Vitals Vitals Vital Signs Date Time Temp Pulse Resp B/P (MAP) Pulse Ox O2 Delivery O2 Flow Rate FiO2 12/26/16 08:07 99 Nasal Cannula 2.0 12/26/16 07:00 98.1 75 24 127/62 (83) 98.1 Weight Weight [ ] I.O. Intake and Output Intake and Output 12/26/16 07:00 Intake Total 240 ml Output Total 0 ml Balance 240 ml Intake Oral 240 ml Output Urine Total 0 ml # Voids 1 Micro Micro Microbiology 12/24/16 Blood Culture - Preliminary, Resulted NO GROWTH AFTER 2 DAYS Review of Systems Constitutional: yes: other (SOMNOLENT) Physical Exam General Appearance: no apparent distress Skin: warm Respiratory: bilateral CTA Heart: S1S2 Abdomen: soft, bowel sounds present Genitourinary: bladder flat Extremities: pulses present Assessment Assessment IMP CHF PNEUMONIA ANEMIA DYSPHAGIA DEMENTIA PLAN HD T[facility] HE[facility] CATH DYSPHAGIA II DIET CONT VERITO VINCENT MD Dec 26, 2016 11:00
[2016-12-26] MEDS ORDERED: IODIXANOL 320 MG/ML 100 ML VIAL. ONE (11:05)
[2016-12-26] MEDS ORDERED: LIDOCAINE 2% 20 ML VIAL. ONE ×2 (11:05→11:59)
--- NOTE | 2016-12-26 11:10 | PDOC ---
PULMONARY PROGRESS NOTES Subjective feels SOA Vitals Vital Signs Date Time Temp Pulse Resp B/P (MAP) Pulse Ox O2 Delivery O2 Flow Rate FiO2 12/26/16 08:07 99 Nasal Cannula 2.0 12/26/16 07:00 98.1 75 24 127/62 (83) 98.1 General: Alert, No acute distress HEENT: Other Lungs: Clear Cardiovascular: S1 Abdomen: Soft Neuro Exam: Alert Extremities: No Edema Skin: Warm Labs Laboratory Tests Test 12/24/16 12:30 12/24/16 13:55 12/24/16 16:00 12/25/16 07:30 Nasal Screen MRSA (PCR) Negative (Negative) Estimated GFR (Non- 9 (>59) EGFR 10 (>59) PTH (Intact) Specimen Description Comment (.) Parathyroid Hormone (Intact) 377 pg/mL (15-65) Calcium (PTH Intact) 9.0 mg/dL (8.7-10.3) Creatinine (PTH Intact) 4.74 mg/dL (0.57-1.00) Phosphorus (PTH Intact) 4.3 mg/dL (2.5-4.5) Troponin I Quantitative 0.062 ng/mL (0.000-0.055) 0.065 ng/mL (0.000-0.055) Test 12/25/16 07:32 White Blood Count 7.9 x10^3/uL (4.0-11.0) Red Blood Count 3.58 x10^6/uL (3.50-5.40) Hemoglobin 9.7 g/dL (12.0-15.5) Hematocrit 30.1 % (36.0-47.0) Mean Corpuscular Volume 84 fL (79-100) Mean Corpuscular Hemoglobin 27 pg (25-35) Mean Corpuscular Hemoglobin Concent 32 g/dL (31-37) Red Cell Distribution Width 18.8 % (11.5-14.5) Platelet Count 139 x10^3/uL (140-400) Neutrophils (%) (Auto) 75 % (31-73) Lymphocytes (%) (Auto) 16 % (24-48) Monocytes (%) (Auto) 8 % (0-9) Eosinophils (%) (Auto) 0 % (0-3) Basophils (%) (Auto) 1 % (0-3) Neutrophils # (Auto) 5.9 x10^3uL (1.8-7.7) Lymphocytes # (Auto) 1.2 x10^3/uL (1.0-4.8) Monocytes # (Auto) 0.6 x10^3/uL (0.0-1.1) Eosinophils # (Auto) 0.0 x10^3/uL (0.0-0.7) Basophils # (Auto) 0.1 x10^3/uL (0.0-0.2) Sodium Level 142 mmol/L (136-145) Potassium Level 3.2 mmol/L (3.5-5.1) Chloride Level 102 mmol/L (98-107) Carbon Dioxide Level 31 mmol/L (21-32) Anion Gap 9 (6-14) Blood Urea Nitrogen 32 mg/dL (7-20) Creatinine 3.6 mg/dL (0.6-1.0) Estimated GFR (Cockcroft-Gault) 12.6 Glucose Level 89 mg/dL (70-99) Calcium Level 9.4 mg/dL (8.5-10.1) Magnesium Level 2.0 mg/dL (1.8-2.4) Triglycerides Level 37 mg/dL (0-150) Cholesterol Level 148 mg/dL (0-200) LDL Cholesterol, Calculated 76 mg/dL (0-100) VLDL Cholesterol, Calculated 7 mg/dL (0-40) Non-HDL Cholesterol Calculated 83 mg/dL (0-129) HDL Cholesterol 65 mg/dL (40-60) Cholesterol/HDL Ratio 2.3 Medications Active Scripts Medications Dose Route/Sig Max Daily Dose Days Date Category Dose Instructions Prednisone 10 Mg Tablet 10 Mg PO UD 12/15/16 Rx take 4 tablets by mouth daily for 3 days, then decrease by 1 tablet every 3 days til gone. Pantoprazole Sodium 40 Mg Tablet.dr 40 Mg PO DAILYAC 11/21/16 Rx Benzonatate 100 Mg Capsule 100 Mg PO PRN TID PRN 11/21/16 Rx Duoneb 0.5-3(2.5) Mg/3 Ml (Albuterol/Ipratropium) 3 Ml Ampul.neb 3 Ml NEB QID PRN 10/04/16 Rx Albuterol Sulfate Neb Soln (Albuterol Sulfate) 2.5 Mg/3 Ml Vial.neb 2.5 Mg NEB PRN Q4HRS PRN 30 03/18/16 Rx Nystop (Nystatin) 60 Gm Powder 1 Jesus TP BID 03/18/16 Rx Levetiracetam 500 Mg Tablet 500 Mg PO BID 01/14/16 Reported Vitamin D2 (Ergocalciferol (Vitamin D2)) 50,000 Unit Capsule 1 Cap PO WEEKLY 01/14/16 Reported [place] 5-325 Tablet (Acetaminophen/Hydrocodone Bitart) 1 Each Tablet 1 Tab PO PRN Q6HRS PRN 10/12/15 Rx Nystatin-Triamcinolone Ointm (Nystatin/Triamcin) 30 Gm Oint...g. 30 Gm TP BID 05/20/13 Reported Venlafaxine Hcl Er (Venlafaxine Hcl) 150 Mg Cap.er.24h 150 Mg PO DAILY 05/20/13 Reported Plavix (Clopidogrel Bisulfate) 75 Mg Tablet 75 Mg PO DAILY 05/20/13 Reported Duoneb 0.5 Mg-3 Mg/3 Ml Soln (Ipratropium/Albuterol Sulfate) 3 Ml Ampul.neb 3 Ml IH Q6HRS 05/20/13 Reported Ditropan Xl (Oxybutynin Chloride) 5 Mg Tab.er.24 5 Mg PO DAILY 05/20/13 Reported Impression . 1. Acute on chronic respiratory failure. 2. Acute on chronic diastolic and systolic heart failure. 3. Abnormal x-ray compatible with interstitial pulmonary edema. 4. Mild protein malnutrition, present upon admission. 5. Non-ST segment elevation myocardial infarction. 6. h/o SARITHA, on home BIPAP Plan . 1. Recommend continue p.r.n. BiPAP./ nasal canula 2. hemodialysis per renal 3. Cardiology consulted. right/left heart cath soon 4. No need for antibiotics. 5. Nebulized treatments. 6. The patient instructed on the importance of discontinuing tobacco use. 7. f/u CXR in JAMEE Pacheco MD Dec 26, 2016 11:10
--- NOTE | 2016-12-26 11:12 | PDOC ---
PROGRESS NOTES Chief Complaint Chief Complaint 1. Acute hypoxic and hypercapneic respi failure needing NIPPV in ER, improved 2,. pneumonitis, no clear pneumonia, no organism found, abx given empirically 3. COPD, Home O2 dependent 4. Tobaccoism history 5. ESRD on HD MWF w/ hyopokalemia 6, Anemia of ESRD 7. HTN. controlled 8. Fibromylagia, depression PCM, NOS, chronic stable 9. 4 prior CVA, chronic encephalopathy, weakness 10 right wrist pain, History of Present Illness History of Present Illness seen in ICU - transfer order made to the floor ongoing problems s/p 4 strokes, consult PT and OT and physiatry still coughing Renal diet hypokalemia, leave for HD to adjust today cardiac cath today supportive care Vitals Vitals Vital Signs Date Time Temp Pulse Resp B/P (MAP) Pulse Ox O2 Delivery O2 Flow Rate FiO2 12/26/16 08:07 99 Nasal Cannula 2.0 12/26/16 07:00 98.1 75 24 127/62 (83) 98.1 Physical Exam General: Alert, Oriented X3, Cooperative, No acute distress Heart: Regular rate, No murmurs Lungs: Clear Abdomen: Normal bowel sounds, Soft, No tenderness, No hepatosplenomegaly, No masses Extremities: No cyanosis, No edema Skin: No breakdown, No significant lesion Review of Systems Review of Systems right shoulder pain, chronic Comment Review of Relevant I have reviewed the following items sarahi (where applicable) has been applied. Labs Laboratory Tests Test 12/24/16 12:30 12/24/16 13:55 12/24/16 16:00 12/25/16 07:30 Nasal Screen MRSA (PCR) Negative (Negative) Estimated GFR (Non- 9 (>59) EGFR 10 (>59) PTH (Intact) Specimen Description Comment (.) Parathyroid Hormone (Intact) 377 pg/mL (15-65) Calcium (PTH Intact) 9.0 mg/dL (8.7-10.3) Creatinine (PTH Intact) 4.74 mg/dL (0.57-1.00) Phosphorus (PTH Intact) 4.3 mg/dL (2.5-4.5) Troponin I Quantitative 0.062 ng/mL (0.000-0.055) 0.065 ng/mL (0.000-0.055) Test 12/25/16 07:32 White Blood Count 7.9 x10^3/uL (4.0-11.0) Red Blood Count 3.58 x10^6/uL (3.50-5.40) Hemoglobin 9.7 g/dL (12.0-15.5) Hematocrit 30.1 % (36.0-47.0) Mean Corpuscular Volume 84 fL (79-100) Mean Corpuscular Hemoglobin 27 pg (25-35) Mean Corpuscular Hemoglobin Concent 32 g/dL (31-37) Red Cell Distribution Width 18.8 % (11.5-14.5) Platelet Count 139 x10^3/uL (140-400) Neutrophils (%) (Auto) 75 % (31-73) Lymphocytes (%) (Auto) 16 % (24-48) Monocytes (%) (Auto) 8 % (0-9) Eosinophils (%) (Auto) 0 % (0-3) Basophils (%) (Auto) 1 % (0-3) Neutrophils # (Auto) 5.9 x10^3uL (1.8-7.7) Lymphocytes # (Auto) 1.2 x10^3/uL (1.0-4.8) Monocytes # (Auto) 0.6 x10^3/uL (0.0-1.1) Eosinophils # (Auto) 0.0 x10^3/uL (0.0-0.7) Basophils # (Auto) 0.1 x10^3/uL (0.0-0.2) Sodium Level 142 mmol/L (136-145) Potassium Level 3.2 mmol/L (3.5-5.1) Chloride Level 102 mmol/L (98-107) Carbon Dioxide Level 31 mmol/L (21-32) Anion Gap 9 (6-14) Blood Urea Nitrogen 32 mg/dL (7-20) Creatinine 3.6 mg/dL (0.6-1.0) Estimated GFR (Cockcroft-Gault) 12.6 Glucose Level 89 mg/dL (70-99) Calcium Level 9.4 mg/dL (8.5-10.1) Magnesium Level 2.0 mg/dL (1.8-2.4) Triglycerides Level 37 mg/dL (0-150) Cholesterol Level 148 mg/dL (0-200) LDL Cholesterol, Calculated 76 mg/dL (0-100) VLDL Cholesterol, Calculated 7 mg/dL (0-40) Non-HDL Cholesterol Calculated 83 mg/dL (0-129) HDL Cholesterol 65 mg/dL (40-60) Cholesterol/HDL Ratio 2.3 Microbiology 12/24/16 Blood Culture - Preliminary, Resulted NO GROWTH AFTER 2 DAYS Medications Current Medications Dexamethasone Sodium Phosphate (Decadron) 10 mg 1X ONCE IV Last administered on 12/24/16 10:30; Start 12/24/16 at 10:30; Stop 12/24/16 at 10:31; Status DC Azithromycin 250 ml @ 250 mls/hr 1X ONCE IV Last administered on 12/24/16 12:05; Start 12/24/16 at 11:00; Stop 12/24/16 at 11:59; Status DC Ceftriaxone Sodium 50 ml @ 100 mls/hr 1X ONCE IV Last administered on 11:01; Start 12/24/16 at 11:00; Stop 12/24/16 at 11:29; Status DC Ondansetron HCl (Zofran) 4 mg PRN Q8HRS PRN IV NAUSEA/VOMITING; Start at 10:45; Stop 12/24/16 at 10:53; Status DC Morphine Sulfate 4 mg PRN Q2HR PRN IV PAIN; Start 12/24/16 at 10:45; Stop at 10:44; Status DC Acetaminophen (Tylenol) 650 mg PRN Q4HRS PRN PO FEVER; Start 12/24/16 at 10:45 ; Stop 12/25/16 at 10:44; Status DC Ondansetron HCl (Zofran) 4 mg PRN Q6HRS PRN IV NAUSEA/VOMITING; Start at 11:00; Stop 12/25/16 at 10:59; Status DC Cefepime HCl 1 gm/ Dextrose 50 ml @ 100 mls/hr Q8HRS IV ; Start 12/24/16 at 14 :00; Status UNV Levofloxacin/ Dextrose (Levaquin Per Pharmacy) 1 each PRN DAILY PRN MC SEE COMMENTS; Start 12/24/16 at 11:00; Status UNV Benzonatate (Tessalon Perle) 100 mg PRN TID PRN PO COUGH; Start 12/24/16 at 11 :00 Clopidogrel Bisulfate (Plavix) 75 mg DAILY PO Last administered on 12/25/16 08:31; Start 12/24/16 at 11:00 Ergocalciferol (Vitamin D2) 50,000 unit WEEKLY PO ; Start 12/31/16 at 09:00 Folic Acid (Folic Acid) 1 mg BID PO ; Start 12/24/16 at 21:00; Stop 12/24/16 at 21:00; Status DC Vitamin B Complex/ Vitamin C (Radha-Fay) 1 tab DAILY PO ; Start 12/25/16 at 09: 00; Stop 12/25/16 at 09:00; Status DC Acetaminophen/ Hydrocodone Bitart (Lortab 5/325) 1 tab PRN Q6HRS PRN PO PAIN Last administered on 12/25/16 06:22; Start 12/24/16 at 11:00 Levetiracetam (Keppra) 500 mg BID PO Last administered on 12/25/16 22:25; Start 12/24/16 at 21:00 Nystatin (Nystop) 1 jesus BID TP Last administered on 12/25/16 22:26; Start at 21:00 Pantoprazole Sodium (Protonix) 40 mg DAILYAC PO Last administered on 08:34; Start 12/25/16 at 07:30 Tramadol HCl (Ultram) 50 mg PRN Q6HRS PRN PO MILD PAIN; Start 12/24/16 at 11: 00; Stop 12/24/16 at 12:19; Status DC Nystatin (Mycostatin) 1 jesus BID TP ; Start 12/24/16 at 21:00 Oxybutynin Chloride (Ditropan) 5 mg DAILY PO Last administered on 12/25/16 08 :31; Start 12/25/16 at 09:00 Venlafaxine HCl (Effexor) 50 mg TID PO Last administered on 12/25/16 22:25; Start 12/24/16 at 14:00 Albuterol/ Ipratropium (Duoneb) 3 ml RTQID NEB Last administered on 12/26/16 08:07; Start 12/24/16 at 12:00 Guaifenesin (Robitussin Dm) 10 ml PRN Q6HRS PRN PO COUGH; Start 12/24/16 at 11 :00 Aspirin (Children'S Aspirin) 324 mg 1X ONCE PO Last administered on 11:01; Start 12/24/16 at 11:00; Stop 12/24/16 at 11:01; Status DC Cefepime HCl 1 gm/ Dextrose 50 ml @ 100 mls/hr 1X ONCE IV Last administered on 12/24/16 11:33; Start 12/24/16 at 11:00; Stop 12/24/16 at 11:29; Status DC Levofloxacin/ Dextrose 100 ml @ 100 mls/hr 1X ONCE IV Last administered on 15:54; Start 12/24/16 at 11:00; Stop 12/25/16 at 11:09; Status DC Triamcinolone Acetonide (Kenalog) 1 jesus BID TP ; Start 12/24/16 at 21:00 Cefepime HCl (Maxipime) 1 gm Q24H IVP Last administered on 12/25/16 11:00; Start 12/25/16 at 11:00 Levofloxacin/ Dextrose 100 ml @ 100 mls/hr Q48H IV ; Start 12/26/16 at 10:00; Stop 12/26/16 at 10:00; Status DC Sodium Chloride 1,000 ml @ 1,000 mls/hr Q1H PRN IV hypotension; Start at 17:00; Stop 12/24/16 at 23:00; Status DC Sodium Chloride (Normal Saline Flush) 10 ml 1X PRN PRN IV AP catheter pack; Start 12/24/16 at 16:45; Stop 12/25/16 at 16:44; Status DC Sodium Chloride (Normal Saline Flush) 10 ml 1X PRN PRN IV MAMMOGRAPHY TECH catheter pack; Start 12/24/16 at 16:45; Stop 12/25/16 at 16:44; Status DC Info (PHARMACY MONITORING -- do not chart) 1 each PRN DAILY PRN MC SEE COMMENTS ; Start 12/24/16 at 16:45 Lorazepam (Ativan) 1 mg PRN Q4HRS PRN IV ANXIETY / AGITATION; Start 12/25/16 at 06:45 Potassium Chloride (Klor-Con) 40 meq 1X ONCE PO ; Start 12/25/16 at 10:00; Stop 12/25/16 at 10:01; Status UNV Methylprednisolone Acetate (DEPO-Medrol 40MG VIAL) 40 mg 1X ONCE IM ; Start at 10:45; Stop 12/25/16 at 10:46; Status DC Bupivacaine HCl (Sensorcaine-Mpf 0.25%) 10 ml 1X ONCE IJ ; Start 12/25/16 at 10:45; Stop 12/25/16 at 10:46; Status DC Lactobacillus Rhamnosus (Culturelle) 1 cap BID PO Last administered on t 22:25; Start 12/25/16 at 21:00 Potassium Chloride (Klor-Con) 40 meq 1X ONCE PO Last administered on t 13:06; Start 12/25/16 at 13:00; Stop 12/25/16 at 13:01; Status DC Sodium Chloride 1,000 ml @ 1,000 mls/hr Q1H PRN IV hypotension; Start at 15:02; Stop 12/25/16 at 21:01; Status DC Sodium Chloride (Normal Saline Flush) 10 ml 1X PRN PRN IV AP catheter pack; Start 12/25/16 at 15:15; Stop 12/26/16 at 15:14 Sodium Chloride (Normal Saline Flush) 10 ml 1X PRN PRN IV MAMMOGRAPHY TECH catheter pack; Start 12/25/16 at 15:15; Stop 12/26/16 at 15:14 Sodium Chloride 1,000 ml @ 400 mls/hr Q2H30M PRN IV PATENCY; Start 12/25/16 at 15:02; Stop 12/26/16 at 03:01; Status DC Info (PHARMACY MONITORING -- do not chart) 1 each PRN DAILY PRN MC SEE COMMENTS ; Start 12/25/16 at 15:15; Status UNV Info (PHARMACY MONITORING -- do not chart) 1 each PRN DAILY PRN MC SEE COMMENTS ; Start 12/25/16 at 15:15; Status UNV Iodixanol (Visipaque 320) 100 ml STK-MED ONCE .ROUTE ; Start 12/26/16 at 11:05 ; Stop 12/26/16 at 11:06; Status DC Lidocaine HCl 20 ml STK-MED ONCE .ROUTE ; Start 12/26/16 at 11:05; Stop at 11:06; Status DC Heparin Sodium/ Sodium Chloride 500 ml @ As Directed STK-MED ONCE .ROUTE ; Start 12/26/16 at 11:05; Stop 12/26/16 at 11:06; Status DC Active Scripts Active Prednisone 10 Mg Tablet 10 Mg PO UD take 4 tablets by mouth daily for 3 days, then decrease by 1 tablet every 3 days til gone. Pantoprazole Sodium 40 Mg Tablet.dr 40 Mg PO DAILYAC Benzonatate 100 Mg Capsule 100 Mg PO PRN TID PRN Duoneb 0.5-3(2.5) Mg/3 Ml (Albuterol/Ipratropium) 3 Ml Ampul.neb 3 Ml NEB QID PRN Albuterol Sulfate Neb Soln (Albuterol Sulfate) 2.5 Mg/3 Ml Vial.neb 2.5 Mg NEB PRN Q4HRS PRN 30 Days Nystop (Nystatin) 60 Gm Powder 1 Jesus TP BID [place] 5-325 Tablet (Acetaminophen/Hydrocodone Bitart) 1 Each Tablet 1 Tab PO PRN Q6HRS PRN Reported Levetiracetam 500 Mg Tablet 500 Mg PO BID Vitamin D2 (Ergocalciferol (Vitamin D2)) 50,000 Unit Capsule 1 Cap PO WEEKLY Nystatin-Triamcinolone Ointm (Nystatin/Triamcin) 30 Gm Oint...g. 30 Gm TP BID Venlafaxine Hcl Er (Venlafaxine Hcl) 150 Mg Cap.er.24h 150 Mg PO DAILY Plavix (Clopidogrel Bisulfate) 75 Mg Tablet 75 Mg PO DAILY Duoneb 0.5 Mg-3 Mg/3 Ml Soln (Ipratropium/Albuterol Sulfate) 3 Ml Ampul.neb 3 Ml IH Q6HRS Ditropan Xl (Oxybutynin Chloride) 5 Mg Tab.er.24 5 Mg PO DAILY Vitals/I & O Vital Sign - Last 24 Hours 12/25/16 12/25/16 12/25/16 12/25/16 11:51 20:00 20:00 20:23 Temp 98.3 98.3 Pulse 88 Resp 18 B/P (MAP) 85/60 (68) Pulse Ox 97 97 99 O2 Delivery Nasal Cannula Nasal Cannula Nasal Cannula Nasal Cannula O2 Flow Rate 2.0 3.0 3.0 2.0 12/25/16 12/25/16 12/26/16 12/26/16 23:30 23:30 00:57 03:00 Temp 98.3 98.3 Pulse 80 Resp 19 B/P (MAP) 87/53 (64) Pulse Ox 99 O2 Delivery BiPAP/CPAP Nasal Cannula BiPAP/CPAP BiPAP/CPAP O2 Flow Rate 3.0 12/26/16 12/26/16 12/26/16 12/26/16 03:15 07:00 07:38 08:07 Temp 97.5 98.1 97.5 98.1 Pulse 81 75 Resp 20 24 B/P (MAP) 123/66 (85) 127/62 (83) Pulse Ox 97 96 99 O2 Delivery BiPAP/CPAP Nasal Cannula Nasal Cannula Nasal Cannula O2 Flow Rate 3.0 3.0 2.0 Intake and Output 12/25/16 12/25/16 12/26/16 15:00 23:00 07:00 Intake Total 240 ml Output Total 0 ml Balance 0 ml 240 ml WILLIAM MORRISSEY MD Dec 26, 2016 11:12
[2016-12-26] MEDS ORDERED: fentaNYL PF VIAL 100 MCG/2 ML VIAL ONE (11:46)
[2016-12-26] MEDS ORDERED: MIDAZOLAM HCL/PF 2 MG/2 ML VIAL. ONE (11:46)
[2016-12-26] MEDS ORDERED: IODIXANOL 320 MG/ML 100 ML VIAL. IART ONE (12:00)
[2016-12-26] MEDS ORDERED: MIDAZOLAM HCL/PF 2 MG/2 ML VIAL. IV ONE (12:00)
[2016-12-26] MEDS ORDERED: CONTRAST GIVEN MC PRN (12:00)
[2016-12-26] MEDS ORDERED: LIDOCAINE 2% 20 ML VIAL. IJ ONE (12:00)
[2016-12-26] MEDS ORDERED: fentaNYL PF VIAL 100 MCG/2 ML VIAL IV ONE (12:00)
[2016-12-26] MEDS: PANTOPRAZOLE 40 MG TABLET.DR. PO SCH (12:44)
[2016-12-26] MEDS: VENLAFAXINE 50 MG TABLET. PO SCH ×3 (12:44→20:47)
[2016-12-26] MEDS: levETIRAcetam 500 MG TABLET PO SCH ×2 (12:44→20:47)
[2016-12-26] MEDS: LACTOBACILLUS RHAMNOSUS GG 1 CAPSULE. PO SCH ×2 (12:44→20:47)
[2016-12-26] MEDS: OXYBUTYNIN CHLORIDE 5 MG TABLET PO SCH (12:44)
[2016-12-26] MEDS: CLOPIDOGREL BISULFATE 75 MG TABLET PO SCH (12:44)
--- NOTE | 2016-12-26 13:50 | CARD ---
APPROVED REPORT Procedure(s) performed: MODERATE SEDATION: 40 MINUTES PROCEDURE NARRATIVE Indication: Moderate to severe eccentric mitral regurgitation with recurrent heart failure. 66-year-old woman who presented to the hospital with recurrent dyspnea in the setting of a prior hist ory of hemodialysis and was noted to have eccentric mitral regurgitation on prior echocardiography in November 2016. In this setting given her recurrent presentation with flash pulmonary edema with her m itral regurgitation was felt that coronary artery disease needed to be ruled out. The patient was brought to the catheterization lab after appropriate informed consent and prepped and draped in usual sterile fashion. The bilateral femoral pulses were diminished. Under fluoroscopic gu idance 2% lidocaine local anesthesia was administered to the right and left groins. Subsequent only, an 18-gauge needle was used to enter the right common femoral artery but a J-tipped guidewire would n ot traverse past the mid right external iliac artery. A injection through the needle revealed severe subtotal occlusion of the right external iliac artery. Subsequently, an 18-gauge needle was then used to enter the left common femoral artery with fluoroscopic guidance and a 5 [place] sheath was inserte d. Next, advancement of a J-tipped guidewire past the distal common iliac was unsuccessful again owin g to a 100% occlusion at the level of the common iliac bifurcation. The patient has a history of right sided stroke with contractures of the right arm. She has a single dialysis catheter in the left subclavian axillary system. It was felt that access to the coronary yvonne e via the left radial approach given her significant vasculopathy and diminished left radial pulse wo uld likely not be successful. In light of the fact that she has limited dialysis access available it was felt that a noninvasive evaluation to rule out ischemia might be a safer approach at this time. S renaeuld her noninvasive testing reveal significant ischemia we could then consider cardiac catheterizat ion via the left brachial or radial approach. FINDINGS: Occlusion of the right external and left common iliac arteries on diagnostic angiography. Conclusion 1. Severe peripheral arterial disease with occlusion of the bilateral inflow vessels to the lower ext remities. 2. Severe right arm contracture precluding radial cath via the right arm. 3. Diminished left radial pulse with dialysis access on the left side. Recommendations 1. Consider non-invasive evaluation with nuclear stress test. If nuclear stress test is significantly abnormal, can then consider cath via the left radial approach. Otherwise, would favor conservative m gmt.
[2016-12-26] MEDS: CEFEPIME HCL IV Push 1 GM VIAL. IVP SCH (14:23)
[2016-12-26] MEDS: HYDROcodone/APAP 5/325MG 1 TAB TABLET PO PRN (20:47)
[2016-12-27 03:15] VITALS: BP 141/81
[2016-12-27 06:40] LABS: ALBUMIN 2.8 g/dL (3.4-5.0); ALBUMIN/GLOBULIN RATIO 0.8 (1.0-1.7); CALCIUM 9.3 mg/dL (8.5-10.1); CREATININE 4.9 mg/dL (0.6-1.0); GFR 8.8; POTASSIUM 4.8 mmol/L (3.5-5.1); TOTAL BILIRUBIN 0.4 mg/dL (0.2-1.0); TOTAL PROTEIN 6.3 g/dL (6.4-8.2)
[2016-12-27 07:26] LABS: BASO # 0.1 x10^3/uL (0.0-0.2); BASO % 1 % (0-3); EOS % 2 % (0-3); HEMATOCRIT 30.4 % (36.0-47.0); HEMOGLOBIN 9.7 g/dL (12.0-15.5); LYMPH # 1.5 x10^3/uL (1.0-4.8); LYMPH % 21 % (24-48); MEAN CORPUSCULAR HEMOGLOBIN 28 pg (25-35); MEAN CORPUSCULAR HGB CONC 32 g/dL (31-37); MEAN CORPUSCULAR VOLUME 87 fL (79-100); MONO % 9 % (0-9); NEUT % 68 % (31-73); PLATELET COUNT 141 x10^3/uL (140-400); RED BLOOD COUNT 3.51 x10^6/uL (3.50-5.40); RED CELL DISTRIBUTION WIDTH 18.8 % (11.5-14.5); WHITE BLOOD COUNT 7.1 x10^3/uL (4.0-11.0)
[2016-12-27 07:55] VITALS: BP 135/85
[2016-12-27] MEDS: IPRATRPIUM/ALBUTEROL 0.5/2.5MG 3 ML NEBU. NEB SCH ×4 (08:31→19:30)
[2016-12-27] MEDS: VENLAFAXINE 50 MG TABLET. PO SCH ×3 (09:00→21:00)
[2016-12-27] MEDS: NYSTATIN TOPICAL POWDER 15GM BOTTLE. TP SCH ×2 (09:00→21:00)
[2016-12-27] MEDS: NYSTATIN 100,000 UNIT/GM TOPICAL CREAM 15GM TUBE. TP SCH ×2 (09:00→21:00)
[2016-12-27] MEDS: TRIAMCINOLONE ACETONIDE 0.1% TOPICAL CREAM 15GM TUBE. TP SCH ×2 (09:00→21:00)
--- NOTE | 2016-12-27 09:47 | PDOC ---
CARDIO Progress Notes Date and Time Date of Service 12/27/16 Time of Evaluation 0940 Subjective Subjective: No Chest Pain, No shortness of breath Vitals Vitals Vital Signs Date Time Temp Pulse Resp B/P (MAP) Pulse Ox O2 Delivery O2 Flow Rate FiO2 12/27/16 08:32 96 Nasal Cannula 2.5 12/27/16 07:55 98.0 94 19 135/85 (102) 98.0 Weight Weight [ ] Input and Output Intake and Output Intake and Output 12/27/16 06:59 Intake Total 460 ml Output Total 0 ml Balance 460 ml Intake Oral 460 ml Output Urine Total 0 ml # Bowel Movements 1 Laboratory Labs Laboratory Tests Test 12/27/16 05:40 White Blood Count 7.1 x10^3/uL (4.0-11.0) Red Blood Count 3.51 x10^6/uL (3.50-5.40) Hemoglobin 9.7 g/dL (12.0-15.5) Hematocrit 30.4 % (36.0-47.0) Mean Corpuscular Volume 87 fL (79-100) Mean Corpuscular Hemoglobin 28 pg (25-35) Mean Corpuscular Hemoglobin Concent 32 g/dL (31-37) Red Cell Distribution Width 18.8 % (11.5-14.5) Platelet Count 141 x10^3/uL (140-400) Neutrophils (%) (Auto) 68 % (31-73) Lymphocytes (%) (Auto) 21 % (24-48) Monocytes (%) (Auto) 9 % (0-9) Eosinophils (%) (Auto) 2 % (0-3) Basophils (%) (Auto) 1 % (0-3) Neutrophils # (Auto) 4.8 x10^3uL (1.8-7.7) Lymphocytes # (Auto) 1.5 x10^3/uL (1.0-4.8) Monocytes # (Auto) 0.6 x10^3/uL (0.0-1.1) Eosinophils # (Auto) 0.1 x10^3/uL (0.0-0.7) Basophils # (Auto) 0.1 x10^3/uL (0.0-0.2) Sodium Level 140 mmol/L (136-145) Potassium Level 4.8 mmol/L (3.5-5.1) Chloride Level 103 mmol/L (98-107) Carbon Dioxide Level 29 mmol/L (21-32) Anion Gap 8 (6-14) Blood Urea Nitrogen 35 mg/dL (7-20) Creatinine 4.9 mg/dL (0.6-1.0) Estimated GFR (Cockcroft-Gault) 8.8 BUN/Creatinine Ratio 7 (6-20) Glucose Level 86 mg/dL (70-99) Calcium Level 9.3 mg/dL (8.5-10.1) Magnesium Level 2.0 mg/dL (1.8-2.4) Total Bilirubin 0.4 mg/dL (0.2-1.0) Aspartate Amino Transf (AST/SGOT) 20 U/L (15-37) Alanine Aminotransferase (ALT/SGPT) 24 U/L (14-59) Alkaline Phosphatase 87 U/L (46-116) Total Protein 6.3 g/dL (6.4-8.2) Albumin 2.8 g/dL (3.4-5.0) Albumin/Globulin Ratio 0.8 (1.0-1.7) Microbiology Micro Microbiology 12/24/16 Blood Culture - Preliminary, Resulted NO GROWTH AFTER 2 DAYS Review of Systems Constitutional: yes: other (SOMNOLENT) Physical Exam HEENT: Neck Supple W Full Motion Chest: Symmetric LUNGS: Clear to Auscultation, Other (diminished bases) Heart: S1S2, RRR, murmurs (2/6 systolic murmur ) Abdomen: Soft N/T Extremities: No Edema, No Calf Tenderness Neurology: alert, oriented, follow commands Assessment Assessment 1. Mild troponin elevation 2. Acute on chronic diastolic heart failure 3. Acute on chronic respiratory failure 4. Hypertension 5. Hyperlipidemia 6. Moderate to severe MR 7. PVD 8. ESRD Recommendations 1. Risk stratification with MPI today as cath was unable to be performed due to PAD along with RUE contracture and LE dialysis access device 2. Continue fluid off loading via HD 3. Supportive care 4. Further recommendations pending diagnostics MARCELINO BRAN APRN Dec 27, 2016 09:47
--- NOTE | 2016-12-27 10:52 | PDOC ---
Renal-Progress Notes Subjective Notes Notes NONE History of Present Illness Hx of present illness STABLE Vitals Vitals Vital Signs Date Time Temp Pulse Resp B/P (MAP) Pulse Ox O2 Delivery O2 Flow Rate FiO2 12/27/16 08:32 96 Nasal Cannula 2.5 12/27/16 07:55 98.0 94 19 135/85 (102) 98.0 Weight Weight [ ] I.O. Intake and Output Intake and Output 12/27/16 07:00 Intake Total 460 ml Output Total 0 ml Balance 460 ml Intake Oral 460 ml Output Urine Total 0 ml # Bowel Movements 1 Labs Labs Laboratory Tests Test 12/27/16 05:40 White Blood Count 7.1 x10^3/uL (4.0-11.0) Red Blood Count 3.51 x10^6/uL (3.50-5.40) Hemoglobin 9.7 g/dL (12.0-15.5) Hematocrit 30.4 % (36.0-47.0) Mean Corpuscular Volume 87 fL (79-100) Mean Corpuscular Hemoglobin 28 pg (25-35) Mean Corpuscular Hemoglobin Concent 32 g/dL (31-37) Red Cell Distribution Width 18.8 % (11.5-14.5) Platelet Count 141 x10^3/uL (140-400) Neutrophils (%) (Auto) 68 % (31-73) Lymphocytes (%) (Auto) 21 % (24-48) Monocytes (%) (Auto) 9 % (0-9) Eosinophils (%) (Auto) 2 % (0-3) Basophils (%) (Auto) 1 % (0-3) Neutrophils # (Auto) 4.8 x10^3uL (1.8-7.7) Lymphocytes # (Auto) 1.5 x10^3/uL (1.0-4.8) Monocytes # (Auto) 0.6 x10^3/uL (0.0-1.1) Eosinophils # (Auto) 0.1 x10^3/uL (0.0-0.7) Basophils # (Auto) 0.1 x10^3/uL (0.0-0.2) Sodium Level 140 mmol/L (136-145) Potassium Level 4.8 mmol/L (3.5-5.1) Chloride Level 103 mmol/L (98-107) Carbon Dioxide Level 29 mmol/L (21-32) Anion Gap 8 (6-14) Blood Urea Nitrogen 35 mg/dL (7-20) Creatinine 4.9 mg/dL (0.6-1.0) Estimated GFR (Cockcroft-Gault) 8.8 BUN/Creatinine Ratio 7 (6-20) Glucose Level 86 mg/dL (70-99) Calcium Level 9.3 mg/dL (8.5-10.1) Magnesium Level 2.0 mg/dL (1.8-2.4) Total Bilirubin 0.4 mg/dL (0.2-1.0) Aspartate Amino Transf (AST/SGOT) 20 U/L (15-37) Alanine Aminotransferase (ALT/SGPT) 24 U/L (14-59) Alkaline Phosphatase 87 U/L (46-116) Total Protein 6.3 g/dL (6.4-8.2) Albumin 2.8 g/dL (3.4-5.0) Albumin/Globulin Ratio 0.8 (1.0-1.7) Micro Micro Microbiology 12/24/16 Blood Culture - Preliminary, Resulted NO GROWTH AFTER 3 DAYS Review of Systems Constitutional: yes: other (SOMNOLENT) Physical Exam General Appearance: no apparent distress Skin: warm Respiratory: bilateral CTA Heart: S1S2 Abdomen: soft, bowel sounds present Genitourinary: bladder flat Extremities: pulses present Assessment Assessment IMP CHF PNEUMONIA ANEMIA DYSPHAGIA DEMENTIA PLAN HD TODAY UF TO DW MPI TODAY DYSPHAGIA II DIET CONT VERITO VINCENT MD Dec 27, 2016 10:52
[2016-12-27] MEDS: CEFEPIME HCL IV Push 1 GM VIAL. IVP SCH (11:00)
[2016-12-27] MEDS ORDERED: REGADENOSON 0.4 MG/5 ML DISP.SYRIN. IV ONE (13:45)
[2016-12-27 14:37] VITALS: BP 97/58
[2016-12-27] MEDS: LACTOBACILLUS RHAMNOSUS GG 1 CAPSULE. PO SCH ×2 (15:07→21:00)
[2016-12-27] MEDS: OXYBUTYNIN CHLORIDE 5 MG TABLET PO SCH (15:07)
[2016-12-27] MEDS: levETIRAcetam 500 MG TABLET PO SCH ×2 (15:07→21:00)
[2016-12-27] MEDS: PANTOPRAZOLE 40 MG TABLET.DR. PO SCH (15:07)
[2016-12-27] MEDS: CLOPIDOGREL BISULFATE 75 MG TABLET PO SCH (15:07)
--- NOTE | 2016-12-27 16:54 | PDOC ---
PROGRESS NOTES Chief Complaint Chief Complaint 1. Acute hypoxic and hypercapneic respi failure needing NIPPV in ER, improved 2,. pneumonitis, no clear pneumonia, no organism found, abx given empirically 3. COPD, Home O2 dependent 4. Tobaccoism history 5. ESRD on HD MWF w/ hyopokalemia 6, Anemia of ESRD 7. HTN. controlled 8. Fibromylagia, depression PCM, NOS, chronic stable 9. 4 prior CVA, chronic encephalopathy, weakness 10 right wrist pain, History of Present Illness History of Present Illness feeling better, breathing easier HD today stress test today needs PT and OT Renal diet hypokalemia, leave for HD to adjust today Vitals Vitals Vital Signs Date Time Temp Pulse Resp B/P (MAP) Pulse Ox O2 Delivery O2 Flow Rate FiO2 12/27/16 16:13 95 Nasal Cannula 3.0 12/27/16 14:37 98.3 87 20 97/58 (71) 98.3 Physical Exam General: Alert, Oriented X3, Cooperative, No acute distress Heart: Regular rate, No murmurs Lungs: Clear Abdomen: Normal bowel sounds, Soft, No tenderness, No hepatosplenomegaly, No masses Extremities: No cyanosis, No edema Skin: No breakdown, No significant lesion Labs LABS Laboratory Tests Test 12/27/16 05:40 White Blood Count 7.1 x10^3/uL (4.0-11.0) Red Blood Count 3.51 x10^6/uL (3.50-5.40) Hemoglobin 9.7 g/dL (12.0-15.5) Hematocrit 30.4 % (36.0-47.0) Mean Corpuscular Volume 87 fL (79-100) Mean Corpuscular Hemoglobin 28 pg (25-35) Mean Corpuscular Hemoglobin Concent 32 g/dL (31-37) Red Cell Distribution Width 18.8 % (11.5-14.5) Platelet Count 141 x10^3/uL (140-400) Neutrophils (%) (Auto) 68 % (31-73) Lymphocytes (%) (Auto) 21 % (24-48) Monocytes (%) (Auto) 9 % (0-9) Eosinophils (%) (Auto) 2 % (0-3) Basophils (%) (Auto) 1 % (0-3) Neutrophils # (Auto) 4.8 x10^3uL (1.8-7.7) Lymphocytes # (Auto) 1.5 x10^3/uL (1.0-4.8) Monocytes # (Auto) 0.6 x10^3/uL (0.0-1.1) Eosinophils # (Auto) 0.1 x10^3/uL (0.0-0.7) Basophils # (Auto) 0.1 x10^3/uL (0.0-0.2) Sodium Level 140 mmol/L (136-145) Potassium Level 4.8 mmol/L (3.5-5.1) Chloride Level 103 mmol/L (98-107) Carbon Dioxide Level 29 mmol/L (21-32) Anion Gap 8 (6-14) Blood Urea Nitrogen 35 mg/dL (7-20) Creatinine 4.9 mg/dL (0.6-1.0) Estimated GFR (Cockcroft-Gault) 8.8 BUN/Creatinine Ratio 7 (6-20) Glucose Level 86 mg/dL (70-99) Calcium Level 9.3 mg/dL (8.5-10.1) Magnesium Level 2.0 mg/dL (1.8-2.4) Total Bilirubin 0.4 mg/dL (0.2-1.0) Aspartate Amino Transf (AST/SGOT) 20 U/L (15-37) Alanine Aminotransferase (ALT/SGPT) 24 U/L (14-59) Alkaline Phosphatase 87 U/L (46-116) Total Protein 6.3 g/dL (6.4-8.2) Albumin 2.8 g/dL (3.4-5.0) Albumin/Globulin Ratio 0.8 (1.0-1.7) Review of Systems Review of Systems no n/v/d feels better still weak no cough Comment Review of Relevant I have reviewed the following items sarahi (where applicable) has been applied. Labs Laboratory Tests Test 12/27/16 05:40 White Blood Count 7.1 x10^3/uL (4.0-11.0) Red Blood Count 3.51 x10^6/uL (3.50-5.40) Hemoglobin 9.7 g/dL (12.0-15.5) Hematocrit 30.4 % (36.0-47.0) Mean Corpuscular Volume 87 fL (79-100) Mean Corpuscular Hemoglobin 28 pg (25-35) Mean Corpuscular Hemoglobin Concent 32 g/dL (31-37) Red Cell Distribution Width 18.8 % (11.5-14.5) Platelet Count 141 x10^3/uL (140-400) Neutrophils (%) (Auto) 68 % (31-73) Lymphocytes (%) (Auto) 21 % (24-48) Monocytes (%) (Auto) 9 % (0-9) Eosinophils (%) (Auto) 2 % (0-3) Basophils (%) (Auto) 1 % (0-3) Neutrophils # (Auto) 4.8 x10^3uL (1.8-7.7) Lymphocytes # (Auto) 1.5 x10^3/uL (1.0-4.8) Monocytes # (Auto) 0.6 x10^3/uL (0.0-1.1) Eosinophils # (Auto) 0.1 x10^3/uL (0.0-0.7) Basophils # (Auto) 0.1 x10^3/uL (0.0-0.2) Sodium Level 140 mmol/L (136-145) Potassium Level 4.8 mmol/L (3.5-5.1) Chloride Level 103 mmol/L (98-107) Carbon Dioxide Level 29 mmol/L (21-32) Anion Gap 8 (6-14) Blood Urea Nitrogen 35 mg/dL (7-20) Creatinine 4.9 mg/dL (0.6-1.0) Estimated GFR (Cockcroft-Gault) 8.8 BUN/Creatinine Ratio 7 (6-20) Glucose Level 86 mg/dL (70-99) Calcium Level 9.3 mg/dL (8.5-10.1) Magnesium Level 2.0 mg/dL (1.8-2.4) Total Bilirubin 0.4 mg/dL (0.2-1.0) Aspartate Amino Transf (AST/SGOT) 20 U/L (15-37) Alanine Aminotransferase (ALT/SGPT) 24 U/L (14-59) Alkaline Phosphatase 87 U/L (46-116) Total Protein 6.3 g/dL (6.4-8.2) Albumin 2.8 g/dL (3.4-5.0) Albumin/Globulin Ratio 0.8 (1.0-1.7) Laboratory Tests Test 12/27/16 05:40 White Blood Count 7.1 x10^3/uL (4.0-11.0) Red Blood Count 3.51 x10^6/uL (3.50-5.40) Hemoglobin 9.7 g/dL (12.0-15.5) Hematocrit 30.4 % (36.0-47.0) Mean Corpuscular Volume 87 fL (79-100) Mean Corpuscular Hemoglobin 28 pg (25-35) Mean Corpuscular Hemoglobin Concent 32 g/dL (31-37) Red Cell Distribution Width 18.8 % (11.5-14.5) Platelet Count 141 x10^3/uL (140-400) Neutrophils (%) (Auto) 68 % (31-73) Lymphocytes (%) (Auto) 21 % (24-48) Monocytes (%) (Auto) 9 % (0-9) Eosinophils (%) (Auto) 2 % (0-3) Basophils (%) (Auto) 1 % (0-3) Neutrophils # (Auto) 4.8 x10^3uL (1.8-7.7) Lymphocytes # (Auto) 1.5 x10^3/uL (1.0-4.8) Monocytes # (Auto) 0.6 x10^3/uL (0.0-1.1) Eosinophils # (Auto) 0.1 x10^3/uL (0.0-0.7) Basophils # (Auto) 0.1 x10^3/uL (0.0-0.2) Sodium Level 140 mmol/L (136-145) Potassium Level 4.8 mmol/L (3.5-5.1) Chloride Level 103 mmol/L (98-107) Carbon Dioxide Level 29 mmol/L (21-32) Anion Gap 8 (6-14) Blood Urea Nitrogen 35 mg/dL (7-20) Creatinine 4.9 mg/dL (0.6-1.0) Estimated GFR (Cockcroft-Gault) 8.8 BUN/Creatinine Ratio 7 (6-20) Glucose Level 86 mg/dL (70-99) Calcium Level 9.3 mg/dL (8.5-10.1) Magnesium Level 2.0 mg/dL (1.8-2.4) Total Bilirubin 0.4 mg/dL (0.2-1.0) Aspartate Amino Transf (AST/SGOT) 20 U/L (15-37) Alanine Aminotransferase (ALT/SGPT) 24 U/L (14-59) Alkaline Phosphatase 87 U/L (46-116) Total Protein 6.3 g/dL (6.4-8.2) Albumin 2.8 g/dL (3.4-5.0) Albumin/Globulin Ratio 0.8 (1.0-1.7) Microbiology 12/24/16 Blood Culture - Preliminary, Resulted NO GROWTH AFTER 3 DAYS Medications Current Medications Dexamethasone Sodium Phosphate (Decadron) 10 mg 1X ONCE IV Last administered on 12/24/16 10:30; Start 12/24/16 at 10:30; Stop 12/24/16 at 10:31; Status DC Azithromycin 250 ml @ 250 mls/hr 1X ONCE IV Last administered on 12/24/16 12:05; Start 12/24/16 at 11:00; Stop 12/24/16 at 11:59; Status DC Ceftriaxone Sodium 50 ml @ 100 mls/hr 1X ONCE IV Last administered on 11:01; Start 12/24/16 at 11:00; Stop 12/24/16 at 11:29; Status DC Ondansetron HCl (Zofran) 4 mg PRN Q8HRS PRN IV NAUSEA/VOMITING; Start at 10:45; Stop 12/24/16 at 10:53; Status DC Morphine Sulfate 4 mg PRN Q2HR PRN IV PAIN; Start 12/24/16 at 10:45; Stop at 10:44; Status DC Acetaminophen (Tylenol) 650 mg PRN Q4HRS PRN PO FEVER; Start 12/24/16 at 10:45 ; Stop 12/25/16 at 10:44; Status DC Ondansetron HCl (Zofran) 4 mg PRN Q6HRS PRN IV NAUSEA/VOMITING; Start at 11:00; Stop 12/25/16 at 10:59; Status DC Cefepime HCl 1 gm/ Dextrose 50 ml @ 100 mls/hr Q8HRS IV ; Start 12/24/16 at 14 :00; Status UNV Levofloxacin/ Dextrose (Levaquin Per Pharmacy) 1 each PRN DAILY PRN MC SEE COMMENTS; Start 12/24/16 at 11:00; Status UNV Benzonatate (Tessalon Perle) 100 mg PRN TID PRN PO COUGH; Start 12/24/16 at 11 :00 Clopidogrel Bisulfate (Plavix) 75 mg DAILY PO Last administered on 12/27/16 15:07; Start 12/24/16 at 11:00 Ergocalciferol (Vitamin D2) 50,000 unit WEEKLY PO ; Start 12/31/16 at 09:00 Folic Acid (Folic Acid) 1 mg BID PO ; Start 12/24/16 at 21:00; Stop 12/24/16 at 21:00; Status DC Vitamin B Complex/ Vitamin C (Radha-Fay) 1 tab DAILY PO ; Start 12/25/16 at 09: 00; Stop 12/25/16 at 09:00; Status DC Acetaminophen/ Hydrocodone Bitart (Lortab 5/325) 1 tab PRN Q6HRS PRN PO PAIN Last administered on 12/26/16 20:47; Start 12/24/16 at 11:00 Levetiracetam (Keppra) 500 mg BID PO Last administered on 12/27/16 15:07; Start 12/24/16 at 21:00 Nystatin (Nystop) 1 jesus BID TP Last administered on 12/25/16 22:26; Start at 21:00 Pantoprazole Sodium (Protonix) 40 mg DAILYAC PO Last administered on 15:07; Start 12/25/16 at 07:30 Tramadol HCl (Ultram) 50 mg PRN Q6HRS PRN PO MILD PAIN; Start 12/24/16 at 11: 00; Stop 12/24/16 at 12:19; Status DC Nystatin (Mycostatin) 1 jesus BID TP ; Start 12/24/16 at 21:00 Oxybutynin Chloride (Ditropan) 5 mg DAILY PO Last administered on 12/27/16 15 :07; Start 12/25/16 at 09:00 Venlafaxine HCl (Effexor) 50 mg TID PO Last administered on 12/27/16 15:07; Start 12/24/16 at 14:00 Albuterol/ Ipratropium (Duoneb) 3 ml RTQID NEB Last administered on 12/27/16 16:11; Start 12/24/16 at 12:00 Guaifenesin (Robitussin Dm) 10 ml PRN Q6HRS PRN PO COUGH; Start 12/24/16 at 11 :00 Aspirin (Children'S Aspirin) 324 mg 1X ONCE PO Last administered on 11:01; Start 12/24/16 at 11:00; Stop 12/24/16 at 11:01; Status DC Cefepime HCl 1 gm/ Dextrose 50 ml @ 100 mls/hr 1X ONCE IV Last administered on 12/24/16 11:33; Start 12/24/16 at 11:00; Stop 12/24/16 at 11:29; Status DC Levofloxacin/ Dextrose 100 ml @ 100 mls/hr 1X ONCE IV Last administered on 15:54; Start 12/24/16 at 11:00; Stop 12/25/16 at 11:09; Status DC Triamcinolone Acetonide (Kenalog) 1 jesus BID TP ; Start 12/24/16 at 21:00 Cefepime HCl (Maxipime) 1 gm Q24H IVP Last administered on 12/27/16 11:00; Start 12/25/16 at 11:00 Levofloxacin/ Dextrose 100 ml @ 100 mls/hr Q48H IV ; Start 12/26/16 at 10:00; Stop 12/26/16 at 10:00; Status DC Sodium Chloride 1,000 ml @ 1,000 mls/hr Q1H PRN IV hypotension; Start at 17:00; Stop 12/24/16 at 23:00; Status DC Sodium Chloride (Normal Saline Flush) 10 ml 1X PRN PRN IV AP catheter pack; Start 12/24/16 at 16:45; Stop 12/25/16 at 16:44; Status DC Sodium Chloride (Normal Saline Flush) 10 ml 1X PRN PRN IV 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; Start 12/24/16 at 16:45; Stop 12/25/16 at 16:44; Status DC Info (PHARMACY MONITORING -- do not chart) 1 each PRN DAILY PRN MC SEE COMMENTS ; Start 12/24/16 at 16:45 Lorazepam (Ativan) 1 mg PRN Q4HRS PRN IV ANXIETY / AGITATION; Start 12/25/16 at 06:45 Potassium Chloride (Klor-Con) 40 meq 1X ONCE PO ; Start 12/25/16 at 10:00; Stop 12/25/16 at 10:01; Status UNV Methylprednisolone Acetate (DEPO-Medrol 40MG VIAL) 40 mg 1X ONCE IM ; Start at 10:45; Stop 12/25/16 at 10:46; Status DC Bupivacaine HCl (Sensorcaine-Mpf 0.25%) 10 ml 1X ONCE IJ ; Start 12/25/16 at 10:45; Stop 12/25/16 at 10:46; Status DC Lactobacillus Rhamnosus (Culturelle) 1 cap BID PO Last administered on t 15:07; Start 12/25/16 at 21:00 Potassium Chloride (Klor-Con) 40 meq 1X ONCE PO Last administered on t 13:06; Start 12/25/16 at 13:00; Stop 12/25/16 at 13:01; Status DC Sodium Chloride 1,000 ml @ 1,000 mls/hr Q1H PRN IV hypotension; Start at 15:02; Stop 12/25/16 at 21:01; Status DC Sodium Chloride (Normal Saline Flush) 10 ml 1X PRN PRN IV AP catheter pack; Start 12/25/16 at 15:15; Stop 12/26/16 at 15:14; Status DC Sodium Chloride (Normal Saline Flush) 10 ml 1X PRN PRN IV 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; Start 12/25/16 at 15:15; Stop 12/26/16 at 15:14; Status DC Sodium Chloride 1,000 ml @ 400 mls/hr Q2H30M PRN IV PATENCY; Start 12/25/16 at 15:02; Stop 12/26/16 at 03:01; Status DC Info (PHARMACY MONITORING -- do not chart) 1 each PRN DAILY PRN MC SEE COMMENTS ; Start 12/25/16 at 15:15; Status UNV Info (PHARMACY MONITORING -- do not chart) 1 each PRN DAILY PRN MC SEE COMMENTS ; Start 12/25/16 at 15:15; Status UNV Iodixanol (Visipaque 320) 100 ml STK-MED ONCE .ROUTE ; Start 12/26/16 at 11:05 ; Stop 12/26/16 at 11:06; Status DC Lidocaine HCl 20 ml STK-MED ONCE .ROUTE ; Start 12/26/16 at 11:05; Stop at 11:06; Status DC Heparin Sodium/ Sodium Chloride 500 ml @ As Directed STK-MED ONCE .ROUTE ; Start 12/26/16 at 11:05; Stop 12/26/16 at 11:06; Status DC Fentanyl Citrate (Fentanyl 2ml Vial) 100 mcg STK-MED ONCE .ROUTE ; Start at 11:46; Stop 12/26/16 at 11:47; Status DC Midazolam HCl (Versed) 2 mg STK-MED ONCE .ROUTE ; Start 12/26/16 at 11:46; Stop 12/26/16 at 11:47; Status DC Midazolam HCl (Versed) 2 mg 1X ONCE IV Last administered on 12/26/16 12:00; Start 12/26/16 at 12:00; Stop 12/26/16 at 12:01; Status DC Fentanyl Citrate (Fentanyl 2ml Vial) 100 mcg 1X ONCE IV Last administered on 12/26/16 12:00; Start 12/26/16 at 12:00; Stop 12/26/16 at 12:01; Status DC Iodixanol (Visipaque 320) 100 ml 1X ONCE IART Last administered on 12/26/16 12:00; Start 12/26/16 at 12:00; Stop 12/26/16 at 12:01; Status DC Lidocaine HCl 20 ml 1X ONCE IJ Last administered on 12/26/16 12:00; Start 12/26/16 at 12:00; Stop 12/26/16 at 12:01; Status DC Info (Do NOT chart on this entry -- for MONITORING) 1 each PRN DAILY PRN MC SEE COMMENTS; Start 12/26/16 at 12:00; Stop 12/28/16 at 11:59 Lidocaine HCl 20 ml STK-MED ONCE .ROUTE ; Start 12/26/16 at 11:59; Stop at 12:00; Status DC Regadenoson (Lexiscan) 0.4 mg 1X ONCE IV Last administered on 12/27/16t 14:13 ; Start 12/27/16 at 13:45; Stop 12/27/16 at 13:46; Status DC Active Scripts Active Prednisone 10 Mg Tablet 10 Mg PO UD take 4 tablets by mouth daily for 3 days, then decrease by 1 tablet every 3 days til gone. Pantoprazole Sodium 40 Mg Tablet.dr 40 Mg PO DAILYAC Benzonatate 100 Mg Capsule 100 Mg PO PRN TID PRN Duoneb 0.5-3(2.5) Mg/3 Ml (Albuterol/Ipratropium) 3 Ml Ampul.neb 3 Ml NEB QID PRN Albuterol Sulfate Neb Soln (Albuterol Sulfate) 2.5 Mg/3 Ml Vial.neb 2.5 Mg NEB PRN Q4HRS PRN 30 Days Nystop (Nystatin) 60 Gm Powder 1 Jesus TP BID [place] 5-325 Tablet (Acetaminophen/Hydrocodone Bitart) 1 Each Tablet 1 Tab PO PRN Q6HRS PRN Reported Levetiracetam 500 Mg Tablet 500 Mg PO BID Vitamin D2 (Ergocalciferol (Vitamin D2)) 50,000 Unit Capsule 1 Cap PO WEEKLY Nystatin-Triamcinolone Ointm (Nystatin/Triamcin) 30 Gm Oint...g. 30 Gm TP BID Venlafaxine Hcl Er (Venlafaxine Hcl) 150 Mg Cap.er.24h 150 Mg PO DAILY Plavix (Clopidogrel Bisulfate) 75 Mg Tablet 75 Mg PO DAILY Duoneb 0.5 Mg-3 Mg/3 Ml Soln (Ipratropium/Albuterol Sulfate) 3 Ml Ampul.neb 3 Ml IH Q6HRS Ditropan Xl (Oxybutynin Chloride) 5 Mg Tab.er.24 5 Mg PO DAILY Vitals/I & O Vital Sign - Last 24 Hours 12/26/16 12/26/16 12/26/16 12/26/16 17:16 19:30 20:00 20:17 Temp 98.5 98.5 Pulse 90 Resp 20 B/P (MAP) 131/71 (91) Pulse Ox 99 95 99 O2 Delivery Nasal Cannula Nasal Cannula Nasal Cannula Nasal Cannula O2 Flow Rate 2.0 3.0 2.0 2.0 12/26/16 12/26/16 12/27/16 12/27/16 23:05 23:57 01:36 03:15 Temp 97.9 97.3 97.9 97.3 Pulse 90 93 Resp 18 20 B/P (MAP) 113/68 (83) 141/81 (101) Pulse Ox 92 96 O2 Delivery Nasal Cannula BiPAP/CPAP BiPAP/CPAP BiPAP/CPAP O2 Flow Rate 3.0 12/27/16 12/27/16 12/27/16 12/27/16 03:45 07:55 08:15 08:32 Temp 98.0 98.0 Pulse 94 Resp 19 B/P (MAP) 135/85 (102) Pulse Ox 98 96 O2 Delivery BiPAP/CPAP Nasal Cannula Nasal Cannula Nasal Cannula O2 Flow Rate 3.0 2.0 2.5 12/27/16 12/27/16 12/27/16 12:21 14:37 16:13 Temp 98.3 98.3 Pulse 87 Resp 20 B/P (MAP) 97/58 (71) Pulse Ox 93 97 95 O2 Delivery Nasal Cannula Nasal Cannula Nasal Cannula O2 Flow Rate 2.5 3.0 3.0 Intake and Output 12/26/16 12/26/16 12/27/16 15:00 23:00 07:00 Intake Total 100 ml 360 ml Output Total 0 ml Balance 100 ml 360 ml WILLIAM MORRISSEY MD Dec 27, 2016 16:54
[2016-12-27 19:00] VITALS: BP 111/63
[2016-12-27] MEDS: HYDROcodone/APAP 5/325MG 1 TAB TABLET PO PRN (21:00)
[2016-12-27 23:22] VITALS: BP 129/67
[2016-12-28 03:30] VITALS: BP 157/91
[2016-12-28 07:00] VITALS: BP 111/78
[2016-12-28] MEDS: IPRATRPIUM/ALBUTEROL 0.5/2.5MG 3 ML NEBU. NEB SCH ×4 (08:47→19:44)
[2016-12-28] MEDS: TRIAMCINOLONE ACETONIDE 0.1% TOPICAL CREAM 15GM TUBE. TP SCH ×2 (09:00→20:50)
[2016-12-28] MEDS: NYSTATIN 100,000 UNIT/GM TOPICAL CREAM 15GM TUBE. TP SCH ×2 (09:00→20:50)
[2016-12-28] MEDS: NYSTATIN TOPICAL POWDER 15GM BOTTLE. TP SCH ×2 (09:00→20:50)
[2016-12-28] MEDS: CEFEPIME HCL IV Push 1 GM VIAL. IVP SCH (09:58)
[2016-12-28] MEDS: LACTOBACILLUS RHAMNOSUS GG 1 CAPSULE. PO SCH ×2 (09:58→20:46)
[2016-12-28] MEDS: levETIRAcetam 500 MG TABLET PO SCH ×2 (09:58→20:45)
[2016-12-28] MEDS: CLOPIDOGREL BISULFATE 75 MG TABLET PO SCH (09:58)
[2016-12-28] MEDS: PANTOPRAZOLE 40 MG TABLET.DR. PO SCH (09:58)
[2016-12-28] MEDS: OXYBUTYNIN CHLORIDE 5 MG TABLET PO SCH (09:58)
[2016-12-28] MEDS: VENLAFAXINE 50 MG TABLET. PO SCH ×3 (09:58→20:46)
[2016-12-28 11:00] VITALS: BP 125/87
--- NOTE | 2016-12-28 11:19 | PDOC ---
Renal-Progress Notes Subjective Notes Notes FEELING BETTER, EATING BETTER History of Present Illness Hx of present illness STABLE Vitals Vitals Vital Signs Date Time Temp Pulse Resp B/P (MAP) Pulse Ox O2 Delivery O2 Flow Rate FiO2 12/28/16 08:47 97 Nasal Cannula 3.0 12/28/16 07:00 97.6 89 17 111/78 (89) 97.6 Weight Weight [ ] I.O. Intake and Output Intake and Output 12/28/16 07:00 Intake Total 550 ml Output Total 0 ml Balance 550 ml Intake Oral 550 ml Output Urine Total 0 ml # Bowel Movements 2 Micro Micro Microbiology 12/24/16 Blood Culture - Preliminary, Resulted NO GROWTH AFTER 4 DAYS Review of Systems Constitutional: yes: other (SOMNOLENT) Physical Exam General Appearance: no apparent distress Skin: warm Respiratory: bilateral CTA Heart: S1S2 Abdomen: soft, bowel sounds present Genitourinary: bladder flat Extremities: pulses present Neurology: alert, oriented, follow commands Assessment Assessment IMP CHF PNEUMONIA ANEMIA DYSPHAGIA DEMENTIA PLAN HD TOMORROW ADVANCE DIET TOLERATED CARDIOLOGY EVAL AND TX CONT VERITO VINCENT MD Dec 28, 2016 11:19
--- NOTE | 2016-12-28 11:53 | RAD ---
APPROVED REPORT Test Type: Pharmacological Stress Nurse/Tech: Lindsey Lam R.N. Test Indications: SOA, Elevated troponin Cardiac History: SEE EMR Medications: SEE EMR Medical History: COPD, CKD, Smoker Resting Heart Rate: 84 bpm Resting Blood Pressure: 136/70mmHg Pretest Chest Pain: None Nurse/Tech Notes S1S2, lungs are CTA but diminishedin the bases, denied chest pain. This patient is SOA, 3 LNC, sittin g up in chair. Consent: The procedure was explained to the patient in lay terms. Informed consent was witnessed. Turner eout was entered into [facility]. History and Stress Test performed by Norma Lam R.N. Pharm. Details Pharmacologic stress testing was performed using 0.4mg per 5ml of regadenoson given intravenously ove r 7-10 seconds. Stress Symptoms POST EXERCISE Reason for Termination: Infusion complete Max HR: 102 bpm Max Blood Pressure: 119/63mmHg Blood Pressure response to exercise: Normal blood pressure response during stress. Heart Rate response to exercise: Normal Chest Pain: No. Arrhythmia: No. ST Change: No. INTERPRETATION Stress EKG Conclusion: The resting EKG showed a sinus rhythm, septal Q waves and nonspecific ST-T wav e changes. The stress EKG shows no significant changes from baseline. Baseline abnormal EKG but no EKG evidence of stress-induced ischemia. Imaging Protocol IMAGE PROTOCOL: Rest Tc-99m/stress Tc-99m 1 day Rest: Stress: Viability: Radiopharm.Tc99m [id number] Sestamibi [id number] 33mCi Duration 15min. 10min. Img Date 12/27/2016 12/27/2016 Inj-Img [id number]. 60min. Rest Admin Site:IV right upper armAdministrator:Vick Nation RT (R)(N) Stress Admin Site: IV right upper armAdministrator: RT Kalyn (R)(N) STRESS DATA End Diast. Vol.116.0mlAv. Heart Rate86.0bpm End Syst. Vol.60.0mlCO Index BSA0.0L/min Myocardial Zgzy099.0gEject. Jrdqmiqj50.0% Stress Rates Pk. Fill Rate3.23EDV/secLVtime Pk. Fill 179.70msec Pk. Empty Rate3.40ESV/secLVtime Pk. Hfibj063.13msec 1/3 Pk. Fill0.82EDV/sec Stress Scores Regional WT3.00Summed WT29.00 Regional WM0.00Summed WM12.00 LV Perfusion The stress scans showed mild thinning in the apical septal region. The rest scans showed mild thinning in the apical septal region. Nuclear imaging shows no reversible ischemia. Nuclear imaging shows fixed thinning in the apical septal region suggestive of a small previous infa rct. Wall Motion Left ventricular systolic function is mildly decreased with an ejection fraction of 48%. No regional wall motion abnormalities. LV Perf. Quant 17 Seg. SSS12.00 17 Seg. SRS9.00 17 Seg. SDS4.00 Stress Defect Extent (% LAD)6.30Rest Defect Extent (% LAD)10.60Rev. Defect Extent (% LAD)0.00 Stress Defect Extent (% LCX) 58.80Rest Defect Extent (% LCX)42.50Rev. Defect Extent (% LCX)0.00 Stress Defect Extent (% RCA)2.20Rest Defect Extent (% RCA)0.00Rev. Defect Extent (% RCA)0.00 Stress Defect Extent (% JOSE ANGEL)19.10Rest Defect Extent (% JOSE ANGEL)15.40Rev. Defect Extent (% JOSE ANGEL)0.00 Conclusion 1. Abnormal resting EKG but no EKG evidence of stress-induced ischemia. 2. Nuclear imaging shows no reversible ischemia. 3. Nuclear imaging shows a possible small infarct in the apical septal region. 4. Mildly decreased ejection fraction at 48% with no regional wall motion abnormalities. 5. Moderate to moderately low risk stress test.
--- NOTE | 2016-12-28 12:03 | PDOC ---
PROGRESS NOTES Subjective Subjective No new complaints. Objective Objective Vital Signs Date Time Temp Pulse Resp B/P (MAP) Pulse Ox O2 Delivery O2 Flow Rate FiO2 12/28/16 08:47 97 Nasal Cannula 3.0 12/28/16 07:00 97.6 89 17 111/78 (89) 97.6 Intake and Output 12/28/16 07:00 Intake Total 550 ml Output Total 0 ml Balance 550 ml Intake Oral 550 ml Output Urine Total 0 ml # Bowel Movements 2 Physical Exam Physical Exam She is alert,sitting in bedside chair and remains independent with mobility and her activity limited by SOB. Plan Plan of Jail with home health follow up when medically stable. Comment Review of Relevant I have reviewed the following items sarahi (where applicable) has been applied. Labs Laboratory Tests Test 12/27/16 05:40 White Blood Count 7.1 x10^3/uL (4.0-11.0) Red Blood Count 3.51 x10^6/uL (3.50-5.40) Hemoglobin 9.7 g/dL (12.0-15.5) Hematocrit 30.4 % (36.0-47.0) Mean Corpuscular Volume 87 fL (79-100) Mean Corpuscular Hemoglobin 28 pg (25-35) Mean Corpuscular Hemoglobin Concent 32 g/dL (31-37) Red Cell Distribution Width 18.8 % (11.5-14.5) Platelet Count 141 x10^3/uL (140-400) Neutrophils (%) (Auto) 68 % (31-73) Lymphocytes (%) (Auto) 21 % (24-48) Monocytes (%) (Auto) 9 % (0-9) Eosinophils (%) (Auto) 2 % (0-3) Basophils (%) (Auto) 1 % (0-3) Neutrophils # (Auto) 4.8 x10^3uL (1.8-7.7) Lymphocytes # (Auto) 1.5 x10^3/uL (1.0-4.8) Monocytes # (Auto) 0.6 x10^3/uL (0.0-1.1) Eosinophils # (Auto) 0.1 x10^3/uL (0.0-0.7) Basophils # (Auto) 0.1 x10^3/uL (0.0-0.2) Sodium Level 140 mmol/L (136-145) Potassium Level 4.8 mmol/L (3.5-5.1) Chloride Level 103 mmol/L (98-107) Carbon Dioxide Level 29 mmol/L (21-32) Anion Gap 8 (6-14) Blood Urea Nitrogen 35 mg/dL (7-20) Creatinine 4.9 mg/dL (0.6-1.0) Estimated GFR (Cockcroft-Gault) 8.8 BUN/Creatinine Ratio 7 (6-20) Glucose Level 86 mg/dL (70-99) Calcium Level 9.3 mg/dL (8.5-10.1) Magnesium Level 2.0 mg/dL (1.8-2.4) Total Bilirubin 0.4 mg/dL (0.2-1.0) Aspartate Amino Transf (AST/SGOT) 20 U/L (15-37) Alanine Aminotransferase (ALT/SGPT) 24 U/L (14-59) Alkaline Phosphatase 87 U/L (46-116) Total Protein 6.3 g/dL (6.4-8.2) Albumin 2.8 g/dL (3.4-5.0) Albumin/Globulin Ratio 0.8 (1.0-1.7) Microbiology 12/24/16 Blood Culture - Preliminary, Resulted NO GROWTH AFTER 4 DAYS Medications Current Medications Dexamethasone Sodium Phosphate (Decadron) 10 mg 1X ONCE IV Last administered on 12/24/16 10:30; Start 12/24/16 at 10:30; Stop 12/24/16 at 10:31; Status DC Azithromycin 250 ml @ 250 mls/hr 1X ONCE IV Last administered on 12/24/16 12:05; Start 12/24/16 at 11:00; Stop 12/24/16 at 11:59; Status DC Ceftriaxone Sodium 50 ml @ 100 mls/hr 1X ONCE IV Last administered on 11:01; Start 12/24/16 at 11:00; Stop 12/24/16 at 11:29; Status DC Ondansetron HCl (Zofran) 4 mg PRN Q8HRS PRN IV NAUSEA/VOMITING; Start at 10:45; Stop 12/24/16 at 10:53; Status DC Morphine Sulfate 4 mg PRN Q2HR PRN IV PAIN; Start 12/24/16 at 10:45; Stop at 10:44; Status DC Acetaminophen (Tylenol) 650 mg PRN Q4HRS PRN PO FEVER; Start 12/24/16 at 10:45 ; Stop 12/25/16 at 10:44; Status DC Ondansetron HCl (Zofran) 4 mg PRN Q6HRS PRN IV NAUSEA/VOMITING; Start at 11:00; Stop 12/25/16 at 10:59; Status DC Cefepime HCl 1 gm/ Dextrose 50 ml @ 100 mls/hr Q8HRS IV ; Start 12/24/16 at 14 :00; Status UNV Levofloxacin/ Dextrose (Levaquin Per Pharmacy) 1 each PRN DAILY PRN MC SEE COMMENTS; Start 12/24/16 at 11:00; Status UNV Benzonatate (Tessalon Perle) 100 mg PRN TID PRN PO COUGH; Start 12/24/16 at 11 :00 Clopidogrel Bisulfate (Plavix) 75 mg DAILY PO Last administered on 12/28/16 09:58; Start 12/24/16 at 11:00 Ergocalciferol (Vitamin D2) 50,000 unit WEEKLY PO ; Start 12/31/16 at 09:00 Folic Acid (Folic Acid) 1 mg BID PO ; Start 12/24/16 at 21:00; Stop 12/24/16 at 21:00; Status DC Vitamin B Complex/ Vitamin C (Radha-Fay) 1 tab DAILY PO ; Start 12/25/16 at 09: 00; Stop 12/25/16 at 09:00; Status DC Acetaminophen/ Hydrocodone Bitart (Lortab 5/325) 1 tab PRN Q6HRS PRN PO PAIN Last administered on 12/27/16 21:00; Start 12/24/16 at 11:00 Levetiracetam (Keppra) 500 mg BID PO Last administered on 12/28/16 09:58; Start 12/24/16 at 21:00 Nystatin (Nystop) 1 jesus BID TP Last administered on 12/25/16 22:26; Start at 21:00 Pantoprazole Sodium (Protonix) 40 mg DAILYAC PO Last administered on 09:58; Start 12/25/16 at 07:30 Tramadol HCl (Ultram) 50 mg PRN Q6HRS PRN PO MILD PAIN; Start 12/24/16 at 11: 00; Stop 12/24/16 at 12:19; Status DC Nystatin (Mycostatin) 1 jesus BID TP ; Start 12/24/16 at 21:00 Oxybutynin Chloride (Ditropan) 5 mg DAILY PO Last administered on 12/28/16 09 :58; Start 12/25/16 at 09:00 Venlafaxine HCl (Effexor) 50 mg TID PO Last administered on 12/28/16 09:58; Start 12/24/16 at 14:00 Albuterol/ Ipratropium (Duoneb) 3 ml RTQID NEB Last administered on 12/28/16 08:47; Start 12/24/16 at 12:00 Guaifenesin (Robitussin Dm) 10 ml PRN Q6HRS PRN PO COUGH; Start 12/24/16 at 11 :00 Aspirin (Children'S Aspirin) 324 mg 1X ONCE PO Last administered on 11:01; Start 12/24/16 at 11:00; Stop 12/24/16 at 11:01; Status DC Cefepime HCl 1 gm/ Dextrose 50 ml @ 100 mls/hr 1X ONCE IV Last administered on 12/24/16 11:33; Start 12/24/16 at 11:00; Stop 12/24/16 at 11:29; Status DC Levofloxacin/ Dextrose 100 ml @ 100 mls/hr 1X ONCE IV Last administered on 15:54; Start 12/24/16 at 11:00; Stop 12/25/16 at 11:09; Status DC Triamcinolone Acetonide (Kenalog) 1 jesus BID TP ; Start 12/24/16 at 21:00 Cefepime HCl (Maxipime) 1 gm Q24H IVP Last administered on 12/28/16 09:58; Start 12/25/16 at 11:00 Levofloxacin/ Dextrose 100 ml @ 100 mls/hr Q48H IV ; Start 12/26/16 at 10:00; Stop 12/26/16 at 10:00; Status DC Sodium Chloride 1,000 ml @ 1,000 mls/hr Q1H PRN IV hypotension; Start at 17:00; Stop 12/24/16 at 23:00; Status DC Sodium Chloride (Normal Saline Flush) 10 ml 1X PRN PRN IV AP catheter pack; Start 12/24/16 at 16:45; Stop 12/25/16 at 16:44; Status DC Sodium Chloride (Normal Saline Flush) 10 ml 1X PRN PRN IV BELL NECK HAMMERER catheter pack; Start 12/24/16 at 16:45; Stop 12/25/16 at 16:44; Status DC Info (PHARMACY MONITORING -- do not chart) 1 each PRN DAILY PRN MC SEE COMMENTS ; Start 12/24/16 at 16:45 Lorazepam (Ativan) 1 mg PRN Q4HRS PRN IV ANXIETY / AGITATION; Start 12/25/16 at 06:45 Potassium Chloride (Klor-Con) 40 meq 1X ONCE PO ; Start 12/25/16 at 10:00; Stop 12/25/16 at 10:01; Status UNV Methylprednisolone Acetate (DEPO-Medrol 40MG VIAL) 40 mg 1X ONCE IM ; Start at 10:45; Stop 12/25/16 at 10:46; Status DC Bupivacaine HCl (Sensorcaine-Mpf 0.25%) 10 ml 1X ONCE IJ ; Start 12/25/16 at 10:45; Stop 12/25/16 at 10:46; Status DC Lactobacillus Rhamnosus (Culturelle) 1 cap BID PO Last administered on t 09:58; Start 12/25/16 at 21:00 Potassium Chloride (Klor-Con) 40 meq 1X ONCE PO Last administered on t 13:06; Start 12/25/16 at 13:00; Stop 12/25/16 at 13:01; Status DC Sodium Chloride 1,000 ml @ 1,000 mls/hr Q1H PRN IV hypotension; Start at 15:02; Stop 12/25/16 at 21:01; Status DC Sodium Chloride (Normal Saline Flush) 10 ml 1X PRN PRN IV AP catheter pack; Start 12/25/16 at 15:15; Stop 12/26/16 at 15:14; Status DC Sodium Chloride (Normal Saline Flush) 10 ml 1X PRN PRN IV BELL NECK HAMMERER catheter pack; Start 12/25/16 at 15:15; Stop 12/26/16 at 15:14; Status DC Sodium Chloride 1,000 ml @ 400 mls/hr Q2H30M PRN IV PATENCY; Start 12/25/16 at 15:02; Stop 12/26/16 at 03:01; Status DC Info (PHARMACY MONITORING -- do not chart) 1 each PRN DAILY PRN MC SEE COMMENTS ; Start 12/25/16 at 15:15; Status UNV Info (PHARMACY MONITORING -- do not chart) 1 each PRN DAILY PRN MC SEE COMMENTS ; Start 12/25/16 at 15:15; Status UNV Iodixanol (Visipaque 320) 100 ml STK-MED ONCE .ROUTE ; Start 12/26/16 at 11:05 ; Stop 12/26/16 at 11:06; Status DC Lidocaine HCl 20 ml STK-MED ONCE .ROUTE ; Start 12/26/16 at 11:05; Stop at 11:06; Status DC Heparin Sodium/ Sodium Chloride 500 ml @ As Directed STK-MED ONCE .ROUTE ; Start 12/26/16 at 11:05; Stop 12/26/16 at 11:06; Status DC Fentanyl Citrate (Fentanyl 2ml Vial) 100 mcg STK-MED ONCE .ROUTE ; Start at 11:46; Stop 12/26/16 at 11:47; Status DC Midazolam HCl (Versed) 2 mg STK-MED ONCE .ROUTE ; Start 12/26/16 at 11:46; Stop 12/26/16 at 11:47; Status DC Midazolam HCl (Versed) 2 mg 1X ONCE IV Last administered on 12/26/16 12:00; Start 12/26/16 at 12:00; Stop 12/26/16 at 12:01; Status DC Fentanyl Citrate (Fentanyl 2ml Vial) 100 mcg 1X ONCE IV Last administered on 12/26/16 12:00; Start 12/26/16 at 12:00; Stop 12/26/16 at 12:01; Status DC Iodixanol (Visipaque 320) 100 ml 1X ONCE IART Last administered on 12/26/16 12:00; Start 12/26/16 at 12:00; Stop 12/26/16 at 12:01; Status DC Lidocaine HCl 20 ml 1X ONCE IJ Last administered on 12/26/16t 12:00; Start 12/26/16 at 12:00; Stop 12/26/16 at 12:01; Status DC Info (Do NOT chart on this entry -- for MONITORING) 1 each PRN DAILY PRN MC SEE COMMENTS; Start 12/26/16 at 12:00; Stop 12/28/16 at 11:59; Status DC Lidocaine HCl 20 ml STK-MED ONCE .ROUTE ; Start 12/26/16 at 11:59; Stop at 12:00; Status DC Regadenoson (Lexiscan) 0.4 mg 1X ONCE IV Last administered on 12/27/16t 14:13 ; Start 12/27/16 at 13:45; Stop 12/27/16 at 13:46; Status DC Darbepoetin Omar (Aranesp) 60 mcg WEEKLYHS SQ ; Start 12/28/16 at 21:00 Active Scripts Active Prednisone 10 Mg Tablet 10 Mg PO UD take 4 tablets by mouth daily for 3 days, then decrease by 1 tablet every 3 days til gone. Pantoprazole Sodium 40 Mg Tablet.dr 40 Mg PO DAILYAC Benzonatate 100 Mg Capsule 100 Mg PO PRN TID PRN Duoneb 0.5-3(2.5) Mg/3 Ml (Albuterol/Ipratropium) 3 Ml Ampul.neb 3 Ml NEB QID PRN Albuterol Sulfate Neb Soln (Albuterol Sulfate) 2.5 Mg/3 Ml Vial.neb 2.5 Mg NEB PRN Q4HRS PRN 30 Days Nystop (Nystatin) 60 Gm Powder 1 Jesus TP BID [place] 5-325 Tablet (Acetaminophen/Hydrocodone Bitart) 1 Each Tablet 1 Tab PO PRN Q6HRS PRN Reported Levetiracetam 500 Mg Tablet 500 Mg PO BID Vitamin D2 (Ergocalciferol (Vitamin D2)) 50,000 Unit Capsule 1 Cap PO WEEKLY Nystatin-Triamcinolone Ointm (Nystatin/Triamcin) 30 Gm Oint...g. 30 Gm TP BID Venlafaxine Hcl Er (Venlafaxine Hcl) 150 Mg Cap.er.24h 150 Mg PO DAILY Plavix (Clopidogrel Bisulfate) 75 Mg Tablet 75 Mg PO DAILY Duoneb 0.5 Mg-3 Mg/3 Ml Soln (Ipratropium/Albuterol Sulfate) 3 Ml Ampul.neb 3 Ml IH Q6HRS Ditropan Xl (Oxybutynin Chloride) 5 Mg Tab.er.24 5 Mg PO DAILY Vitals/I & O Vital Sign - Last 24 Hours 12/27/16 12/27/16 12/27/16 12/27/16 12:21 14:37 16:13 19:00 Temp 98.3 98.2 98.3 98.2 Pulse 87 68 Resp 20 22 B/P (MAP) 97/58 (71) 111/63 (79) Pulse Ox 93 97 95 O2 Delivery Nasal Cannula Nasal Cannula Nasal Cannula Nasal Cannula O2 Flow Rate 2.5 3.0 3.0 3.0 12/27/16 12/27/16 12/27/16 12/27/16 19:32 20:00 21:00 22:47 Resp 20 Pulse Ox 98 O2 Delivery Nasal Cannula Nasal Cannula BiPAP/CPAP O2 Flow Rate 3.0 3.0 12/27/16 12/28/16 12/28/16 12/28/16 23:22 00:55 02:58 03:30 Temp 98.0 98.8 98.0 98.8 Pulse 81 89 Resp 24 22 B/P (MAP) 129/67 (87) 157/91 (113) Pulse Ox 97 97 O2 Delivery BiPAP/CPAP BiPAP/CPAP BiPAP/CPAP Nasal Cannula 12/28/16 12/28/16 07:00 08:47 Temp 97.6 97.6 Pulse 89 Resp 17 B/P (MAP) 111/78 (89) Pulse Ox 95 97 O2 Delivery Nasal Cannula Nasal Cannula O2 Flow Rate 3.0 Intake and Output 12/27/16 12/27/16 12/28/16 15:00 23:00 07:00 Intake Total 500 ml 50 ml Output Total 0 ml Balance 500 ml 50 ml FLOR WELCH MD Dec 28, 2016 12:03
--- NOTE | 2016-12-28 12:36 | PDOC ---
PULMONARY PROGRESS NOTES Subjective feels better Vitals Vital Signs Date Time Temp Pulse Resp B/P (MAP) Pulse Ox O2 Delivery O2 Flow Rate FiO2 12/28/16 11:00 98.0 89 18 125/87 (100) 98 Nasal Cannula 98.0 12/28/16 08:47 3.0 General: Alert, No acute distress HEENT: Other Lungs: Other (decrease bs) Cardiovascular: S1 Abdomen: Soft Neuro Exam: Alert Extremities: Other (trace edema) Skin: Warm Labs Laboratory Tests Test 12/27/16 05:40 White Blood Count 7.1 x10^3/uL (4.0-11.0) Red Blood Count 3.51 x10^6/uL (3.50-5.40) Hemoglobin 9.7 g/dL (12.0-15.5) Hematocrit 30.4 % (36.0-47.0) Mean Corpuscular Volume 87 fL (79-100) Mean Corpuscular Hemoglobin 28 pg (25-35) Mean Corpuscular Hemoglobin Concent 32 g/dL (31-37) Red Cell Distribution Width 18.8 % (11.5-14.5) Platelet Count 141 x10^3/uL (140-400) Neutrophils (%) (Auto) 68 % (31-73) Lymphocytes (%) (Auto) 21 % (24-48) Monocytes (%) (Auto) 9 % (0-9) Eosinophils (%) (Auto) 2 % (0-3) Basophils (%) (Auto) 1 % (0-3) Neutrophils # (Auto) 4.8 x10^3uL (1.8-7.7) Lymphocytes # (Auto) 1.5 x10^3/uL (1.0-4.8) Monocytes # (Auto) 0.6 x10^3/uL (0.0-1.1) Eosinophils # (Auto) 0.1 x10^3/uL (0.0-0.7) Basophils # (Auto) 0.1 x10^3/uL (0.0-0.2) Sodium Level 140 mmol/L (136-145) Potassium Level 4.8 mmol/L (3.5-5.1) Chloride Level 103 mmol/L (98-107) Carbon Dioxide Level 29 mmol/L (21-32) Anion Gap 8 (6-14) Blood Urea Nitrogen 35 mg/dL (7-20) Creatinine 4.9 mg/dL (0.6-1.0) Estimated GFR (Cockcroft-Gault) 8.8 BUN/Creatinine Ratio 7 (6-20) Glucose Level 86 mg/dL (70-99) Calcium Level 9.3 mg/dL (8.5-10.1) Magnesium Level 2.0 mg/dL (1.8-2.4) Total Bilirubin 0.4 mg/dL (0.2-1.0) Aspartate Amino Transf (AST/SGOT) 20 U/L (15-37) Alanine Aminotransferase (ALT/SGPT) 24 U/L (14-59) Alkaline Phosphatase 87 U/L (46-116) Total Protein 6.3 g/dL (6.4-8.2) Albumin 2.8 g/dL (3.4-5.0) Albumin/Globulin Ratio 0.8 (1.0-1.7) Medications Active Scripts Medications Dose Route/Sig Max Daily Dose Days Date Category Dose Instructions Prednisone 10 Mg Tablet 10 Mg PO UD 12/15/16 Rx take 4 tablets by mouth daily for 3 days, then decrease by 1 tablet every 3 days til gone. Pantoprazole Sodium 40 Mg Tablet.dr 40 Mg PO DAILYAC 11/21/16 Rx Benzonatate 100 Mg Capsule 100 Mg PO PRN TID PRN 11/21/16 Rx Duoneb 0.5-3(2.5) Mg/3 Ml (Albuterol/Ipratropium) 3 Ml Ampul.neb 3 Ml NEB QID PRN 10/04/16 Rx Albuterol Sulfate Neb Soln (Albuterol Sulfate) 2.5 Mg/3 Ml Vial.neb 2.5 Mg NEB PRN Q4HRS PRN 30 03/18/16 Rx Nystop (Nystatin) 60 Gm Powder 1 Jesus TP BID 03/18/16 Rx Levetiracetam 500 Mg Tablet 500 Mg PO BID 01/14/16 Reported Vitamin D2 (Ergocalciferol (Vitamin D2)) 50,000 Unit Capsule 1 Cap PO WEEKLY 01/14/16 Reported [place] 5-325 Tablet (Acetaminophen/Hydrocodone Bitart) 1 Each Tablet 1 Tab PO PRN Q6HRS PRN 10/12/15 Rx Nystatin-Triamcinolone Ointm (Nystatin/Triamcin) 30 Gm Oint...g. 30 Gm TP BID 05/20/13 Reported Venlafaxine Hcl Er (Venlafaxine Hcl) 150 Mg Cap.er.24h 150 Mg PO DAILY 05/20/13 Reported Plavix (Clopidogrel Bisulfate) 75 Mg Tablet 75 Mg PO DAILY 05/20/13 Reported Duoneb 0.5 Mg-3 Mg/3 Ml Soln (Ipratropium/Albuterol Sulfate) 3 Ml Ampul.neb 3 Ml IH Q6HRS 05/20/13 Reported Ditropan Xl (Oxybutynin Chloride) 5 Mg Tab.er.24 5 Mg PO DAILY 05/20/13 Reported Impression . 1. Acute on chronic respiratory failure. 2. Acute on chronic diastolic and systolic heart failure. 3. Abnormal x-ray compatible with interstitial pulmonary edema. 4. Mild protein malnutrition, present upon admission. 5. Non-ST segment elevation myocardial infarction. 6. h/o SARITHA, on home BIPAP Plan . 1. Recommend continue p.r.n. BiPAP./ nasal canula 2. hemodialysis per renal 3. follow Cardiology rec. MPI done 4. No need for antibiotics. 5. Nebulized treatments. 6. The patient instructed on the importance of discontinuing tobacco use. 7. f/u CXR today JAMEE HULL MD Dec 28, 2016 12:36
--- NOTE | 2016-12-28 13:07 | PDOC ---
PROGRESS NOTES Chief Complaint Chief Complaint 1. Acute hypoxic and hypercapneic respi failure needing NIPPV in ER, improved 2,. pneumonitis, no clear pneumonia, no organism found, abx given empirically 3. COPD, Home O2 dependent 4. Tobaccoism history 5. ESRD on HD MWF w/ hyopokalemia 6, Anemia of ESRD 7. HTN. controlled 8. Fibromylagia, depression PCM, NOS, chronic stable 9. 4 prior CVA, chronic encephalopathy, weakness 10 right wrist pain, History of Present Illness History of Present Illness feeling better, breathing easier doing well today , stonger no event Renal diet hypokalemia, will HD tomorrow again, check chem 7 in AM plan DC 12/29 Vitals Vitals Vital Signs Date Time Temp Pulse Resp B/P (MAP) Pulse Ox O2 Delivery O2 Flow Rate FiO2 12/28/16 12:39 99 Nasal Cannula 4.5 12/28/16 11:00 98.0 89 18 125/87 (100) 98.0 Physical Exam General: Alert, Oriented X3, Cooperative, No acute distress Heart: Regular rate, No murmurs Lungs: Clear, Other (decrease bs) Abdomen: Normal bowel sounds, Soft, No tenderness, No hepatosplenomegaly, No masses Extremities: No cyanosis, No edema Skin: No breakdown, No significant lesion Comment Review of Relevant I have reviewed the following items sarahi (where applicable) has been applied. Labs Laboratory Tests Test 12/27/16 05:40 White Blood Count 7.1 x10^3/uL (4.0-11.0) Red Blood Count 3.51 x10^6/uL (3.50-5.40) Hemoglobin 9.7 g/dL (12.0-15.5) Hematocrit 30.4 % (36.0-47.0) Mean Corpuscular Volume 87 fL (79-100) Mean Corpuscular Hemoglobin 28 pg (25-35) Mean Corpuscular Hemoglobin Concent 32 g/dL (31-37) Red Cell Distribution Width 18.8 % (11.5-14.5) Platelet Count 141 x10^3/uL (140-400) Neutrophils (%) (Auto) 68 % (31-73) Lymphocytes (%) (Auto) 21 % (24-48) Monocytes (%) (Auto) 9 % (0-9) Eosinophils (%) (Auto) 2 % (0-3) Basophils (%) (Auto) 1 % (0-3) Neutrophils # (Auto) 4.8 x10^3uL (1.8-7.7) Lymphocytes # (Auto) 1.5 x10^3/uL (1.0-4.8) Monocytes # (Auto) 0.6 x10^3/uL (0.0-1.1) Eosinophils # (Auto) 0.1 x10^3/uL (0.0-0.7) Basophils # (Auto) 0.1 x10^3/uL (0.0-0.2) Sodium Level 140 mmol/L (136-145) Potassium Level 4.8 mmol/L (3.5-5.1) Chloride Level 103 mmol/L (98-107) Carbon Dioxide Level 29 mmol/L (21-32) Anion Gap 8 (6-14) Blood Urea Nitrogen 35 mg/dL (7-20) Creatinine 4.9 mg/dL (0.6-1.0) Estimated GFR (Cockcroft-Gault) 8.8 BUN/Creatinine Ratio 7 (6-20) Glucose Level 86 mg/dL (70-99) Calcium Level 9.3 mg/dL (8.5-10.1) Magnesium Level 2.0 mg/dL (1.8-2.4) Total Bilirubin 0.4 mg/dL (0.2-1.0) Aspartate Amino Transf (AST/SGOT) 20 U/L (15-37) Alanine Aminotransferase (ALT/SGPT) 24 U/L (14-59) Alkaline Phosphatase 87 U/L (46-116) Total Protein 6.3 g/dL (6.4-8.2) Albumin 2.8 g/dL (3.4-5.0) Albumin/Globulin Ratio 0.8 (1.0-1.7) Microbiology 12/24/16 Blood Culture - Preliminary, Resulted NO GROWTH AFTER 4 DAYS Medications Current Medications Dexamethasone Sodium Phosphate (Decadron) 10 mg 1X ONCE IV Last administered on 12/24/16 10:30; Start 12/24/16 at 10:30; Stop 12/24/16 at 10:31; Status DC Azithromycin 250 ml @ 250 mls/hr 1X ONCE IV Last administered on 12/24/16 12:05; Start 12/24/16 at 11:00; Stop 12/24/16 at 11:59; Status DC Ceftriaxone Sodium 50 ml @ 100 mls/hr 1X ONCE IV Last administered on 11:01; Start 12/24/16 at 11:00; Stop 12/24/16 at 11:29; Status DC Ondansetron HCl (Zofran) 4 mg PRN Q8HRS PRN IV NAUSEA/VOMITING; Start at 10:45; Stop 12/24/16 at 10:53; Status DC Morphine Sulfate 4 mg PRN Q2HR PRN IV PAIN; Start 12/24/16 at 10:45; Stop at 10:44; Status DC Acetaminophen (Tylenol) 650 mg PRN Q4HRS PRN PO FEVER; Start 12/24/16 at 10:45 ; Stop 12/25/16 at 10:44; Status DC Ondansetron HCl (Zofran) 4 mg PRN Q6HRS PRN IV NAUSEA/VOMITING; Start at 11:00; Stop 12/25/16 at 10:59; Status DC Cefepime HCl 1 gm/ Dextrose 50 ml @ 100 mls/hr Q8HRS IV ; Start 12/24/16 at 14 :00; Status UNV Levofloxacin/ Dextrose (Levaquin Per Pharmacy) 1 each PRN DAILY PRN MC SEE COMMENTS; Start 12/24/16 at 11:00; Status UNV Benzonatate (Tessalon Perle) 100 mg PRN TID PRN PO COUGH; Start 12/24/16 at 11 :00 Clopidogrel Bisulfate (Plavix) 75 mg DAILY PO Last administered on 12/28/16 09:58; Start 12/24/16 at 11:00 Ergocalciferol (Vitamin D2) 50,000 unit WEEKLY PO ; Start 12/31/16 at 09:00 Folic Acid (Folic Acid) 1 mg BID PO ; Start 12/24/16 at 21:00; Stop 12/24/16 at 21:00; Status DC Vitamin B Complex/ Vitamin C (Radha-Fay) 1 tab DAILY PO ; Start 12/25/16 at 09: 00; Stop 12/25/16 at 09:00; Status DC Acetaminophen/ Hydrocodone Bitart (Lortab 5/325) 1 tab PRN Q6HRS PRN PO PAIN Last administered on 12/27/16 21:00; Start 12/24/16 at 11:00 Levetiracetam (Keppra) 500 mg BID PO Last administered on 12/28/16 09:58; Start 12/24/16 at 21:00 Nystatin (Nystop) 1 jesus BID TP Last administered on 12/25/16 22:26; Start at 21:00 Pantoprazole Sodium (Protonix) 40 mg DAILYAC PO Last administered on 09:58; Start 12/25/16 at 07:30 Tramadol HCl (Ultram) 50 mg PRN Q6HRS PRN PO MILD PAIN; Start 12/24/16 at 11: 00; Stop 12/24/16 at 12:19; Status DC Nystatin (Mycostatin) 1 jesus BID TP ; Start 12/24/16 at 21:00 Oxybutynin Chloride (Ditropan) 5 mg DAILY PO Last administered on 12/28/16 09 :58; Start 12/25/16 at 09:00 Venlafaxine HCl (Effexor) 50 mg TID PO Last administered on 12/28/16 09:58; Start 12/24/16 at 14:00 Albuterol/ Ipratropium (Duoneb) 3 ml RTQID NEB Last administered on 12/28/16 12:39; Start 12/24/16 at 12:00 Guaifenesin (Robitussin Dm) 10 ml PRN Q6HRS PRN PO COUGH; Start 12/24/16 at 11 :00 Aspirin (Children'S Aspirin) 324 mg 1X ONCE PO Last administered on 11:01; Start 12/24/16 at 11:00; Stop 12/24/16 at 11:01; Status DC Cefepime HCl 1 gm/ Dextrose 50 ml @ 100 mls/hr 1X ONCE IV Last administered on 12/24/16 11:33; Start 12/24/16 at 11:00; Stop 12/24/16 at 11:29; Status DC Levofloxacin/ Dextrose 100 ml @ 100 mls/hr 1X ONCE IV Last administered on 15:54; Start 12/24/16 at 11:00; Stop 12/25/16 at 11:09; Status DC Triamcinolone Acetonide (Kenalog) 1 jesus BID TP ; Start 12/24/16 at 21:00 Cefepime HCl (Maxipime) 1 gm Q24H IVP Last administered on 12/28/16 09:58; Start 12/25/16 at 11:00 Levofloxacin/ Dextrose 100 ml @ 100 mls/hr Q48H IV ; Start 12/26/16 at 10:00; Stop 12/26/16 at 10:00; Status DC Sodium Chloride 1,000 ml @ 1,000 mls/hr Q1H PRN IV hypotension; Start at 17:00; Stop 12/24/16 at 23:00; Status DC Sodium Chloride (Normal Saline Flush) 10 ml 1X PRN PRN IV AP catheter pack; Start 12/24/16 at 16:45; Stop 12/25/16 at 16:44; Status DC Sodium Chloride (Normal Saline Flush) 10 ml 1X PRN PRN IV GRAPHIC DESIGNER catheter pack; Start 12/24/16 at 16:45; Stop 12/25/16 at 16:44; Status DC Info (PHARMACY MONITORING -- do not chart) 1 each PRN DAILY PRN MC SEE COMMENTS ; Start 12/24/16 at 16:45 Lorazepam (Ativan) 1 mg PRN Q4HRS PRN IV ANXIETY / AGITATION; Start 12/25/16 at 06:45 Potassium Chloride (Klor-Con) 40 meq 1X ONCE PO ; Start 12/25/16 at 10:00; Stop 12/25/16 at 10:01; Status UNV Methylprednisolone Acetate (DEPO-Medrol 40MG VIAL) 40 mg 1X ONCE IM ; Start at 10:45; Stop 12/25/16 at 10:46; Status DC Bupivacaine HCl (Sensorcaine-Mpf 0.25%) 10 ml 1X ONCE IJ ; Start 12/25/16 at 10:45; Stop 12/25/16 at 10:46; Status DC Lactobacillus Rhamnosus (Culturelle) 1 cap BID PO Last administered on 09:58; Start 12/25/16 at 21:00 Potassium Chloride (Klor-Con) 40 meq 1X ONCE PO Last administered on 11/13/ 17at 13:06; Start 12/25/16 at 13:00; Stop 12/25/16 at 13:01; Status DC Sodium Chloride 1,000 ml @ 1,000 mls/hr Q1H PRN IV hypotension; Start at 15:02; Stop 12/25/16 at 21:01; Status DC Sodium Chloride (Normal Saline Flush) 10 ml 1X PRN PRN IV AP catheter pack; Start 12/25/16 at 15:15; Stop 12/26/16 at 15:14; Status DC Sodium Chloride (Normal Saline Flush) 10 ml 1X PRN PRN IV GRAPHIC DESIGNER catheter pack; Start 12/25/16 at 15:15; Stop 12/26/16 at 15:14; Status DC Sodium Chloride 1,000 ml @ 400 mls/hr Q2H30M PRN IV PATENCY; Start 12/25/16 at 15:02; Stop 12/26/16 at 03:01; Status DC Info (PHARMACY MONITORING -- do not chart) 1 each PRN DAILY PRN MC SEE COMMENTS ; Start 12/25/16 at 15:15; Status UNV Info (PHARMACY MONITORING -- do not chart) 1 each PRN DAILY PRN MC SEE COMMENTS ; Start 12/25/16 at 15:15; Status UNV Iodixanol (Visipaque 320) 100 ml STK-MED ONCE .ROUTE ; Start 12/26/16 at 11:05 ; Stop 12/26/16 at 11:06; Status DC Lidocaine HCl 20 ml STK-MED ONCE .ROUTE ; Start 12/26/16 at 11:05; Stop at 11:06; Status DC Heparin Sodium/ Sodium Chloride 500 ml @ As Directed STK-MED ONCE .ROUTE ; Start 12/26/16 at 11:05; Stop 12/26/16 at 11:06; Status DC Fentanyl Citrate (Fentanyl 2ml Vial) 100 mcg STK-MED ONCE .ROUTE ; Start at 11:46; Stop 12/26/16 at 11:47; Status DC Midazolam HCl (Versed) 2 mg STK-MED ONCE .ROUTE ; Start 12/26/16 at 11:46; Stop 12/26/16 at 11:47; Status DC Midazolam HCl (Versed) 2 mg 1X ONCE IV Last administered on 12/26/16 12:00; Start 12/26/16 at 12:00; Stop 12/26/16 at 12:01; Status DC Fentanyl Citrate (Fentanyl 2ml Vial) 100 mcg 1X ONCE IV Last administered on 12/26/16 12:00; Start 12/26/16 at 12:00; Stop 12/26/16 at 12:01; Status DC Iodixanol (Visipaque 320) 100 ml 1X ONCE IART Last administered on 12/26/16 12:00; Start 12/26/16 at 12:00; Stop 12/26/16 at 12:01; Status DC Lidocaine HCl 20 ml 1X ONCE IJ Last administered on 12/26/16 12:00; Start 12/26/16 at 12:00; Stop 12/26/16 at 12:01; Status DC Info (Do NOT chart on this entry -- for MONITORING) 1 each PRN DAILY PRN MC SEE COMMENTS; Start 12/26/16 at 12:00; Stop 12/28/16 at 11:59; Status DC Lidocaine HCl 20 ml STK-MED ONCE .ROUTE ; Start 12/26/16 at 11:59; Stop at 12:00; Status DC Regadenoson (Lexiscan) 0.4 mg 1X ONCE IV Last administered on 12/27/16 14:13 ; Start 12/27/16 at 13:45; Stop 12/27/16 at 13:46; Status DC Darbepoetin Omar (Aranesp) 60 mcg WEEKLYHS SQ ; Start 12/28/16 at 21:00 Bupivacaine HCl (Sensorcaine-Mpf 0.25%) 10 ml STK-MED ONCE .ROUTE ; Start 12/25 at 11:00; Stop 12/28/16 at 12:24; Status DC Methylprednisolone Acetate (DEPO-Medrol 40MG VIAL) 40 mg STK-MED ONCE .ROUTE ; Start 12/25/16 at 11:00; Stop 12/28/16 at 12:24; Status DC Active Scripts Active Prednisone 10 Mg Tablet 10 Mg PO UD take 4 tablets by mouth daily for 3 days, then decrease by 1 tablet every 3 days til gone. Pantoprazole Sodium 40 Mg Tablet.dr 40 Mg PO DAILYAC Benzonatate 100 Mg Capsule 100 Mg PO PRN TID PRN Duoneb 0.5-3(2.5) Mg/3 Ml (Albuterol/Ipratropium) 3 Ml Ampul.neb 3 Ml NEB QID PRN Albuterol Sulfate Neb Soln (Albuterol Sulfate) 2.5 Mg/3 Ml Vial.neb 2.5 Mg NEB PRN Q4HRS PRN 30 Days Nystop (Nystatin) 60 Gm Powder 1 Jesus TP BID [place] 5-325 Tablet (Acetaminophen/Hydrocodone Bitart) 1 Each Tablet 1 Tab PO PRN Q6HRS PRN Reported Levetiracetam 500 Mg Tablet 500 Mg PO BID Vitamin D2 (Ergocalciferol (Vitamin D2)) 50,000 Unit Capsule 1 Cap PO WEEKLY Nystatin-Triamcinolone Ointm (Nystatin/Triamcin) 30 Gm Oint...g. 30 Gm TP BID Venlafaxine Hcl Er (Venlafaxine Hcl) 150 Mg Cap.er.24h 150 Mg PO DAILY Plavix (Clopidogrel Bisulfate) 75 Mg Tablet 75 Mg PO DAILY Duoneb 0.5 Mg-3 Mg/3 Ml Soln (Ipratropium/Albuterol Sulfate) 3 Ml Ampul.neb 3 Ml IH Q6HRS Ditropan Xl (Oxybutynin Chloride) 5 Mg Tab.er.24 5 Mg PO DAILY Vitals/I & O Vital Sign - Last 24 Hours 12/27/16 12/27/16 12/27/16 12/27/16 14:37 16:13 19:00 19:32 Temp 98.3 98.2 98.3 98.2 Pulse 87 68 Resp 20 22 B/P (MAP) 97/58 (71) 111/63 (79) Pulse Ox 97 95 98 O2 Delivery Nasal Cannula Nasal Cannula Nasal Cannula Nasal Cannula O2 Flow Rate 3.0 3.0 3.0 3.0 12/27/16 12/27/16 12/27/16 12/27/16 20:00 21:00 22:47 23:22 Temp 98.0 98.0 Pulse 81 Resp 20 24 B/P (MAP) 129/67 (87) Pulse Ox 97 O2 Delivery Nasal Cannula BiPAP/CPAP BiPAP/CPAP O2 Flow Rate 3.0 12/28/16 12/28/16 12/28/16 12/28/16 00:55 02:58 03:30 07:00 Temp 98.8 97.6 98.8 97.6 Pulse 89 89 Resp 22 17 B/P (MAP) 157/91 (113) 111/78 (89) Pulse Ox 97 95 O2 Delivery BiPAP/CPAP BiPAP/CPAP Nasal Cannula Nasal Cannula 12/28/16 12/28/16 12/28/16 08:47 11:00 12:39 Temp 98.0 98.0 Pulse 89 Resp 18 B/P (MAP) 125/87 (100) Pulse Ox 97 98 99 O2 Delivery Nasal Cannula Nasal Cannula Nasal Cannula O2 Flow Rate 3.0 4.5 Intake and Output 12/27/16 12/27/16 12/28/16 15:00 23:00 07:00 Intake Total 500 ml 50 ml Output Total 0 ml Balance 500 ml 50 ml WILLIAM MORRISSEY MD Dec 28, 2016 13:06
--- NOTE | 2016-12-28 13:52 | RAD ---
Portable chest, 12/28/2016: History: Congestive heart failure Comparison is made to a study from 12/24/2016. A left sided dialysis type catheter remains in place extending into the right atrium. The heart size is unchanged. The pulmonary vascularity is prominent. There are ongoing bilateral pleural effusions and underlying bibasilar atelectasis/atelectasis/infiltrate, similar to those seen on the previous study. No new abnormality is detected. 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 IMPRESSION: Ongoing congestive heart failure with unchanged bilateral pleural effusions and bibasilar atelectasis/infiltrate.
[2016-12-28 15:00] VITALS: BP 125/72
--- NOTE | 2016-12-28 15:45 | PDOC ---
NJ GONZALEZ SAP TECHNICAL ARCHITECT 12/28/16 1545: CARDIO Progress Notes Date and Time Date of Service 12/28/2016 Time of Evaluation 1510 Subjective Subjective: No Chest Pain, No Palpitations, No Dizziness, Other (SOA is much better) Vitals Vitals Vital Signs Date Time Temp Pulse Resp B/P (MAP) Pulse Ox O2 Delivery O2 Flow Rate FiO2 12/28/16 15:18 3.0 12/28/16 12:39 99 Nasal Cannula 12/28/16 11:00 98.0 89 18 125/87 (100) 98.0 Weight Weight [ ] Input and Output Intake and Output Intake and Output 12/28/16 07:00 Intake Total 550 ml Output Total 0 ml Balance 550 ml Intake Oral 550 ml Output Urine Total 0 ml # Bowel Movements 2 Microbiology Micro Microbiology 12/24/16 Blood Culture - Preliminary, Resulted NO GROWTH AFTER 4 DAYS Review of Systems Constitutional: yes: other (SOMNOLENT) Physical Exam HEENT: Neck Supple W Full Motion Chest: Symmetric LUNGS: Other (faint basilar crackles) Heart: S1S2, RRR (SR), murmurs (2/6 systolic murmur ) Abdomen: Soft N/T Extremities: No Calf Tenderness, Other (1+ bilateral LE edema) Neurology: alert, oriented, follow commands Assessment Assessment 1. Elevated troponin: demand mediated. MPI shows no reversible defects 2. Presumed CAD with possible small infarct in the apical septal region per MPI. Failed LHC approx due to PAD and limited access. CP free 3. PAD: no symptoms of claudications and no leg wounds. 4. Acute on chronic diastolic heart failure: appears compensated 5. Acute on chronic respiratory failure: improved 6. HTN: controlled with no coverage. 7. Hyperlipidemia 8. Moderate to severe MR 9. ESRD Recommendations 1. Continue with plavix. Low dose lipitor. Initially noted with hypotension without HTN meds, Will reevaluate BB needs as an outpt. Defer any ACEi or ARB to nephrology. 2. Fluid off loading via HD 3. Supportive care 4. Follow up in office in 4 weeks. JIN LANDEROS MD 12/28/16 1622: CARDIO Progress Notes Plan Plan Patient seen and examined. Agree with above nurse practitioner note. No acute events overnight. Myocardial perfusion imaging today did not reveal any high-grade obstructive disease. In light of her significant vascular disease and limited access for heart catheterization and her minimally abnormal stress test we will pursue medical therapy for now. Continue Plavix. Unable to start her on PATRICE inhibitor due to blood pressure issues. Continue statin therapy. Supportive care for now. We will follow-up in the office and reassess on an outpatient basis. Thank you. NJ GONZALEZ APRN Dec 28, 2016 15:45 JIN LANDEROS MD Dec 28, 2016 16:22
[2016-12-28 19:25] VITALS: BP 103/63
[2016-12-28] MEDS ORDERED: DARBEPOETIN ALFA 60 MCG/0.3 ML DISP.SYRIN. SQ SCH (21:00)
[2016-12-28] MEDS ORDERED: ATORVASTATIN CALCIUM 10 MG TABLET. PO SCH (21:00)
[2016-12-28 23:15] VITALS: BP 145/72
[2016-12-29 03:20] VITALS: BP 130/58
[2016-12-29 06:00] LABS: CALCIUM 9.5 mg/dL (8.5-10.1); CREATININE 5.1 mg/dL (0.6-1.0); GFR 8.4; POTASSIUM 4.8 mmol/L (3.5-5.1)
[2016-12-29 07:00] VITALS: BP 124/68
[2016-12-29] MEDS: IPRATRPIUM/ALBUTEROL 0.5/2.5MG 3 ML NEBU. NEB SCH ×3 (07:24→16:12)
[2016-12-29] MEDS: LACTOBACILLUS RHAMNOSUS GG 1 CAPSULE. PO SCH ×2 (09:00→16:50)
[2016-12-29] MEDS: NYSTATIN TOPICAL POWDER 15GM BOTTLE. TP SCH (09:00)
[2016-12-29] MEDS: NYSTATIN 100,000 UNIT/GM TOPICAL CREAM 15GM TUBE. TP SCH (09:00)
[2016-12-29] MEDS: TRIAMCINOLONE ACETONIDE 0.1% TOPICAL CREAM 15GM TUBE. TP SCH (09:00)
[2016-12-29] MEDS: VENLAFAXINE 50 MG TABLET. PO SCH ×2 (09:00→16:46)
--- NOTE | 2016-12-29 11:43 | PDOC ---
Renal-Progress Notes Subjective Notes Notes FEELING BETTER History of Present Illness Hx of present illness STABLE Vitals Vitals Vital Signs Date Time Temp Pulse Resp B/P (MAP) Pulse Ox O2 Delivery O2 Flow Rate FiO2 12/29/16 08:00 Nasal Cannula 2.0 12/29/16 07:25 99 12/29/16 07:00 97.8 87 20 124/68 (86) 97.8 Weight Weight [ ] I.O. Intake and Output Intake and Output 12/29/16 07:00 Intake Total 650 ml Balance 650 ml Intake Oral 650 ml # Voids 5 # Bowel Movements 1 Labs Labs Laboratory Tests Test 12/29/16 04:45 Sodium Level 136 mmol/L (136-145) Potassium Level 4.8 mmol/L (3.5-5.1) Chloride Level 98 mmol/L (98-107) Carbon Dioxide Level 29 mmol/L (21-32) Anion Gap 9 (6-14) Blood Urea Nitrogen 45 mg/dL (7-20) Creatinine 5.1 mg/dL (0.6-1.0) Estimated GFR (Cockcroft-Gault) 8.4 Glucose Level 85 mg/dL (70-99) Calcium Level 9.5 mg/dL (8.5-10.1) Micro Micro Microbiology 12/24/16 Blood Culture - Final, Complete NO GROWTH AFTER 5 DAYS Review of Systems Constitutional: yes: other (SOMNOLENT) Physical Exam General Appearance: no apparent distress Skin: warm Respiratory: bilateral CTA Heart: S1S2 Abdomen: soft, bowel sounds present Genitourinary: bladder flat Extremities: pulses present Neurology: alert, oriented, follow commands Assessment Assessment IMP CHF PNEUMONIA ANEMIA DYSPHAGIA DEMENTIA PLAN HD TODAY UF TO HOME WITH HH NEXT HD SUNDAY VERITO KING MD Dec 29, 2016 11:43
--- NOTE | 2016-12-29 12:20 | PDOC ---
PULMONARY PROGRESS NOTES Subjective feels better Vitals Vital Signs Date Time Temp Pulse Resp B/P (MAP) Pulse Ox O2 Delivery O2 Flow Rate FiO2 12/29/16 08:00 Nasal Cannula 2.0 12/29/16 07:25 99 12/29/16 07:00 97.8 87 20 124/68 (86) 97.8 General: Alert, No acute distress HEENT: Other Lungs: Clear, Other (decrease bs) Cardiovascular: S1 Abdomen: Soft Neuro Exam: Alert Extremities: Other (trace edema) Skin: Warm Labs Laboratory Tests Test 12/29/16 04:45 Sodium Level 136 mmol/L (136-145) Potassium Level 4.8 mmol/L (3.5-5.1) Chloride Level 98 mmol/L (98-107) Carbon Dioxide Level 29 mmol/L (21-32) Anion Gap 9 (6-14) Blood Urea Nitrogen 45 mg/dL (7-20) Creatinine 5.1 mg/dL (0.6-1.0) Estimated GFR (Cockcroft-Gault) 8.4 Glucose Level 85 mg/dL (70-99) Calcium Level 9.5 mg/dL (8.5-10.1) Laboratory Tests Test 12/29/16 04:45 Sodium Level 136 mmol/L (136-145) Potassium Level 4.8 mmol/L (3.5-5.1) Chloride Level 98 mmol/L (98-107) Carbon Dioxide Level 29 mmol/L (21-32) Anion Gap 9 (6-14) Blood Urea Nitrogen 45 mg/dL (7-20) Creatinine 5.1 mg/dL (0.6-1.0) Estimated GFR (Cockcroft-Gault) 8.4 Glucose Level 85 mg/dL (70-99) Calcium Level 9.5 mg/dL (8.5-10.1) Medications Active Scripts Medications Dose Route/Sig Max Daily Dose Days Date Category Dose Instructions Prednisone 10 Mg Tablet 10 Mg PO UD 12/15/16 Rx take 4 tablets by mouth daily for 3 days, then decrease by 1 tablet every 3 days til gone. Pantoprazole Sodium 40 Mg Tablet.dr 40 Mg PO DAILYAC 11/21/16 Rx Benzonatate 100 Mg Capsule 100 Mg PO PRN TID PRN 11/21/16 Rx Duoneb 0.5-3(2.5) Mg/3 Ml (Albuterol/Ipratropium) 3 Ml Ampul.neb 3 Ml NEB QID PRN 10/04/16 Rx Albuterol Sulfate Neb Soln (Albuterol Sulfate) 2.5 Mg/3 Ml Vial.neb 2.5 Mg NEB PRN Q4HRS PRN 30 03/18/16 Rx Nystop (Nystatin) 60 Gm Powder 1 Jesus TP BID 03/18/16 Rx Levetiracetam 500 Mg Tablet 500 Mg PO BID 01/14/16 Reported Vitamin D2 (Ergocalciferol (Vitamin D2)) 50,000 Unit Capsule 1 Cap PO WEEKLY 01/14/16 Reported [place] 5-325 Tablet (Acetaminophen/Hydrocodone Bitart) 1 Each Tablet 1 Tab PO PRN Q6HRS PRN 10/12/15 Rx Nystatin-Triamcinolone Ointm (Nystatin/Triamcin) 30 Gm Oint...g. 30 Gm TP BID 05/20/13 Reported Venlafaxine Hcl Er (Venlafaxine Hcl) 150 Mg Cap.er.24h 150 Mg PO DAILY 05/20/13 Reported Plavix (Clopidogrel Bisulfate) 75 Mg Tablet 75 Mg PO DAILY 05/20/13 Reported Duoneb 0.5 Mg-3 Mg/3 Ml Soln (Ipratropium/Albuterol Sulfate) 3 Ml Ampul.neb 3 Ml IH Q6HRS 05/20/13 Reported Ditropan Xl (Oxybutynin Chloride) 5 Mg Tab.er.24 5 Mg PO DAILY 05/20/13 Reported Impression . 1. Acute on chronic respiratory failure. 2. Acute on chronic diastolic and systolic heart failure. 3. Abnormal x-ray compatible with interstitial pulmonary edema. 4. Mild protein malnutrition, present upon admission. 5. Non-ST segment elevation myocardial infarction. 6. h/o SARITHA, on home BIPAP Plan . 1. Recommend continue p.r.n. BiPAP./ nasal canula 2. hemodialysis per renal 3. follow Cardiology rec. MPI done/ APICAL INFARCT 4. No need for antibiotics. 5. Nebulized treatments. 6. The patient instructed on the importance of discontinuing tobacco use. 7. f/u CXR WITH MILD IMPROVED AERATION AT BASES JAMEE HULL MD Dec 29, 2016 12:20
[2016-12-29 12:30] VITALS: BP 121/46
[2016-12-29 15:00] VITALS: BP 118/62
[2016-12-29] MEDS: CLOPIDOGREL BISULFATE 75 MG TABLET PO SCH (16:50)
[2016-12-29] MEDS: levETIRAcetam 500 MG TABLET PO SCH (16:50)
[2016-12-29] MEDS: PANTOPRAZOLE 40 MG TABLET.DR. PO SCH (16:50)
[2016-12-29] MEDS: OXYBUTYNIN CHLORIDE 5 MG TABLET PO SCH (16:51)
[2016-12-31] MEDS ORDERED: ERGOCALCIFEROL (VITAMIN D2) 50,000 UNIT CAPSULE. PO SCH (09:00)
[2017-01-15] MEDS ORDERED: FOLI0.8T3 PO (16:05)
--- NOTE | 2017-01-24 23:51 | PDOC3 ---
Discharge Summary Visit Information Date of Admission: Dec 24, 2016 Date of Discharge: Dec 29, 2016 Admitting Diagnosis: hypoxia Final Diagnosis 1. Acute hypoxic and hypercapneic respi failure needing NIPPV in ER, improved 2,. pneumonitis, no clear pneumonia, no organism found, abx given empirically 3. COPD, Home O2 dependent 4. Tobaccoism history 5. ESRD on HD MWF w/ hyopokalemia 6, Anemia of ESRD 7. HTN. controlled 8. Fibromylagia, depression PCM, NOS, chronic stable 9. 4 prior CVA, chronic encephalopathy, weakness 10 right wrist pain, Brief Hospital Course Allergies Allergies Coded Allergies Type Severity Reaction Last Updated Verified I S O L A T I O N *CONTACT* Allergy Unknown 10/30/16 Yes No Known Allergies Allergy Unknown 08/02/15 Yes Brief Hospital Course Ms. Harley is a 66 old admitted for complains of SOA and increased wheezing. Newly hypoxic with O2 sat in the 80s in the ER, and better after bipap. abx nebs and treatments , stronger over days no event Renal diet hypokalemia, tobacco cessation recommended Discharge Information Condition at Discharge: Improved Follow Up: Weeks Disposition/Orders: D/C to Home Scheduled Clopidogrel Bisulfate (Plavix), 75 MG PO DAILY, (Reported) Ergocalciferol (Vitamin D2) (Vitamin D2), 1 CAP PO WEEKLY, (Reported) Folic Acid/Vitamin B Comp W-C (Nephro-Fay Tablet), 1 TAB PO DAILY, (Reported) Ipratropium/Albuterol Sulfate (Duoneb 0.5 Mg-3 Mg/3 Ml Soln), 3 ML IH Q6HRS, ( Reported) Levetiracetam (Levetiracetam), 500 MG PO BID, (Reported) Nystatin (Nystop), 1 ISHA TP BID Nystatin/Triamcin (Nystatin-Triamcinolone Ointm), 30 GM TP BID, (Reported) Oxybutynin Chloride (Ditropan Xl), 5 MG PO DAILY, (Reported) Pantoprazole Sodium (Pantoprazole Sodium), 40 MG PO DAILYAC Venlafaxine Hcl (Venlafaxine Hcl Er), 150 MG PO DAILY, (Reported) Scheduled PRN Albuterol Sulfate (Albuterol Sulfate Neb Soln), 2.5 MG NEB PRN Q4HRS PRN for SHORTNESS OF BREATH Benzonatate (Benzonatate), 100 MG PO PRN TID PRN for COUGH Hydrocodone/Apap 5-325 ([place] 5-325 Tablet), 1 TAB PO PRN Q6HRS PRN for PAIN Ipratropium/Albuterol Sulfate (Duoneb 0.5-3(2.5) Mg/3 Ml), 3 ML NEB QID PRN for SHORTNESS OF BREATH WILLIAM MORRISSEY MD Jan 24, 2017 23:51
[2017-02-09] MEDS ORDERED: PRED-220 PO (11:38)
[2017-02-09] MEDS ORDERED: CALC200T23 PO (11:38)
== END 2016-12-29 17:30 | disposition home health service (06) | DRG 280 ==
LOC: ER 09:47 → 1 WEST ICU 10:38 → 2 SOUTH 12-26 19:30
PROVIDERS: ADMIT Internal Medicine; ATTEND Internal Medicine
PROC: 5A09357 Assistance with Respiratory Ventilation, Less than 24 Consecutive Hours, Continuous Positive Airway Pressure (ICD-10-PCS; principal; 2016-12-24)
PROC: 5A1D70Z Performance of Urinary Filtration, Intermittent, Less than 6 Hours Per Day (ICD-10-PCS; 2016-12-24)
PROC: 5A09357 Assistance with Respiratory Ventilation, Less than 24 Consecutive Hours, Continuous Positive Airway Pressure (ICD-10-PCS; 2016-12-25)
PROC: B4101ZZ Fluoroscopy of Abdominal Aorta using Low Osmolar Contrast (ICD-10-PCS; 2016-12-25)
PROC: 3E023GC Introduction of Other Therapeutic Substance into Muscle, Percutaneous Approach (ICD-10-PCS; 2016-12-25)
PROC: 5A09357 Assistance with Respiratory Ventilation, Less than 24 Consecutive Hours, Continuous Positive Airway Pressure (ICD-10-PCS; 2016-12-26)
PROC: B41G1ZZ Fluoroscopy of Left Lower Extremity Arteries using Low Osmolar Contrast (ICD-10-PCS; 2016-12-26)
PROC: B41F1ZZ Fluoroscopy of Right Lower Extremity Arteries using Low Osmolar Contrast (ICD-10-PCS; 2016-12-26)
PROC: 5A09357 Assistance with Respiratory Ventilation, Less than 24 Consecutive Hours, Continuous Positive Airway Pressure (ICD-10-PCS; 2016-12-27)
PROC: 5A09357 Assistance with Respiratory Ventilation, Less than 24 Consecutive Hours, Continuous Positive Airway Pressure (ICD-10-PCS; 2016-12-28)
PROC: 5A09357 Assistance with Respiratory Ventilation, Less than 24 Consecutive Hours, Continuous Positive Airway Pressure (ICD-10-PCS; 2016-12-29)
DX: I21.4 Non-ST elevation (NSTEMI) myocardial infarction (principal); I50.43 Acute on chronic combined systolic (congestive) and diastolic (congestive) heart failure; J96.21 Acute and chronic respiratory failure with hypoxia; J18.9 Pneumonia, unspecified organism; I13.2 Hypertensive heart and chronic kidney disease with heart failure and with stage 5 chronic kidney disease, or end stage renal disease; N18.6 End stage renal disease; N25.81 Secondary hyperparathyroidism of renal origin; G81.11 Spastic hemiplegia affecting right dominant side; Z99.81 Dependence on supplemental oxygen; E44.1 Mild protein-calorie malnutrition; F03.90 Unspecified dementia, unspecified severity, without behavioral disturbance, psychotic disturbance, mood disturbance, and anxiety; E83.52 Hypercalcemia; J44.0 Chronic obstructive pulmonary disease with (acute) lower respiratory infection; D63.1 Anemia in chronic kidney disease; E78.5 Hyperlipidemia, unspecified; E87.6 Hypokalemia; Z16.21 Resistance to vancomycin; B95.2 Enterococcus as the cause of diseases classified elsewhere; I25.10 Atherosclerotic heart disease of native coronary artery without angina pectoris; M79.7 Fibromyalgia; I73.9 Peripheral vascular disease, unspecified; K21.9 Gastro-esophageal reflux disease without esophagitis; F17.210 Nicotine dependence, cigarettes, uncomplicated; F32.9 Major depressive disorder, single episode, unspecified; F41.9 Anxiety disorder, unspecified; M75.01 Adhesive capsulitis of right shoulder; G47.33 Obstructive sleep apnea (adult) (pediatric); Z99.2 Dependence on renal dialysis; Z86.73 Personal history of transient ischemic attack (TIA), and cerebral infarction without residual deficits; Z68.23 Body mass index [BMI] 23.0-23.9, adult; Z83.3 Family history of diabetes mellitus; Z82.49 Family history of ischemic heart disease and other diseases of the circulatory system; Z87.11 Personal history of peptic ulcer disease; Z87.440 Personal history of urinary (tract) infections; Z82.3 Family history of stroke; Z98.49 Cataract extraction status, unspecified eye
CPT/HCPCS: 36415; 36600; 71010; 75625; 78452; 80048; 80053; 80061; 82805; 83605; 83735; 83970; 84484; 85025; 86706; 87040; 87340; 87341; 87641; 93005; 93017; 94250; 94640; 94660; 94760; 96365; 96374; 96375; 96376; 99152; 99153; A9500; C1892; J0456; J0690; J0692; J0881; J1030; J1100; J1956; J2250; J2785; J3010; J3490; J7620; 92526; 92610; 97110; 97116; 97530; 99291-25; J2001